=== PATIENT | female | born 2005 | race Caucasian/White ===

== ENCOUNTER 2024-08-02 19:13 | Emergency (ER) | payer OTHER, SELFPAY ==
[2024-08-02 19:21] VITALS: BP 136/85; PULSE 97; RESP 16; TEMP 36.8; O2SAT 96; BMI 24.1
[2024-08-02 19:55] LABS: Appearance Urine Slightly Cloudy (Clear); Bilirubin Urine Negative (Negative); Blood Urine 3+ (Negative); Color Urine Yellow (Yellow); Glucose Urine Negative (Negative); Ketones Urine Negative (Negative); Leukocyte Esterase Urine 1+ (Negative); Nitrite Urine Positive (Negative); Protein Urine Negative (Negative); Specific Gravity Urine 1.015 (1.000-1.030); Urobilinogen Urine 0.2 (0.2-1.0); pH Urine 5.5 (5.0-8.5)
[2024-08-02 20:00] LABS: Bacteria Urine Moderate
--- NOTE | 2024-08-02 20:11 | ED.FEMALEGU ---
HPI - Female Genitourinary General Chief complaint: Urogenital Problems, Female Stated complaint: Poss UTI-diagnosis for Strep, Bronchitis, mono Time Seen by Provider: 08/02/24 19:58 History of Present Illness HPI Narrative: Patient is a 18-year-old woman who comes in today with general malaise and urinary frequency. She has had no fevers no chills no night sweats. She states that she is a frequent suffer are of urinary tract infections. She has no blood in her urine and uses an IUD and is not . No other related symptoms such as abdominal pain or flank pain. Related Data Home Medications ?Medication ?Instructions ?Recorded ?Confirmed bupropion HCl 300 mg 24 hr tablet, 300 mg PO DAILY 10/25/23 08/02/24 extended release escitalopram oxalate 20 mg tablet 20 mg PO DAILY 10/25/23 08/02/24 Allergies Allergy/AdvReac Type Severity Reaction Status Date / Time No Known Drug Allergies Allergy Verified 08/01/24 13:37 Review of Systems Status of ROS: Reports: 10 or more systems reviewed and unremarkable except as noted in History and below [facility] Medical History Mononucleosis ?B27.90 - Infectious mononucleosis, unspecified without complication (ICD-10) Exam Narrative: Exam Narrative: EXAM GENERAL: Patient appears comfortable and well. EYES: No scleral icterus. ENT: Tympanic membranes and oropharynx normal. THYROID: no thyroid nodules or thyromegaly. LYMPH: No supraclavicular or cervical lymphadenopathy. SKIN: Visible skin seen during exam normal or with benign process only. EXT: No dependent lower extremity pedal edema. HEART: Regular rate and rhythm with no murmurs, rubs, or gallops. LUNGS: Clear to auscultation bilaterally with no crackles or wheezes. ABD: Soft, non tender, non distended. PSYCH: Good eye contact, speech is not pressured. Const: Vital Signs, click to edit/add: Vital Signs - 24 hr 08/02/24 19:21 Temperature 98.3 F Pulse Rate [Pulse Oximeter] 97 Respiratory Rate 16 Blood Pressure [Ri ght Upper Arm] 136/85 Pulse Oximetry 96 Oxygen Delivery Me thod Room Air Course Course ED Course: Patient seen and examined. UA reviewed. Vital Signs Vital signs: Initial Vital Signs Temperature 98.3 F 08/02/24 19:21 Temperature Source Temporal Artery Scan 08/02/24 19:21 Pulse Rate 97 08/02/24 19:21 Respiratory Rate 16 08/02/24 19:21 Blood Pressure 136/85 08/02/24 19:21 Blood Pressure Mean 102 08/02/24 19:21 Blood Pressure Position Sitting 08/02/24 19:21 Pulse Oximetry 96 08/02/24 19:21 Oxygen Delivery Method Room Air 08/02/24 19:21 Vital Signs Temperature 98.3 F 08/02/24 19:21 Pulse Rate 97 08/02/24 19:21 Respiratory Rate 16 08/02/24 19:21 Blood Pressure 136/85 08/02/24 19:21 Pulse Oximetry 96 08/02/24 19:21 Oxygen Delivery Method Room Air 08/02/24 19:21 Temperature 98.3 F 08/02/24 19:21 Pulse Rate 97 08/02/24 19:21 Respiratory Rate 16 08/02/24 19:21 Blood Pressure 136/85 08/02/24 19:21 Pulse Oximetry 96 08/02/24 19:21 Oxygen Delivery Method Room Air 08/02/24 19:21 MDM - Female Genitourinary MDM Narrative Medical decision making narrative: Patient is a 18-year-old woman who presents with UTI symptoms and abnormal UA. Will send her urine for culture. I did place her on Bactrim for the next 5 days plenty of rest plenty fluids. Tylenol Motrin. She has recently been diagnosed with mononucleosis and did complete a steroid pack. No other concerns are noted. Lab Data Labs: Lab Results 08/02/24 Range/Units 19:52 Urine Color Yellow (Yellow) Urine Appearance Slightly Cloudy A (Clear) Urine pH 5.5 (5.0-8.5) Ur Specific [place] 1.015 (1.000-1.030) Urine Protein Negative (Negative) Urine Glucose (UA) Negative (Negative) Urine Ketones Negative (Negative) Urine Blood 3+ A (Negative) Urine Nitrite Positive A (Negative) Urine Bilirubin Negative (Negative) Urine Urobilinogen 0.2 (0.2-1.0) Ur Leukocyte Esterase 1+ A (Negative) Urine RBC 2-5 A (0-2) Urine WBC 2-5 (0-5) Ur Squamous Epith Cells None (None-Few) Urine Bacteria Moderate A (None) Discharge Plan Discharge Clinical Impression: Urinary tract infection Patient Disposition: Home, Self-Care Condition: Stable Instructions: Urinary Tract Infection in Women (ED) Additional Instructions: Bactrim as directed Tylenol Motrin Rest Fluids. Activity Level: No Restrictions Discharge Diet: Regular Prescriptions: No Action bupropion HCl 300 mg tablet extended release 24 hr 300 mg PO DAILY escitalopram oxalate 20 mg tablet 20 mg PO DAILY Follow Up/Referrals: Provider,Not a Local [Primary Care Provider] - Stand Alone Forms: [facility] Info Instructions
== END 2024-08-02 20:25 | disposition home or self-care (01) ==
LOC: ED 20:24
PROVIDERS: Emergency Provider Internal Medicine
DX: N39.0 Urinary tract infection, site not specified (principal)
CPT/HCPCS: 81001; 87086; 87186; 99283

== ENCOUNTER 2024-08-03 15:11 | Emergency (ER) | payer OTHER, SELFPAY ==
[2024-08-03 15:19] VITALS: BP 131/84; PULSE 100; RESP 14; TEMP 36.9; O2SAT 98; BMI 24.1
--- NOTE | 2024-08-03 16:26 | ED.GENADULT ---
HPI - General Adult General Chief complaint: Unspecified Complaint, Adult Stated complaint: mono Time Seen by Provider: 08/03/24 15:55 History of Present Illness HPI narrative: This 18-year-old female comes in with her mother because of recurrent infections over the past month. 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 This was treated with an antibiotic. She then developed a cough and a mono test was obtained and this returned positive. She was seen yesterday because of dysuria symptoms and started on Bactrim for urinary tract infection. Culture results today due returned positive for E coli infection of her urine. She is otherwise in good health but is feeling affects from these infections. In particular she reports a persistent cough with fatigue. She arrives here with normal vital signs. She has had a chest x-ray done a few days ago. She has taken a few doses of prednisone without much relief in the course of these infections. She does not report any shortness of breath. 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 Related Data Home Medications ?Medication ?Instructions ?Recorded ?Confirmed bupropion HCl 300 mg 24 hr tablet, 300 mg PO DAILY 10/25/23 08/03/24 extended release escitalopram oxalate 20 mg tablet 20 mg PO DAILY 10/25/23 08/03/24 Previous Rx's ?Medication ?Instructions ?Recorded acetaminophen 300 mg-codeine 30 mg 1 tab PO Q6H PRN pain #20 tabs 08/03/24 tablet methylprednisolone 4 mg tablets in See Rx Instructions PO .COMPLEX 08/03/24 a dose pack (Medrol (Aamir)) #21 ea Allergies Allergy/AdvReac Type Severity Reaction Status Date / Time No Known Drug Allergies Allergy Verified 08/01/24 13:37 Review of Systems Status of ROS: Reports: 10 or more systems reviewed and unremarkable except as noted in History and below Narrative: Constitutional: No fevers, no weight gain or loss. Generalized fatigue. Eyes: No discharge. No vision changes. HENT: No congestion, no sore throat, no ear pain. Cardiovascular: No chest pain, no palpitations. Respiratory: No shortness of breath, no wheezes. Frequent coughing. Gastrointestinal: No abdominal pain, no vomiting, no diarrhea. Genitourinary: No dysuria, no hematuria. Musculoskeletal: Normal range of motion. Skin: No rashes, no pruritis. Neurological: No dizziness, weakness, sensory change, speech change. Endo/Heme/Allergies: No bruising or bleeding. No polydipsia. Pysch: no suicidality, no anxiety, no insomnia. All other systems reviewed and are negative. [facility] Medical History Mononucleosis ?B27.90 - Infectious mononucleosis, unspecified without complication (ICD-10) Social History Smoking Status: Never smoker How often do you have a drink containing alcohol: never How often do you have six or more drinks on one occasion: Never AUDIT-C Alcohol total score: 0 Non-prescribed substance use: denies use Exam Narrative: Exam Narrative: Constitutional: Well-developed, well-nourished, no acute distress. HEENT: Normocephalic, atraumatic. Pharyngeal erythema without exudate. No tonsillar hypertrophy. Neck: Normal range of motion. Nontender. Supple. Heart: Regular. No murmurs. Normal rate. Intact distal pulses. Lungs: Clear to auscultation. No chest discomfort. No wheezes, rhonchi, or rales. Abdomen: Normal bowel sounds. Nontender. No rebound tenderness. Genitalia: Deferred. Back: No midline tenderness. Normal range of motion. Extremities: Normal range of motion. No injury. Skin: Intact. No rash. Warm. No erythema or pallor. Neurologic: No altered sensation. No weakness. Alert and oriented. Psychiatric: No suicidality. No anxiety or depression. No insomnia. Nursing notes and vitals signs are reviewed. Const: Vital Signs, click to edit/add: Vital Signs - 24 hr 08/03/24 15:19 Temperature 98.5 F Pulse Rate [Pulse Oximeter] 100 Respiratory Rate 14 Blood Pressure [Ri ght Upper Arm] 131/84 Pulse Oximetry 98 Oxygen Delivery Me thod Room Air Course Vital Signs Vital signs: Initial Vital Signs Temperature 98.5 F 08/03/24 15:19 Temperature Source Temporal Artery Scan 08/03/24 15:19 Pulse Rate 100 08/03/24 15:19 Pulse Rhythm Regular 08/03/24 15:19 Respiratory Rate 14 08/03/24 15:19 Blood Pressure 131/84 08/03/24 15:19 Blood Pressure Mean 99 08/03/24 15:19 Blood Pressure Position Sitting 08/03/24 15:19 Pulse Oximetry 98 08/03/24 15:19 Oxygen Delivery Method Room Air 08/03/24 15:19 Vital Signs Temperature 98.5 F 08/03/24 15:19 Pulse Rate 100 08/03/24 15:19 Respiratory Rate 14 08/03/24 15:19 Blood Pressure 131/84 08/03/24 15:19 Pulse Oximetry 98 08/03/24 15:19 Oxygen Delivery Method Room Air 08/03/24 15:19 Temperature 98.5 F 08/03/24 15:19 Pulse Rate 100 08/03/24 15:19 Respiratory Rate 14 08/03/24 15:19 Blood Pressure 131/84 08/03/24 15:19 Pulse Oximetry 98 08/03/24 15:19 Oxygen Delivery Method Room Air 08/03/24 15:19 Medical Decision Making MDM Narrative Medical decision making narrative: This patient is having persistent symptoms likely mostly attributed to mononucleosis infection. Her primary symptoms are fatigue with cough and sore throat. She is currently on Bactrim for urinary tract infection. Her exam is rather normal except for some fair G ill erythema. Her mother and the patient wanted to have blood checked in case there was something else going on. Lab results returned also with reassuring findings. Her white count is in normal range. Her C-reactive protein is elevated at 5.2 but this is not atypical when having a mono infection. The patient is okay to be discharged back to her dormitory. She did receive a prescription for Medrol Dosepak and Tylenol 3. Lab Data Labs: Lab Results 08/03/24 Range/Units 16:25 WBC 9.59 (4.50-11.00) K/uL RBC 4.41 (4.00-5.20) m/uL Hgb 12.8 (12.0-16.0) gm/dL Hct 38.6 (33.0-51.0) % MCV 88 (80-100) fL MCH 29 (26-34) pg MCHC 33 (32-36) gm/dL RDW Coeff of Dean 12.4 (11.5-15.5) % Plt Count 319 (140-440) K/uL Neut % (Auto) 61.2 (42.0-72.0) % Lymph % (Auto) 27.8 (20-44) % [place] % (Auto) 5.5 (0.0-11.0) % Eos % (Auto) 4.9 (0.0-7.0) % Baso % (Auto) 0.2 (0.0-3.0) % Neut # (Auto) 5.86 (1.7-7.0) K/uL Lymph # (Auto) 2.67 (0.90-2.90) K/uL [place] # (Auto) 0.50 (0.00-0.90) K/UL Eos # (Auto) 0.47 (0.00-0.50) K/uL Baso # (Auto) 0.02 (0.00-0.30) K/uL Abs Immat Gran (auto) 0.04 (0.00-0.30) K/uL Imm/Tot Granulo (auto) 0.4 % Sodium 137 (135-149) mmol/L Potassium 3.9 (3.6-5.1) mmol/L Chloride 101 (96-114) mmol/L Carbon Dioxide 30 (20-32) mmol/L Anion Gap 6 L (7-15) mEq/L BUN 15 (5-24) mg/dL Creatinine 0.8 (0.6-1.2) mg/dL Estimated Creat Clear 101.78 Estimated GFR 109 ml/min Glucose 86 (60-115) mg/dL Calcium 9.4 (8.7-10.8) mg/dL C-Reactive Protein 5.2 H (0.5-1.0) mg/dL Discharge Plan Discharge Clinical Impression: Mononucleosis Qualifiers: Infectious mononucleosis etiology: unspecified organism Infectious mononucleosis complication: without complication Qualified Code(s): B27.90 - Infectious mononucleosis, unspecified without complication Patient Disposition: Home w/ Parent or Adult Condition: Unchanged Additional Instructions: Take medications as needed and indicated. Increase activity as tolerated. Follow up with MD return if worsening. Prescriptions: New acetaminophen-codeine 300-30 mg tablet 1 tab PO Q6H PRN (Reason: pain) Qty: 20 0RF methylprednisolone [Medrol (Aamir)] 4 mg tablets,dose pack See Rx Instructions .ROUTE .COMPLEX Qty: 21 0RF Rx Instructions: orally per package directions No Action bupropion HCl 300 mg tablet extended release 24 hr 300 mg PO DAILY escitalopram oxalate 20 mg tablet 20 mg PO DAILY Follow Up/Referrals: Provider,Not a Local [Primary Care Provider] - Stand Alone Forms: [facility] Info Instructions Procedures Ultrasound Other exam #1: Anatomical areas examined: Upper abdomen. Indications: Mononucleosis infection. Exam type: focused emergency ultrasound Description/findings: Normal anatomy. Gallbladder is without abnormality. Spleen appears normal in is perhaps slightly enlarged. Impression: Normal exam.
[2024-08-03 16:31] LABS: Basophils Absolute Auto 0.02 K/uL (0.00-0.30); Basophils Percent Auto 0.2 % (0.0-3.0); Eosinophils Absolute Auto 0.47 K/uL (0.00-0.50); Eosinophils Percent Auto 4.9 % (0.0-7.0); Hematocrit 38.6 % (33.0-51.0); Hemoglobin* 12.8 gm/dL (12.0-16.0); Immature Granulocytes Abs Auto 0.04 K/uL (0.00-0.30); Immature Granulocytes Pct Auto 0.4 %; Lymphocytes Absolute Auto 2.67 K/uL (0.90-2.90); Lymphocytes Percent Auto 27.8 % (20-44); Mean Corpuscular HGB Conc 33 gm/dL (32-36); Mean Corpuscular Hemoglobin 29 pg (26-34); Mean Corpuscular Volume 88 fL (80-100); Monocytes Percent Auto 5.5 % (0.0-11.0); Neutrophils Absolute Auto 5.86 K/uL (1.7-7.0); Neutrophils Percent Auto 61.2 % (42.0-72.0); Platelet Count* 319 K/uL (140-440); RDW Coefficient of Variation % 12.4 % (11.5-15.5); Red Blood Count 4.41 m/uL (4.00-5.20); White Blood Count* 9.59 K/uL (4.50-11.00)
[2024-08-03 16:34] LABS: Slide Review Reflex No
[2024-08-03 16:49] LABS: Chloride* 101 mmol/L (96-114); Sodium* 137 mmol/L (135-149)
[2024-08-03 16:50] LABS: Potassium* 3.9 mmol/L (3.6-5.1)
[2024-08-03 16:52] LABS: Creatinine* 0.8 mg/dL (0.6-1.2); Est. Creatinine Clearance* 101.78; Estimated Glomerular Filt Rate 109 ml/min
[2024-08-03 16:53] LABS: Anion Gap 6 mEq/L (7-15); Blood Urea Nitrogen* 15 mg/dL (5-24); Calcium* 9.4 mg/dL (8.7-10.8); Carbon Dioxide* 30 mmol/L (20-32); Glucose* 86 mg/dL (60-115)
[2024-08-03 16:56] LABS: C Reactive Protein* 5.2 mg/dL (0.5-1.0)
[2024-08-03 17:28] VITALS: BP 134/72; PULSE 85; RESP 16; O2SAT 97
[2024-08-03 18:30] LABS: Erythrocyte SedimentationRate* 18 mm/hr (2-20)
== END 2024-08-03 17:34 | disposition home or self-care (01) ==
PROVIDERS: Emergency Provider Emergency Medicine Emergency Medical Services
DX: B27.90 Infectious mononucleosis, unspecified without complication (principal)
CPT/HCPCS: 36415; 76705; 80048; 85025; 85651; 86140; 99283; 99284

== ENCOUNTER 2024-09-05 21:31 | Inpatient (IN) | payer OTHER, SELFPAY ==
[2024-09-05 21:45] VITALS: BP 128/85; PULSE 85; RESP 16; TEMP 36.8; O2SAT 97; BMI 25.0
--- NOTE | 2024-09-05 21:54 | ED.GENADULT ---
HPI - General Adult General Chief complaint: Sore Throat Stated complaint: poss abscess tonsils Time Seen by Provider: 09/05/24 21:53 History of Present Illness HPI narrative: Patient c/o worsening right throat pain since June. Patient had mono, strep and bronchitis. Patient states she is worried about an abscess. Patient is unsure of fevers. Patient states she was just tested for strep. 18-year-old young woman presenting to the emergency department with concern of worsening throat pain. Feels pain radiating from the upper right side throat up into her right ear. Diagnosed with mono 1 month ago. But sore throat actually began end of June. Ultimately than diagnosed with mono. She is here with deep right-sided throat area pain. Definitely hurts to swallow. It was tested again for strep. She has had 3 rounds of steroids and says that it has not made a difference. Does not describe any fevers. No rashes noted. Is requesting CT imaging. Related Data Home Medications ?Medication ?Instructions ?Recorded ?Confirmed bupropion HCl 300 mg 24 hr tablet, 300 mg PO DAILY 10/25/23 08/03/24 extended release escitalopram oxalate 20 mg tablet 20 mg PO DAILY 10/25/23 08/03/24 Previous Rx's ?Medication ?Instructions ?Recorded acetaminophen 300 mg-codeine 30 mg 1 tab PO Q6H PRN pain #20 tabs 08/03/24 tablet methylprednisolone 4 mg tablets in See Rx Instructions PO .COMPLEX 08/03/24 a dose pack (Medrol (Aamir)) #21 ea Allergies Allergy/AdvReac Type Severity Reaction Status Date / Time No Known Drug Allergies Allergy Verified 08/01/24 13:37 Review of Systems Status of ROS: Reports: 6 or more systems reviewed and unremarkable except as noted in History and below [facility] Medical History Mononucleosis ?B27.90 - Infectious mononucleosis, unspecified without complication (ICD-10) Social History Smoking Status: Never smoker Second hand tobacco smoke exposure: No How often do you have a drink containing alcohol: never How often do you have six or more drinks on one occasion: Never AUDIT-C Alcohol total score: 0 Non-prescribed substance use: denies use service: No Exam Narrative: Exam Narrative: Looks generally uncomfortable. Somewhat downcast. Breathing easily. No stridor. Lungs appear clear. Heart in regular rate and rhythm. Neck is supple without lymphadenopathy. Deep palpation underneath the angle of the right jaw reveals area of tenderness. Feels symmetrical to the left. Oropharynx is unremarkable other than maybe little posterior or pharyngeal irritation/cobblestoning. Dentition looks to be in good repair. TMs bilaterally are clear. I do not see any external swelling on the face. Const: Vital Signs, click to edit/add: Vital Signs - 24 hr 09/05/24 21:45 09/05/24 22:09 Temperature 98.2 F 98.2 F Pulse Rate [Right Pulse Oximeter] 85 Respiratory Rate 16 Blood Pressure [Le ft Upper Arm] 128/85 Pulse Oximetry 97 Oxygen Delivery Me thod Room Air Documenting provider has reviewed patient's vital signs: yes Course Vital Signs Vital signs: Initial Vital Signs Temperature 98.2 F 09/05/24 21:45 Temperature Source Temporal Artery Scan 09/05/24 21:45 Pulse Rate 85 09/05/24 21:45 Pulse Rhythm Regular 09/05/24 21:45 Respiratory Rate 16 09/05/24 21:45 Blood Pressure 128/85 09/05/24 21:45 Blood Pressure Mean 99 09/05/24 21:45 Blood Pressure Position Sitting 09/05/24 21:45 Pulse Oximetry 97 09/05/24 21:45 Oxygen Delivery Method Room Air 09/05/24 21:45 Vital Signs Temperature 98.2 F 09/05/24 21:45 Pulse Rate 85 09/05/24 21:45 Respiratory Rate 16 09/05/24 21:45 Blood Pressure 128/85 09/05/24 21:45 Pulse Oximetry 97 09/05/24 21:45 Oxygen Delivery Method Room Air 09/05/24 21:45 Temperature 98.2 F 09/05/24 22:09 Pulse Rate 85 09/05/24 21:45 Respiratory Rate 16 09/05/24 21:45 Blood Pressure 128/85 09/05/24 21:45 Pulse Oximetry 97 09/05/24 21:45 Oxygen Delivery Method Room Air 09/05/24 21:45 Medications Administered Medications: Generic Name Dose Route Start Last Admin Trade Name Freq PRN Reason Stop Dose Admin Sodium Chloride 500 mls @ 1,000 mls/hr 09/05/24 22:02 09/05/24 22:11 0.9 % Sodium Chloride 500 Ml IV 09/05/24 22:31 1,000 mls/hr .Q30M ONE Administration Ketorolac Tromethamine 30 mg 09/05/24 22:02 09/05/24 22:09 Ketorolac 30 Mg/Ml Inj IVP 09/05/24 22:03 30 mg ONCE ONE Administration Medical Decision Making MDM Narrative Medical decision making narrative: Considering persistence of pain I suppose it is possible there is something more going on. She has also had 3 rounds of steroids as she reports with essentially no results. I do not think CT imaging is unreasonable now with prolonged pain like this. The look for abscess or other anomaly. Does not appear to be dental. No otitis media or externa evident. Will be initiating IV fluids, ketorolac and contrasted CT scan of soft tissue neck. Medical Records Medical records reviewed: Yes I reviewed the patient's medical records Discharge Plan Discharge Prescriptions: No Action bupropion HCl 300 mg tablet extended release 24 hr 300 mg PO DAILY escitalopram oxalate 20 mg tablet 20 mg PO DAILY acetaminophen-codeine 300-30 mg tablet 1 tab PO Q6H PRN (Reason: pain) Qty: 20 0RF methylprednisolone [Medrol (Aamir)] 4 mg tablets,dose pack See Rx Instructions .ROUTE .COMPLEX Qty: 21 0RF Rx Instructions: orally per package directions Follow Up/Referrals: Provider,Not a Local [Primary Care Provider] -
[2024-09-05 22:00] VITALS: O2SAT 98
--- NOTE | 2024-09-05 22:07 | CRLHL7_ITS ---
For Patients: As a result of the Cures Act, medical imaging exams and procedure reports are released immediately into your electronic medical record. You may view this report before your referring provider. If you have questions, please contact your health care provider. INDICATION: Right sided neck pain, Right-sided neck pain TECHNIQUE: CT Neck with i.v. contrast. Coronal and sagittal reformats were obtained. CONTRAST: 74 mL Isovue 370 COMPARISON: None FINDINGS: Skull base: Unremarkable. Portions of the oral cavity and mandible are obscured by streak artifacts from the patient`s dental amalgams. Pharynx: Mild asymmetry with effacement of the right vallecula is noted. No CT evidence of tonsillar or peritonsillar abscess seen. The epiglottis is normal in appearance. Larynx and airway: Unremarkable. Salivary: Unremarkable. Thyroid: Unremarkable. Vascular: Unremarkable for age. Lymph: Mild bilateral jugular adenopathy seen with the largest right lymph node measuring 1 cm in the largest on the left measuring 1.3 cm. Bone: No acute fractures or aggressive bone lesions are identified. Disc: The disc spaces are unremarkable in appearance. The facet joints are unremarkable. Soft tissue: The prevertebral soft tissues are unremarkable in appearance. Lung: The visualized lung apices and mediastinum are unremarkable. IMPRESSIONS: 1. Mild bilateral jugular adenopathy seen with the largest right lymph node measuring 1 cm in the largest on the left measuring 1.3 cm. 2. Mild asymmetry with effacement of the right vallecula is noted. Correlation with direct visualization is recommended Dictated by Evangelist Wills MD @ 09/05/2024 11:06:02 PM Please note that all CT scans at this facility use dose modulation, iterative reconstruction, and/or weight-based dosing when appropriate to reduce radiation dose to as low as reasonably achievable. Dictated by: Evangelist Wills MD @ 09/05/2024 23:06:18 (Electronically Signed)
[2024-09-05 22:09] VITALS: TEMP 36.8
[2024-09-05] MEDS: KETOROLAC 30 MG/ML inj IVP (22:09)
[2024-09-05] MEDS: 0.9 % SODIUM CHLORIDE 500 ML 500 ML 1000 ML IV (22:11)
[2024-09-05 22:22] LABS: Basophils Percent Auto 0.3 % (0.0-3.0); Eosinophils Percent Auto 3.1 % (0.0-7.0); Hematocrit 37.4 % (33.0-51.0); Hemoglobin* 12.8 gm/dL (12.0-16.0); Immature Granulocytes Pct Auto 0.2 %; Lymphocytes Percent Auto 29.2 % (20-44); Mean Corpuscular HGB Conc 34 gm/dL (32-36); Mean Corpuscular Hemoglobin 30 pg (26-34); Mean Corpuscular Volume 86 fL (80-100); Monocytes Percent Auto 7.5 % (0.0-11.0); Neutrophils Percent Auto 59.7 % (42.0-72.0); Platelet Count* 308 K/uL (140-440); RDW Coefficient of Variation % 12.5 % (11.5-15.5); Red Blood Count 4.34 m/uL (4.00-5.20); White Blood Count* 11.14 K/uL (4.50-11.00)
[2024-09-05 22:31] LABS: Slide Review Reflex No
[2024-09-05 23:02] LABS: C Reactive Protein* < 0.5 mg/dL (0.5-1.0)
[2024-09-06] VITALS (10 sets, daily range): BP systolic 100–132; BP diastolic 53–80; PULSE 71–102; RESP 16–20; TEMP 36.2–36.8; O2SAT 94–98; BMI 27.2
[2024-09-06] MEDS: AMPICILLIN/SULBACTAM 3 GM in 0.9 % SODIUM CHLORIDE Mini-bag 100 ML IVPB ×4 (00:08→20:08)
[2024-09-06] MEDS: dexAMETHasone 10 MG/ML inj IVP (00:08)
--- NOTE | 2024-09-06 02:42 | W.PM.TELEH&P ---
Telehealth- H&P: HPI History of Present Illness Date Seen: 09/06/24 Chief complaint: poss abscess tonsils Narrative: Sandra Valentin is seen as an Interactive Telehealth visit. Sandra Valentin is a 18-year-old female who presents to hospital with severe throat pain. Patient's symptoms have started since June 2024. When she arrived to college she developed sore throat. She was diagnosed with strep. She was prescribed antibiotics, penicillin and she completed it. She continued to have some symptoms and then presented back to her provider where she was diagnosed with mononucleosis. Since being diagnosed with mononucleosis, she has developed fatigue and night sweats as well as throat swelling. She has noticed that her snoring is worse at night. Earlier today, she presented to the hospital due to severe throat pain. Patient underwent CT scan of the head and neck. Patient soft tissue CT showed mild jugular adenopathy with lymph nodes measuring 1 to 1.3 cm. There is also mild asymmetry with effacement of the right vallecula consistent with epiglottitis. The case is was discussed with the ER physician and multiple ER providers in different hospitals including [facility]. They recommended, antibiotics and steroids and observation. Review of Systems Status of ROS: Reports: 10 or more systems reviewed and unremarkable except as noted in History and below Const: Reports: chills, fatigue, night sweats and other (excessive snoring); Denies: fever or change in weight Eyes: Denies: change in vision or blurry vision ENMT: Reports: throat pain and throat swelling; Denies: difficulty swallowing, hoarseness, mouth pain, dry mouth or vertigo Cardio: Denies: chest pain or shortness of breath with exertion Resp: Denies: shortness of breath GI: Denies: abdominal pain or difficulty swallowing Musculo: Reports: back pain Neuro: Denies: headache, vertigo or confusion Endo: Reports: fatigue Cristian/Lymph: Reports: enlarged lymph nodes; Denies: easy bruising Allergy/Immuno: Reports: throat swelling PFSH [facility] Medical History Mononucleosis ?B27.90 - Infectious mononucleosis, unspecified without complication (ICD-10) Social History Smoking Status: Never smoker Second hand tobacco smoke exposure: No How often do you have a drink containing alcohol: never How often do you have six or more drinks on one occasion: Never AUDIT-C Alcohol total score: 0 Non-prescribed substance use: denies use service: No Meds Home Medications and Allergies Home Medications ?Medication ?Instructions ?Recorded ?Confirmed ?Type bupropion HCl 300 mg 24 hr tablet, 300 mg PO DAILY 10/25/23 08/03/24 History extended release escitalopram oxalate 20 mg tablet 20 mg PO DAILY 10/25/23 08/03/24 History Allergies Allergy/AdvReac Type Severity Reaction Status Date / Time No Known Drug Allergies Allergy Verified 08/01/24 13:37 Exam Narrative Exam Narrative: Physical Exam GENERAL: ?vital signs reviewed, well developed and nourished, in no distress HEENT: pupils are equal round and reactive to light, extraocular movements are grossly within normal limits and oral mucosa is moist. NECK: Supple with positive lymph nodes, right side tender to palpation according to nursing staff examination observation HEART: Regular rate and rhythm without any rubs, murmurs, or gallops. LUNGS: Clear to auscultation bilaterally with good air movement throughout SKIN:? Observed warm and dry with color normal Const Vital Signs, click to edit/add: Vital Signs - 24 hr 09/05/24 21:45 09/05/24 22:00 09/05/24 22:09 Temperature 98.2 F 98.2 F Pulse Rate [Right Pulse Oximeter] 85 Respiratory Rate 16 Blood Pressure [Left Upper Arm] 128/85 Pulse Oximetry 97 98 Oxygen Delivery Method Room Air 09/06/24 00:11 09/06/24 00:17 09/06/24 01:40 Temperature 98.2 F 98.2 F 98.2 F Pulse Rate [Right Pulse Oximeter] 79 81 Respiratory Rate 16 16 Blood Pressure [Left Upper Arm] 122/74 122/78 Pulse Oximetry 98 98 Oxygen Delivery Method Room Air Room Air 09/06/24 01:52 Temperature 98.2 F Pulse Rate [Right Pulse Oximeter] 81 Respiratory Rate 16 Blood Pressure [Left Upper Arm] 122/78 Pulse Oximetry Oxygen Delivery Method Hospitalist - H&P: Result Labs Labs: Short CBC 09/05/24 Range/Units 22:12 WBC 11.14 H (4.50-11.00) K/uL Hgb 12.8 (12.0-16.0) gm/dL Hct 37.4 (33.0-51.0) % Plt Count 308 (140-440) K/uL Assessment and Plan Assessment and plan (1) Epiglottitis: Status: Acute Plan This patient appears to have severe sore throat. CT evidence shows effacement of the vallecula. Effacement of the vallecula is a radiological sign seen on lateral imaging suggestive of epiglottitis which is a infection of the supraglottic tissues. The risk is that this can cause airway obstruction. Most common causes of epiglottitis is haemophilus influenza or and or viral infection such as influenza. Therefore I will order a culture of the throat as well as screening influenza testing. Per recommendation of [facility], patient started on Unasyn and dexamethasone. Patient was given 10 mg IV dexamethasone push. Will continue this with 4 mg 4 times daily. Will have pain medication provided. Will have her on a clear liquid diet and advance as tolerated. Telehealth Visit Today's History and Physical is provided via interactive telehealth by Dr. Romario Neil MD. Patient is located at [facility]. Provider is located at [facility]. Nursing staff assisted with the patient's examination. The visit being done today meets criteria for a telehealth visit and the patient or patient's parent and/or gaurdian is aware the visit is a telehealth visit. Camera Start Time 2:00 AM Camera End Time 2:30 AM Telehealth: Statement Statement Telehealth Visit: Today's History and Physical is provided via interactive telehealth by Romario Neil MD.? Patient is located at [facility].? Provider is located at [facility].? Nursing staff assisted with the patient's exam. The visit being done today meets criteria for a telehealth visit and the patient or patient?s parent/guardian is aware the visit is a telehealth visit.
[2024-09-06 03:20] LABS: Influenza Type A Negative (Negative); Influenza Type B Negative (Negative)
[2024-09-06] MEDS: SODIUM CHLORIDE 0.9 % (FLUSH) 10 ML SYRINGE 5 ML IVF ×3 (06:27→22:00)
--- NOTE | 2024-09-06 07:47 | PC.NURSE ---
Pt admitted to floor around 0140. Pt is alert and oriented x3. Afebrile. Pt reports 4/10 pain in throat, pain medications offered pt refused. Pt is up ind in room, voiding and tolerating a clear liquid diet.
[2024-09-06] MEDS: buPROPion XL 150 MG TABLET 300 MG PO (08:44)
[2024-09-06] MEDS: ESCITALOPRAM 10 MG TABLET 20 MG PO (08:44)
[2024-09-06] MEDS: dexAMETHasone 4 MG/ML VIAL IV ×4 (08:44→20:45)
--- NOTE | 2024-09-06 10:18 | P.IMPN_ITS ---
Progress Note: A&P Assessment and plan (1) Pharyngitis: Problem details: Throat pain without evidence of tonsillar/peritonsillar abscess, without evidence of acute epiglottitis. Larynx and airway are unremarkable CT soft tissue neck shows mild asymmetry with effacement of the right vallecula Afebrile. Mild leukocytosis, recheck in a.m.. CRP <0.5. Influenza negative. Throat culture pending Given risk for development of epiglottitis, started on IV antibiotics and IV steroids Continue Unasyn q.6 hours, dexamethasone q.i.d. Pain and nausea management as needed Advance diet to full liquids as tolerated Discussed with Dr. Arreola, agrees with course of care. Will see her on 09/07/24 for further management recommendations Status: Acute (2) Adenopathy: Problem details: CT shows mild bilateral jugular adenopathy seen with the largest right lymph node measuring 1 cm in the largest on the left measuring 1.3 cm Status: Acute Plan Continue IV antibiotics and IV steroids, transitioning to oral when appropriate. ENT assessment 09/07/2024. Patient hopeful to discharge Tuesday morning to attend classes Tuesday afternoon. Time Spent With Patient Total time spent: Total time spent caring for the patient today was 45 minutes. This includes time spent for the visit reviewing the chart, time spent during the visit, time spent after the visit and documentation and planning in coordination of care. Subjective Date Seen: 09/06/24 Interval history: Patient is seen with aunt at bedside. Reports feeling better. Pain has improved. Swelling feels improved. Tolerating clears. Would like to advance her diet. C/o mild headache. No dizziness. Denies n/v. Has remained afebrile. No events reported overnight. Exam Narrative: Exam Narrative: PHYSICAL EXAM General: Pleasant, conversant, NAD HEENT: Normocephalic, atraumatic, sclera white, EOMI, oral mucosa moist, no appreciable swelling of the soft palate, peritonsillar region, minimal erythema, mild cervical adenopathy Cardiovascular: RRR, S1S2. No pitting edema Pulmonary: CTA bilaterally without rhonchi, rales, expiratory wheezes. No dyspnea Neurological: Alert, answering questions appropriately, cranial nerves intact, no focal findings Extremities: No gross joint deformity or swelling. AROMI. Neurovascularly intact Skin: Warm, dry. Const: Vital Signs, click to edit/add: Vital Signs - 24 hr 09/05/24 21:45 09/05/24 22:00 09/05/24 22:09 Temperature 98.2 F 98.2 F Pulse Rate [Right Pulse Oximeter] 85 Pulse Rate [Right Radial] Respiratory Rate 16 Blood Pressure [Le ft Upper Arm] 128/85 Blood Pressure [Ri ght Arm] Pulse Oximetry 97 98 Oxygen Delivery Me thod Room Air 09/06/24 00:11 09/06/24 00:17 09/06/24 01:40 Temperature 98.2 F 98.2 F 98.2 F Pulse Rate [Right Pulse Oximeter] 79 81 Pulse Rate [Right Radial] Respiratory Rate 16 16 Blood Pressure [Le ft Upper Arm] 122/74 122/78 Blood Pressure [Ri ght Arm] Pulse Oximetry 98 98 Oxygen Delivery Me thod Room Air Room Air 09/06/24 01:52 09/06/24 03:02 09/06/24 03:02 Temperature 98.2 F 97.3 F L Pulse Rate [Right Pulse Oximeter] 81 Pulse Rate [Right Radial] Respiratory Rate 16 16 16 Blood Pressure [Le ft Upper Arm] 122/78 Blood Pressure [Ri ght Arm] 125/74 Pulse Oximetry 98 98 Oxygen Delivery Me thod Room Air Room Air 09/06/24 08:38 Temperature 97.1 F L Pulse Rate [Right Pulse Oximeter] Pulse Rate [Right Radial] 71 Respiratory Rate 16 Blood Pressure [Le ft Upper Arm] Blood Pressure [Ri ght Arm] 100/59 L Pulse Oximetry 95 Oxygen Delivery Me thod Room Air Labs Labs: Laboratory Results - last 24 hr 09/05/24 09/06/24 22:12 02:35 WBC 11.14 H RBC 4.34 Hgb 12.8 Hct 37.4 MCV 86 MCH 30 MCHC 34 RDW Coeff of Dean 12.5 Plt Count 308 Neut % (Auto) 59.7 Lymph % (Auto) 29.2 [place] % (Auto) 7.5 Eos % (Auto) 3.1 Baso % (Auto) 0.3 Neut # (Auto) 6.70 Lymph # (Auto) 3.30 H [place] # (Auto) 0.80 Eos # (Auto) 0.30 Baso # (Auto) 0.00 Abs Immat Gran (auto) 0.00 Imm/Tot Granulo (auto) 0.2 C-Reactive Protein < 0.5 L Influenza Type A Ag Negative Influenza Type B Ag Negative
--- NOTE | 2024-09-06 22:02 | PC.NURSE ---
Pt VSS. A&O. Amb Ind. Tolerated a regular diet at dinner. Rates throat pain between 2-3/. Manufacturing Technology Analyst called to patients room around 0 as patient was vomiting, dry heaving, c/o feeling hot, faint and dizzy. Pt stated that they had a coughing attack and began vomiting from coughing so hard. Pt states that they have these coughing spells nearly everyday since they were sick with bronchitis this summer. BP was 132/81 HR 102 and O2 sat 94%. Manufacturing Technology Analyst applied cool washcloths to pt's forehead and back of neck. Pt also stated that during a doctor's visit they suspected they may have POTS, which causes increase in HR and dizziness. Updated Dr. Banks. Dr. Banks ordered some hydroxizine 20mg per pt request to help relax and sleep restfully.
[2024-09-06] MEDS: hydrOXYzine pamoate 25 MG CAPSULE PO (22:17)
[2024-09-07] MEDS: AMPICILLIN/SULBACTAM 3 GM in 0.9 % SODIUM CHLORIDE Mini-bag 100 ML IVPB ×2 (00:18→06:12)
[2024-09-07] MEDS: SODIUM CHLORIDE 0.9 % (FLUSH) 10 ML SYRINGE 5 ML IVF ×2 (00:19→09:01)
[2024-09-07 04:10] VITALS: BP 104/45; PULSE 65; RESP 16; TEMP 36.7; O2SAT 97
--- NOTE | 2024-09-07 06:25 | PC.NURSE ---
Pt alert and oriented x3. Afebrile. Pt reports 3/10 pain in throat, pain medications offered pt refused. Pt denies SOB, pt?is up IND, voiding, and tolerating a soft regular diet. Pt slept throughout most of night. ?
[2024-09-07 06:40] LABS: Hematocrit 37.4 % (33.0-51.0); Hemoglobin* 12.5 gm/dL (12.0-16.0); Mean Corpuscular HGB Conc 33 gm/dL (32-36); Mean Corpuscular Hemoglobin 29 pg (26-34); Mean Corpuscular Volume 87 fL (80-100); Platelet Count* 297 K/uL (140-440); White Blood Count* 17.16 K/uL (4.50-11.00)
[2024-09-07 07:06] LABS: Slide Review Reflex No
[2024-09-07 07:25] LABS: Chloride* 102 mmol/L (96-114); Potassium* 3.7 mmol/L (3.6-5.1); Sodium* 136 mmol/L (135-149)
[2024-09-07 07:27] LABS: Creatinine* 0.6 mg/dL (0.6-1.2); Estimated Glomerular Filt Rate 133 ml/min
[2024-09-07 07:28] LABS: Anion Gap 10 mEq/L (7-15); Blood Urea Nitrogen* 12 mg/dL (5-24); Calcium* 9.4 mg/dL (8.7-10.8); Carbon Dioxide* 24 mmol/L (20-32); Glucose* 124 mg/dL (60-115)
[2024-09-07 08:18] VITALS: BP 103/48; PULSE 62; RESP 14; TEMP 36.9; O2SAT 92
[2024-09-07] MEDS: buPROPion XL 150 MG TABLET PO (09:01)
[2024-09-07] MEDS: dexAMETHasone 4 MG/ML VIAL IV (09:01)
[2024-09-07] MEDS: ESCITALOPRAM 10 MG TABLET 20 MG PO (09:01)
--- NOTE | 2024-09-07 10:16 | PM.DS1 ---
DS: Providers Provider Time Seen by Provider: 10:16 Date Seen: 09/07/24 Date of admission: 09/06/24 09:52 Primary care physician: Not a Local Provider Admitting Clinician: Romario Neil MD Consults: 09/06/24 08:15 Consult to Physician [CONS] Routine Comment: Consulting Provider: Jeff Arreola Has provider been notified: No Attending Physician on discharge: Bethany Raya MD Date of Discharge: 09/07/24 DS: Diagnosis Discharge Diagnosis (1) Pharyngitis: Status: Acute Problem details: Throat pain without evidence of tonsillar/peritonsillar abscess, without evidence of acute epiglottitis. Larynx and airway are unremarkable CT soft tissue neck shows mild asymmetry with effacement of the right vallecula Afebrile. Mild leukocytosis, recheck in a.m.. CRP <0.5. Influenza negative. Throat culture pending Given risk for development of epiglottitis, started on IV antibiotics and IV steroids Continue Unasyn q.6 hours, dexamethasone q.i.d. Pain and nausea management as needed Advance diet to full liquids as tolerated Discussed with Dr. Arreola, agrees with course of care. Will see her on 09/07/24 for further management recommendations - 09/07 Patient's symptoms much improved. No SOB. Tolerating adequate PO intake. Discussed with Dr. Arreola. Per his recommendations: Discharging home with 1 week of Augmentin (with 1 refill to be taken if has not yet had outpatient tonsillectomy). ENT nurse will call patient Tuesday to set up appointment for that week and tonsillectomy (patient may instead choose to get this done in [place] where she lives). (2) Mononucleosis: Status: Acute Problem details: - Positive mono test 08/01/24 - Patient is already over 4 weeks out from positive mononucleosis test, so I do not think she needs restriction from activity or sports at this time. (3) Epiglottitis: Status: Acute (4) Adenopathy: Status: Acute Problem details: CT shows mild bilateral jugular adenopathy seen with the largest right lymph node measuring 1 cm in the largest on the left measuring 1.3 cm DS: Summary Hospital Course Hospital Course: Per H&P: Sandra Valentin is seen as an Interactive Telehealth visit. Sandra Valentin is a 18-year-old female who presents to hospital with severe throat pain. Patient's symptoms have started since June 2024. When she arrived to college she developed sore throat. She was diagnosed with strep. She was prescribed antibiotics, penicillin and she completed it. She continued to have some symptoms and then presented back to her provider where she was diagnosed with mononucleosis. Since being diagnosed with mononucleosis, she has developed fatigue and night sweats as well as throat swelling. She has noticed that her snoring is worse at night. Earlier today, she presented to the hospital due to severe throat pain. Patient underwent CT scan of the head and neck. Patient soft tissue CT showed mild jugular adenopathy with lymph nodes measuring 1 to 1.3 cm. There is also mild asymmetry with effacement of the right vallecula consistent with epiglottitis. The case is was discussed with the ER physician and multiple ER providers in different hospitals including [facility]. They recommended, antibiotics and steroids and observation. Symptoms improving. Dr. Arreola saw patient today, recommendations as above. Discharging home with outpatient f/u as above in diagnoses. Time Spent with Patient Time attestation: Total time spent providing and/or coordinating discharge services: Exam Narrative: Exam Narrative: General: No acute distress. Awake, alert, oriented. No pallor. No jaundice. Oropharynx: Mallampati 1. Tonsils 2+, mildly erythematous, no exudate. Mild cervical lymphadenopathy. Mucous membranes moist. Cardiovascular: Regular rate and rhythm. No murmurs, gallops, or rubs. Respiratory: Clear to auscultation bilaterally. No wheezes or crackles. Abdomen: Bowel sounds present. Soft, nondistended, nontender. No splenomegaly. Extremities: No pedal edema. Const: Vital Signs, click to edit/add: Vital Signs - 24 hr 09/06/24 12:54 09/06/24 15:00 09/06/24 15:00 Temperature 97.7 F 98.2 F Pulse Rate [Right Radial] 89 88 88 Respiratory Rate 16 16 16 Blood Pressure [Le ft Arm] Blood Pressure [Ri ght Arm] 120/53 L 124/78 Pulse Oximetry 96 97 Oxygen Delivery Me thod Room Air Room Air 09/06/24 21:45 09/06/24 23:30 09/06/24 23:30 Temperature 98.1 F Pulse Rate [Right Radial] 102 H 74 Respiratory Rate 20 16 16 Blood Pressure [Le ft Arm] Blood Pressure [Ri ght Arm] 132/80 123/66 Pulse Oximetry 94 96 Oxygen Delivery Me thod Room Air Room Air 09/07/24 04:10 09/07/24 08:18 Temperature 98.1 F 98.4 F Pulse Rate [Right Radial] 65 62 Respiratory Rate 16 14 Blood Pressure [Le ft Arm] 104/45 L Blood Pressure [Ri ght Arm] 103/48 L Pulse Oximetry 97 92 Oxygen Delivery Me thod Room Air Room Air DS: Data Data Completed and Pending Completed studies during hospitalization: Ordering Physician: Greg Burns M.D. Date of Service: 09/05/24 Procedure(s): CT soft tissue neck w con Accession Number(s): [id number] cc: Provider,Not a Local; Greg Burns M.D.~ For Patients: As a result of the Cures Act, medical imaging exams and procedure reports are released immediately into your electronic medical record. You may view this report before your referring provider. If you have questions, please contact your health care provider. INDICATION: Right sided neck pain, Right-sided neck pain TECHNIQUE: CT Neck with i.v. contrast. Coronal and sagittal reformats were obtained. CONTRAST: 74 mL Isovue 370 COMPARISON: None FINDINGS: Skull base: Unremarkable. Portions of the oral cavity and mandible are obscured by streak artifacts from the patient`s dental amalgams. Pharynx: Mild asymmetry with effacement of the right vallecula is noted. No CT evidence of tonsillar or peritonsillar abscess seen. The epiglottis is normal in appearance. Larynx and airway: Unremarkable. Salivary: Unremarkable. Thyroid: Unremarkable. Vascular: Unremarkable for age. Lymph: Mild bilateral jugular adenopathy seen with the largest right lymph node measuring 1 cm in the largest on the left measuring 1.3 cm. Bone: No acute fractures or aggressive bone lesions are identified. Disc: The disc spaces are unremarkable in appearance. The facet joints are unremarkable. Soft tissue: The prevertebral soft tissues are unremarkable in appearance. Lung: The visualized lung apices and mediastinum are unremarkable. IMPRESSIONS: 1. Mild bilateral jugular adenopathy seen with the largest right lymph node measuring 1 cm in the largest on the left measuring 1.3 cm. 2. Mild asymmetry with effacement of the right vallecula is noted. Correlation with direct visualization is recommended Dictated by Evangelist Wills MD @ 09/05/2024 11:06:02 PM Please note that all CT scans at this facility use dose modulation, iterative reconstruction, and/or weight-based dosing when appropriate to reduce radiation dose to as low as reasonably achievable. Dictated by: Evangelist Wills MD @ 09/05/2024 23:06:18 (Electronically Signed) Labs on day of discharge: Labs from last 24 hours 09/07/24 06:11 WBC 17.16 H RBC 4.30 Hgb 12.5 Hct 37.4 MCV 87 MCH 29 MCHC 33 Plt Count 297 Sodium 136 Potassium 3.7 Chloride 102 Carbon Dioxide 24 Anion Gap 10 BUN 12 Creatinine 0.6 Estimated Creat Clear 135.70 Estimated GFR 133 Glucose 124 H Calcium 9.4 Preliminary micro results at discharge 09/06/24 02:35 Throat Culture - Preliminary Throat Culture in Progress Discharge Plan Discharge Disposition: Home, Self-Care Date of Admission: 09/06/24 09:52 Attending Provider on Discharge: Bethany Raya Consulting Providers: Jeff Arreola Discharge Medications: New amoxicillin-pot clavulanate 875-125 mg tablet 1 tab PO BID 7 Days Qty: 14 1RF Continued escitalopram oxalate 20 mg tablet 20 mg PO DAILY clindamycin phosphate 1 % lotion 1 applic topical DAILY bupropion HCl 150 mg tablet extended release 24 hr 150 mg PO DAILY fluticasone propionate 110 mcg/actuation HFA aerosol inhaler 1 puff inhalation .PRN Rx Instructions: FOR EXERCISE INDUCED ASTHMA levalbuterol tartrate 45 mcg/actuation HFA aerosol inhaler 1 inh inhalation .PRN Rx Instructions: FOR EXERCISE INDUCED ASTHMA tretinoin 0.025 % cream 1 applic topical HS Discharge Orders: Discharge Order (Routine); Ordered 09/07/24 Ordered By: Bethany Raya Patient Education: Amoxicillin (By mouth) Additional Instructions: Dr. Arreola's nurse will call next Tuesday to set up an appointment for next week and to schedule tonsillectomy. Take 1 week augmentin as prescribed. If you have not had a tonsillectomy yet, refill the prescription for augmentin and start taking that as prescribed. Activity Level: No Restrictions Discharge Diet: Regular Follow Up Appointments: Provider,Not a Local [Primary Care Provider] - Forms: [employer] Info Instructions
--- NOTE | 2024-09-07 11:27 | PC.NURSE ---
Discharge: Patient pleasant and cooperative. Up independently, denied pain or nausea. Vitals stable, BP soft however patient sleeping on side while getting vitals this AM. When up to bathroom denied lightheadedness. Seen by prior to discharge. Reviewed discharge instructions with patient and mother, IV removed. Discharged @ 8167.
== END 2024-09-07 10:48 | disposition home or self-care (01) | DRG 153 ==
LOC: ED 09-06 01:16 → MEDSURG 09-06 01:47
PROVIDERS: Physician Assistant; Admitting Provider Student in an Organized Health Care Education/Training Program; Emergency Provider Family Medicine; Visit Provider Student in an Organized Health Care Education/Training Program
DX: J02.9 Acute pharyngitis, unspecified (principal); R59.0 Localized enlarged lymph nodes; B27.90 Infectious mononucleosis, unspecified without complication
CPT/HCPCS: 36415; 70491; 80048; 85025; 85027; 86140; 87070; 87804; 94761; 99284; 99285; A9270; G0378; J0295; J1100; J1885; J7030; Q9967

== ENCOUNTER 2024-09-29 18:44 | Emergency (ER) | payer OTHER, SELFPAY ==
[2024-09-29 18:49] VITALS: BP 122/81; PULSE 91; RESP 18; TEMP 36.4; O2SAT 98; BMI 25.0
--- NOTE | 2024-09-29 19:07 | ED_ITS ---
HPI - Headache General Chief Complaint: Headache/Migraine Stated Complaint: Headache Time Seen by Provider: 09/29/24 18:47 History of Present Illness HPI Narrative: This 19-year-old female comes in reporting headache over the past 4 days. She states that she thought it was like a stress headache but this 1 has persisted. She does report some neck discomfort. She has not had any fevers. She did have mononucleosis a few months ago and feels like she really has not recovered since then however she has resumed school and sports activities at school. The past few days however she has had sensitivity to light with nausea but no vomiting. She also reports night sweats and chills. She states that she has woke up and feels like she needs to ring out her clothes with so much sweating at night. She states that she slept 17 hours a few days ago and feels tired all the time now. Related Data Home Medications ?Medication ?Instructions ?Recorded ?Confirmed escitalopram oxalate 20 mg tablet 20 mg PO DAILY 10/25/23 09/06/24 bupropion HCl 150 mg 24 hr tablet, 150 mg PO DAILY 09/06/24 09/06/24 extended release clindamycin phosphate 1 % lotion 1 applic topical DAILY 09/06/24 09/06/24 fluticasone propionate 110 1 puff inhalation .PRN 09/06/24 09/06/24 mcg/actuation HFA aerosol inhaler levalbuterol tartrate 45 1 inh inhalation .PRN 09/06/24 09/06/24 mcg/actuation aerosol inhaler tretinoin 0.025 % topical cream 1 applic topical HS 09/06/24 09/06/24 Previous Rx's ?Medication ?Instructions ?Recorded amoxicillin 875 mg-potassium 1 tab PO BID peritonsillar abscess 09/07/24 clavulanate 125 mg tablet 1 week #14 tabs Allergies Allergy/AdvReac Type Severity Reaction Status Date / Time No Known Drug Allergies Allergy Verified 09/29/24 18:51 Review of Systems Status of ROS: Reports: 10 or more systems reviewed and unremarkable except as noted in History and below Narrative: Constitutional: No fevers, no weight gain or loss. Eyes: No discharge. No vision changes. No sign of lymphadenopathy. HENT: No congestion, no sore throat, no ear pain. Cardiovascular: No chest pain, no palpitations. Respiratory: No shortness of breath, no wheezes, no cough. Gastrointestinal: No abdominal pain, no vomiting, no diarrhea. Genitourinary: No dysuria, no hematuria. Musculoskeletal: Normal range of motion. Skin: No rashes, no pruritis. Neurological: No dizziness, weakness, sensory change, speech change. She is abl e to bowel her head and pressor chin to her chest. Endo/Heme/Allergies: No bruising or bleeding. No polydipsia. Pysch: no suicidality, no anxiety, no insomnia. All other systems reviewed and are negative. [facility] Medical History (Updated 09/29/24 @ 20:50 by Roly Mcclain MD) Mononucleosis ?B27.90 - Infectious mononucleosis, unspecified without complication (ICD-10) Social History What is your current living situation?: I presently have a place to live Problems where you live: no known problems Problems where you live details: n/a In the past 12 months, utilities in danger of being shut off: no In the past 12 mos, have been you worried that your food would run out before you had money to buy more?: never true In the past 12 mos, the food you bought just didn't last and you didn't have money to buy more?: never true Smoking Status: Never smoker Do you use any of these nicotine containing products: None Second hand tobacco smoke exposure: No How often do you have a drink containing alcohol: never How often do you have six or more drinks on one occasion: Never AUDIT-C Alcohol total score: 0 Non-prescribed substance use: denies use How often does anyone, including family, friends and others, physically hurt you : never How often does anyone, including family, friends and others, insult or talk down to you: never How often does anyone, including family, friends and others, threaten you with harm: never How often does anyone, including family, friends and others, scream or curse at you: never service: No Exam Const: Vital Signs, click to edit/add: Vital Signs - 24 hr 09/29/24 18:49 Temperature 97.6 F Pulse Rate [Right Pulse Oximeter] 91 Respiratory Rate 18 Blood Pressure [Ri ght Upper Arm] 122/81 Pulse Oximetry 98 Oxygen Delivery Me thod Room Air Course Vital Signs Vital signs: Initial Vital Signs Temperature 97.6 F 09/29/24 18:49 Temperature Source Temporal Artery Scan 09/29/24 18:49 Pulse Rate 91 09/29/24 18:49 Pulse Rhythm Regular 09/29/24 18:49 Pulse Strength 3+ Normal 09/29/24 18:49 Respiratory Rate 18 09/29/24 18:49 Blood Pressure 122/81 09/29/24 18:49 Blood Pressure Mean 94 09/29/24 18:49 Blood Pressure Position Sitting 09/29/24 18:49 Pulse Oximetry 98 09/29/24 18:49 Oxygen Delivery Method Room Air 09/29/24 18:49 Vital Signs Temperature 97.6 F 09/29/24 18:49 Pulse Rate 91 09/29/24 18:49 Respiratory Rate 18 09/29/24 18:49 Blood Pressure 122/81 09/29/24 18:49 Pulse Oximetry 98 09/29/24 18:49 Oxygen Delivery Method Room Air 09/29/24 18:49 Temperature 97.6 F 09/29/24 18:49 Pulse Rate 91 09/29/24 18:49 Respiratory Rate 18 09/29/24 18:49 Blood Pressure 122/81 09/29/24 18:49 Pulse Oximetry 98 09/29/24 18:49 Oxygen Delivery Method Room Air 09/29/24 18:49 Medications Administered Medications: Discontinued Medications Generic Name Dose Route Start Last Admin Trade Name Noah PRN Reason Stop Dose Admin Diphenhydramine HCl 25 mg 09/29/24 19:03 09/29/24 19:26 Diphenhydramine 50 Mg/Ml Inj IVP 09/29/24 19:04 25 mg ONCE ONE Administration Ketorolac Tromethamine 30 mg 09/29/24 19:03 09/29/24 19:25 Ketorolac 30 Mg/Ml Inj IVP 09/29/24 19:04 30 mg ONCE ONE Administration Ondansetron HCl 4 mg 09/29/24 19:03 09/29/24 19:25 Ondansetron 2 Mg/Ml Inj IVP 09/29/24 19:04 4 mg ONCE ONE Administration MDM - Headache MDM Narrative Medical decision making narrative: This patient comes in with headache symptoms typical of a migraine. She has not been feeling well this past 2 or 3 months. She is not showing any neurologic deficits. Her exam is actually normal in every way. There was no obvious indication for imaging at this time. An IV was established and labs are acquired. She did receive doses of Toradol, Benadryl, and Zofran and she was able to sleep comfortably. Lab results returned with white coat a bit low and elevated enzymes slightly. Her C-reactive protein is a bit below 5 but her sed rate returns at 8. She does not appear to have some acute phase process going on such as not will noon condition or some other more serious cause of her symptoms. She is okay to be discharged home. Her father states that she is scheduled to have a tonsillectomy during her school break. I did provide a [employer] prescription for Toradol. Lab Data Labs: Lab Results 09/29/24 Range/Units 19:30 WBC 3.63 L (4.50-11.00) K/uL RBC 4.59 (4.00-5.20) m/uL Hgb 13.3 (12.0-16.0) gm/dL Hct 39.0 (33.0-51.0) % MCV 85 (80-100) fL MCH 29 (26-34) pg MCHC 34 (32-36) gm/dL RDW Coeff of Dean 12.4 (11.5-15.5) % Plt Count 154 (140-440) K/uL Neut % (Auto) 60.8 (42.0-72.0) % Lymph % (Auto) 31.4 (20-44) % Stone % (Auto) 6.6 (0.0-11.0) % Eos % (Auto) 0.6 (0.0-7.0) % Baso % (Auto) 0.6 (0.0-3.0) % Neut # (Auto) 2.20 (1.7-7.0) K/uL Lymph # (Auto) 1.10 (0.90-2.90) K/uL Stone # (Auto) 0.20 (0.00-0.90) K/UL Eos # (Auto) 0.00 (0.00-0.50) K/uL Baso # (Auto) 0.00 (0.00-0.30) K/uL Abs Immat Gran (auto) 0.00 (0.00-0.30) K/uL Imm/Tot Granulo (auto) 0.0 % ESR 8 (2-20) mm/hr Sodium 136 (135-149) mmol/L Potassium 3.1 L (3.6-5.1) mmol/L Chloride 102 (96-114) mmol/L Carbon Dioxide 24 (20-32) mmol/L Anion Gap 10 (7-15) mEq/L BUN 10 (5-24) mg/dL Creatinine 0.7 (0.5-1.5) mg/dL Estimated Creat Clear 115.36 Estimated GFR 127 ml/min Glucose 80 (60-115) mg/dL Lactate 0.9 (0.5-1.9) mmol/L Calcium 8.9 (8.4-10.6) mg/dL Total Bilirubin 0.5 (0.1-1.5) mg/dL Direct Bilirubin 0.2 (0.0-0.5) mg/dL AST 83 H (12-35) U/L ALT 108 H (4-35) U/L Alkaline Phosphatase 73 (40-150) U/L C-Reactive Protein 4.7 H (0.5-1.0) mg/dL Total Protein 6.7 (6.0-8.3) g/dL Albumin 4.1 (3.3-5.0) g/dL Discharge Plan Discharge Clinical Impression: Migraine Additional Instructions: Take medication as needed and indicated. Follow up with MD as scheduled or return if symptoms are worsening or persistent. Prescriptions: No Action escitalopram oxalate 20 mg tablet 20 mg PO DAILY clindamycin phosphate 1 % lotion 1 applic topical DAILY bupropion HCl 150 mg tablet extended release 24 hr 150 mg PO DAILY fluticasone propionate 110 mcg/actuation HFA aerosol inhaler 1 puff inhalation .PRN Rx Instructions: FOR EXERCISE INDUCED ASTHMA levalbuterol tartrate 45 mcg/actuation HFA aerosol inhaler 1 inh inhalation .PRN Rx Instructions: FOR EXERCISE INDUCED ASTHMA tretinoin 0.025 % cream 1 applic topical HS amoxicillin-pot clavulanate 875-125 mg tablet 1 tab PO BID 7 Days Qty: 14 1RF Follow Up/Referrals: Provider,Not a Local [Primary Care Provider] -
[2024-09-29] MEDS: KETOROLAC 30 MG/ML inj IVP (19:25)
[2024-09-29] MEDS: ONDANSETRON 2 MG/ML inj 4 MG IVP (19:25)
[2024-09-29] MEDS: diphenhydrAMINE 50 MG/ML inj 25 MG IVP (19:26)
[2024-09-29 19:39] LABS: Lactate* 0.9 mmol/L (0.5-1.9)
[2024-09-29 19:41] LABS: Basophils Percent Auto 0.6 % (0.0-3.0); Eosinophils Percent Auto 0.6 % (0.0-7.0); Hemoglobin* 13.3 gm/dL (12.0-16.0); Lymphocytes Percent Auto 31.4 % (20-44); Mean Corpuscular HGB Conc 34 gm/dL (32-36); Mean Corpuscular Hemoglobin 29 pg (26-34); Mean Corpuscular Volume 85 fL (80-100); Monocytes Percent Auto 6.6 % (0.0-11.0); Neutrophils Percent Auto 60.8 % (42.0-72.0); Platelet Count* 154 K/uL (140-440); RDW Coefficient of Variation % 12.4 % (11.5-15.5); Red Blood Count 4.59 m/uL (4.00-5.20); White Blood Count* 3.63 K/uL (4.50-11.00)
[2024-09-29 19:44] LABS: Slide Review Reflex No
[2024-09-29 19:52] LABS: Chloride* 102 mmol/L (96-114); Potassium* 3.1 mmol/L (3.6-5.1); Sodium* 136 mmol/L (135-149)
[2024-09-29 19:53] LABS: Albumin* 4.1 g/dL (3.3-5.0)
[2024-09-29 19:55] LABS: Creatinine* 0.7 mg/dL (0.5-1.5); Est. Creatinine Clearance* 115.36; Estimated Glomerular Filt Rate 127 ml/min
[2024-09-29 19:56] LABS: Alanine Aminotransferase* 108 U/L (4-35); Alkaline Phosphatase* 73 U/L (40-150); Anion Gap 10 mEq/L (7-15); Aspartate Amino Transferase* 83 U/L (12-35); Bilirubin Direct* 0.2 mg/dL (0.0-0.5); Bilirubin Total* 0.5 mg/dL (0.1-1.5); Blood Urea Nitrogen* 10 mg/dL (5-24); Calcium* 8.9 mg/dL (8.4-10.6); Carbon Dioxide* 24 mmol/L (20-32); Glucose* 80 mg/dL (60-115); Total Protein* 6.7 g/dL (6.0-8.3)
[2024-09-29 19:59] LABS: C Reactive Protein* 4.7 mg/dL (0.5-1.0)
[2024-09-29 20:40] LABS: Erythrocyte SedimentationRate* 8 mm/hr (2-20)
== END 2024-09-29 21:02 | disposition home or self-care (01) ==
PROVIDERS: Emergency Provider Emergency Medicine Emergency Medical Services
DX: G43.909 Migraine, unspecified, not intractable, without status migrainosus (principal)
CPT/HCPCS: 36415; 80048; 80076; 83605; 84443; 85025; 85651; 86140; 96374; 96375; 99284; J1200; J1885; J2405

== ENCOUNTER 2024-09-30 06:06 | Emergency (ER) | payer OTHER, SELFPAY ==
[2024-09-30 06:17] VITALS: BP 114/65; PULSE 110; RESP 16; TEMP 38.4; O2SAT 98
--- NOTE | 2024-09-30 06:35 | ED_ITS ---
HPI - Headache General Date Seen: 09/30/24 <Grabiel Medel MD - Last Filed: 10/02/24 09:03> Chief Complaint: Headache/Migraine <Grabiel Medel MD - Last Filed: 10/02/24 09:03> Stated Complaint: migraine, here yesterday <Grabiel Medel MD - Last Filed: 10/02/24 09:03> Time Seen by Provider: 09/30/24 06:12 <Grabiel Medel MD - Last Filed: 10/02/24 09:03> Source: patient and family <Grabiel Medel MD - Last Filed: 10/02/24 09:03> Mode of arrival: ambulatory <Grabiel Medel MD - Last Filed: 10/02/24 09:03> Limitations: no limitations <Grabiel Medel MD - Last Filed: 10/02/24 09:03> History of Present Illness HPI Narrative: Patient is a 19-year-old female presents here with headache, she was here approximately 12 hours ago with similar. This was diagnosed as a migraine-type headache, she was treated with medications and fluids and did have improvement. She comes in now because she has developed a fever. Feels worse, and has neck stiffness. This is been ongoing for the last 5 days. Associated with nausea but no vomiting. One loose stool during this time. She says she feels nauseous all the time. In any sort of met medications taken orally make it worse. She is here with her father who happens to be down here. Photophobia positive No history of chronic migraines, No history of travel, animals wild meats, tick bite, or other people sick. Her immunizations are up-to-date. Including COVID influenza, she has also had the meningitis vaccine Did have mononucleosis a few months ago and really feels that she is not back to normal <Grabiel Medel MD - Last Filed: 10/02/24 09:03> MD elicited complaint: headache <Grabiel Medel MD - Last Filed: 10/02/24 09:03> Onset (ago): day(s) <Grabiel Medel MD - Last Filed: 10/02/24 09:03> Onset description: gradually <Grabiel Medel MD - Last Filed: 10/02/24 09:03> Location: diffuse and down into neck <Grabiel Medel MD - Last Filed: 10/02/24 09:03> Severity: severe <Grabiel Medel MD - Last Filed: 10/02/24 09:03> Quality & Timing: throbbing, sharp, squeezing and progressively worsening <Grabiel eMdel MD - Last Filed: 10/02/24 09:03> Exacerbating factors: exertion, movement of head/neck, light and noise <Grabiel Medel MD - Last Filed: 10/02/24 09:03> Relieving factors: dark room <Grabiel Medel MD - Last Filed: 10/02/24 09:03> Associated symptoms: fever, nausea, neck stiffness, photophobia, sensitivity to sound and diaphoresis <Grabiel Medel MD - Last Filed: 10/02/24 09:03> Treatments prior to arrival: none <Grabiel Medel MD - Last Filed: 10/02/24 09:03> Related Data Home Medications: Home Medications ?Medication ?Instructions ?Recorded ?Confirmed escitalopram oxalate 20 mg tablet 20 mg PO DAILY 10/25/23 09/06/24 bupropion HCl 150 mg 24 hr tablet, 150 mg PO DAILY 09/06/24 09/06/24 extended release clindamycin phosphate 1 % lotion 1 applic topical DAILY 09/06/24 09/06/24 fluticasone propionate 110 1 puff inhalation .PRN 09/06/24 09/06/24 mcg/actuation HFA aerosol inhaler levalbuterol tartrate 45 1 inh inhalation .PRN 09/06/24 09/06/24 mcg/actuation aerosol inhaler tretinoin 0.025 % topical cream 1 applic topical HS 09/06/24 09/06/24 Previous Rx's ?Medication ?Instructions ?Recorded amoxicillin 875 mg-potassium 1 tab PO BID peritonsillar abscess 09/07/24 clavulanate 125 mg tablet 1 week #14 tabs doxycycline hyclate 100 mg capsule 100 mg PO BID 14 days #28 caps 09/30/24 ondansetron HCl 4 mg tablet 4 mg PO Q8H PRN nausea and 11/17/24 vomiting #10 tabs <Grabiel Medel MD - Last Filed: 10/02/24 09:03> Allergies/Adverse Reactions: Allergies Allergy/AdvReac Type Severity Reaction Status Date / Time No Known Drug Allergies Allergy Verified 09/30/24 08:52 <Grabiel Medel MD - Last Filed: 10/02/24 09:03> Review of Systems Status of ROS: Reports: 10 or more systems reviewed and unremarkable except as noted in History and below <Grabiel Medel MD - Last Filed: 10/02/24 09:03> [facility] Medical History: Medical History Mononucleosis ?B27.90 - Infectious mononucleosis, unspecified without complication (ICD-10) <Grabiel Medel MD - Last Filed: 10/02/24 09:03> Social History: Social History What is your current living situation?: I presently have a place to live Problems where you live: no known problems Problems where you live details: n/a In the past 12 months, utilities in danger of being shut off: no In the past 12 mos, have been you worried that your food would run out before you had money to buy more?: never true In the past 12 mos, the food you bought just didn't last and you didn't have money to buy more?: never true Smoking Status: Never smoker Do you use any of these nicotine containing products: None Second hand tobacco smoke exposure: No How often do you have a drink containing alcohol: never How often do you have six or more drinks on one occasion: Never AUDIT-C Alcohol total score: 0 Non-prescribed substance use: denies use How often does anyone, including family, friends and others, physically hurt you : never How often does anyone, including family, friends and others, insult or talk down to you: never How often does anyone, including family, friends and others, threaten you with harm: never How often does anyone, including family, friends and others, scream or curse at you: never service: No <Grabiel Medel MD - Last Filed: 10/02/24 09:03> Exam Narrative: Exam Narrative: I find her in room 5, photophobic, not toxic but on well-looking. Alert and oriented x3, was initially sleeping and I had to wake her up. Pupils are equal round reactive to light there is no nystagmus, TMs are normal, oropharynx is a little red, but not beefy red like strep. She does have some neck stiffness but can come with an 8 cm sternum, extension to 24, no rash or tenderness noted over neck, no significant lymphadenopathy. Her chest is good air entry bilaterally there is no wheezes crackles noted heart sounds are normal. Tenderness in her abdomen on the left side I would describe his mom moderate. No peritoneal signs bowel sounds quiet. No CVA tenderness. Moves all extremities independently and well current exam presents he signs are negative, no evidence of any rash, take bites, IV drug crespo. Or other issues cranial nerves 3-12 are normal. Normal power in upper lower extremities distal verses proximal his norm normal. She is purposeful. <Grabiel Medel MD - Last Filed: 10/02/24 09:03> Const: Vital Signs, click to edit/add: Vital Signs - 24 hr 09/30/24 06:17 09/30/24 07:54 09/30/24 09:00 Temperature 101.2 F H Pulse Rate [Right Pulse Oximeter] 110 H 75 81 Respiratory Rate 16 16 18 Blood Pressure [Le ft Upper Arm] 114/65 104/57 L 107/54 L Pulse Oximetry 98 98 97 Oxygen Delivery Me thod Room Air Nasal Cannula Room Air 09/30/24 09:14 09/30/24 10:00 Temperature 98.5 F Pulse Rate [Right Pulse Oximeter] 78 Respiratory Rate 18 Blood Pressure [Le ft Upper Arm] 113/63 Pulse Oximetry 98 Oxygen Delivery Me thod Room Air <Grabiel Medel MD - Last Filed: 10/02/24 09:03> Vital Signs, click to edit/add: Vital Signs - 24 hr 09/30/24 06:17 09/30/24 07:54 09/30/24 09:00 Temperature 101.2 F H Pulse Rate [Right Pulse Oximeter] 110 H 75 81 Respiratory Rate 16 16 18 Blood Pressure [Le ft Upper Arm] 114/65 104/57 L 107/54 L Pulse Oximetry 98 98 97 Oxygen Delivery Me thod Room Air Nasal Cannula Room Air 09/30/24 09:14 09/30/24 10:00 Temperature 98.5 F Pulse Rate [Right Pulse Oximeter] 78 Respiratory Rate 18 Blood Pressure [Le ft Upper Arm] 113/63 Pulse Oximetry 98 Oxygen Delivery Me thod Room Air <Christoph Conway MD - Last Filed: 09/30/24 11:05> Documenting provider has reviewed patient's vital signs: yes <Grabiel Medel MD - Last Filed: 10/02/24 09:03> Course Reevaluation(s) Time of Reevaluation #1: 07:57 <Grabiel Medel MD - Last Filed: 10/02/24 09:03> Reevaluation #1: Patient reports that her headache is better, I discussed with both her and her father however the indications for lumbar puncture which are the fever, neck stiffness, and headache. Discussion with him the risks benefits and side effects they agreed to this. Atraumatically at the L3-L4 interspace. I was able to secure spinal fluid 1st tap was bloody, but the remaining taps were good no complications <Grabiel Medel MD - Last Filed: 10/02/24 09:03> Reevaluation #2: Dr. Conway assumed care of this patient at shift change-8:00 a.m.. Multiple test results are pending at the time of sign-out. CSF came back reassuring. 0 white cells. There is 102 red cells per high-power field. Per report from Dr. Medel this was a traumatic tap and there was some blood in the 1st tube. He reports that the headache was not abrupt in onset he does not have any concern for subarachnoid hemorrhage at this time. Urinalysis is normal. COVID/influenza/RSV PCR is negative. Head CT is normal. I am not able to cut and paste the CT results and my ER note today because of a computer glitch Abdomen/pelvis CT is normal. I am not able to cut and paste the CT results and my ER note today because of a computer glitch. I reassessed the patient. She said her headache is improved but not completely resolved. Her main concern now is that she is just feeling sleepy and tired. She overall she feels well enough that she is comfortable going home. We discussed possibly going home with her family for observation and supportive care but the patient really wants to go back to her dorm and sleep in her own bed. She is mentating normally. She is conversant and answering appropriate questions. Father notes that she has had travel including a trip to [place] on a trip to [place] this fall. He raises concern for possible tick-borne illness. I will add on Lyme as well as a tick-borne panel. With abnormal LFTs will also add on hepatitis serologies for hepatitis-A, B, C. These results will not result while the patient is here in the ER today. Discussed this with the patient and her father and they understand results come back in a few days. We will treat her empirically with a course of doxycycline in case this is a tick-borne illness. Discussed that the patient needs close outpatient follow-up within 1 week or so to have repeat labs and repeat LFTs. She will either follow-up with doctors here in [place] or possibly will go home to see her doctors in [place]. Precautions for return to the ER if she has any worsening or progressing symptoms for further evaluation. Patient and her father are agreeable. <Christoph Conway MD - Last Filed: 09/30/24 11:05> Vital Signs Vital signs: Initial Vital Signs Temperature 101.2 F H 09/30/24 06:17 Temperature Source Temporal Artery Scan 09/30/24 06:17 Pulse Rate 110 H 09/30/24 06:17 Pulse Rhythm Regular 09/30/24 06:17 Respiratory Rate 16 09/30/24 06:17 Blood Pressure 114/65 09/30/24 06:17 Blood Pressure Mean 81 09/30/24 06:17 Blood Pressure Position Right Lateral 09/30/24 06:17 Pulse Oximetry 98 09/30/24 06:17 Oxygen Delivery Method Room Air 09/30/24 06:17 Vital Signs Temperature 101.2 F H 09/30/24 06:17 Pulse Rate 110 H 09/30/24 06:17 Respiratory Rate 16 09/30/24 06:17 Blood Pressure 114/65 09/30/24 06:17 Pulse Oximetry 98 09/30/24 06:17 Oxygen Delivery Method Room Air 09/30/24 06:17 Temperature 98.5 F 09/30/24 09:14 Pulse Rate 78 09/30/24 10:00 Respiratory Rate 18 09/30/24 10:00 Blood Pressure 113/63 09/30/24 10:00 Pulse Oximetry 98 09/30/24 10:00 Oxygen Delivery Method Room Air 09/30/24 10:00 Oxygen Flow Rate 2 09/30/24 07:10 <Grabiel Medel MD - Last Filed: 10/02/24 09:03> Initial Vital Signs Temperature 101.2 F H 09/30/24 06:17 Temperature Source Temporal Artery Scan 09/30/24 06:17 Pulse Rate 110 H 09/30/24 06:17 Pulse Rhythm Regular 09/30/24 06:17 Respiratory Rate 16 09/30/24 06:17 Blood Pressure 114/65 09/30/24 06:17 Blood Pressure Mean 81 09/30/24 06:17 Blood Pressure Position Right Lateral 09/30/24 06:17 Pulse Oximetry 98 09/30/24 06:17 Oxygen Delivery Method Room Air 09/30/24 06:17 Vital Signs Temperature 101.2 F H 09/30/24 06:17 Pulse Rate 110 H 09/30/24 06:17 Respiratory Rate 16 09/30/24 06:17 Blood Pressure 114/65 09/30/24 06:17 Pulse Oximetry 98 09/30/24 06:17 Oxygen Delivery Method Room Air 09/30/24 06:17 Temperature 98.5 F 09/30/24 09:14 Pulse Rate 78 09/30/24 10:00 Respiratory Rate 18 09/30/24 10:00 Blood Pressure 113/63 09/30/24 10:00 Pulse Oximetry 98 09/30/24 10:00 Oxygen Delivery Method Room Air 09/30/24 10:00 Oxygen Flow Rate 2 09/30/24 07:10 <Christoph Conway MD - Last Filed: 09/30/24 11:05> Medications Administered Medications: Discontinued Medications Generic Name Dose Route Start Last Admin Trade Name Noah PRN Reason Stop Dose Admin Acetaminophen 1,000 mg 09/30/24 06:42 09/30/24 07:53 Acetaminophen 500 Mg Tablet PO 09/30/24 06:43 1,000 mg ONCE ONE Administration Fentanyl 50 mcg 09/30/24 07:13 09/30/24 07:20 Fentanyl 100 Mcg/2 Ml Inj IVP 09/30/24 07:14 25 mcg ONCE ONE Administration Hydromorphone HCl 0.5 mg 09/30/24 06:33 09/30/24 06:54 Hydromorphone 0.5 Mg/0.5 Ml Inj IVP 09/30/24 06:34 0.5 mg ONCE ONE Administration Sodium Chloride 1,000 mls @ 1,000 mls/hr 09/30/24 06:45 09/30/24 09:15 0.9 % Sodium Chloride 1000 Ml IV 09/30/24 07:44 Infused .Q1H SEBLE Infusion Sodium Chloride 1,000 mls @ 1,000 mls/hr 09/30/24 08:00 09/30/24 10:59 0.9 % Sodium Chloride 1000 Ml IV 09/30/24 08:59 Infused .Q1H SEBLE Infusion Ceftriaxone Sodium 2 gm/ 100 mls @ 200 mls/hr 09/30/24 07:46 09/30/24 11:09 Sodium Chloride IVPB 09/30/24 07:47 Not Given ONCE ONE Ketorolac Tromethamine 30 mg 09/30/24 06:33 09/30/24 06:54 Ketorolac 30 Mg/Ml Inj IVP 09/30/24 06:34 30 mg ONCE ONE Administration Midazolam HCl 2 mg 09/30/24 07:13 09/30/24 07:20 Midazolam Hcl 1 Mg/Ml Inj IVP 09/30/24 07:14 2 mg ONCE ONE Administration Ondansetron HCl 4 mg 09/30/24 06:33 09/30/24 06:54 Ondansetron 2 Mg/Ml Inj IVP 09/30/24 06:34 4 mg ONCE ONE Administration <Grabiel Medel MD - Last Filed: 10/02/24 09:03> Discontinued Medications Generic Name Dose Route Start Last Admin Trade Name Freq PRN Reason Stop Dose Admin Acetaminophen 1,000 mg 09/30/24 06:42 09/30/24 07:53 Acetaminophen 500 Mg Tablet PO 09/30/24 06:43 1,000 mg ONCE ONE Administration Fentanyl 50 mcg 09/30/24 07:13 09/30/24 07:20 Fentanyl 100 Mcg/2 Ml Inj IVP 09/30/24 07:14 25 mcg ONCE ONE Administration Hydromorphone HCl 0.5 mg 09/30/24 06:33 09/30/24 06:54 Hydromorphone 0.5 Mg/0.5 Ml Inj IVP 09/30/24 06:34 0.5 mg ONCE ONE Administration Sodium Chloride 1,000 mls @ 1,000 mls/hr 09/30/24 06:45 09/30/24 09:15 0.9 % Sodium Chloride 1000 Ml IV 09/30/24 07:44 Infused .Q1H SEBLE Infusion Sodium Chloride 1,000 mls @ 1,000 mls/hr 09/30/24 08:00 09/30/24 10:59 0.9 % Sodium Chloride 1000 Ml IV 09/30/24 08:59 Infused .Q1H SEBLE Infusion Ceftriaxone Sodium 2 gm/ 100 mls @ 200 mls/hr 09/30/24 07:46 09/30/24 11:09 Sodium Chloride IVPB 09/30/24 07:47 Not Given ONCE ONE Ketorolac Tromethamine 30 mg 09/30/24 06:33 09/30/24 06:54 Ketorolac 30 Mg/Ml Inj IVP 09/30/24 06:34 30 mg ONCE ONE Administration Midazolam HCl 2 mg 09/30/24 07:13 09/30/24 07:20 Midazolam Hcl 1 Mg/Ml Inj IVP 09/30/24 07:14 2 mg ONCE ONE Administration Ondansetron HCl 4 mg 09/30/24 06:33 09/30/24 06:54 Ondansetron 2 Mg/Ml Inj IVP 09/30/24 06:34 4 mg ONCE ONE Administration <Christoph Conway MD - Last Filed: 09/30/24 11:05> MDM - Headache MDM Narrative Medical decision making narrative: Life-threatening differential diagnosis include subarachnoid hemorrhage, meningitis, encephalitis, carbon monoxide poisoning, and intracerebral hemorrhage. Other differential diagnosis include but not limited to migraine, cluster headache, tension headache, [employer] vasculitis, mass lesion, temporal arteritis, click acute closed angle glaucoma, septal and trigeminal neuralgia, sinusitis, closed head injury, and stroke Life-threatening differential diagnosis is include meningitis, encephalitis, pneumonia, intra-abdominal infection, bacteremia, other differential diagnosis include but are not limited to viral upper respiratory tract infection, strep, urinary tract infection, skin infection, osteomyelitis, influenza, fungal infections, diskitis, epidural abscess, or fever of unknown origin. <Grabiel Medel MD - Last Filed: 10/02/24 09:03> Medical Records Attestation: I reviewed the patient's medical records. <Grabiel Medel MD - Last Filed: 10/02/24 09:03> Lab Data Labs: Lab Results 09/30/24 09/30/24 09/30/24 Range/Units 06:38 07:40 08:24 WBC 3.56 L (4.50-11.00) K/uL RBC 4.56 (4.00-5.20) m/uL Hgb 13.1 (12.0-16.0) gm/dL Hct 38.7 (33.0-51.0) % MCV 85 (80-100) fL MCH 29 (26-34) pg MCHC 34 (32-36) gm/dL RDW Coeff of Dean 12.3 (11.5-15.5) % Plt Count 147 (140-440) K/uL Neut % (Auto) 63.9 (42.0-72.0) % Lymph % (Auto) 31.2 (20-44) % [place] % (Auto) 3.7 (0.0-11.0) % Eos % (Auto) 0.6 (0.0-7.0) % Baso % (Auto) 0.3 (0.0-3.0) % Neut # (Auto) 2.30 (1.7-7.0) K/uL Lymph # (Auto) 1.10 (0.90-2.90) K/uL [place] # (Auto) 0.10 (0.00-0.90) K/UL Eos # (Auto) 0.00 (0.00-0.50) K/uL Baso # (Auto) 0.00 (0.00-0.30) K/uL Abs Immat Gran (auto) 0.00 (0.00-0.30) K/uL Imm/Tot Granulo (auto) 0.3 % Diff Slide Review Acceptable Review (Acceptable) Sodium 133 L (135-149) mmol/L Potassium 3.5 L (3.6-5.1) mmol/L Chloride 102 (96-114) mmol/L Carbon Dioxide 26 (20-32) mmol/L Anion Gap 5 L (7-15) mEq/L BUN 11 (5-24) mg/dL Creatinine 0.8 (0.5-1.5) mg/dL Estimated GFR 108 ml/min Glucose 97 (60-115) mg/dL Lactate 0.9 (0.5-1.9) mmol/L Calcium 8.8 (8.4-10.6) mg/dL Total Bilirubin 0.7 (0.1-1.5) mg/dL Direct Bilirubin 0.4 (0.0-0.5) mg/dL AST 241 H (12-35) U/L ALT 237 H (4-35) U/L Alkaline Phosphatase 105 (40-150) U/L Total Protein 6.6 (6.0-8.3) g/dL Albumin 4.0 (3.3-5.0) g/dL Lipase 72 (23-300) U/L Procalcitonin 0.20 (<0.50) ng/mL HCG, Qual Negative (Negative) Urine Color Dark yellow (Yellow) Urine Appearance Clear (Clear) Urine pH 6.0 (5.0-8.5) Ur Specific [place] 1.010 (1.000-1.030) Urine Protein Negative (Negative) Urine Glucose (UA) Negative (Negative) Urine Ketones 1+ A (Negative) Urine Blood Negative (Negative) Urine Nitrite Negative (Negative) Urine Bilirubin Negative (Negative) Urine Urobilinogen 2.0 A (0.2-1.0) Ur Leukocyte Esterase Negative (Negative) Urine RBC 0-2 (0-2) Urine WBC 0-2 (0-5) Ur Squamous Epith Cells Moderate A (None-Few) Amorphous Sediment Few A (None) Urine Bacteria Few A (None) Urine HCG, Qual Cancelled CSF Volume 4.5 (0-6) mL CSF Appearance Clear (Clear) CSF Color Colorless (Colorless) CSF WBC 0 Cells/uL CSF RBC 104 Cells/uL CSF Mononuclear Cells 0 % CSF Polynuclear WBCs 0 % CSF Glucose 53 (40-70) mg/dL CSF Total Protein 22 (15-45) Mg/dL SARS-CoV-2 (PCR) Negative SARS-CoV-2 (Negative) Hep Bs Antigen Negative (Negative) Hep Bs Antibody Negative (Negative) Hepatitis C Antibody Negative (Negative) Influenza Type A (PCR) Negative PCR FLU A (Negative) Influenza Type B (PCR) Negative PCR FLU B (Negative) RSV (PCR) Negative PCR RSV (Negative) Lab Acknowledgement 09/30/24 Range/Units 08:26 WBC (4.50-11.00) K/uL RBC (4.00-5.20) m/uL Hgb (12.0-16.0) gm/dL Hct (33.0-51.0) % MCV (80-100) fL MCH (26-34) pg MCHC (32-36) gm/dL RDW Coeff of Dean (11.5-15.5) % Plt Count (140-440) K/uL Neut % (Auto) (42.0-72.0) % Lymph % (Auto) (20-44) % [place] % (Auto) (0.0-11.0) % Eos % (Auto) (0.0-7.0) % Baso % (Auto) (0.0-3.0) % Neut # (Auto) (1.7-7.0) K/uL Lymph # (Auto) (0.90-2.90) K/uL [place] # (Auto) (0.00-0.90) K/UL Eos # (Auto) (0.00-0.50) K/uL Baso # (Auto) (0.00-0.30) K/uL Abs Immat Gran (auto) (0.00-0.30) K/uL Imm/Tot Granulo (auto) % Diff Slide Review (Acceptable) Sodium (135-149) mmol/L Potassium (3.6-5.1) mmol/L Chloride (96-114) mmol/L Carbon Dioxide (20-32) mmol/L Anion Gap (7-15) mEq/L BUN (5-24) mg/dL Creatinine (0.5-1.5) mg/dL Estimated GFR ml/min Glucose (60-115) mg/dL Lactate (0.5-1.9) mmol/L Calcium (8.4-10.6) mg/dL Total Bilirubin (0.1-1.5) mg/dL Direct Bilirubin (0.0-0.5) mg/dL AST (12-35) U/L ALT (4-35) U/L Alkaline Phosphatase (40-150) U/L Total Protein (6.0-8.3) g/dL Albumin (3.3-5.0) g/dL Lipase (23-300) U/L Procalcitonin (<0.50) ng/mL HCG, Qual (Negative) Urine Color (Yellow) Urine Appearance (Clear) Urine pH (5.0-8.5) Ur Specific [place] (1.000-1.030) Urine Protein (Negative) Urine Glucose (UA) (Negative) Urine Ketones (Negative) Urine Blood (Negative) Urine Nitrite (Negative) Urine Bilirubin (Negative) Urine Urobilinogen (0.2-1.0) Ur Leukocyte Esterase (Negative) Urine RBC (0-2) Urine WBC (0-5) Ur Squamous Epith Cells (None-Few) Amorphous Sediment (None) Urine Bacteria (None) Urine HCG, Qual CSF Volume (0-6) mL CSF Appearance (Clear) CSF Color (Colorless) CSF WBC Cells/uL CSF RBC Cells/uL CSF Mononuclear Cells % CSF Polynuclear WBCs % CSF Glucose (40-70) mg/dL CSF Total Protein (15-45) Mg/dL SARS-CoV-2 (PCR) (Negative) Hep Bs Antigen (Negative) Hep Bs Antibody (Negative) Hepatitis C Antibody (Negative) Influenza Type A (PCR) (Negative) Influenza Type B (PCR) (Negative) RSV (PCR) (Negative) Lab Acknowledgement Test Added <Grabiel Medel MD - Last Filed: 10/02/24 09:03> Lab Results 09/30/24 09/30/24 09/30/24 Range/Units 06:38 07:40 08:24 WBC 3.56 L (4.50-11.00) K/uL RBC 4.56 (4.00-5.20) m/uL Hgb 13.1 (12.0-16.0) gm/dL Hct 38.7 (33.0-51.0) % MCV 85 (80-100) fL MCH 29 (26-34) pg MCHC 34 (32-36) gm/dL RDW Coeff of Dean 12.3 (11.5-15.5) % Plt Count 147 (140-440) K/uL Neut % (Auto) 63.9 (42.0-72.0) % Lymph % (Auto) 31.2 (20-44) % [place] % (Auto) 3.7 (0.0-11.0) % Eos % (Auto) 0.6 (0.0-7.0) % Baso % (Auto) 0.3 (0.0-3.0) % Neut # (Auto) 2.30 (1.7-7.0) K/uL Lymph # (Auto) 1.10 (0.90-2.90) K/uL [place] # (Auto) 0.10 (0.00-0.90) K/UL Eos # (Auto) 0.00 (0.00-0.50) K/uL Baso # (Auto) 0.00 (0.00-0.30) K/uL Abs Immat Gran (auto) 0.00 (0.00-0.30) K/uL Imm/Tot Granulo (auto) 0.3 % Diff Slide Review Acceptable Review (Acceptable) Sodium 133 L (135-149) mmol/L Potassium 3.5 L (3.6-5.1) mmol/L Chloride 102 (96-114) mmol/L Carbon Dioxide 26 (20-32) mmol/L Anion Gap 5 L (7-15) mEq/L BUN 11 (5-24) mg/dL Creatinine 0.8 (0.5-1.5) mg/dL Estimated GFR 108 ml/min Glucose 97 (60-115) mg/dL Lactate 0.9 (0.5-1.9) mmol/L Calcium 8.8 (8.4-10.6) mg/dL Total Bilirubin 0.7 (0.1-1.5) mg/dL Direct Bilirubin 0.4 (0.0-0.5) mg/dL AST 241 H (12-35) U/L ALT 237 H (4-35) U/L Alkaline Phosphatase 105 (40-150) U/L Total Protein 6.6 (6.0-8.3) g/dL Albumin 4.0 (3.3-5.0) g/dL Lipase 72 (23-300) U/L Procalcitonin 0.20 (<0.50) ng/mL HCG, Qual Negative (Negative) Urine Color Dark yellow (Yellow) Urine Appearance Clear (Clear) Urine pH 6.0 (5.0-8.5) Ur Specific [place] 1.010 (1.000-1.030) Urine Protein Negative (Negative) Urine Glucose (UA) Negative (Negative) Urine Ketones 1+ A (Negative) Urine Blood Negative (Negative) Urine Nitrite Negative (Negative) Urine Bilirubin Negative (Negative) Urine Urobilinogen 2.0 A (0.2-1.0) Ur Leukocyte Esterase Negative (Negative) Urine RBC 0-2 (0-2) Urine WBC 0-2 (0-5) Ur Squamous Epith Cells Moderate A (None-Few) Amorphous Sediment Few A (None) Urine Bacteria Few A (None) Urine HCG, Qual Cancelled CSF Volume 4.5 (0-6) mL CSF Appearance Clear (Clear) CSF Color Colorless (Colorless) CSF WBC 0 Cells/uL CSF RBC 104 Cells/uL CSF Mononuclear Cells 0 % CSF Polynuclear WBCs 0 % CSF Glucose 53 (40-70) mg/dL CSF Total Protein 22 (15-45) Mg/dL SARS-CoV-2 (PCR) Negative SARS-CoV-2 (Negative) Hep Bs Antigen Negative (Negative) Hep Bs Antibody Negative (Negative) Hepatitis C Antibody Negative (Negative) Influenza Type A (PCR) Negative PCR FLU A (Negative) Influenza Type B (PCR) Negative PCR FLU B (Negative) RSV (PCR) Negative PCR RSV (Negative) Lab Acknowledgement 09/30/24 Range/Units 08:26 WBC (4.50-11.00) K/uL RBC (4.00-5.20) m/uL Hgb (12.0-16.0) gm/dL Hct (33.0-51.0) % MCV (80-100) fL MCH (26-34) pg MCHC (32-36) gm/dL RDW Coeff of Dean (11.5-15.5) % Plt Count (140-440) K/uL Neut % (Auto) (42.0-72.0) % Lymph % (Auto) (20-44) % [place] % (Auto) (0.0-11.0) % Eos % (Auto) (0.0-7.0) % Baso % (Auto) (0.0-3.0) % Neut # (Auto) (1.7-7.0) K/uL Lymph # (Auto) (0.90-2.90) K/uL [place] # (Auto) (0.00-0.90) K/UL Eos # (Auto) (0.00-0.50) K/uL Baso # (Auto) (0.00-0.30) K/uL Abs Immat Gran (auto) (0.00-0.30) K/uL Imm/Tot Granulo (auto) % Diff Slide Review (Acceptable) Sodium (135-149) mmol/L Potassium (3.6-5.1) mmol/L Chloride (96-114) mmol/L Carbon Dioxide (20-32) mmol/L Anion Gap (7-15) mEq/L BUN (5-24) mg/dL Creatinine (0.5-1.5) mg/dL Estimated GFR ml/min Glucose (60-115) mg/dL Lactate (0.5-1.9) mmol/L Calcium (8.4-10.6) mg/dL Total Bilirubin (0.1-1.5) mg/dL Direct Bilirubin (0.0-0.5) mg/dL AST (12-35) U/L ALT (4-35) U/L Alkaline Phosphatase (40-150) U/L Total Protein (6.0-8.3) g/dL Albumin (3.3-5.0) g/dL Lipase (23-300) U/L Procalcitonin (<0.50) ng/mL HCG, Qual (Negative) Urine Color (Yellow) Urine Appearance (Clear) Urine pH (5.0-8.5) Ur Specific [place] (1.000-1.030) Urine Protein (Negative) Urine Glucose (UA) (Negative) Urine Ketones (Negative) Urine Blood (Negative) Urine Nitrite (Negative) Urine Bilirubin (Negative) Urine Urobilinogen (0.2-1.0) Ur Leukocyte Esterase (Negative) Urine RBC (0-2) Urine WBC (0-5) Ur Squamous Epith Cells (None-Few) Amorphous Sediment (None) Urine Bacteria (None) Urine HCG, Qual CSF Volume (0-6) mL CSF Appearance (Clear) CSF Color (Colorless) CSF WBC Cells/uL CSF RBC Cells/uL CSF Mononuclear Cells % CSF Polynuclear WBCs % CSF Glucose (40-70) mg/dL CSF Total Protein (15-45) Mg/dL SARS-CoV-2 (PCR) (Negative) Hep Bs Antigen (Negative) Hep Bs Antibody (Negative) Hepatitis C Antibody (Negative) Influenza Type A (PCR) (Negative) Influenza Type B (PCR) (Negative) RSV (PCR) (Negative) Lab Acknowledgement Test Added <Christoph Conway MD - Last Filed: 09/30/24 11:05> Discharge Plan Discharge Clinical Impression: Headache, Fever, Abnormal LFTs <Grabiel Medel MD - Last Filed: 10/02/24 09:03> Patient Disposition: Home, Self-Care <Grabiel Medel MD - Last Filed: 10/02/24 09:03> Condition: Stable <Grabiel Medel MD - Last Filed: 10/02/24 09:03> Instructions: Fever in Adults (ED), Acute Headache (DC) <Grabiel Meedl MD - Last Filed: 10/02/24 09:03> Additional Instructions: As we discussed, the cause of your headache and fever and abnormal blood test is not clear at this time. This could be a viral illness. It is also possible that this could be an infection from a tick bite. Were going to start you on antibiotics (doxycycline) to treat for possible tick-borne illnesses. I have ordered lab tests to check you for tick-borne illnesses. These test results will not come back today. Will also have you checked for viral hepatitis. These lab tests will also not come back today. It will usually take a few days for your lab tests to come back. If they are positive the hospital will call you. It is very important for you to follow-up with your doctor or come back to the urgent care or ER within about 1 week to have repeat lab tests to look at your blood counts, liver function, and have follow-up testing. To schedule an appointment with the [facility] you can call If you get worse, for instance; if you have worse headache, high fever, confusion, yellowing of your skin, worsening abdominal pain or bloating, uncontrolled nausea or vomiting, dehydration or weakness, or any problems, please return to the ER immediately. Continues use the Toradol or ibuprofen if needed for headache. Drink plenty of fluids and stay hydrated. Use Zofran to help treat nausea if needed. <Grabiel Medel MD - Last Filed: 10/02/24 09:03> Prescriptions: New doxycycline hyclate 100 mg capsule 100 mg PO BID 14 Days Qty: 28 0RF ondansetron HCl 4 mg tablet 4 mg PO Q8H PRN (Reason: nausea and vomiting) Qty: 10 0RF No Action escitalopram oxalate 20 mg tablet 20 mg PO DAILY clindamycin phosphate 1 % lotion 1 applic topical DAILY bupropion HCl 150 mg tablet extended release 24 hr 150 mg PO DAILY fluticasone propionate 110 mcg/actuation HFA aerosol inhaler 1 puff inhalation .PRN Rx Instructions: FOR EXERCISE INDUCED ASTHMA levalbuterol tartrate 45 mcg/actuation HFA aerosol inhaler 1 inh inhalation .PRN Rx Instructions: FOR EXERCISE INDUCED ASTHMA tretinoin 0.025 % cream 1 applic topical HS amoxicillin-pot clavulanate 875-125 mg tablet 1 tab PO BID 7 Days Qty: 14 1RF <Grabiel Medel MD - Last Filed: 10/02/24 09:03> Follow Up/Referrals: Provider,Not a Local [Primary Care Provider] - <Grabiel Medel MD - Last Filed: 10/02/24 09:03> Stand [facility] Info Instructions <Grabiel Medel MD - Last Filed: 10/02/24 09:03>
[2024-09-30 06:49] LABS: Lactate* 0.9 mmol/L (0.5-1.9)
[2024-09-30] MEDS: 0.9 % SODIUM CHLORIDE 1000 ml 1,000 ML IV ×2 (06:52→09:15)
[2024-09-30] MEDS: KETOROLAC 30 MG/ML inj IVP (06:54)
[2024-09-30] MEDS: ONDANSETRON 2 MG/ML inj 4 MG IVP (06:54)
[2024-09-30] MEDS: HYDROmorphone 0.5 mg/0.5 ml inj IVP (06:54)
[2024-09-30 06:56] LABS: Basophils Percent Auto 0.3 % (0.0-3.0); Eosinophils Percent Auto 0.6 % (0.0-7.0); Hematocrit 38.7 % (33.0-51.0); Hemoglobin* 13.1 gm/dL (12.0-16.0); Immature Granulocytes Pct Auto 0.3 %; Lymphocytes Percent Auto 31.2 % (20-44); Mean Corpuscular HGB Conc 34 gm/dL (32-36); Mean Corpuscular Hemoglobin 29 pg (26-34); Mean Corpuscular Volume 85 fL (80-100); Monocytes Percent Auto 3.7 % (0.0-11.0); Neutrophils Percent Auto 63.9 % (42.0-72.0); Platelet Count* 147 K/uL (140-440); RDW Coefficient of Variation % 12.3 % (11.5-15.5); Red Blood Count 4.56 m/uL (4.00-5.20); White Blood Count* 3.56 K/uL (4.50-11.00)
[2024-09-30 07:02] LABS: Slide Review Reflex Yes
[2024-09-30 07:08] LABS: Chloride* 102 mmol/L (96-114); Potassium* 3.5 mmol/L (3.6-5.1); Sodium* 133 mmol/L (135-149)
[2024-09-30 07:10] VITALS: O2SAT 98
[2024-09-30 07:10] LABS: Anion Gap 5 mEq/L (7-15); Aspartate Amino Transferase* 241 U/L (12-35); Bilirubin Direct* 0.4 mg/dL (0.0-0.5); Bilirubin Total* 0.7 mg/dL (0.1-1.5); Carbon Dioxide* 26 mmol/L (20-32); Creatinine* 0.8 mg/dL (0.5-1.5); Estimated Glomerular Filt Rate 108 ml/min; Total Protein* 6.6 g/dL (6.0-8.3)
[2024-09-30 07:11] LABS: Alanine Aminotransferase* 237 U/L (4-35); Alkaline Phosphatase* 105 U/L (40-150); Blood Urea Nitrogen* 11 mg/dL (5-24); Calcium* 8.8 mg/dL (8.4-10.6); Glucose* 97 mg/dL (60-115)
[2024-09-30 07:19] LABS: Slide Review Acceptable Review (Acceptable)
[2024-09-30] MEDS: fentaNYL 100 MCG/2 ML inj 50 MCG IVP (07:20)
[2024-09-30] MEDS: MIDAZOLAM HCL 1 MG/ML inj 2 MG IVP (07:20)
[2024-09-30 07:36] LABS: HCG Qualitative Serum* Negative (Negative)
[2024-09-30] MEDS: ACETAMINOPHEN 500 MG TABLET 1000 MG PO (07:53)
[2024-09-30 07:54] VITALS: BP 104/57; PULSE 75; RESP 16; O2SAT 98
--- NOTE | 2024-09-30 08:02 | CRLHL7_ITS ---
For Patients: As a result of the Century Cures Act, medical imaging exams and procedure reports are released immediately into your electronic medical record. You may view this report before your referring provider. If you have questions, please contact your health care provider. INDICATION: Headaches. TECHNIQUE: CT of the head without contrast. Coronal and sagittal reformats are included. COMPARISON: None. FINDINGS: No CT evidence of acute cortical infarct. No loss of grove white matter differentiation. No hyperdense vessels to suggest intracranial thrombus. No acute intracranial hemorrhage. No mass effect or midline shift. No hydrocephalus or extra-axial collections. White matter is within normal limits for age. No acute osseous abnormalities. Mastoid air cells and paranasal sinuses are clear. Normal soft tissues. IMPRESSION: IMPRESSION:1. No CT evidence of acute cortical infarct. No acute intracranial hemorrhage. No other acute intracranial findings. Please note that all CT scans at this facility use dose modulation, iterative reconstruction, and/or weight-based dosing when appropriate to reduce radiation dose to as low as reasonably achievable. Dictated by Deepak Harrell MD @ 09/30/2024 8:54:32 AM (Electronically Signed)
--- NOTE | 2024-09-30 08:02 | CRLHL7_ITS ---
For Patients: As a result of the Century Cures Act, medical imaging exams and procedure reports are released immediately into your electronic medical record. You may view this report before your referring provider. If you have questions, please contact your health care provider. INDICATION: Left-sided abdominal pain. TECHNIQUE: CT abdomen and pelvis with 88 mL Isovue 370 COMPARISON: No comparison FINDINGS: Lower chest: Unremarkable. Liver: Normal in size and attenuation. No suspicious masses. Gallbladder and bile ducts: No stones or inflammation. No biliary dilatation. Pancreas: Unremarkable. No mass or inflammation. Spleen: Normal in size. No masses. Adrenal glands: Normal in size. No nodules. Kidneys: Normal in size. No suspicious masses, stones, or hydronephrosis. GI tract: Unremarkable. Normal in caliber. No sign of mass or inflammation. Normal appendix. Vasculature: Abdominal aorta is normal in caliber. Lymph nodes: No lymphadenopathy. Peritoneum/Abdominal Wall: Unremarkable. No sign of mass or infiltration. No free air or significant free fluid. Pelvis: IUD in the uterus to moderate fluid. Small in the pelvis. Bones: Unremarkable for age. IMPRESSION: 1. No acute findings in the abdomen or pelvis. There is a moderate amount of free fluid in the pelvis. Please note that all CT scans at this facility use dose modulation, iterative reconstruction, and/or weight-based dosing when appropriate to reduce radiation dose to as low as reasonably achievable. Dictated by Roxi Ibrahim MD @ 09/30/2024 9:34:10 AM (Electronically Signed)
[2024-09-30 08:05] LABS: Appearance CSF Clear (Clear); Color CSF Colorless (Colorless); Total Volume 4.5 mL (0-6)
[2024-09-30 08:17] LABS: PCR FLU A Negative PCR FLU A (Negative); PCR FLU B Negative PCR FLU B (Negative); PCR RSV Negative PCR RSV (Negative); SARS PCR* Negative SARS-CoV-2 (Negative)
[2024-09-30 08:38] LABS: CSF Mononuclear Cells 0 %; CSF Polynuclear Cells 0 %; RBC, CSF 104 Cells/uL; WBC, CSF 0 Cells/uL
[2024-09-30 08:42] LABS: Appearance Urine Clear (Clear); Bilirubin Urine Negative (Negative); Blood Urine Negative (Negative); Color Urine Dark yellow (Yellow); Glucose Urine Negative (Negative); Ketones Urine 1+ (Negative); Leukocyte Esterase Urine Negative (Negative); Nitrite Urine Negative (Negative); Protein Urine Negative (Negative)
[2024-09-30 08:44] LABS: Lipase* 72 U/L (23-300)
[2024-09-30 08:49] LABS: Amorphous Sediment Urine Few; Bacteria Urine Few; RBC Urine 0-2 (0-2); Squamous Epithelial Cell Urine Moderate (None-Few); WBC Urine 0-2 (0-5)
[2024-09-30 09:00] VITALS: BP 107/54; PULSE 81; RESP 18; O2SAT 97
[2024-09-30 09:14] VITALS: TEMP 36.9
[2024-09-30 09:36] LABS: Glucose, CSF* 53 mg/dL (40-70)
[2024-09-30 10:00] VITALS: BP 113/63; PULSE 78; RESP 18; O2SAT 98
[2024-09-30 10:24] LABS: Total Protein, CSF 22 Mg/dL (15-45)
[2024-10-01 04:54] LABS: Hepatitis B Surface Antigen* Negative (Negative)
[2024-10-01 05:11] LABS: Hepatitis C Virus Antibody* Negative (Negative)
[2024-10-01 05:14] LABS: Hepatitis B Surface Antibody* Negative (Negative)
[2024-10-02 13:38] LABS: Hepatitis B Core Antibody, IgM Negative (Negative)
[2024-10-02 13:39] LABS: Hepatitis A Antibodies, Total Positive (Negative)
[2024-10-02 22:10] LABS: Lyme ELISA Reflex 0.51 IV (<=0.90)
[2024-10-03 11:49] LABS: Anaplasma phagocyt PCR Not Detected; Babesia microti by PCR Not Detected; Babesia species by PCR Not Detected; Ehrlichia chaffeensis by PCR Not Detected; Ehrlichia ewingii/canis by PCR Not Detected; Ehrlichia muris-like by PCR Not Detected
--- NOTE | 2024-10-04 09:38 | ED_ITS ---
HPI - General Adult General Chief complaint: Headache/Migraine Stated complaint: migraine, here yesterday Time Seen by Provider: 09/30/24 06:12 Source: patient and family Mode of arrival: ambulatory Limitations: no limitations History of Present Illness HPI narrative: Addendum to recent ER visit Patient's labs came back positive for hepatitis a. Negative for hep B and hep C. Negative for tick-borne illnesses and negative for Lyme. I contacted the patient by phone. She is actually decided to go back home to be with her parents in [place]. She had a checkup with her primary care provider yesterday and apparently her liver function tests were still somewhat abnormal. She is overall getting better. She has plans to recheck again tomorrow with her PCP. Updated the patient about her hepatitis a antibodies. I suspect this likely is an acute infection with hepatitis A (although unfortunately our lab does not discriminate between IgG and IgM antibodies to confirm that this is truly an acute infection). She will follow-up with her primary tomorrow for repeat labs. Overall her headache is almost completely resolved. She has mild nausea but no other abdominal pain. No new jaundice. Does not sound like she is having symptoms of full minute a padded failure at this time. She will follow-up with her primary tomorrow Related Data Home Medications ?Medication ?Instructions ?Recorded ?Confirmed escitalopram oxalate 20 mg tablet 20 mg PO DAILY 10/25/23 09/06/24 bupropion HCl 150 mg 24 hr tablet, 150 mg PO DAILY 09/06/24 09/06/24 extended release clindamycin phosphate 1 % lotion 1 applic topical DAILY 09/06/24 09/06/24 fluticasone propionate 110 1 puff inhalation .PRN 09/06/24 09/06/24 mcg/actuation HFA aerosol inhaler levalbuterol tartrate 45 1 inh inhalation .PRN 09/06/24 09/06/24 mcg/actuation aerosol inhaler tretinoin 0.025 % topical cream 1 applic topical HS 09/06/24 09/06/24 Previous Rx's ?Medication ?Instructions ?Recorded amoxicillin 875 mg-potassium 1 tab PO BID peritonsillar abscess 09/07/24 clavulanate 125 mg tablet 1 week #14 tabs doxycycline hyclate 100 mg capsule 100 mg PO BID 14 days #28 caps 09/30/24 ondansetron HCl 4 mg tablet 4 mg PO Q8H PRN nausea and 09/30/24 vomiting #10 tabs Allergies Allergy/AdvReac Type Severity Reaction Status Date / Time No Known Drug Allergies Allergy Verified 09/30/24 08:52 [facility] Medical History Mononucleosis ?B27.90 - Infectious mononucleosis, unspecified without complication (ICD-10) Social History What is your current living situation?: I presently have a place to live Problems where you live: no known problems Problems where you live details: n/a In the past 12 months, utilities in danger of being shut off: no In the past 12 mos, have been you worried that your food would run out before you had money to buy more?: never true In the past 12 mos, the food you bought just didn't last and you didn't have money to buy more?: never true Smoking Status: Never smoker Do you use any of these nicotine containing products: None Second hand tobacco smoke exposure: No How often do you have a drink containing alcohol: never How often do you have six or more drinks on one occasion: Never AUDIT-C Alcohol total score: 0 Non-prescribed substance use: denies use How often does anyone, including family, friends and others, physically hurt you : never How often does anyone, including family, friends and others, insult or talk down to you: never How often does anyone, including family, friends and others, threaten you with harm: never How often does anyone, including family, friends and others, scream or curse at you: never service: No Course Vital Signs Vital signs: Initial Vital Signs Temperature 101.2 F H 09/30/24 06:17 Temperature Source Temporal Artery Scan 09/30/24 06:17 Pulse Rate 110 H 09/30/24 06:17 Pulse Rhythm Regular 09/30/24 06:17 Respiratory Rate 16 09/30/24 06:17 Blood Pressure 114/65 09/30/24 06:17 Blood Pressure Mean 81 09/30/24 06:17 Blood Pressure Position Right Lateral 09/30/24 06:17 Pulse Oximetry 98 09/30/24 06:17 Oxygen Delivery Method Room Air 09/30/24 06:17 Vital Signs Temperature 101.2 F H 09/30/24 06:17 Pulse Rate 110 H 09/30/24 06:17 Respiratory Rate 16 09/30/24 06:17 Blood Pressure 114/65 09/30/24 06:17 Pulse Oximetry 98 09/30/24 06:17 Oxygen Delivery Method Room Air 09/30/24 06:17 Temperature 98.5 F 09/30/24 09:14 Pulse Rate 78 09/30/24 10:00 Respiratory Rate 18 09/30/24 10:00 Blood Pressure 113/63 09/30/24 10:00 Pulse Oximetry 98 09/30/24 10:00 Oxygen Delivery Method Room Air 09/30/24 10:00 Oxygen Flow Rate 2 09/30/24 07:10 Medications Administered Medications: Discontinued Medications Generic Name Dose Route Start Last Admin Trade Name Freq PRN Reason Stop Dose Admin Acetaminophen 1,000 mg 09/30/24 06:42 09/30/24 07:53 Acetaminophen 500 Mg Tablet PO 09/30/24 06:43 1,000 mg ONCE ONE Administration Fentanyl 50 mcg 09/30/24 07:13 09/30/24 07:20 Fentanyl 100 Mcg/2 Ml Inj IVP 09/30/24 07:14 25 mcg ONCE ONE Administration Hydromorphone HCl 0.5 mg 09/30/24 06:33 09/30/24 06:54 Hydromorphone 0.5 Mg/0.5 Ml Inj IVP 09/30/24 06:34 0.5 mg ONCE ONE Administration Sodium Chloride 1,000 mls @ 1,000 mls/hr 09/30/24 06:45 09/30/24 09:15 0.9 % Sodium Chloride 1000 Ml IV 09/30/24 07:44 Infused .Q1H SEBLE Infusion Sodium Chloride 1,000 mls @ 1,000 mls/hr 09/30/24 08:00 09/30/24 10:59 0.9 % Sodium Chloride 1000 Ml IV 09/30/24 08:59 Infused .Q1H [facility] Infusion Ceftriaxone Sodium 2 gm/ 100 mls @ 200 mls/hr 09/30/24 07:46 09/30/24 11:09 Sodium Chloride IVPB 09/30/24 07:47 Not Given ONCE ONE Ketorolac Tromethamine 30 mg 09/30/24 06:33 09/30/24 06:54 Ketorolac 30 Mg/Ml Inj IVP 09/30/24 06:34 30 mg ONCE ONE Administration Midazolam HCl 2 mg 09/30/24 07:13 09/30/24 07:20 Midazolam Hcl 1 Mg/Ml Inj IVP 09/30/24 07:14 2 mg ONCE ONE Administration Ondansetron HCl 4 mg 09/30/24 06:33 09/30/24 06:54 Ondansetron 2 Mg/Ml Inj IVP 09/30/24 06:34 4 mg ONCE ONE Administration Medical Decision Making Lab Data Labs: Lab Results 09/30/24 09/30/24 09/30/24 Range/Units 06:38 07:40 08:24 WBC 3.56 L (4.50-11.00) K/uL RBC 4.56 (4.00-5.20) m/uL Hgb 13.1 (12.0-16.0) gm/dL Hct 38.7 (33.0-51.0) % MCV 85 (80-100) fL MCH 29 (26-34) pg MCHC 34 (32-36) gm/dL RDW Coeff of [place] 12.3 (11.5-15.5) % Plt Count 147 (140-440) K/uL Neut % (Auto) 63.9 (42.0-72.0) % Lymph % (Auto) 31.2 (20-44) % [place] % (Auto) 3.7 (0.0-11.0) % Eos % (Auto) 0.6 (0.0-7.0) % Baso % (Auto) 0.3 (0.0-3.0) % Neut # (Auto) 2.30 (1.7-7.0) K/uL Lymph # (Auto) 1.10 (0.90-2.90) K/uL [place] # (Auto) 0.10 (0.00-0.90) K/UL Eos # (Auto) 0.00 (0.00-0.50) K/uL Baso # (Auto) 0.00 (0.00-0.30) K/uL Abs Immat Gran (auto) 0.00 (0.00-0.30) K/uL Imm/Tot Granulo (auto) 0.3 % Diff Slide Review Acceptable Review (Acceptable) Sodium 133 L (135-149) mmol/L Potassium 3.5 L (3.6-5.1) mmol/L Chloride 102 (96-114) mmol/L Carbon Dioxide 26 (20-32) mmol/L Anion Gap 5 L (7-15) mEq/L BUN 11 (5-24) mg/dL Creatinine 0.8 (0.5-1.5) mg/dL Estimated GFR 108 ml/min Glucose 97 (60-115) mg/dL Lactate 0.9 (0.5-1.9) mmol/L Calcium 8.8 (8.4-10.6) mg/dL Total Bilirubin 0.7 (0.1-1.5) mg/dL Direct Bilirubin 0.4 (0.0-0.5) mg/dL AST 241 H (12-35) U/L ALT 237 H (4-35) U/L Alkaline Phosphatase 105 (40-150) U/L Total Protein 6.6 (6.0-8.3) g/dL Albumin 4.0 (3.3-5.0) g/dL Lipase 72 (23-300) U/L Procalcitonin 0.20 (<0.50) ng/mL HCG, Qual Negative (Negative) Urine Color Dark yellow (Yellow) Urine Appearance Clear (Clear) Urine pH 6.0 (5.0-8.5) Ur Specific [place] 1.010 (1.000-1.030) Urine Protein Negative (Negative) Urine Glucose (UA) Negative (Negative) Urine Ketones 1+ A (Negative) Urine Blood Negative (Negative) Urine Nitrite Negative (Negative) Urine Bilirubin Negative (Negative) Urine Urobilinogen 2.0 A (0.2-1.0) Ur Leukocyte Esterase Negative (Negative) Urine RBC 0-2 (0-2) Urine WBC 0-2 (0-5) Ur Squamous Epith Cells Moderate A (None-Few) Amorphous Sediment Few A (None) Urine Bacteria Few A (None) Urine HCG, Qual Cancelled CSF Volume 4.5 (0-6) mL CSF Appearance Clear (Clear) CSF Color Colorless (Colorless) CSF WBC 0 Cells/uL CSF RBC 104 Cells/uL CSF Mononuclear Cells 0 % CSF Polynuclear WBCs 0 % CSF Glucose 53 (40-70) mg/dL CSF Total Protein 22 (15-45) Mg/dL A. phagocytophilum DNA Not Detected Babesia Species (PCR) Not Detected Lyme Disease Antibody 0.51 (<=0.90) IV SARS-CoV-2 (PCR) Negative SARS-CoV-2 (Negative) E.ewingii/canis DNA PCR Not Detected E. muris-like DNA (PCR) Not Detected Hepatitis A Ab Total Positive A (Negative) Hep Bs Antigen Negative (Negative) Hep Bs Antibody Negative (Negative) Hep B Core IgM Ab Negative (Negative) Hepatitis C Antibody Negative (Negative) Influenza Type A (PCR) Negative PCR FLU A (Negative) Influenza Type B (PCR) Negative PCR FLU B (Negative) RSV (PCR) Negative PCR RSV (Negative) Babesia microti (PCR) Not Detected E. chaffeensis (PCR) Not Detected Lab Acknowledgement 09/30/24 Range/Units 08:26 WBC (4.50-11.00) K/uL RBC (4.00-5.20) m/uL Hgb (12.0-16.0) gm/dL Hct (33.0-51.0) % MCV (80-100) fL MCH (26-34) pg MCHC (32-36) gm/dL RDW Coeff of [place] (11.5-15.5) % Plt Count (140-440) K/uL Neut % (Auto) (42.0-72.0) % Lymph % (Auto) (20-44) % [place] % (Auto) (0.0-11.0) % Eos % (Auto) (0.0-7.0) % Baso % (Auto) (0.0-3.0) % Neut # (Auto) (1.7-7.0) K/uL Lymph # (Auto) (0.90-2.90) K/uL [place] # (Auto) (0.00-0.90) K/UL Eos # (Auto) (0.00-0.50) K/uL Baso # (Auto) (0.00-0.30) K/uL Abs Immat Gran (auto) (0.00-0.30) K/uL Imm/Tot Granulo (auto) % Diff Slide Review (Acceptable) Sodium (135-149) mmol/L Potassium (3.6-5.1) mmol/L Chloride (96-114) mmol/L Carbon Dioxide (20-32) mmol/L Anion Gap (7-15) mEq/L BUN (5-24) mg/dL Creatinine (0.5-1.5) mg/dL Estimated GFR ml/min Glucose (60-115) mg/dL Lactate (0.5-1.9) mmol/L Calcium (8.4-10.6) mg/dL Total Bilirubin (0.1-1.5) mg/dL Direct Bilirubin (0.0-0.5) mg/dL AST (12-35) U/L ALT (4-35) U/L Alkaline Phosphatase (40-150) U/L Total Protein (6.0-8.3) g/dL Albumin (3.3-5.0) g/dL Lipase (23-300) U/L Procalcitonin (<0.50) ng/mL HCG, Qual (Negative) Urine Color (Yellow) Urine Appearance (Clear) Urine pH (5.0-8.5) Ur Specific [place] (1.000-1.030) Urine Protein (Negative) Urine Glucose (UA) (Negative) Urine Ketones (Negative) Urine Blood (Negative) Urine Nitrite (Negative) Urine Bilirubin (Negative) Urine Urobilinogen (0.2-1.0) Ur Leukocyte Esterase (Negative) Urine RBC (0-2) Urine WBC (0-5) Ur Squamous Epith Cells (None-Few) Amorphous Sediment (None) Urine Bacteria (None) Urine HCG, Qual CSF Volume (0-6) mL CSF Appearance (Clear) CSF Color (Colorless) CSF WBC Cells/uL CSF RBC Cells/uL CSF Mononuclear Cells % CSF Polynuclear WBCs % CSF Glucose (40-70) mg/dL CSF Total Protein (15-45) Mg/dL A. phagocytophilum DNA Babesia Species (PCR) Lyme Disease Antibody (<=0.90) IV SARS-CoV-2 (PCR) (Negative) E.ewingii/canis DNA PCR E. muris-like DNA (PCR) Hepatitis A Ab Total (Negative) Hep Bs Antigen (Negative) Hep Bs Antibody (Negative) Hep B Core IgM Ab (Negative) Hepatitis C Antibody (Negative) Influenza Type A (PCR) (Negative) Influenza Type B (PCR) (Negative) RSV (PCR) (Negative) Babesia microti (PCR) E. chaffeensis (PCR) Lab Acknowledgement Test Added Discharge Plan Discharge Clinical Impression: Headache, Fever, Abnormal LFTs Patient Disposition: Home, Self-Care Condition: Stable Instructions: Fever in Adults (ED), Acute Headache (DC) Additional Instructions: As we discussed, the cause of your headache and fever and abnormal blood test is not clear at this time. This could be a viral illness. It is also possible that this could be an infection from a tick bite. Were going to start you on antibiotics (doxycycline) to treat for possible tick-borne illnesses. I have ordered lab tests to check you for tick-borne illnesses. These test results will not come back today. Will also have you checked for viral hepatitis. These lab tests will also not come back today. It will usually take a few days for your lab tests to come back. If they are positive the hospital will call you. It is very important for you to follow-up with your doctor or come back to the urgent care or ER within about 1 week to have repeat lab tests to look at your blood counts, liver function, and have follow-up testing. To schedule an appointment with the [facility] you can call If you get worse, for instance; if you have worse headache, high fever, confusion, yellowing of your skin, worsening abdominal pain or bloating, uncontrolled nausea or vomiting, dehydration or weakness, or any problems, please return to the ER immediately. Continues use the Toradol or ibuprofen if needed for headache. Drink plenty of fluids and stay hydrated. Use Zofran to help treat nausea if needed. Prescriptions: New doxycycline hyclate 100 mg capsule 100 mg PO BID 14 Days Qty: 28 0RF ondansetron HCl 4 mg tablet 4 mg PO Q8H PRN (Reason: nausea and vomiting) Qty: 10 0RF No Action escitalopram oxalate 20 mg tablet 20 mg PO DAILY clindamycin phosphate 1 % lotion 1 applic topical DAILY bupropion HCl 150 mg tablet extended release 24 hr 150 mg PO DAILY fluticasone propionate 110 mcg/actuation HFA aerosol inhaler 1 puff inhalation .PRN Rx Instructions: FOR EXERCISE INDUCED ASTHMA levalbuterol tartrate 45 mcg/actuation HFA aerosol inhaler 1 inh inhalation .PRN Rx Instructions: FOR EXERCISE INDUCED ASTHMA tretinoin 0.025 % cream 1 applic topical HS amoxicillin-pot clavulanate 875-125 mg tablet 1 tab PO BID 7 Days Qty: 14 1RF Follow Up/Referrals: Provider,Not a Local [Primary Care Provider] - Stand Alone Forms: [employer] Info Instructions
== END 2024-09-30 11:13 | disposition home or self-care (01) ==
PROVIDERS: Emergency Medicine; Emergency Provider Family Medicine
DX: R51.9 Headache, unspecified (principal); R50.9 Fever, unspecified; R94.5 Abnormal results of liver function studies
CPT/HCPCS: 62270; 36415; 70450; 74177; 80048; 80076; 81001; 81025; 82945; 83605; 83690; 84145; 84157; 84703; 85025; 86618; 86705; 86706; 86708; 86803; 87040; 87070; 87086; 87205; 87340; 87468; 87469; 87484; 87631; 87798; 89051; 96365; 96375; 99281; 99284; 99285; A9270; J1171; J1885; J2250; J2405; J3010; J7030; Q9967

== ENCOUNTER 2024-10-17 09:47 | Outpatient (CLI) | payer OTHER, SELFPAY ==
--- OUTSIDE RECORDS SUMMARY | 2024-10-17 09:53 | XMS_ITS | Encounter Summary ---
Author Organization [facility] Address [address] [address] Phone Care Team Providers Care Oil Heater Installer Name Role Phone Chaya Grove PA-C Primary Care Provider [phone] Sangeeta Steve MD Unavailable [phone] Vanna Bull MD Unavailable [phone] Reason for Visit * Reason Onset Date Comments Scheduling 10/04/2024 Encounter Details Date Type Department Care Team (Late st Contact Info) Description 10/04/2024 Telephone [facility] [address] [place] [address] Hermelinda Marsh Scheduling Social History Tobacco Use Types Packs/Day Years Used Date Smoking Tobacco: Never Smokeless Tobacco: Never Alcohol Use Standard Drinks/Week Comments Not Currently 0 (1 standard drink = 0.6 oz pur e alcohol) [facility] Utilities Answer Date Recorded In the past 12 months has [employer], gas, oil, or water company threatened to shut off services in your home? No 2024 AUDIT-C Answer Date Recorded Q1: How often do you have a drink containing alc ohol? Monthly or less 02/26/2020 Q2: How many drinks containi ng alcohol do you have on a typical day when you are drinking? 1 or 2 02/26/2020 Q3: How often do you have si x or more drinks on one occasion? Never 02/26/2020 Overall Financial Resource Strain (CARDIA) Answe r Date Recorded How hard is it for you to pa y for the very basics like food, housing, medical care, and heating? Not hard at all 12/27/2022 PHQ-2 Answer Date Recorded PHQ-2 Total 2 10/02/2024 Hunger Vital Sign Answer Date Recorded Within the past 12 months, y ou worried that your food would run out before you got the money to buy more. Never true 09/12/20 24 Within the past 12 months, t he food you bought just didn't last and you didn't have money to get more. Never true 2024 PRAPARE - Transportation Answer Date Re corded In the past 12 months, has l ack of transportation kept you from medical appointments or from getting medications? No 08/16 In the past 12 months, has l ack of transportation kept you from meetings, work, or from getting things needed for daily living? No 2024 Housing Stability Vital Sign Answer Theron e Recorded In the last 12 months, was t here a time when you were not able to pay the mortgage or rent on time? No 2024 In the past 12 months, how m any times have you moved where you were living? 1 2024 At any time in the past 12 m [facility], were you homeless or living in a [facility]p (including now)? No 2024 EH IP Custom Utilities Answer Date Ravinder rded Retired - How hard is it for you to pay for utilities like heat, water, and electricity? Patient declined 01/13/2024 EH IP Housing Domain Answer Date Record ed Retired - What is your livin g situation today? I have a steady place to live 01/13/2024 EH IP Custom IPV Answer Date Recorded Do you feel UNSAFE in any of your personal relationships with your family members or any other acquaintances? No 2023 Comments No Sex and Gender Information Value Date Recorded Sex Assigned at Female 08/02/2018 5:51 AM CDT Legal Sex Female 11:38 PM SENIOR STRATEGY ANALYST Gender Identity Female 08/02/2018 5:51 AM CDT Sexual Orientation Straight 07/13/2024 10 :55 AM CDT documented as of this encounter Functional Status * Patient's Vision Adequate to Safely Complete Daily Activities Answer Date of Assessment Author Yes 02/26/2020 1:39 AM CDT Hermelinda Richards RN * Patient's Memory Adequate to Safely Complete Daily Activities Answer Date of Assessment Author Yes 02/26/2020 1:39 AM CDT Hermelinda Richards RN documented as of this encounter Mental Status * Patient's Judgment Adequate to Safely Complete Daily Activities Answer Entry Date Author Yes 02/26/2020 1:39 AM CDT Hermelinda Richards RN documented in this encounter Miscellaneous Notes * Telephone Encounter - Hermelinda Marsh - 10/04/2024 8:45 AM CST LVM Re: r/s appt with James Tadeo MD on 11/02 per clinician request My Chart message sent as well OR STRATEGY ANALYST documented in this encounter Plan of Treatment Upcoming Encounters Date Type Department Care Team (Late st Contact Info) Description 11/09/2024 11:00 AM SENIOR STRATEGY ANALYST Appointment [facility] [address] [place] [address] James Tadeo MD [address] [place] [address] 12/17/2024 8:10 AM SENIOR STRATEGY ANALYST Appointment [facility] [address] [place] [address] Chaya Grove PA-C [address] [place] [address] [phone] documented as of this encounter Visit Diagnoses Not on filedocumented in this encounter Care Teams Oil Heater Installer Relationship Specialty Start Date End Date Chaya Grove PA-C [address] [place] [address] [phone] PCP - General Family Medicine 09/13/22 Sangeeta Steve MD [address] [place] [address] [id number] PCP - PC Team Family Medicine 06/07/23 Vanna Bull MD [address] [place] [id number] Cardiology Physician Cardiology 08/20/24 documented as of this encounter
--- OUTSIDE RECORDS SUMMARY | 2024-10-17 09:53 | XMS_ITS | Encounter Summary ---
Author Organization [facility] Address [address] [address] Phone Care Team Providers Care Operations Coordinator Name Role Phone Chaya Grove PA-C Primary Care Provider [phone] Sangeeta Steve MD Unavailable [phone] Vanna Bull MD Unavailable [phone] Encounter Details Date Type Department Care Team (Late st Contact Info) Description 10/04/2024 Telephone [facility] [address] [place] [address] Chaya Grove PA-C [address] [place] [address] Social History Tobacco Use Types Packs/Day Years Used Date Smoking Tobacco: Never Smokeless Tobacco: Never Alcohol Use Standard Drinks/Week Comments Not Currently 0 (1 standard drink = 0.6 oz pur e alcohol) [facility] Utilities Answer Date Recorded In the past 12 months has [employer], gas, oil, or water [employer] threatened to shut off services in your [...] any time in the past 12 m onths, were you homeless or living in a nursing home (including now)? No 2024 EH IP Custom [...] AM CDT Legal Sex Female 11:38 PM BONDING SUPERVISOR Gender Identity Female 08/02/2018 5:51 AM CDT Sexual Orientation Straight 07/13/2024 10 :55 AM CDT documented as of this encounter Functional Status * Patient's Vision Adequate to Safely Complete Daily Activities Answer Date of Assessment Author Yes 02/26/2020 1:39 AM CDT Hermelinda Richards, RN * Patient's Memory Adequate to Safely Complete Daily Activities Answer Date of Assessment Author Yes 02/26/2020 1:39 AM CDT Hermelinda Richards RN documented as of this encounter Mental Status * Patient's Judgment Adequate to Safely Complete Daily Activities Answer Entry Date Author Yes 02/26/2020 1:39 AM CDT Hermelinda Richards RN documented in this encounter Miscellaneous Notes * Telephone Encounter - Chaya Grove PA-C - 10/04/2024 4:22 PM BONDING SUPERVISOR This blog writer called patient to discuss lab results. Hemogram has normalized. The liver transaminasesremain elevated. When compared to lab results from outside facility AST is decreased from 241 to 136 and ALT is slightly increased 237 to 271. Also discussed imaging results. Liver ultrasound was normal. All other labs were within acceptable range. Patient states she is feeling improved. She will be driving back to [facility] where she attends college. She will notify me of any change in symptoms. Patient already scheduled for follow-up in 1 week. Chaya Grove PA-C ING SUPERVISOR documented in this encounter Plan of Treatment Upcoming Encounters Date Type Department Care Team (Late st Contact Info) Description 11/09/2024 11:00 AM BONDING SUPERVISOR Appointment [facility] [address] [place], [place] [phone] James Tadeo MD [address] [place], [place] [address] 12/17/2024 8:10 AM BONDING SUPERVISOR Appointment [facility] [address] [place] [phone] Chaya Grove PA-C [address] [place] [address] [phone] documented as of this encounter Visit Diagnoses Not on filedocumented in this encounter Care Teams Operations Coordinator Relationship Specialty Start Date End Date Chaya Grove PA-C [address] [place] [address] PCP - General Family Medicine 09/13/22 Sangeeta Steve MD [address] [place] [address] [phone] PCP - PC Team Family Medicine 06/07/23 Vanna Bull MD [address] [place] [address] [id number] Cardiology Physician Cardiology 08/20/24 documented as of this encounter
--- OUTSIDE RECORDS SUMMARY | 2024-10-17 09:53 | XMS_ITS | Encounter Summary ---
Author Organization [facility] Address [address] [address] Phone Care Team Providers Care Home Health Care Social Worker Name Role Phone Chaya Grove PA-C Primary Care Provider [phone] Sangeeta Steve MD Unavailable [phone] Vanna Bull MD Unavailable [phone] Encounter Details Date Type Department Care Team (Latest Contact Info) Description 10/10/2024 Travel Social History Tobacco Use Types Packs/Day Years Used Date Smoking Tobacco: Never Smokeless Tobacco: Never Alcohol Use Standard Drinks/Week Comments Not Currently 0 (1 standard drink = 0.6 oz pur e alcohol) [facility] Utilities Answer Date Recorded In the past 12 months has [employer], [employer], oil, or water [employer] threatened to shut off services in your [...] Never 02/26/2020 Overall Financial Resource Strain (CARDIA) Tina lerma Date Recorded How hard is it for you to pa y for the very basics like food, housing, medical care, and heating? Not hard at all 12/27/2022 PHQ-2 Answer Date Recorded PHQ-2 Total 3 10/10/2024 Hunger Vital Sign Answer Date Recorded Within [...] any time in the past 12 m [facility], were you homeless or living in a retirement (including now)? No 2024 EH IP Custom [...] AM CDT Legal Sex Female 11:38 PM ESTHETICIAN/OWNER Gender Identity Female 08/02/2018 5:51 AM CDT [...] Entry Date Author Yes 02/26/2020 1:39 AM Hermelinda Sharma RN documented in this encounter Plan of Treatment Upcoming Encounters Date Type Department Care Team (Late st Contact Info) Description 11/09/2024 11:00 AM ESTHETICIAN/OWNER Appointment [facility] [address] [place] [address] James Tadeo MD [address] [place] [address] 12/17/2024 8:10 AM ESTHETICIAN/OWNER Appointment [facility] [address] [place] [address] Chaya Grove PA-C [address] [place] [address] documented as of this encounter Visit Diagnoses Not on filedocumented in this encounter Care Teams Home Health Care Social Worker Relationship Specialty Start Date End Date Chaya Grove PA-C [address] [place] [address] [phone] PCP - General Family Medicine 09/13/22 Sangeeta Steve MD [address] [place] [address] PCP - PC Team Family Medicine 06/07/23 Vanna Bull MD [address] [place] [address] [phone] Cardiology Physician Cardiology 08/20/24 documented as of this encounter
--- OUTSIDE RECORDS SUMMARY | 2024-10-17 09:53 | XMS_ITS | Encounter Summary ---
Author Organization [facility] Address [address] [address] Phone Care Team Providers Care Crown Pouncer Name Role Phone Chaya Grove PA-C Primary Care Provider [phone] Sangeeta Steve MD Unavailable [phone] Vanna Bull MD Unavailable [phone] Reason for Visit * Ancillary Services (Urgent) - Closed Specialty Diagnoses / Procedures Referred By Cosme ortiz Referred To Contact Radiology Diagnoses Elevated liver transaminase level Procedures US ABDOMEN LIMITED Chaya Grove PA-C [address] [place] [address] Phone: tel: fax: Referral ID Status Reason Start Date Expiration Date Visits Re quested Visits Authorized [id number] Closed 10/02/2024 01/02/2026 1 1 Encounter Details Date Type Department Care Team (Latest Contact Info) Description 10/02/2024 4:30 PM BRIDGE IRONWORKER HELPER Ancillary Procedure [facility] [address] [place] [address] Chaya Grove PA-C [address] [place] [address] Elevated liver transaminase level Social History Tobacco Use Types Packs/Day Years Used Date Smoking Tobacco: Never Smokeless Tobacco: Never Alcohol Use Standard Drinks/Week Comments Not Currently 0 (1 standard drink = 0.6 oz pur e alcohol) [facility] Utilities Answer Date Recorded In the past 12 months has th e electric, gas, oil, or water company threatened to [...] any time in the past 12 m [facility], were you homeless or living in a long term (including now)? No 2024 [facility] Custom Utilities Answer Date Ravinder rded Retired - How hard is it for you to pay for utilities like heat, water, and electricity? Patient declined 01/13/2024 EH IP Housing Domain Answer Date Record ed Retired - What is your edgardo g situation today? I have a steady place to live 01/13/2024 EH IP Custom IPV Answer Date Recorded Do you feel UNSAFE in any of your personal relationships with your family members or any other acquaintances? No 2023 Comments No Sex and Gender Information Value Date Recorded Sex Assigned at Female 08/02/2018 5:51 AM CDT Legal Sex Female 11:38 PM BRIDGE IRONWORKER HELPER Gender Identity Female 08/02/2018 5:51 AM CDT [...] Hermelinda Richards RN documented in this encounter Plan of Treatment Upcoming Encounters Date Type Department Care Team (Late st Contact Info) Description 11/09/2024 11:00 AM BRIDGE IRONWORKER HELPER Appointment [facility]GICAL [address] [place] [address] James Tadeo MD [address] [place] [address] 12/17/2024 8:10 AM BRIDGE IRONWORKER HELPER Appointment [facility] [address] [place] [address] Chaya Grove PA-C [address] [place] [address] documented as of this encounter Procedures Procedure Name Priority Date/Time Associated Diagnosis Comments US ABDOMEN LIMITED STAT 10/02/2024 4: 41 PM BRIDGE IRONWORKER HELPER Elevated liver transaminase level documented in this encounter Results * US ABDOMEN LIMITED (10/02/2024 4:41 PM BRIDGE IRONWORKER HELPER) Anatomical Region Laterality Modality Abdomen Ultrasound 10/02/2024 4:41 PM BRIDGE IRONWORKER HELPER Narrative 10/02/2024 4:45 PM BRIDGE IRONWORKER HELPER This document is currently in Final Status Exam US ABDOMEN LIMITED INDICATION: elevated liver enzymes; COMPARISON: None FINDINGS: The liver is normal in size, measuring 14.6 cm in length, and demonstrates normal echogenicity without cyst, mass or intrahepatic biliary ductal dilatation. There is no free subhepatic fluid. The gallbladder is normal in size and appearance without stone, sludge or pericholecystic fluid. The wall thickness measures 2-3 mm. The common bile duct measures 2-3 mm at the august hepatis. There is no sonographic Crews's sign. The visualized portion of the pancreas is normal without cysts or masses. The right kidney measures 11.1 cm without cyst, mass, hydronephrosis or calculus. IMPRESSION: No cholelithiasis or sonographic evidence of cholecystitis. Electronically Signed: Min Khalil MD 10/02/2024 4:45 PM Procedure Note Min Abad MD - 10/02/2024 This document is currently in Final Status Exam US ABDOMEN LIMITED INDICATION: elevated liver enzymes; COMPARISON: None FINDINGS: The liver is normal in size, measuring 14.6 cm in length, and demonstratesnormal echogenicity without cyst, mass or intrahepatic biliary ductaldilatation. There is no free subhepatic fluid. The gallbladder is normal in size and appearance without stone, sludge orpericholecystic fluid. The wall thickness measures 2-3 mm. The commonbile duct measures 2-3 mm at the august hepatis. There is no sonographicMurphy's sign. The visualized portion of the pancreas is normal withoutcysts or masses. The right kidney measures 11.1 cm without cyst, mass, hydronephrosis orcalculus. IMPRESSION: No cholelithiasis or sonographic evidence of cholecystitis. Electronically Signed: Min Khalil MD 10/02/2024 4:45 PM us Chaya Grove PA-C EC US ORDERABLES Final Re sult documented in this encounter Visit Diagnoses Diagnosis Elevated liver transaminase level documented in this encounter Care Teams Crown Pouncer Relationship Specialty Start Date End Date Chaya Grove, LEWISC [address] [place] [address] [phone] PCP - General Family Medicine 09/13/22 Sangeeta Steve MD [address] [place] [address] PCP - PC Team Family Medicine 06/07/23 Vanna Bull MD [address] [place] [address] [phone] Cardiology Physician Cardiology 08/20/24 documented as of this encounter
--- OUTSIDE RECORDS SUMMARY | 2024-10-17 09:53 | XMS_ITS | Encounter Summary ---
Author Organization [facility] Address [address] [address] Phone Care Team Providers Care Livestock Handler Name Role Phone Chaya Grove PA-C Primary Care Provider [phone] Sangeeta Steve MD Unavailable [phone] Vanna Bull MD Unavailable [phone] Reason for Visit * Reason Comments Headache Follow Up ER karolina Encounter Details Date Type Department Care Team (Latest Contact Info) Description 10/10/2024 3:10 PM HALL PORTER Office Visit [facility] [address] [place] [id number] Chaya Grove PA-C [address] [place] [id number] Pre-op examination (Primary Dx); Recurrent tonsillitis; Elevated liver transaminase level; Infectious mononucleosis, with other complication, infectious mononucleosis due to unspecified organism Social History Tobacco Use Types Packs/Day Years Used Date Smoking Tobacco: Never Smokeless Tobacco: Never Tobacco Cessation:Counseling Given: Not Answered Alcohol Use Standard Drinks/Week Comments Not Currently 0 (1 standard drink = 0.6 oz pur e alcohol) [facility] Utilities Answer Date Recorded In the past 12 months has [employer], gas, oil, or water [employer] threatened to shut off services in your [...] any time in the past 12 m [facility], were you homeless or living in a skilled nursing (including now)? No 2024 EH IP Custom [...] AM CDT Legal Sex Female 11:38 PM HALL PORTER Gender Identity Female 08/02/2018 5:51 AM CDT Sexual Orientation Straight 07/13/2024 10 :55 AM CDT documented as of this encounter Last Filed Vital Signs Vital Sign Reading Time Taken Comments Blood Pressure 124/80 10/10/2024 2:58 PM HALL PORTER Pulse 76 10/10/2024 2:58 PM HALL PORTER Temperature 36.8 C (98.3 F) 10/10/2024 2:58 PM HALL PORTER Respiratory Rate - - Oxygen Saturation 99% 10/10/2024 2:58 PM HALL PORTER Inhaled Oxygen Concentration - - Weight 71.2 kg (156 lb 15.5 oz) 10/10/2024 2:58 PM HALL PORTER Height 165.1 cm (5' 5) 10/10/2024 2:58 PM HALL PORTER Body Mass Index 26.12 10/10/2024 2:58 PM HALL PORTER documented in this encounter Functional Status * Patient's Vision Adequate to Safely Complete Daily Activities Answer Date of Assessment Author Yes 02/26/2020 1:39 AM CDT Hermelinda Richards RN * Patient's Memory Adequate to Safely Complete Daily Activities Answer Date of Assessment Author Yes 02/26/2020 1:39 AM MESSIT Hermelinda Richards RN documented as of this encounter Mental Status * Patient's Judgment Adequate to Safely Complete Daily Activities Answer Entry Date Author Yes 02/26/2020 1:39 AM Hermelinda Sharma RN documented in this encounter H&P Notes * Chaya Grove PA-C - 10/10/2024 3:10 PM CST Images from the original note were not included. Pre-Operative H&P [facility] Subjective HPI: Sandra is a 19 year old here with the following concern(s): She is here for a pre-operative evaluation. I am seeing the patient at the request of Dr. Jeff Arreola. Patient is scheduled for tonsillectomy at [facility] on November 02, 2024. Pre-Op HPI: Patient unfortunately had repeated illnesses the last couple of months. In the fall she was diagnosed with strep throat, mononucleosis, bronchitis, and epiglottitis. She was hospitalized in [facility] in August during epiglottitis and had consult with ENT specialist while in the hospital.It was recommended patient undergo tonsillectomy. Since then patient has continued to struggle some with her health. A few weeks ago she was seen in the ER in [place] for intractable headache. Multiple labs were collected which revealed elevated liver transaminase (6-8 x the upper limit of normal), positive mononucleosis (as previously diagnosed in July), questionably positive hepatitis A screening (can not distinguish between active hepatitis A infection and past immunization), negative hep B and negative hep c. WBC were also slightlydecreased. Testing for Lyme disease and tick borne illnesses was negative. A lumbar puncture was performed and Normal. CT of head and of CT of abdomen and pelvis were normal. She was treated for migraine headache in the ER and symptoms improved. She followed up with primary care a week later and symptoms had improved. Recheck of labs revealed stable liver enzymes, normal CMP and hemogram normalized. She reports she is feeling improved. Stillhas intermittent mild headache but otherwise feeling better. No recent fever. She still feels fatigued which she has struggled with since the mononucleosis diagnosis in July. Patient reports family history of SLE in her great-grandmother. Patient wondering if her symptoms could be related to SLE as well. Denies abdominal pain, nausea, vomiting, bloody stool, black tarry stool. Denies chest pain/pressure, shortness of breath, palpitations, syncope, orthopnea or pedal edema. Denies sore throat, nasal congestion, ear pain, rhinorrhea. Pre-operative Risk Assessment: General: History of significant transfusion antibody reaction: No Diabetes Mellitus: No Dyspnea: No Functional Health Status: independent Chronic Pain: No Open wound with/without infection: No >10% loss of body weight past 6 months: No Fever > 101 in past month: Yes last fever 10 days ago (09/30/24). Steroid use for chronic condition: No Exposure to Prednisone > 5 mg/day for > 3 weeks in past 6 months: No Bleeding disorders: No Actively managed cancer: No : No Functional Capacity Assessment: Able to walk 200 feet (2 blocks) without stopping due to symptoms? Yes - > 4 METS capacity. 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 Currently undergoing work up for POTS, has tilt table test scheduled in November. ECG 07/11/2024: Normal sinus rhythm. Possible left atrial enlargement. No change from prior ECG. Recent Holter monitor 08/03/24: Baseline sinus rhythm with normal heart rate variability. 22% sinustachycardia and 3% sinus bradycardia reviewed. Echocardiogram 05/26/2020 reviewed. Interpretation Summary 1) Trileaflet aortic valve without stenosis or insufficiency. 2) Normal size aorta including root and ascending. No coarctation. 3) The remainder of the anatomy is normal including coronary artery origins. 4) Intact ventricular septum with geometry suggesting normal RV pressure. 5) Normal right and left ventricular size and thickness. 6) Normal right and left ventricular systolic function. Normal echocardiogram for age. Vascular: No history of vascular disease. Hepatobiliary: No history of hepatobiliary disease. Gastrointestinal: Elevated liver transaminase, suspect this is secondary to mononucleosis. Renal: No history of renal disease. Central Nervous System: No history of SENIOR PREMIUM AUDITOR disease. Additional ROS (undiagnosed new complaints): Constitutional: no weight loss or fever Head/Eyes/Ears/Nose/Throat: denies ear pain, change in vision, nasal discharge or sore throat. Cardiovascular: no chest pains or palpitations Respiratory: no cough or shortness of breath Gastrointestinal: no dysphagia, abdominal pain, nausea, vomiting, change in bowel habits, melena, hematochezia Genitourinary: no change in urination or blood in urine Neurologic: no history of focal neurologic symptoms, spells, memory changes, confusion Problem List: Patient Active Problem List Diagnosis Chest wall asymmetry Myopia, bilateral Irregular periods Dysmenorrhea in adolescent Major depressive disorder with single episode, in full remission (HCC) MALVIN (generalized anxiety disorder) Parent-child relational problem Right knee pain, unspecified chronicity Acute medial meniscus tear of right knee, initial encounter Suicidal ideation Personal history of nonsuicidal self-harm Past Medical History: See pre-operative risk assessment above Past Medical History: Diagnosis Date Anxiety Asthma Chest wall asymmetry 09/23/2008 noticed a year ago per mom Contusion of right tibia 06/27/2016 Depression Family history of disease of aorta 06/01/2020 Father and sister with bicuspid aortic valves. Her father has enlarged aortic root. Sandra has a normal aortic valve and aortic size. Ibuprofen overdose, intentional self-harm, subsequent encounter 02/26/2020 Incarcerated fracture (avulsion) of medial epicondyle of left humerus, initial encounter for closedfracture 03/14/2018 Left low back pain, unspecified chronicity, with sciatica presence unspecified 10/03/2016 Mechanical complication of internal orthopedic implant, sequela 07/24/2018 Myopia, bilateral 04/07/2017 Neurapraxia of left ulnar nerve, initial encounter 03/14/2018 Self-injurious behavior 12/31/2019 Suicidal behavior with attempted self-injury (HCC) 02/26/2020 Unspecified otitis media 08/12/2005 and February 16, recurrent acute. Urinary tract infection, site not specified 09/2008 [facility] this past year Wheezing 09/24/200509/21: none in several years Past Surgical/Anesthesia History: Past Surgical History: Procedure Laterality Date CREATE EARDRUM OPENING,GEN ANESTH 08/23/2005 ELBOW FRACTURE SURGERY Left 03/15/2018 Procedure: open reduction internal fixation left medial epicondyle with ulnar nerve exploration; Surgeon: Mumtaz Tristan DO; Location: [facility]S HARDWARE REMOVAL Left 08/02/2018 Procedure: left elbow hardware removal; Surgeon: Mumtaz Tristan DO; Location: [facility] OR[facility] INCISION EARDRUM,ASPIR 08/12/2005 Bilateral with ventialtion tube placement. KNEE ARTHROSCOPY Right 06/22/2024 Procedure: ARTHROSCOPY KNEE WITH MEDIAL MENISCUS REPAIR, WITH MARROW VENTING, RIGHT; Surgeon: James Tadeo MD; Location: [facility] OR The patient has not had problems during mimi-operative period Current Medications: Current Outpatient Medications Medication Sig Dispense Refill buPROPion XL (Wellbutrin XL) 150 MG 24 hour extended release tablet Take 1 Tablet by mouth every morning. Do not crush. 90 Tablet 3 fluticasone (Flovent HFA) 110 MCG/ACT inhalation aerosol Inhale 2 Puffs into the lungs two times a day. 12 g 5 levalbuterol (Xopenex HFA) 45 MCG/ACT inhalation aerosol Inhale 1-2 Puffs into the lungs every fourhours as needed for Wheezing or Shortness of Breath. Shake well before using. 15 g 5 clindamycin (Cleocin-T) 1 % lotion Apply thin layer to full face every morning. 60 mL 6 tretinoin (Retin-A) 0.025 % cream Apply a pea sized amount to full face to start every other night,gradually increasing to every night over a few weeks. Then apply a good, gentle moisturizer. 45 g 6 escitalopram (Lexapro) 20 MG tablet Take 1 Tablet by mouth one time a day. 90 Tablet 1 hydrOXYzine HCl (Atarax) 10 MG tablet Take 1 Tablet by mouth three times a day as needed for Other (Pain). 20 Tablet 0 Current Facility-Administered Medications Medication Dose Route Frequency Provider Last Rate Last Admin levonorgestrel (KYLEENA) 19.5 MG intra uterine device 1 Intra Uterine Device 1 Intra Uterine DeviceIntrauterine Continuous Nisha Arrieta MD, FACOG 1 Intra Uterine Device at 10/13/20 1339 Cannot display prior to admission medications because the patient has not been admitted in this contact. Allergies and Drug Sensitivities: Allergies Allergen Reactions Cats Hives, Pruritis and Eye Irritation Red, watery, swelling, itchy eyes. Itchy throat and nose. Immunizations: Immunization History Administered Date(s) Administered COVID-19 MRNA Vaccine (Pfizer ERYN-SUCR) Guerrier 12+ Yrs Seasonal 08/17/2023 COVID-19 Vaccine: Pfizer Bivalent (TRI-SUCR Guerrier) 12+ Yrs ([facility]) 09/14/2022 COVID-19 Vaccine: Pfizer Booster (Purple- 12+ Yrs) [facility] 11/05/2021 COVID-19 Vaccine: Pfizer Dose 1 (Purple- 12+ Yrs) [facility] 02/14/2021 COVID-19 Vaccine: Pfizer Dose 2 (Purple- 12+ Yrs) [facility] 03/07/2021 Bekah Skin Test 12/18/2021, 01/03/2023, 01/31/2023, 03/02/2023 DTaP <7 years 12/24/2005, 09/23/2008 AZbR-MckO-TAM (Pediarix) 2004, 01/27/2005, 03/29/2005 Hepatitis A, Ped/Adolescent 2 dose 04/26/2019, 04/06/2023 Hib PRP OMP (PedvaxHib) 2004, 01/27/2005, 09/16/2005 Human Papilloma Virus 9 09/15/2015, 09/24/2016 IPV 09/21/2010 Influenza A H1n1 09/22/2009 Influenza Fluzone (6 months - 64 years) Quad NPF Vial ([facility]) 08/25/2016 Influenza H1N1 Unspecified 11/10/2009 Influenza Live Intranasal (2-49 years) 09/02/2011, 09/01/2012, 08/31/2013, 08/23/2014, 08/22/2015 Influenza Live Intranasal Quad (Flumist) 09/23/2008, 09/16/2009, 09/21/2010 Influenza Quad Preservative Free 09/16/2017, 10/16/2021, 08/17/2023 Influenza Trivalent Preservative Free 09/16/2005, 10/19/2005, 09/14/2006, 09/21/2007 Influenza Vaccine (6 months - 64 Years) Quad PF Syringe ([facility]) 08/22/2018, 09/04/2019, 08/29/2020, 09/14/2022 MMR 09/16/2005, 09/16/2009 Meningococcal B Vaccine, Recombinant Omv, Adjuvanted 12/18/2021, 09/14/2022 Meningococcal MCV4 (Menveo) 2 Vials 10/23/2020 Pneumococcal Conjugate, (Prevnar)7-valent 2004, 01/27/2005, 03/29/2005, 09/16/2005 Tdap (7 years and older) 09/15/2015 Typhoid VICPS 04/06/2023 Varicella (Varivax) 12/24/2005, 09/16/2009 meningococcal MCV4P (Menactra) 09/15/2015 Is the patient up to date for Influenza, Shingrix, Pneumococcal, and Tdap vaccines as applicable for age-no Patient or any member of family has history of MRSA or skin infections: No Family History: Negative for bleeding disorder/clotting disorder or anesthesia problems Social History: Review reveals: single, [facility], goes to [place] for school. Her mom and/or dad will bring her to and from surgery. Code Status: Full Code/Resuscitation Lift DNR for surgery: Not Applicable Advance Directive: Not on File Physical Examination: (APPEARANCE, SKIN, HEAD, NOSE, THROAT, NECK, LUNG, HEART and MENTAL STATUS are critical for preop assessment) Vitals: 10/10/24 1458 BP: 124/80 Pulse: 76 Temp: 36.8 ??C (98.3 ??F) TempSrc: Oral Height: 5' 5 (1.651 m) Weight: 156 lb 15.5 oz (71.2 kg) SpO2: 99% BMI (Calculated): 26.12 Body mass index is 26.12 kg/m??. Room Air APPEARANCE: alert, no apparent distress and affect normal. SKIN: clear with no lesions or rash noted. HEAD: normal. EYES: eyelid(s) normal, conjunctiva clear, EOM(s) intact, PERRL. EARS: both external canals normal and TM's intact, flat, translucent with normal landmarks. NOSE: septum midline and normal mucosa. MOUTH/THROAT: lips, tongue, oral mucosa and pharynx normal. NECK: supple, no adenopathy, no masses or thyromegaly. LUNG: good respiratory effort without retractions, good air entry and normal breath sounds bilaterally. HEART/PULSES: regular, S1 & S2 normal. ABDOMEN: flat, soft without tenderness. EXTREMITIES: extremities normal. NEUROLOGIC: alert, orientated X 3, interaction normal, and exam normal with no focal findings. LABS: Lab Results Component Value Date NA 140 10/02/2024 K 4.0 10/02/2024 CREAT 0.85 10/02/2024 CRWB 0.2 08/05/2008 WBC 4.9 10/02/2024 HGB 12.9 10/02/2024 PLTS 196 10/02/2024 GLUC 85 10/02/2024 GLUC 72 08/28/2024 GLUC 84 07/11/2024 GLUWB 89 08/05/2008 CXR: not indicated EKG: not indicated U/A: not indicated Assessment/Plan 1. Pre-op examination (Primary) 2. Recurrent tonsillitis -Preoperative exam is satisfactory. No contraindications to surgery at this time. -She has struggled with recurrent illnesses the last few months. Her last fever was about 10 days ago. Provided she remains fever-free going forward, it will be 30+ days without a fever on the day ofsurgery. If patient develops fever or new symptoms she should notify the office. 3. Elevated liver transaminase level 4. Infectious mononucleosis, with other complication, infectious mononucleosis due to unspecified organism - I suspect this is secondary to mononucleosis, as diagnosed in July. She did test positive for hepatitis A IgG antibodies however as noted in the HPI this does not distinguish between active infection and previous immunization. Bilirubin was not elevated nor did she have any significant jaundice to indicate hepatitis A. She is asymptomatic, no abdominal pain, nausea, vomiting, jaundice, change in stools, etc. -Labs were checked last week and appeared stable. I recommend following up in 4 to 6 weeks to recheck hepatic panel. -Patient did inquire about testing for SLE, she would like KORI checked today. We discussed that ANAcan be falsely positive secondary to viral illness and at this time I am most suspicious her symptoms are related to a virus. Since her symptoms are improving I recommend deferring this today. If liver transaminase continues to be elevate then could consider further work up of autoimmune hepatitis. Would patient benefit from cardiac workup (< 4 METS capacity/surgical risk intermediate or high)? no Would patient benefit from Pre-op Beta joyce? no Does the patient need clear diabetes related orders? no Any reason to refuse blood transfusion? no Further workup for surgery needed? no Is this patient on buprenorphine? No - Patient is optimized for surgery? YES This preoperative note has been sent to the requesting physician for review: yes Return in about 1 month (around 11/09/2024) for labs 2-3 days prior. PORTER documented in this encounter Miscellaneous Notes * Clinical Note - Corry Fleming CMA - 10/10/2024 3:10 PM CST This chart was prepped for visit by Corry Fleming CMA on 10/10/2024. PORTER documented in this encounter Plan of Treatment Upcoming Encounters Date Type Department Care Team (Late st Contact Info) Description 11/09/2024 11:00 AM HALL PORTER Appointment [facility] [address] [place] [id number] James Tadeo MD [address] [place] [phone] 12/17/2024 8:10 AM HALL PORTER Appointment [facility] [address] [place] [phone] Chaya Grove PA-C [address] [place] [phone] Scheduled Orders Name Type Priority Associated Diagnoses Orde r Schedule COMPREHENSIVE METABOLIC PANEL Lab Routine Elevated liver transaminase level Expected: 11/05/2024 (Approximate), Expires: 12/10/2024 HEMOGRAM Lab Routine Elevated liver transaminase level Expected: 11/05/2024 (Approximate), Expires: 01/13/2025 documented as of this encounter Visit Diagnoses Diagnosis Pre-op examination- Primary Preoperative examination, unspecified Recurrent tonsillitis Acute tonsillitis Elevated liver transaminase level Infectious mononucleosis, with other complication, infectious mononucleosis due to unspecified organism documented in this encounter Discontinued Medications Medication Sig Discontinue Reason Start Date End Da te ketorolac (Toradol) 10 MG tablet Course of treatment completed 09/29/2024 10/10/2024 ondansetron (Zofran ODT) 4 MG disintegrating tablet Take 1 Tablet by mouth every eight hours as needed for Nausea. Course of treatment completed 10/02/2024 10/10/2024 documented as of this encounter Care Teams Livestock Handler Relationship Specialty Start Date End Date Chaya Grove PA-C [address] [place] [address] [phone] PCP - General Family Medicine 09/13/22 Sangeeta Steve MD [address] [place] [address] [phone] PCP - PC Team Family Medicine 06/07/23 Vanna Bull MD [address] [place] [address] [phone] Cardiology Physician Cardiology 08/20/24 documented as of this encounter
--- OUTSIDE RECORDS SUMMARY | 2024-10-17 09:53 | XMS_ITS | Clinical Summary ---
Author Organization [facility] [employer] [facility] Address [address] [address] Phone Care Team Providers Care Credit Cashier Name Role Phone Chaya Grove PA-C Primary Care Provider [phone] Sangeeta Steve MD Unavailable [phone] Vanna Bull MD Unavailable [phone] Allergies Active Allergy Reactions Criticality Noted Date Comments Cats Hives,Pruritis,Eye Irritation High 06/12/2020 Red, watery, swelling, itchy eyes. Itchy throat and nose. Medications * This document contains information received from the source organization and may not represent a complete record from that organization. hydrOXYzine HCl (Atarax) 10 MG tablet Take 1 Tablet by mouth three times a day as needed for Other (Pain). 20 Tablet 06/22/2024 4:05 PM CDT 4 Active escitalopram (Lexapro) 20 MG tabletIndicatio ns:Major depressive disorder with single episode, in full remission (HCC),MALVIN (generalized anxiety disorder) Take 1 Tablet by mouth one time a day. 90 Tablet 1 07/13/2024 4:04 PM CDT 4 Active fluticasone (Flovent HFA) 110 MCG/ACT inhalation aerosol Inhale 2 Puffs into the lungs two times a day. 12 g 5 08/28/2024 9:50 AM CDT 4 Active levalbuterol (Xopenex HFA) 45 MCG/ACT inhalation aerosol Inhale 1-2 Puffs into the lungs every four hours as needed for Wheezing or Shortness of Breath. Shake well before using. 15 g 5 08/28/2024 9:50 AM CDT 4 Active clindamycin (Cleocin-T) 1 % lotion Apply thin layer to full face every morning. 60 mL 6 08/29/2024 4:36 PM CDT 4 Active tretinoin (Retin-A) 0.025 % cream Apply a pea sized amount to full face to start every other night, gradually increasing to every night over a few weeks. Then apply a good, gentle moisturizer. 45 g 6 08/29/2024 4:36 PM CDT 4 Active buPROPion XL (Wellbutrin XL) 150 MG 24 hour extended release tablet Take 1 Tablet by mouth every morning. Do not crush. 90 Tablet 3 09/19/2024 8:09 AM SUPERVISOR METAL [employer]RICATING 4 Active Hospital, Clinic, or Other Facility Administered Medication Ordered Dose Route Frequency Start Date End Date Status levonorgestrel (KYLEENA) 19.5 MG intra uterine device 1 Intra Uterine DeviceIndications:Encou nter for IUD insertion 1 Intra Uterine Device IU CONTINUOUS 10/13/2020 Active Active Problems Problem Noted Date Diagnosed Date Suicidal ideation 08/13/2024 Personal history of nonsuicidal self-harm 2023 Right knee pain, unspecified chronicity 06/21/20 24 Acute medial meniscus tear of right knee, initia l encounter 06/21/2024 Major depressive disorder wi th single episode, in full remission 12/31/2019 MALVIN (generalized anxiety disorder) 12/31/2019 Parent-child relational problem 12/31/2019 Irregular periods 12/24/2019 Dysmenorrhea in adolescent 12/24/2019 Myopia, bilateral 04/07/2017 Chest wall asymmetry 09/23/2008 Resolved Problems Problem Noted Date Diagnosed Date Resolved Date Family history of disease of aorta 06/01/2020 10/23/2020 Overview (06/01/2020): Father and sister with bicuspid aortic valves. Her father has enlarged aortic root. Sandra has a normal aortic valve and aortic size. Suicidal behavior with attempted self-injury 0 10/23/2020 Ibuprofen overdose, intentio nal self-harm, subsequent encounter 02/26/2020 10/23/2020 Self-injurious behavior 12/31/201910/14 Adjustment disorder with mix ed disturbance of emotions and conduct 12/31/2019 10/23/2020 Anxiety 10/17/2018 10/23/2020 Overview (11/18/2018): 10/17/2018 --start sertraline 25 mg once daily, continue therapy, recheck in 1 jason 11/10/18 -- increase to 50mg 11/17/18 -- fatigued on increased dose. Will wean off dose and start fluoxetine 10mg once daily Mechanical complication of i nternal orthopedic implant, sequela 07/24/2018 01/17/2019 Left elbow pain 05/11/2018 2018 Incarcerated fracture (avuls ion) of medial epicondyle of left humerus, initial encounter for closed fracture 03/14/2018 01/17/2019 Neurapraxia of left ulnar ne rve, initial encounter 03/14/2018 01/17/2019 Postural strain 04/25/2017 09/16/2017 Impaired functional mobility and activity tolerance 04/25/2017 09/16/2017 Left low back pain, unspecif ied chronicity, with sciatica presence unspecified 10/03/201609/16 Constipation, unspecified constipation type 07/06/2016 09/16/2017 Contusion of right tibia 06/27/201609/2016 Wrist pain, left 08/28/2015 11/13/2015 Ankle pain, right 08/28/2015 11/13/2015 Urinary tract infection, site not specified 09/23/2008 10/22/2011 Overview (03/03/2012): [facility] IMO Update 08/24 Asthma 07/01/2006 09/17/2008 Overview (08/16/2016): IMO Update 2015 Acute suppurative otitis med ia without spontaneous rupture of eardrum 10/27/2005 1 Overview (03/03/2012): IMO Update 08/2409/24/2005 09/17/2008 Encounters Date Type Department Care Team Description 10/10/2024 3:10 PM SUPERVISOR MET[employer]ICATING Office Visit [address], [place] [address] Chaya Grove PA-C Pre-op examination (Primary Dx); Recurrent tonsillitis; Elevated liver transaminase level; Infectious mononucleosis, with other complication, infectious mononucleosis due to unspecified organism 10/10/2024 Travel 10/04/[address] [id number] Chaya Grove PA-C 10/04/2024 Telephone [facility] [address] [place], [place] [address] Hermelinda Marsh Scheduling 10/02/2024 4:30 PM SUPERVISOR METAL [employer]RICATING Ancillary Procedure [facility] [address] [place], [place] [phone] Chaya Grove PA-C Elevated liver transaminase level 10/02/2024 2:30 PM SUPERVISOR [employer]ICATING Office Visit [address] [phone] Chaya Grove PA-C Elevated liver transaminase level (Primary Dx); Infectious mononucleosis, with other complication, infectious mononucleosis due to unspecified organism 10/02/2024 Travel 09/15/[address] [address] Chaya Grove PA-C Refill Request (buPROPion ) 2024 10:10 AM CDT [address], [place] [address] Chaya Grove PA-C Major depressive disorder with single episode, in full remission (HCC) (Primary Dx); MALVIN (generalized anxiety disorder); Recurrent tonsillitis 2024 Travel 09/07/2024 Orders Only [address] [address] Abstract, Provider, 09/05/2024 Orders Only [address] [address] Abstract, Provider, 08/29/2024 Telephone [facility] [address] [place] [phone] Lindsey Raya, KAILEY Results 08/28/2024 8:50 AM CDT Office Visit [facility] [address] [place] [phone] Diane Willams, TEAM OTR TRUCK DRIVER, LODGING FACILITIES MANAGER Infectious mononucleosis without complication, infectious mononucleosis due to unspecified organism (Primary Dx); Sore throat 08/28/2024 Travel 08/27/2024 10:30 AM CDT Office Visit [facility] [address] [place] [phone] Vanna Bull MD Lightheaded (Primary Dx); Syncope and collapse; Palpitations; Irregular periods 08/27/2024 Travel 08/14/2024 Telephone [facility] [address] [place] [phone] Glenn Mehta, KAILEY Scheduling 08/13/2024 9:30 AM CDT Telehealth [facility] [address] [place] [phone] Chaya Grove PA-C Major depressive disorder with single episode, in full remission (HCC) (Primary Dx); MALVIN (generalized anxiety disorder); Suicidal ideation 08/13/2024 Travel 08/10/2024 Telephone [facility] [address] [place] [phone] Glenn Mehta, KAILEY Scheduling 08/01/2024 Telephone [facility] [address] [place] [phone] Hermelinda Marsh Scheduling 07/31/2024 2:30 PM CDT Telehealth [facility] [address] [place] [address] James Tadeo MD Postoperative visit (Primary Dx) 07/31/2024 Travel 07/23/2024 12:30 PM CDT - 07/23/2024 11:59 PM CDT Hospital Encounter [facility] [address] [place] [id number] Ancillary, [facility] Syncope and collapse (Primary Dx) Discharge Disposition: Discharged from Last 3 Months Immunizations Name Administration Dates Next Due COVID-19 MRNA Vaccine (Pfize r ERYN-SUCR) Guerrier 12+ Yrs Seasonal 08/17/2023 COVID-19 Vaccine: Pfizer Biv alent (TRI-SUCR Guerrier) 12+ Yrs (Imm Clinic) 09/14/2022 COVID-19 Vaccine: Pfizer Gonsales ster (Purple- 12+ Yrs) [facility] 11/05/2021 COVID-19 Vaccine: Pfizer Dos e 1 (Purple- 12+ Yrs) [facility] 02/14/2021 COVID-19 Vaccine: Pfizer Dos e 2 (Purple- 12+ Yrs) [facility] 03/07/2021 DTaP <7 years 09/23/2008,12/24/2005 [id number] (Pediarix) 03/29/2005,01/27/2005,0 2004 Hepatitis A, Ped/Adolescent 2 dose 04/06/2023, Hib PRP OMP (PedvaxHib) 09/16/2005,01/27/2005, Human Papilloma Virus 9 09/24/2016,09/15/2015 IPV 09/21/2010 Influenza A H1n1 09/22/2009 Influenza Fluzone (6 months - 64 years) Quad NPF Vial (Flu Clinic) 08/25/2016 Influenza H1N1 Unspecified 11/10/2009 Influenza Live Intranasal (2-49 years) 1 ,08/23/2014,08/31/2013,09/01,09/02/2011 Influenza Live Intranasal Qu ad (Flumist) 09/21/2010,09/16/2009,09/23/2008 Influenza Quad Preservative Free 08/17/2023,12/0 01/2021,09/16/2017 Influenza Trivalent Preservative Free ,09/14/2006,10/19/2005,09/16 Influenza Vaccine (6 months - 64 Years) Quad PF Syringe (Flu Clinic) 09/14/2022,08/29/2020,09/04/2019,08/22 MMR 09/16/2009,09/16/2005 Meningococcal B Vaccine, Rec ombinant Omv, Adjuvanted 09/14/2022,12/18/2021 Meningococcal MCV4 (Menveo) 2 Vials 10/23/2020 Pneumococcal Conjugate, (Prevnar)7-valent 09/16/2005,03/29/2005,01/27/2005,11/25 Tdap (7 years and older) 09/15/2015 Typhoid VICPS 04/06/2023 Varicella (Varivax) 09/16/2009,12/24/2005 meningococcal MCV4P (Menactra) 09/15/2015 Surgical History Surgery Date Site/Laterality Comments CREATE EARDRUM OPENING,GEN ANESTH 08/23/2005 INCISION EARDRUM,ASPIR 08/12/2005 Bilateral with ventialtion tube placement. ELBOW FRACTURE SURGERY 03/15/2018 Elbow/Left Procedure: open reduction internal fixation left medial epicondyle with ulnar nerve exploration; Surgeon: Mumtaz Tristan DO; Location: [facility] Medical devices from this surgery are in the Medical Devices section. HARDWARE REMOVAL 08/02/2018 Elbow/Left Procedure: left elbow hardware removal; Surgeon: Mumtaz Tristan DO; Location: [facility] KNEE ARTHROSCOPY 06/22/2024 Knee/Right Procedure: ARTHROSCOPY KNEE WITH MEDIAL MENISCUS REPAIR, WITH MARROW VENTING, RIGHT; Surgeon: James Tadeo MD; Location: [facility] OR Medical devices from this surgery are in the Medical Devices section. Medical History Medical History Date Comments Unspecified otitis media 08/12/2005 Mach 05 and February 16, recurrent acute. Wheezing 09/24/200509/21: none in s everal years Urinary tract infection, sit e not specified 09/2008 [facility] this past year Chest wall asymmetry 09/23/2008 noticed a y ear ago per mom Contusion of right tibia 06/27/2016 Left low back pain, unspecif ied chronicity, with sciatica presence unspecified 10/03/2016 Myopia, bilateral 04/07/2017 Incarcerated fracture (avuls ion) of medial epicondyle of left humerus, initial encounter for closed fracture 03/14/2018 Mechanical complication of i nternal orthopedic implant, sequela 07/24/2018 Neurapraxia of left ulnar ne rve, initial encounter 03/14/2018 Family history of disease of aorta 06/01/2020 Father and sister with bicuspid aortic valves. Her father has enlarged aortic root. Sandra has a normal aortic valve and aortic size. Ibuprofen overdose, intentio nal self-harm, subsequent encounter 02/26/2020 Self-injurious behavior 12/31/2019 Suicidal behavior with attem pted self-injury (HCC) 02/26/2020 Asthma Anxiety Depression Family History Medical History Relation Comments Cardiovascular Disease Father aortic st enosis, bicuspid aortic valve Other Father frequent otitis media/nocturnal enuresis until 10 yrs old Hypothyroidism Maternal Grandmother Asthma Maternal Uncle Asthma Paternal Grandfather Ophthalmic Disease Negative Family Hx Relation Status Comments Father Maternal Grandmother Maternal Uncle Paternal Grandfather Social History Tobacco Use Types Packs/Day Years Used Date Smoking Tobacco: Never Smokeless Tobacco: Never Tobacco Cessation:Counseling Given: Not Answered Alcohol Use Standard Drinks/Week Comments Not Currently 0 (1 standard drink = 0.6 oz pur e alcohol) [facility] Utilities Answer Date Recorded In the past 12 months has [employer], gas, oil, or water [employer] threatened to shut off services in your [...] any time in the past 12 m ont, were you homeless or living in a chcf (including now)? No 2024 EH IP Custom [...] AM CDT Legal Sex Female 11:38 PM SUPERVISOR MET[employer]ICATING Gender Identity Female 08/02/2018 5:51 AM CDT Sexual Orientation Straight 07/13/2024 10 :55 AM CDT History Length Weight Head Circum Date/Time Gestation Age D/C Weight APGARs Delivery Method Feeding 20 (50.8 cm) 6 lb 6 oz (2.892 kg) 12.75 (32.4 cm) 2005 41 wks 6 lb 1min: 9 5mi n: 9 10m in: 9 Breast Fed Obstetrics History Last Filed Vital Signs Vital Sign Reading Time Taken Comments Blood Pressure 124/80 10/10/2024 2:58 PM SUPERVISOR [employer]ICATING Pulse 76 10/10/2024 2:58 PM SUPERVISOR METAL F[employer]RICATING Temperature 36.8 C (98.3 F) 10/10/2024 2:58 PM SUPERVISOR [employer]AL [employer]RICATING Respiratory Rate 16 10/02/2024 2:06 PM SUPERVISOR METAL FABRICATING Oxygen Saturation 99% 10/10/2024 2:58 PM SUPERVISOR METAL F[employer]RICATING Inhaled Oxygen Concentration - - Weight 71.2 kg (156 lb 15.5 oz) 10/10/2024 2:58 PM SUPERVISOR METAL FABRICATING Height 165.1 cm (5' 5) 10/10/2024 2:58 PM SUPERVISOR METAL FABRICATING Body Mass Index 26.12 10/10/2024 2:58 PM SUPERVISOR METAL F[employer]RICATING Plan of Treatment Upcoming Encounters Date Type Department Care Team (Late st Contact Info) Description 11/09/2024 11:00 AM SUPERVISOR METAL FABRICATING Appointment [facility] [address] [place] [address] James Tadeo MD [address] [place] [address] 12/17/2024 8:10 AM SUPERVISOR METAL FABRICATING Appointment [facility] [address] [place] [address] Chaya Grove PA-C [address] [place] [address] Health Maintenance Due Date Last Done Comments Chlamydia Screening 07/04/2024 07/04/2023, 10/16/2021, 10/13/2020 COVID-19 Vaccine ( season) 2024 08/17/2023, 09/14/2022, 11/05/2021, Additional history exists Influenza Vaccine Seasonal (Standing Order) (#1) 2024 08/17/2023, 09/14/2022, 10/16/2021, Additional history exists CHILD AND TEEN CHECKUP AGE 3-20 YRS 04/11/2025 04/11/2024, 07/04/2023, 09/13/2022, Additional history exists TETANUS (Standing Order) 09/15/20252 015, 09/23/2008, 12/24/2005, Additional history exists Hepatitis B Vaccine (Standing Order) Completed 03/29/2005, 01/27/2005, 2004 Pneumococcal/PCV20 Vaccine: Pediatrics (2-5 yrs) and At-Risk Patients (6-64 yrs) (Standing Order) Aged Out 09/16/2005, 03/29/2005, 01/27/2005, Additional history exists No longer eligible based on patient's age to complete this topic PERTUSSIS (Standing Order) Completed 09/15, 09/23/2008, 12/24/2005, Additional history exists HPV Vaccine (Standing Order) Completed 09/24/2016, 09/15/2015 Medical Devices Implanted Type Area Steel Rule Inspector Device Identifier Shelf Expiration Date Model / Serial / Lot Screw Synt Arpit S-Tap Strdrv T8 2.7 X 34mm 202.894 - [id number] Implanted:Qty: 1 on 03/15/2018 by Mumtaz Tristan DO at [facility] Left: Elbow SYNTHES 202.894 / NO / [id number] Wire K-Wire Synt 1.25mm W/ [place]car [place] 150mm 292.12 - [id number] Implanted:Qty: 2 on 03/15/2018 by Mumtaz Tristan DO at [facility] Left: Elbow SYNTHES 292.12 / NO / [id number] [place] Suture Fiberstitch 1.5 2.0 Curved Poly Fiberwire Ar-4580 - [id number] Implanted:Qty: 1 on 06/22/2024 by James Tadeo MD at [facility] Right: Knee ARTHREX 10/13/2028 AR-4580 / NA / [id number] Procedures Procedure Name Priority Date/Time Associated Diagnosis Comments US ABDOMEN LIMITED STAT 10/02/2024 4: 41 PM SUPERVISOR METAL [employer]RICATING Elevated liver transaminase level DIFFERENTIAL, MANUAL Routine 10/02/2024 2:52 PM SUPERVISOR METAL F[employer]RICATING Elevated liver transaminase level HEPATITIS A IGG ANTIBODY Routine 10/02/2024 2:52 PM SUPERVISOR METAL FABRICATING Elevated liver transaminase level BASIC METABOLIC PANEL Routine 10/02/2024 2:52 PM SUPERVISOR METAL FABRICATING Elevated liver transaminase level HEPATIC FUNCTION PANEL Routine 10/02/2024 2:52 PM SUPERVISOR METAL FABRICATING Elevated liver transaminase level HEMOGRAM/DIFF Routine 10/02/2024 2:52 PM SUPERVISOR METAL FABRICATING Elevated liver transaminase level BRIEF BEHAV ASSMT W/SCORE & DOC PER STD INSTRM Routine 2024 10:50 AM CDT Major depressive disorder with single episode, in full remission (HCC) EXTERNAL BMP 09/07/2024 6:11 AM CDT EXTERNAL HEMOGRAM 09/07/2024 6:1 1 AM CDT EXTERNAL CRP 09/05/2024 10:12 PM CDT COMPREHENSIVE METABOLIC PANEL Routine 08/28/2024 9:30 AM CDT Infectious mononucleosis without complication, infectious mononucleosis due to unspecified organism Sore throat HEMOGRAM/DIFF Routine 08/28/2024 9:30 AM CDT Infectious mononucleosis without complication, infectious mononucleosis due to unspecified organism Sore throat STREP A, MOLECULAR DETECTION Routine 08/28/2024 9:21 AM CDT Infectious mononucleosis without complication, infectious mononucleosis due to unspecified organism Sore throat APPT WITH DERMATOLOGY [facility] Routine 08/28/2024 12:00 AM CDT Acne vulgaris GROUP HOME HOLTER (MORE THAN 48 HRS UP TO 7 DAYS) Routine 08/03/2024 9:05 AM CDT Lightheaded Palpitations CHLAMYDIA TRACHOMATIS/NEISSERIA GONORRHOEAE MOLECULAR DETECTION Routine 07/04/2023 11:29 AM CDT Encounter for screening examination for sexually transmitted disease from Last 3 Months or Most Recently Relevant to Health Maintenance Results * US ABDOMEN LIMITED (10/02/2024 4:41 PM SUPERVISOR METAL FABRICATING) Anatomical Region Laterality Modality Abdomen Ultrasound 10/02/2024 4:41 PM SUPERVISOR METAL F[employer]RICATING Narrative 10/02/2024 4:45 PM SUPERVISOR METAL [employer]RICATING This document is currently in Final Status [...] Signed: Min Khalil MD 10/02/2024 4:45 PM Chaya Grove PA-C US ORDERABLES Final Re sult * HEPATITIS A IGG ANTIBODY (10/02/2024 2:52 PM SUPERVISOR METAL FABRICATING) Hepatitis A IgG Antibody Reactive 10/03/2024 11:12 AM [facility] Blood BLOOD SPECIMEN / Unknown Venipuncture / Unknown 10/02/2024 2:52 PM SUPERVISOR METAL FABRICATING 10/02/2024 2:52 PM SUPERVISOR METAL FABRICATING Narrative [facility] - 10/03/2024 11:12 AM SUPERVISOR METAL FABRICATING Interpretation Comment: Hepatitis A virus (HAV) IgG antibodies detected; result indicates past HAV infection (recent or distant) or vaccination against HAV. Detectable levels above the assay cutoff suggest immunity to HAV infection. Method Information: This test uses the [employer]ross i HAVAb IgG chemiluminescent microparticle immunoassay (CMIA) assay for the detection of IgG antibody to hepatitis A virus on the Pirate3D i system. us Chaya RODRIGUEZ CHEMISTRY ORDERABLES F inal Result [facility] [address] [place] [address], [facility] * DIFFERENTIAL, MANUAL (10/02/2024 2:52 PM SUPERVISOR METAL FABRICATING) Ne % 31 % 10/02/2024 8:53 PM [facility] Lymphs % 58 % 10/02/2024 8:53 PM [facility] Monos % 8 % 10/02/2024 8:53 PM [facility] Eos % 3 % 10/02/2024 8:53 PM [facility] Basos % 0 % 10/02/2024 8:53 PM [facility] Neutrophils Absolute 1.5 1.5 - 7.6 10*9/L 10/02/2024 8:53 PM [facility] Lymphocytes Absolute 2.8 0.8 - 3.3 10*9/L 10/02/2024 8:53 PM [facility] Monocytes Absolute 0.4 0.2 - 0.9 10*9/L 10/02/2024 8:53 PM [facility] Eosinophils Absolute 0.1 0.0 - 0.4 10*9/L 10/02/2024 8:53 PM [facility] Basophils Absolute 0.0 0.0 - 0.1 10*9/L 10/02/2024 8:53 PM [facility] RBC Appearance Normocytic/ Normochromi c 10/02/2024 8:53 PM [facility] Platelet Morphology Normal 10/02/2024 8:53 PM [facility] Reactive Lymphocytes Present 10/02/2024 8:53 PM [facility] Blood BLOOD SPECIMEN / Unknown Venipuncture / Unknown 10/02/2024 2:52 PM SUPERVISOR METAL FABRICATING 10/02/2024 2:52 PM SUPERVISOR METAL FABRICATING Chaya Grove PA-C EC LAB SEND OUT ORDERABLE S Final Result [facility] [address] [id number] * BASIC METABOLIC PANEL (10/02/2024 2:52 PM SUPERVISOR METAL FABRICATING) Sodium 140 134 - 143 mEq/L 10/02/2024 4:35 PM [facility] Potassium 4.0 3.4 - 5.1 mEq/L 10/02/2024 4:35 PM [facility] Chloride 106 99 - 110 mEq/L 10/02/2024 4:35 PM [facility] Carbon Dioxide 26 19 - 29 mEq/L 10/02/2024 4:35 PM [facility] Anion Gap 8.0 3.0 - 15.0 mEq/L 10/02/2024 4:35 PM [facility] Blood Urea Nitrogen 7 5 - 24 mg/dL 10/02/2024 4:35 PM [facility] Creatinine 0.85 0.40 - 1.00 mg/dL 10/02/2024 4:35 PM [facility] Glomerular Filtration Rate 101 >60 mL/min/1. 73 m*2 10/02/2024 4:35 PM [facility] Comment:Risk of cardiovascul ar disease increases when GFR is abnormal; persistently reduced GFR values are a specific indication of CKD. This calculation uses CKD- EPI 2020 equation without adjustment for race; it has not been validated in women. Calcium 9.2 8.4 - 10.5 mg/dL 10/02/2024 4:35 PM [facility] Glucose 85 70 - 99 mg/dL 10/02/2024 4:35 PM [facility] Blood BLOOD SPECIMEN / Unknown Venipuncture / Unknown 10/02/2024 2:52 PM SUPERVISOR METAL FABRICATING 10/02/2024 2:52 PM SUPERVISOR METAL FABRICATING Narrative [facility] - 10/02/2024 4:35 PM SUPERVISOR METAL FABRICATING Current ADA criteria for Glucose: Normal: 70-99 mg/dL Impaired Fasting Glucose: 100-125 mg/dL Diabetes Mellitus: at or above 126 mg/dL The diagnosis of diabetes must be confirmed on a subsequent day by measuring Fasting Plasma Glucose, 2-hr PG or random plasma glucose (if symptoms are present). us Chaya Grove PA-C EC CHEMISTRY ORDERABLES F inal Result [facility] [address] [place] [address] * (ABNORMAL) HEPATIC FUNCTION PANEL (10/02/2024 2:52 PM SUPERVISOR METAL FABRICATING) Pathologist [facility] Alkaline Phosphatase 149 40 - 150 IU/L 10/02/2024 4:35 PM [facility] Bilirubin, Total 0.5 0.2 - 1.2 mg/dL 10/02/2024 4:35 PM [facility] Bilirubin, Direct 0.2 0.0 - 0.5 mg/dL 10/02/2024 4:35 PM [facility] Bilirubin, Indirect 0.3 0.1 - 1.2 mg/dL 10/02/2024 4:35 PM [facility] Albumin 3.6 3.5 - 5.0 g/dL 10/02/2024 4:35 PM [facility] Protein, Total 6.7 6.0 - 8.0 g/dL 10/02/2024 4:35 PM [facility] Aspartate Aminotransferase 136(H) 10 - 40 IU/L 10/02/2024 4:35 PM [facility] Alanine Aminotransferase 271(H) 6 - 31 IU/L 10/02/2024 4:35 PM [facility] Blood BLOOD SPECIMEN / Unknown Venipuncture / Unknown 10/02/2024 2:52 PM SUPERVISOR METAL FABRICATING 10/02/2024 2:52 PM SUPERVISOR METAL FABRICATING us Chaya Erica Grove PA-C EC CHEMISTRY ORDERABLES F inal Result Performing Organization Address City/[facility]/ZIP Co de Phone Number [facility] [address] [place] [address] * HEMOGRAM/DIFFERENTIAL (10/02/2024 2:52 PM SUPERVISOR METAL FABRICATING) [facility] WBC 4.9 3.2 - 11.0 10*9/L 10/02/2024 8:53 PM SUPERVISOR METAL FABRICATING [facility] RBC 4.55 3.77 - 5.24 10*12/L 10/02/2024 8:53 PM [facility] HGB 12.9 11.2 - 15.5 g/dL 10/02/2024 8:53 PM [facility] HCT 39.8 34.3 - 46.0 % 10/02/2024 8:53 PM [facility] MCV 87.5 81.4 - 99.0 fL 10/02/2024 8:53 PM [facility] MCH 28.4 26.7 - 33.1 pg 10/02/2024 8:53 PM [facility] MCHC 32.4 31.6 - 35.5 g/dL 10/02/2024 8:53 PM [facility] RDW 12.7 11.3 - 14.6 % 10/02/2024 8:53 PM [facility] PLT 196 130 - 375 10*9/L 10/02/2024 8:53 PM [facility] Platelet Slide Review Adequate 10/02/2024 8:53 PM [facility] Blood BLOOD SPECIMEN / Unknown Venipuncture / Unknown 10/02/2024 2:52 PM SUPERVISOR METAL FABRICATING 10/02/2024 2:52 PM SUPERVISOR METAL FABRICATING us Chaya Grove PA-C EC HEMATOLOGY ORDERABLES Final Result [facility] [address] [place] [id number] * (ABNORMAL) EXTERNAL BMP (09/07/2024 6:11 AM CDT) EXTERNAL SODIUM 136 135 - 149 mmol/L [facility] EXTERNAL POTASSIUM 3.7 3.6 - 5.1 mmol/L [facility] EXTERNAL CHLORIDE 102 96 - 114 mmol/L [facility] EXTERNAL CO2 24 20 - 32 mmol/L [facility] EXTERNAL BUN 12 5 - 24 mg/dL [facility] EXTERNAL CREATININE 0.6 0.6 - 1.2 mg/dl [facility] Glomerular Filtration Rate 133 >60 ml/min [facility] EXTERNAL CALCIUM 9.4 8.7 - 10.8 mg/dl [facility] EXTERNAL GLUCOSE 124(H) 60 - 115 mg/dl [facility] 09/07/2024 6:11 AM CDT Narrative [facility] - 09/07/2024 6:11 AM CDT Source result document attached to Order Number [id number] ([id number]) dated 09/07/2024. External results verified in Extract by Shannan Davila on 10/02/2024 at 02:17 PM. us Provider Abstract MD [facility] Final Resul t [facility] * (ABNORMAL) EXTERNAL HEMOGRAM (09/07/2024 6:11 AM CDT) EXTERNAL WBC 17.16(H) 4.50 - 11.00 K/uL [facility] EXTERNAL RBC 4.30 4.00 - 5.20 m/uL [facility] EXTERNAL HGB 12.5 12.0 - 16.0 gm/dl [facility] EXTERNAL HCT 37.4 33.0 - 51.0 % [facility] EXTERNAL MCV 87 80 - 100 fL [facility] EXTERNAL MCH 29 26 - 34 pg [facility] EXTERNAL MCHC 33 32 - 36 gm/dl [facility] EXTERNAL PLATELETS 297 140 - 440 K/uL [facility] 09/07/2024 6:11 AM CDT 09/07/2024 Narrative [facility] - 09/07/2024 6:11 AM CDT External results verified in Extract by Shannan Davila on 10/02/2024 at 02:17 PM. us Provider Abstract MD [facility] Final Resul t [facility] * EXTERNAL CRP (09/05/2024 10:12 PM CDT) EXTERNAL CRP 0.5 0.5 - 1.0 mg/dl [facility] 09/05/2024 10:1 2 PM CDT Narrative [facility] - 09/05/2024 10:12 PM CDT Source result document attached to Order Number [id number] ([id number]) dated 09/07/2024. External results verified in Extract by Shannan Davila on 10/02/2024 at 02:17 PM. us Provider Abstract MD [facility] Final Resul t Performing Organization Address City/[facility] de Phone Number [facility] * (ABNORMAL) COMPREHENSIVE METABOLIC PANEL (08/28/2024 9:30 AM CDT) Sodium 137 134 - 143 mEq/L 08/28/2024 12:12 PM CDT [facility] Potassium 4.4 3.4 - 5.1 mEq/L 08/28/2024 12:12 PM CDT [facility] Chloride 105 99 - 110 mEq/L 08/28/2024 12:12 PM CDT [facility] Carbon Dioxide 26 19 - 29 mEq/L 08/28/2024 12:12 PM CDT [facility] Anion Gap 6.0 3.0 - 15.0 mEq/L 08/28/2024 12:12 PM CDT [facility] Blood Urea Nitrogen 15 5 - 24 mg/dL 08/28/2024 12:12 PM CDT [facility] Creatinine 0.82 0.40 - 1.00 mg/dL 08/28/2024 12:12 PM CDT [facility] Glomerular Filtration Rate 106 >60 mL/min/1. 73 m*2 08/28/2024 12:12 PM CDT [facility] Comment:Risk of cardiovascul ar disease increases when GFR is abnormal; persistently reduced GFR values are a specific indication of CKD. This calculation uses CKD- EPI 2020 equation without adjustment for race; it has not been validated in women. Calcium 9.8 8.4 - 10.5 mg/dL 08/28/2024 12:12 PM CDT [facility] Glucose 72 70 - 99 mg/dL 08/28/2024 12:12 PM CDT [facility] Protein, Total 7.0 6.0 - 8.0 g/dL 08/28/2024 12:12 PM CDT [facility] Albumin 4.0 3.5 - 5.0 g/dL 08/28/2024 12:12 PM CDT [facility] Alkaline Phosphatase 72 40 - 150 IU/L 08/28/2024 12:12 PM CDT [facility] Aspartate Aminotransferase 33 10 - 40 IU/L 08/28/2024 12:12 PM CDT [facility] Alanine Aminotransferase 52(H) 6 - 31 IU/L 08/28/2024 12:12 PM T [facility] Bilirubin, Total 0.3 0.2 - 1.2 mg/dL 08/28/2024 12:12 PM CDT [facility] Blood BLOOD SPECIMEN / Unknown Venipuncture / Unknown 08/28/2024 9:30 AM CDT 08/28/2024 9:30 AM CDT Narrative [facility] - 08/28/2024 12:12 PM CDT Current ADA criteria for Glucose: Normal: 70-99 mg/dL Impaired Fasting Glucose: 100-125 mg/dL Diabetes Mellitus: at or above 126 mg/dL The diagnosis of diabetes must be confirmed on a subsequent day by measuring Fasting Plasma Glucose, 2-hr PG or random plasma glucose (if symptoms are present). us Diane Willams APRN, LODGING FACILITIES MANAGER EC CHEMISTRY ORDERABLES Final Result [facility] [address] [place] [id number] * HEMOGRAM/DIFFERENTIAL (08/28/2024 9:30 AM CDT) WBC 5.4 3.2 - 11.0 10*9/L 08/28/2024 12:17 PM CDT [facility] RBC 4.61 3.77 - 5.24 10*12/L 08/28/2024 12:17 PM CDT [facility] HGB 13.2 11.2 - 15.5 g/dL 08/28/2024 12:17 PM CDT [facility] HCT 40.7 34.3 - 46.0 % 08/28/2024 12:17 PM CDT [facility] MCV 88.3 81.4 - 99.0 fL 08/28/2024 12:17 PM CDT [facility] MCH 28.6 26.7 - 33.1 pg 08/28/2024 12:17 PM CDT [facility] MCHC 32.4 31.6 - 35.5 g/dL 08/28/2024 12:17 PM CDT [facility] RDW 13.1 11.3 - 14.6 % 08/28/2024 12:17 PM CDT [facility] PLT 297 130 - 375 10*9/L 08/28/2024 12:17 PM CDT [facility] Neutrophils % 40.8 % 08/28/2024 12:17 PM CDT [facility] Lymphocytes % 45.2 % 08/28/2024 12:17 PM CDT [facility] Monocytes % 6.7 % 08/28/2024 12:17 PM CDT [facility] Eosinophils % 6.3 % 08/28/2024 12:17 PM CDT [facility] Basophils % 0.6 % 08/28/2024 12:17 PM CDT [facility] Immature Granulocytes % 0.4 % 08/28/2024 12:17 PM CDT [facility] Neutrophils Absolute 2.2 1.5 - 7.6 10*9/L 08/28/2024 12:17 PM CDT [facility] Lymphocytes Absolute 2.4 0.8 - 3.3 10*9/L 08/28/2024 12:17 PM CDT [facility] Monocytes Absolute 0.4 0.2 - 0.9 10*9/L 08/28/2024 12:17 PM CDT [facility] Eosinophils Absolute 0.3 0.0 - 0.4 10*9/L 08/28/2024 12:17 PM CDT [facility] Basophils Absolute 0.0 0.0 - 0.1 10*9/L 08/28/2024 12:17 PM CDT [facility] Immature Granulocytes Absolute 0.02 0.00 - 0.06 10*9/L 08/28/2024 12:17 PM CDT [facility] Blood BLOOD SPECIMEN / Unknown Venipuncture / Unknown 08/28/2024 9:30 AM CDT 08/28/2024 9:30 AM CDT Diane Willams APRN, LISSY EC HEMATOLOGY ORDERABLE S Final Result Performing Organization Address City/[facility]/ZIP Co de Phone Number [facility] [address] [place] [id number] * STREP A, MOLECULAR DETECTION (08/28/2024 9:21 AM CDT) Pathologist [facility] Streptococcus pyogenes (Group A Strep) Not Detected Not Detected 08/28/2024 10:00 AM CDT [facility] Swab STRUCTURE OF THROAT / Unknown Non-blood collection / Unknown 08/28/2024 9:21 AM CDT 08/28/2024 9:34 AM CDT Narrative [facility] - 08/28/2024 10:00 AM CDT Test results must be interpreted within the context of all relevant clinical and laboratory findings. Method Information This test uses the Cepheid Xpert Xpress Strep A assay to detect Streptococcus pyogenes (Group A Beta-Hemolytic Streptococcus) DNA by real-time polymerase chain reaction (PCR) on the [employer] GeneXpert Instrument System. Diane Willams APRN, CNP EC MICROBIOLOGY - GENER AL ORDERABLES Final Result Performing Organization Address City/[facility]/ZIP Co de Phone Number [facility] [address], [place] [address] * APPT WITH [facility]MATOLOGY [facility] (08/28/2024 12:00 AM CDT) 08/28/2024 us Chaya Grove PA-C EC REFERRAL Final Res ult * SUPERVISOR METAL CANS HOLTER (MORE THAN 48 HRS UP TO 7 DAYS) (08/03/2024 9:05 AM CDT) 08/03/2024 9:05 AM CDT Narrative [facility] - 07/23/2024 12:30 PM CDT Flor Awan MD 08/13/2024 9:34 PM Reason for visit - GROUP HOME HOLTER [facility] ORDERED BY: Chaya Grove PA-C Patient Name: Sandra Cherry Date of Service: Jul 23, 2024 : 2005 Age: [age] year old Sex: female Patient Loc/Room #: CCAR/ Professional Reading Plant Production Manager: Flor Awan MD Summary: The patient's monitoring period was 7 days. Indication: (R55) Syncope and collapse (primary encounter diagnosis) Preventice report personally reviewed including each rhythm strip. GENERAL RHYTHM INFORMATION: Holter monitor was performed in 2 leads for 6 Days 21 Hours Conclusion: Monitor showed predominately: normal sinus rhythm with an average heart rate of 86 and range of 47 to 170. Tachycardia: 22 % of the time. Bradycardia: 3 % of the time. Ventricular ectopy: rare (<1%) PVC present. No runs. Supraventricular ectopy: rare (<1%) PAC present. No runs. Atrial fibrillation: none Significant pauses: none Patient symptoms of: symptoms associated with sinus rhythm; 3 episodes, sinus tachycardia; 6 episodes. Please locate the full report under the Order-Level Documents Link on the order or under the Media tab. us Chaya Grove PA-C EC CARDIAC HEART MONITORS Edited Result - Final [facility] * CHLAMYDIA TRACHOMATIS/NEISSERIA GONORRHOEAE MOLECULAR DETECTION (07/04/2023 11:29 AM CDT) Chlamydia trachomatis Not Detected Not Detected 07/04/2023 4:00 PM CDT [facility] Neisseria gonorrhoeae Not Detected Not Detected 07/04/2023 4:00 PM CDT [facility] Urine VOIDED URINE SPECIMEN / Unknown Non-blood collection / Unknown 07/04/2023 11:29 AM CDT 07/04/2023 11:29 AM CDT Narrative [facility] - 07/04/2023 4:00 PM CDT Test detects target RNA/DNA by real-time polymerase chain reaction (PCR) on the [employer] GeneXpert Dx System. Chaya [facility] MICROBIOLOGY - GENERAL ORDERABLES Final Result [facility] [address] [place] [address], [facility] from Last 3 Months or Most Recently Relevant to Health Maintenance Insurance [employer] [facility] PRIME [facility] PRIME [address] [place] [address] PHARMACY ACCT [facility] PRIME Advance Directives For more information, please contact: [phone] * Full Code (Latest Code Status on File) Date Activated Date Inactivated Comments 06/22/2024 11:23 AM 06/22/2024 8:41 PM * Full Code Date Activated Date Inactivated Comments 02/26/2020 2:21 AM 03/06/2020 8:21 PM * Full Code Date Activated Date Inactivated Comments 03/15/2018 10:03 AM 03/15/2018 8:28 PM * No Code Status Date Activated Date Inactivated Comments 03/15/2005 11:49 AM 03/15/2005 11:49 AM Care Teams Credit Cashier Relationship Specialty Start Date End Date Chaya Grove PA-C [address] [place] [address] [phone] PCP - General Family Medicine 09/13/22 Sangeeta Steve MD [address] [place] [id number] PCP - PC Team Family Medicine 06/07/23 Vanna Bull MD [address] [place] [address] [phone] Cardiology Physician Cardiology 08/20/24
--- OUTSIDE RECORDS SUMMARY | 2024-10-17 09:54 | XMS_ITS | Encounter Summary ---
Author Organization [facility] Address [address] [address] Phone Care Team Providers Care Component Overhaul Operator Name Role Phone Chaya Grove PA-C Primary Care Provider [phone] Sangeeta Steve MD Unavailable [phone] Vanna Bull MD Unavailable [phone] Reason for Visit * Reason Comments Sore Throat Imm/Inj flu Coordination Of Care Chlamydia screen du e Encounter Details Date Type Department Care Team (Late st Contact Info) Description 08/28/2024 8:50 AM CDT Office Visit [facility] [address] [place] [address] Diane Willams, ALLERGIST/MD, CAR INSPECTION AND REPAIR MANAGER [address] [place] [address] Infectious mononucleosis without complication, infectious mononucleosis due to unspecified organism (Primary Dx); Sore throat Social History Tobacco Use Types Packs/Day Years Used Date Smoking Tobacco: Never Smokeless Tobacco: Never Alcohol Use Standard Drinks/Week Comments Not Currently 0 (1 standard drink = 0.6 oz pur e alcohol) [facility] Utilities Answer Date Recorded In the past 12 months has [employer], gas, oil, or water company threatened to shut off services in your home? No 08/13/2024 AUDIT-C Answer Date Recorded Q1: How often [...] PHQ-2 Answer Date Recorded PHQ-2 Total 2 08/28/2024 Hunger Vital Sign Answer Date Recorded Within the past 12 months, y ou worried that your food would run out before you got the money to buy more. Never true 08/13/20 24 Within the past 12 months, t he food you bought just didn't last and you didn't have money to get more. Never true 08/13/2024 PRAPARE - Transportation Answer Date Re corded In the past 12 months, has l ack of transportation kept you from medical appointments or from getting medications? No 07/17 In the past 12 months, has l ack of transportation kept you from meetings, work, or from getting things needed for daily living? No 08/13/2024 Housing Stability Vital Sign Answer Theron e Recorded In the last 12 months, was t here a time when you were not able to pay the mortgage or rent on time? No 08/13/2024 In the past 12 months, how m any times have you moved where you were living? 1 08/13/2024 At any time in the past [facility], were you homeless or living in a senior living (including now)? No 08/13/2024 EH IP Custom Utilities Answer Date Ravinder [...] AM CDT Legal Sex Female 11:38 PM STAMP COLLECTOR Gender Identity Female 08/02/2018 5:51 AM CDT Sexual Orientation Straight 07/13/2024 10 :55 AM CDT documented as of this encounter Last Filed Vital Signs Vital Sign Reading Time Taken Comments Blood Pressure 106/71 08/28/2024 8:50 AM CDT Pulse 78 08/28/2024 8:50 AM CDT Temperature 37.1 C (98.8 F) 08/28/2024 8:50 AM CDT Respiratory Rate - - Oxygen Saturation 98% 08/28/2024 8:50 AM CDT Inhaled Oxygen Concentration - - Weight 72.8 kg (160 lb 7.9 oz) 08/28/2024 8:50 A M CDT Height - - Body Mass Index 26.71 08/27/2024 10:23 AM CDT documented in this encounter Functional Status * Patient's Vision Adequate to Safely Complete Daily Activities Answer Date of Assessment Author Yes 02/26/2020 1:39 AM CDT Hermelinda Richards RN * Patient's Memory Adequate to Safely Complete Daily Activities Answer Date of Assessment Author Yes 02/26/2020 1:39 AM CDT Hermelinda Richards, KAILEY documented as of this encounter Mental Status * Patient's Judgment Adequate to Safely Complete Daily Activities Answer Entry Date Author Yes 02/26/2020 1:39 AM CDT Hermelinda Richards, RN documented in this encounter Ordered Prescriptions Prescription Sig Dispense Quantity Refills Last Filled Start Date End Date levalbuterol (Xopenex HFA) 45 MCG/ACT inhalation aerosol Inhale 1-2 Puffs into the lungs every four hours as needed for Wheezing or Shortness of Breath. Shake well before using. 15 g 5 08/28/2024 9:50 AM CDT 08/28/2024 fluticasone (Flovent HFA) 110 MCG/ACT inhalation aerosol Inhale 2 Puffs into the lungs two times a day. 12 g 5 08/28/2024 9:50 AM CDT 08/28/2024 documented in this encounter Progress Notes * Diane Willams, ALLERGIST/MD, CAR INSPECTION AND REPAIR MANAGER - 08/28/2024 8:50 AM CDT HISTORY OF PRESENT ILLNESS: Sandra Valentin is a(n) 18 year old who presents today with her mother with chief complaint of sore throat for several days. She reports that she does attend school in the [employer] and notes that her sore throat issues began with strep throat/tonsillitis. The week following, she was diagnosed with mo nonucleosis (second week of July). She reports that throat pain continues despite feeling better with energy and notes that some days of pain are worse than others. She did receive a few rounds of prednisone which seem to temporarily help. Mom reports that she has always had issues with large tonsils, but this does seem to be worse and is wondering about a referral to ear nose and throat. She also notes needing a refill on her inhaler as she has not had this in some time. They are wondering about possibly also using a prednisone like inhaler. Past Medical History: Diagnosis Date Anxiety Asthma [...] Urinary tract infection, site not specified 09/2008 [facility] this past year Wheezing 09/24/200509/21: none in several years Patient Active Problem List Diagnosis Chest wall asymmetry Myopia, bilateral Irregular periods Dysmenorrhea in adolescent Major depressive disorder with single episode, in full remission (HCC) MALVIN (generalized anxiety disorder) Parent-child relational problem Right knee pain, unspecified chronicity Acute medial meniscus tear of right knee, initial encounter Suicidal ideation Personal history of nonsuicidal self-harm Outpatient Medications Marked as Taking for the 08/28/24 encounter (Office Visit) with Diane Willams APRN, CNP Medication Sig fluticasone (Flovent HFA) 110 MCG/ACT inhalation aerosol Inhale 2 Puffs into the lungs two times a day. levalbuterol (Xopenex HFA) 45 MCG/ACT inhalation aerosol Inhale 1-2 Puffs into the lungs every fourhours as needed for Wheezing or Shortness of Breath. Shake well before using. buPROPion XL (Wellbutrin XL) 150 MG 24 hour extended release tablet Take 1 Tablet by mouth every morning. Do not crush. escitalopram (Lexapro) 20 MG tablet Take 1 Tablet by mouth one time a day. hydrOXYzine HCl (Atarax) 10 MG tablet Take 1 Tablet by mouth three times a day as needed for Other (Pain). Current Facility-Administered Medications for the 08/28/24 encounter (Office Visit) with Diane Willams APRN, CNP Medication levonorgestrel (KYLEENA) 19.5 MG intra uterine device 1 Intra Uterine Device Allergies Allergen Reactions Cats Hives, Pruritis and Eye Irritation Red, watery, swelling, itchy eyes. Itchy throat and nose. Social History Socioeconomic History Marital status: Single Spouse name: Not on file Number of children: Not on file Years of education: Not on file Highest education level: Not on file Occupational History Not on file Tobacco Use Smoking status: Never Smokeless tobacco: Never Vaping Use Vaping status: Never Used Substance and Sexual Activity Alcohol use: Not Currently Alcohol/week: 0.0 standard drinks of alcohol Drug use: No Sexual activity: Never Other Topics Concern Not on file Social History Narrative Lives in [facility]. Mom is Flor and dad is Dwight. Dad is a police liaison. Mom is a child psychologist in behavioral health at [employer] graduate [employer] in 2022 Social Drivers of Health Financial Resource Strain: Low Risk (12/27/2022) Overall Financial Resource Strain (CARDIA) Difficulty of Paying Living Expenses: Not hard at all Food Insecurity: No Food Insecurity (08/13/2024) Hunger Vital Sign Worried About Running Out of Food in the Last Year: Never true Ran Out of Food in the Last Year: Never true Transportation Needs: No Transportation Needs (08/13/2024) PRAPARE - Transportation Lack of Transportation (Medical): No Lack of Transportation (Non-Medical): No Physical Activity: Not on file Stress: Not on file Social Connections: Not on file Intimate Partner Violence: Not At Risk (06/21/2024) EH IP Custom IPV Intimate Partner Violence: No Housing Stability: Low Risk (08/13/2024) Housing Stability Vital Sign Unable to Pay for Housing in the Last Year: No Number of Times Moved in the Last Year: 1 Homeless in the Last Year: No REVIEW OF SYSTEMS: All other systems reviewed and found to be negative PHYSICAL EXAM: Vitals: 08/28/24 0850 BP: 106/71 Pulse: 78 Temp: 37.1 ??C (98.8 ??F) SpO2: 98% Weight: 72.8 kg (160 lb 7.9 oz) GENERAL APPEARANCE: Alert and oriented, mild distress noted secondary to pain EARS: External ears normal; ear canals normal; tympanic membranes normal NOSE: Nares normal; septum midline; mucosa normal MOUTH/OROPHARYNX: Normal lips and tongue; gums and dentition normal; buccal mucosa pink, moist without lesions; palate and pharynx normal without lesion or petechia, posterior oropharynx is quite erythematous. Tonsils +3 and erythematous bilaterally. No exudate noted. NECK: Cervical lymphadenopathy. LUNGS: Normal respirations; good expansion with good diaphragmatic excursion; clear to auscultation HEART: Regular rhythm and rate; S1 and S2 normal; no murmurs, heaves, thrills, clicks or rubs A/P: 1) Infectious mononucleosis without complication, infectious mononucleosis due to unspecified organism (primary encounter diagnosis) 2) Sore throat Plan: We did discuss and agreed to completing some lab work including a strep A, Hemogram with differential and CMP. We will communicate final results of this once made available. We did also agree to a referral to ear nose and throat. Refill sent on Xopenex as well as a Flovent inhaler to see if this will also help with her breathing with the enlarged tonsils. Follow-up: Pending labs, sooner if needed. Patient is in agreement with this plan. documented in this encounter Miscellaneous Notes * Result Encounter Note - Diane Willams APRN, CNP - 08/28/2024 8:50 AM CDT Please call patient and let them know labs are very reassuring, and singular elevation in the liverfunction is not overly concerning. Would recommend proceeding with referral to ENT as discussed at her visit and then also a medrol dosepak to help with her throat. Thank you! documented in this encounter Plan of Treatment Upcoming Encounters Date Type Department Care Team (Late st Contact Info) Description 11/09/2024 11:00 AM STAMP COLLECTOR Appointment [facility] [address] [place] [address] James Tadeo MD [address] [place] [address] 12/17/2024 8:10 AM STAMP COLLECTOR Appointment [facility] [address] [place] [address] Chaya Grove PA-C [address] [place] [address] documented as of this encounter Procedures Procedure Name Priority Date/Time Associated Diagnosis Comments COMPREHENSIVE METABOLIC PANEL Routine 08/28/2024 9:30 AM CDT Infectious mononucleosis without complication, infectious mononucleosis due to unspecified organism Sore throat HEMOGRAM/DIFF Routine 08/28/2024 9:30 AM CDT Infectious mononucleosis without complication, infectious mononucleosis due to unspecified organism Sore throat STREP A, MOLECULAR DETECTION Routine 08/28/2024 9:21 AM CDT Infectious mononucleosis without complication, infectious mononucleosis due to unspecified organism Sore throat documented in this encounter Results * (ABNORMAL) COMPREHENSIVE METABOLIC PANEL (08/28/2024 9:30 AM CDT) [facility] Sodium 137 134 - 143 mEq/L 08/28/2024 12:12 PM [facility] Potassium 4.4 3.4 - 5.1 mEq/L 08/28/2024 12:12 PM [facility] Chloride 105 99 - 110 mEq/L 08/28/2024 12:12 PM [facility] Carbon Dioxide 26 19 - 29 mEq/L 08/28/2024 12:12 PM [facility] Anion Gap 6.0 3.0 - 15.0 mEq/L 08/28/2024 12:12 PM [facility] Blood Urea Nitrogen 15 5 - 24 mg/dL 08/28/2024 12:12 PM [facility] Creatinine 0.82 0.40 - 1.00 mg/dL 08/28/2024 12:12 PM [facility] Glomerular Filtration Rate 106 >60 mL/min/1. 73 m*2 08/28/2024 12:12 PM [facility] Comment:Risk of cardiovascul ar disease increases when GFR is abnormal; persistently reduced GFR values are a specific indication of CKD. This calculation uses CKD- EPI 2020 equation without adjustment for race; it has not been validated in women. Calcium 9.8 8.4 - 10.5 mg/dL 08/28/2024 12:12 PM [facility] Glucose 72 70 - 99 mg/dL 08/28/2024 12:12 PM [facility] Protein, Total 7.0 6.0 - 8.0 g/dL 08/28/2024 12:12 PM [facility] Albumin 4.0 3.5 - 5.0 g/dL 08/28/2024 12:12 PM [facility] Alkaline Phosphatase 72 40 - 150 IU/L 08/28/2024 12:12 PM [facility] Aspartate Aminotransferase 33 10 - 40 IU/L 08/28/2024 12:12 PM [facility] Alanine Aminotransferase 52(H) 6 - 31 IU/L 08/28/2024 12:12 PM [facility] Bilirubin, Total 0.3 0.2 - 1.2 mg/dL 08/28/2024 12:12 PM CDT [facility] Blood BLOOD SPECIMEN / Unknown Venipuncture / Unknown 08/28/2024 9:30 AM CDT 08/28/2024 9:30 AM CDT Narrative [facility] - 08/28/2024 12:12 PM CDT Current ADA criteria for Glucose: Normal: 70-99 mg/dL Impaired Fasting Glucose: 100-125 mg/dL Diabetes Mellitus: at or above 126 mg/dL The diagnosis of diabetes must be confirmed on a subsequent day by measuring Fasting Plasma Glucose, 2-hr PG or random plasma glucose (if symptoms are present). us Diane Willams APRN, CAR INSPECTION AND REPAIR MANAGER EC CHEMISTRY ORDERABLES Final Result [facility] [address] [place], [place] [address] * HEMOGRAM/DIFFERENTIAL (08/28/2024 9:30 AM CDT) WBC 5.4 3.2 - 11.0 10*9/L 08/28/2024 12:17 PM CDT [facility] RBC 4.61 3.77 - 5.24 10*12/L 08/28/2024 12:17 PM CDT [facility] HGB 13.2 11.2 - 15.5 g/dL 08/28/2024 12:17 PM CDT [facility] HCT 40.7 34.3 - 46.0 % 08/28/2024 12:17 PM CDT [facility] MCV 88.3 81.4 - 99.0 fL 08/28/2024 12:17 PM CDT [facility] MCH 28.6 26.7 - 33.1 pg 08/28/2024 12:17 PM CDT [facility] MCHC 32.4 31.6 - 35.5 g/dL 08/28/2024 12:17 PM CDT [facility] RDW 13.1 11.3 - 14.6 % 08/28/2024 12:17 PM CDT [facility] PLT 297 130 - 375 10*9/L 08/28/2024 12:17 PM CDT [facility] Neutrophils % 40.8 % 08/28/2024 12:17 PM CDT [facility] Lymphocytes % 45.2 % 08/28/2024 12:17 PM CDT [facility] Monocytes % 6.7 % 08/28/2024 12:17 PM CDT [facility] Eosinophils % 6.3 % 08/28/2024 12:17 PM CDT [facility] Basophils % 0.6 % 08/28/2024 12:17 PM CDT [facility] Immature Granulocytes % 0.4 % 08/28/2024 12:17 PM CDT [facility] Neutrophils Absolute 2.2 1.5 - 7.6 10*9/L 08/28/2024 12:17 PM CDT [facility] Lymphocytes Absolute 2.4 0.8 - 3.3 10*9/L 08/28/2024 12:17 PM CDT [facility] Monocytes Absolute 0.4 0.2 - 0.9 10*9/L 08/28/2024 12:17 PM CDT [facility] Eosinophils Absolute 0.3 0.0 - 0.4 10*9/L 08/28/2024 12:17 PM CDT [facility] Basophils Absolute 0.0 0.0 - 0.1 10*9/L 08/28/2024 12:17 PM CDT [facility] Immature Granulocytes Absolute 0.02 0.00 - 0.06 10*9/L 08/28/2024 12:17 PM CDT [facility] Blood BLOOD SPECIMEN / Unknown Venipuncture / Unknown 08/28/2024 9:30 AM CDT 08/28/2024 9:30 AM CDT us Diane Willams ALLERGIST/MD, CAR INSPECTION AND REPAIR MANAGER EC HEMATOLOGY ORDERABLE S Final Result [facility] [address] [place] [id number], [facility] * STREP A, MOLECULAR DETECTION (08/28/2024 9:21 AM CDT) Streptococcus pyogenes (Group A Strep) Not Detected Not Detected 08/28/2024 10:00 AM CDT [facility] Swab STRUCTURE OF THROAT / Unknown Non-blood collection / Unknown 08/28/2024 9:21 AM CDT 08/28/2024 9:34 AM CDT Narrative [facility] - 08/28/2024 10:00 AM CDT Test results must be interpreted within the context of all relevant clinical and laboratory findings. Method Information This test uses the [employer] Xpert Xpress Strep A assay to detect Streptococcus pyogenes (Group A Beta-Hemolytic Streptococcus) DNA by real-time polymerase chain reaction (PCR) on the [employer] GeneXpert Instrument System. Diane Willams APRN, LISSY EC MICROBIOLOGY - GENER AL ORDERABLES Final Result [facility] [address] documented in this encounter Visit Diagnoses Diagnosis Infectious mononucleosis without complication, infectious mononucleosis due to unspecified organism- Primary Sore throat Acute pharyngitis documented in this encounter Discontinued Medications Medication Sig Discontinue Reason Start Date End Da te albuterol HFA (Proair HFA, Ventolin HFA) 108 (90 Base) MCG/ACT inhalation aerosol Inhale 2 Puffs into the lungs with spacer 30 minutes prior to exercise. Shake before using. Reorder 09/13/2022 08/28/2024 documented as of this encounter Care Teams Component Overhaul Operator Relationship Specialty Start Date End Date Chaya Grove PA-C [address] [place] [address] PCP - General Family Medicine 09/13/22 Sangeeta Steve MD [address] [place] [address] PCP - PC Team Family Medicine 06/07/23 Vanna Bull MD [address] [place] [address] Cardiology Physician Cardiology 08/20/24 documented as of this encounter
--- OUTSIDE RECORDS SUMMARY | 2024-10-17 09:54 | XMS_ITS | Encounter Summary ---
Author Organization [facility] Address [address] [address] Phone Care Team Providers Care Layboy Tender Name Role Phone Chaya Grove PA-C Primary Care Provider [phone] Sangeeta Steve MD Unavailable [phone] Vanna Bull MD Unavailable [phone] Encounter Details Date Type Department Care Team (Latest Contact Info) Description 08/27/2024 Travel Social History Tobacco Use Types Packs/Day Years Used Date Smoking Tobacco: Never Smokeless Tobacco: Never Alcohol Use Standard Drinks/Week Comments Not Currently 0 (1 standard drink = 0.6 oz pur e alcohol) [facility] Utilities Answer Date Recorded In the past 12 months has [employer], [employer], oil, or water [employer] threatened to shut off services in your [...] any time in the past 12 m [facility], were you homeless or living in a fdc (including now)? No 08/13/2024 EH IP Custom [...] AM CDT Legal Sex Female 11:38 PM DRYING AND WINDING SUPERVISOR Gender Identity Female 08/02/2018 5:51 AM [...] st Contact Info) Description 11/09/2024 11:00 AM DRYING AND WINDING SUPERVISOR Appointment [facility] [address] [place] [address] James Tadeo MD [address] [place] [address] 12/17/2024 8:10 AM DRYING AND WINDING SUPERVISOR Appointment [facility] [address] [place] [address] Chaya Grove PA-C [address] [place] [address] documented as of this encounter Visit Diagnoses Not on filedocumented in this encounter Care Teams Layboy Tender Relationship Specialty Start Date End Date Chaya Grove PA-C [address] [place] [phone] PCP - General Family Medicine 09/13/22 Sangeeta Steve MD [address] [place] [address] PCP - PC Team Family Medicine 06/07/23 Vanna Bull MD [address] [place] [phone] Cardiology Physician Cardiology 08/20/24 documented as of this encounter
--- OUTSIDE RECORDS SUMMARY | 2024-10-17 09:54 | XMS_ITS | Encounter Summary ---
Author Organization [facility] Address [address] [address] Phone Care Team Providers Care Charge Machine Operator Name Role Phone Chaya Grove PA-C Primary Care Provider [phone] Sangeeta Steve MD Unavailable [phone] Reason for Visit * Reason Onset Date Comments Scheduling 08/01/2024 Encounter Details Date Type Department Care Team (Late st Contact Info) Description 08/01/[address] [facility] MED[facility] [address] [place] [address] Hermelinda Marsh Scheduling Social History Tobacco Use Types Packs/Day Years Used Date Smoking Tobacco: Never Smokeless Tobacco: Never Alcohol Use Standard Drinks/Week Comments Not Currently 0 (1 standard drink = 0.6 oz pur e alcohol) [facility] Utilities Answer Date Recorded In the past 12 months has [employer] gas, oil, or water [employer] threatened to shut off services in your home? No 07/11/2024 AUDIT-C Answer Date Recorded Q1: How often [...] PHQ-2 Answer Date Recorded PHQ-2 Total 3 07/11/2024 Hunger Vital Sign Answer Date Recorded Within the past 12 months, y ou worried that your food would run out before you got the money to buy more. Never true 07/11/20 24 Within the past 12 months, t he food you bought just didn't last and you didn't have money to get more. Never true 07/11/2024 PRAPARE - Transportation Answer Date Re corded In the past 12 months, has l ack of transportation kept you from medical appointments or from getting medications? No 06/15 In the past 12 months, has l ack of transportation kept you from meetings, work, or from getting things needed for daily living? No 07/11/2024 Housing Stability Vital Sign Answer Theron e Recorded In the last 12 months, was t here a time when you were not able to pay the mortgage or rent on time? No 07/11/2024 In the past 12 months, how m any times have you moved where you were living? 0 07/11/2024 At any time in the past 12 m [facility], were you homeless or living in a alf (including now)? No 07/11/2024 EH IP Custom Utilities Answer Date Ravinder [...] AM CDT Legal Sex Female 11:38 PM VOLLEYBALL COMMENTATOR Gender Identity Female 08/02/2018 5:51 AM CDT [...] * Telephone Encounter - Hermelinda Marsh - 08/01/2024 10:33 AM CDT Re: scehduling 10 week f/u Right Knee Meniscal tear with James Tadeo MD Pt will schedule with My Chart ticket documented in this encounter Plan of Treatment Upcoming Encounters Date Type Department Care Team (Late st Contact Info) Description 11/09/2024 11:00 AM VOLLEYBALL COMMENTATOR Appointment [facility] SURGICAL [address] [place] [address] James Tadeo MD [address] [place] [phone] 12/17/2024 8:10 AM VOLLEYBALL COMMENTATOR Appointment [facility] MEDICINE [address] [place] [address] Chaya Grove PA-C [address] [place] [address] documented as of this encounter Visit Diagnoses Not on filedocumented in this encounter Care Teams Charge Machine Operator Relationship Specialty Start Date End Date Chaya Grove PA-C [address] [place] [address] PCP - General Family Medicine 09/13/22 Sangeeta Steve MD [address] [place] [phone] PCP - PC Team Family Medicine 06/07/23 documented as of this encounter
--- OUTSIDE RECORDS SUMMARY | 2024-10-17 09:54 | XMS_ITS | Encounter Summary ---
Author Organization [facility] Address [address] [address] Phone Care Team Providers Care Locksmith Helper Name Role Phone Chaya Grove PA-C Primary Care Provider [phone] Sangeeta Steve MD Unavailable [phone] Vanna Bull MD Unavailable [phone] Encounter Details Date Type Department Care Team (Late st Contact Info) Description 09/07/2024 Orders Only [facility] HIS [address] [place] [address] Abstract, Provider, Social History Tobacco Use Types Packs/Day Years Used Date Smoking Tobacco: Never Smokeless Tobacco: Never Alcohol Use Standard Drinks/Week Comments Not Currently 0 (1 standard drink = 0.6 oz pur e alcohol) [facility] Utilities Answer Date Recorded In the past 12 months has [employer], gas, oil, or water [employer] threatened to shut off services in your [...] any time in the past 12 m [facility], were you homeless or living [...] AM CDT Legal Sex Female 11:38 PM FLIGHT DECK OFFICER Gender Identity Female 08/02/2018 5:51 AM CDT [...] st Contact Info) Description 11/09/2024 11:00 AM FLIGHT DECK OFFICER Appointment [facility] ORTHOPEDICS SURGICAL [address] [place] [address] James Tadeo MD [address] [place] [address] 12/17/2024 8:10 AM FLIGHT DECK OFFICER Appointment [facility] FAMILY MEDICINE [address] [place] [address] Chaya Grove PA-C [address] [place] [address] documented as of this encounter Procedures Procedure Name Priority Date/Time Associated Diagnosis Comments EXTERNAL BMP 09/07/2024 6:11 AM CDT EXTERNAL HEMOGRAM 09/07/2024 6:1 1 AM CDT documented in this encounter Results * (ABNORMAL) EXTERNAL BMP (09/07/2024 6:11 AM [...] Source result document attached to Order Number [id number] ([id number]) dated 09/07/2024. External results verified in Extract by Shannan Davila on 10/02/2024 at 02:17 PM. Provider Abstract MD [facility] Final Resul t Performing Organization Address City/[facility] de Phone Number OUTSIDE LABORATORY * (ABNORMAL) EXTERNAL HEMOGRAM (09/07/2024 [...] CDT External results verified in Extract by hSannan Davila on 10/02/2024 at 02:17 PM. Provider Abstract MD [facility] Final Resul t Performing Organization Address [facility] de Phone Number OUTSIDE LABORATORY documented in this encounter Visit Diagnoses Not on filedocumented in this encounter Care Teams Locksmith Helper Relationship Specialty Start Date End Date Chaya Grove PA-C [address] [place] [address] PCP - General Family Medicine 09/13/22 Sangeeta Steve MD [address] [place] [address] PCP - PC Team Family Medicine 06/07/23 Vanna Bull MD [address] [place] [address] RENEE CUMMINS [id number] Cardiology Physician Cardiology 08/20/24 documented as of this encounter
--- OUTSIDE RECORDS SUMMARY | 2024-10-17 09:54 | XMS_ITS | Encounter Summary ---
Author Organization [facility] Address [address] [address] Phone Care Team Providers Care Project Manager Senior Name Role Phone Chaya Grove PA-C Primary Care Provider [phone] Sangeeta Steve MD Unavailable [phone] Reason for Visit * Reason Comments Anxiety Depression Encounter Details Date Type Department Care Team (Late st Contact Info) Description 08/13/2024 9:30 AM CDT Telehealth [facility] FAMILY MEDICINE [address] [place] [address] Chaya Grove PA-C [address] [place] [address] Major depressive disorder with single episode, in full remission (HCC) (Primary Dx); MALVIN (generalized anxiety disorder); Suicidal ideation Social History Tobacco Use Types Packs/Day Years Used Date Smoking Tobacco: Never Smokeless Tobacco: Never Alcohol Use Standard Drinks/Week Comments Not Currently 0 (1 standard drink = 0.6 oz pur e alcohol) [facility] Utilities Answer Date Recorded In the past 12 months has [employer] electric, gas, oil, or water company threatened [...] PHQ-2 Answer Date Recorded PHQ-2 Total 3 08/13/2024 Hunger Vital Sign Answer Date Recorded Within [...] any time in the past 12 m [facility], were you homeless or living in a half-way (including now)? No 08/13/2024 EH IP Custom [...] AM CDT Legal Sex Female 11:38 PM DIESEL LOCOMOTIVE CRANE OPERATOR Gender Identity Female 08/02/2018 5:51 AM CDT [...] Hermelinda Richards RN documented in this encounter Patient Instructions * Patient Instructions* Chaya Grove PA-C - 08/13/2024 9:30 AM CDT 24 Hour Crisis Hotline Numbers: Immediate Danger: 9-- or present to the ER If you are experiencing a mental health crisis, please call [facility]: or 104. Additional Options include: National Crisis #: 1-872-451-TALK (8255) [facility] Local/Mobile Crisis #: [phone] Abdoul Smith 24 hour crisis line: [phone] Crisis Text Line: 194220 text [place] Crisis Text Line: Text [place] to 7[address]288 Regional Numbers: [facility] Crisis Line ([facility]): [phone] [place] Crisis Line: [facility] ([facility]) [phone] documented in this encounter Ordered Prescriptions Prescription Sig Dispense Quantity Refills Last Filled Start Date End Date buPROPion XL (Wellbutrin XL) 150 MG 24 hour extended release tablet Take 1 Tablet by mouth every morning. Do not crush. 30 Tablet 08/16/2024 11:14 AM CDT 08/13/2024 09/15/2024 documented in this encounter Progress Notes * Chaya Grove PA-C - 08/13/2024 9:30 AM CDT Images from the original note were not included. [facility] Subjective HPI: Sandra is a 18 year old here with the following concern(s): Patient is here today for follow-up mood/mental health. Patient is currently taking Wellbutrin 300 mg once daily, Lexapro 20 mg once daily, and hydroxyzineas needed for acute anxiety. Patient feels her medications are working well but reports recent lifestressors have worsened her mood a bit. Additionally patient has not been seen by her therapist in over a month due to patient forgetting to schedule appointments. Patient is currently scheduled to follow-up with her therapist in 1.5 weeks. She also has follow-up therapy appointments scheduled weekly thereafter through September. Recall, patient was seen in the office 07/11/2024 and admitted that her mood was down at that time but attributed this to being home for the summer. She always struggles more at home. She has since returned back to college and she continues to struggle. Patient admits to feeling more irritable and angry. Patient states this is her most bothersome symptom at this time. Patient reports she has been s ick lately. She was diagnosed with strep throat, treated with antibiotics; then she was seen again for a cough and treated for bronchitis with steroid; then she followed up and was diagnosed with mono; then again followed up and diagnosed with a urinary tract infection and treated. This all occurred within 1 month. Overall patient reports symptoms have improved, still has a mild to moderate coughand overall feels tired/fatigued however symptoms are improving. Patient admits that she also went out over the weekend and was drinking alcohol with her friends. Patient reports she was sick/hung over after this. No alcohol since then. Patient continues to struggle with suicidal ideation. Patient denies any suicidal plan or suicide intent. Patient states suicide is always in the back of her mind but she does not have any desire to act on this. Patient states she feels safe. She denies any worsening of suicidal ideation. Patient does not wish to be . She does have a history of self-harm with cutting. Patient admits to 1 episode of cutting in the last month. Patient denies any desire for self-harm at this time. Previously patient's psychiatric medications were managed by a psychiatrist. Patient does not wish to reestablish with a psychiatrist and is hesitant to adjust any of her medications at this time. Patient states she has had bad experiences with previous psychiatrist. Patient feels she has been pushed to start new medications that she is not comfortable with. She feels her current medications are working well, life stress that is just more bothersome. The following portions of the patient's chart were reviewed and updated as appropriate for the visit: Tobacco Allergies Meds Problems Med Hx Surg Hx Fam Hx Patient notes the following DSM-IV Depression symptoms on a scale of 0-3: 08/13/2024 9:10 AM PHQ-9, CSSR PHQ-9 Total Score (MyC): 9 Anhedonia (MyC) Several Days Depressed Mood (MyC) More than half the Days Sleep Change (MyC) Not at all Fatigue (MyC) Nearly Everyday Appetite Change (MyC) Several Days Poor Self-esteem (MyC) Not at all Poor Concentration (MyC) Several Days Psychomotor Change (MyC) Not at all Suicidal Ideation (MyC) Several Days Difficulty Caused by Symptoms (MyC) Somewhat difficult Total PHQ-9 Score: 9 Depressed Mood Several Days Anhedonia More than half the Days Sleep Change Not at all Fatigue Nearly Everyday Appetiet Change Several Days Poort Self-esteem Not at all Poor Concentration Several Days Pyschomotor Change Not at all Suicidal Ideation Several Days Difficulty Caused by Symptoms Somewhat difficult 1. Wish to be No 2. Suicidal Thoughts Yes 3. Suicidal Thoughts with Method Without Specific Plan or Intent to Act Yes 4. Suicidal Intent Without Specific Plan No 5. Suicide Intent with Specific Plan No 6. Suicide Behavior Question Yes How long ago did you do any of these? Within the last three months 1. Wish to be (MyC) No 2. Suicidal Thoughts (MyC) Yes 3. Suicidal Thoughts with Method Without Specific Plan (MyC) Yes 4. Suicidal Intent Without Specific Plan (MyC) No 5. Suicide Intent with Specific Plan (MyC) No 6. Suicide Behavior Question (MyC) How long ago did you do any of these? (MyC) Yes How long ago did you do any of these? (MyC) Within the last three months (BPA) (Typical scores: 0-4=no or minimal; 5-9=minor; 10-14 =mild major depression; 15- 19=moderate major depression; 20-27= severe major depression.) Recommended follow up by score: 0-4: Routine 5-8: Within 6 months 9 or greater: Within 1 month, unless chronically depressed and managed by behavioral health 08/13/2024 9:11 AM MALVIN-7 MALVIN Nervous (MyC) Several days MALVIN Worry (MyC) Not at all MALVIN Worry Too Much (MyC) Not at all MALVIN Relax (MyC) Several days MALVIN Restless (MyC) Not at all MALVIN Annoyed (MyC) Nearly every day MALVIN Afraid (MyC) Not at all MALVIN Summary (MyC) Not hard at all MALVIN Scoring (MyC) 5 Adult Scorin or higher- significant anxiety; 15 or higher- severe anxiety Adolescent Scoring: none (0), mild (1), moderate (2), severe (3), extreme (4) Objective , , , , There is no height or weight on file to calculate BMI. Physical Exam Exam limited by virtual visit GENERAL APPEARANCE: alert and oriented X3; no acute distress HEENT: Atraumatic; normocephalic; without lesions; Conjunctiva, corneas and eyelids normal NECK: Supple LUNGS: Normal respirations with non-labored breathing PSYCHIATRIC: Mental status normal; mood is depressed. She does have suicidal ideation but no plan or intent. Assessment/Plan Sandra is a 18 year old here for the following: (F32.5) Major depressive disorder with single episode, in full remission (HCC) (primary encounter diagnosis) (F41.1) MALVIN (generalized anxiety disorder) (R45.851) Suicidal ideation - PHQ9 and GAD7 reviewed and consistent with minor depressive and anxiety symptoms. -Current medications include Wellbutrin 300 mg once daily, Lexapro 20 mg once daily, and hydroxyzine as needed for acute anxiety. -I suspect her worsened mood is multifactorial: increased life stressors, lack of therapy, lack of physical activity (still recovering from torn ACL s/p surgery), and recent illnesses. Patient's mostbothersome symptom today is anger/irritability. We discussed she may benefit from a decrease in her Wellbutrin as these can be known adverse side effects of this. We discussed the risks versus benefits of decreasing Wellbutrin and via shared decision making elected to decrease Wellbutrin to 150 mg once daily. If she does not tolerate this she may return to the 300 mg dosing. We did discuss that patient has tried multiple antidepressants which she has not tolerated or they have been ineffective.Therefore it would be reasonable for her to reestablish with psychiatry for medication management. Patient is very reluctant to do so due to previous poor experiences. She would prefer to continue with family medicine managing her psych medications however if her mood does not improve this may needto be our next step. -Patient continues to have chronic, passive suicidal ideation. No acute changes. She denies any suicide plan or intent. She feels safe at home. WE will continue to monitor this very closely. 24 Hour Crisis Hotline Numbers provided to patient. Return in about 2 weeks (around 08/27/2024), or if symptoms worsen or fail to improve. Virtual Visit Documentation: The patient requested or was interviewed to determine and confirm that telemedicine was an appropriate and effective means for delivering the service. The mode of transmission for the telemedicine service: interactive videoconference. The time the service began: 35 The time the service ended: 1003 The location of the Patient: [facility] The location of the Provider: Clinic documented in this encounter Miscellaneous Notes * Clinical Note - Corry Fleming CMA - 08/13/2024 9:30 AM CDT This chart was prepped for visit by Corry Fleming CMA on 08/09/2024. documented in this encounter Plan of Treatment Upcoming Encounters Date Type Department Care Team (Late st Contact Info) Description 11/09/2024 11:00 AM DIESEL LOCOMOTIVE CRANE OPERATOR Appointment [facility] [address] [place] [address] James Tadeo MD [address] [place] [address] 12/17/2024 8:10 AM DIESEL LOCOMOTIVE CRANE OPERATOR Appointment [facility] FAM[facility] MEDICINE [address] [place] [address] Chaya Grove PA-C [address] [place] [address] documented as of this encounter Visit Diagnoses Diagnosis Major depressive disorder with single episode, in full remission (HCC)- Primary MALVIN (generalized anxiety disorder) Generalized anxiety disorder Suicidal ideation documented in this encounter Discontinued Medications Medication Sig Discontinue Reason Start Date End Da te aspirin EC 81 MG tablet Take 1 Tablet by mouth 2 (two) times a day. Do not split or crush. Please take two times per day as prescribed for 30 days to prevent blood clots. Course of treatment completed 06/22/2024 08/13/2024 buPROPion XL (Wellbutrin XL) 300 MG 24 hour extended release tabletIndications:Ronald or depressive disorder with single episode, in full remission (HCC),MALVIN (generalized anxiety disorder) Take 1 Tablet by mouth every morning. Adjustment of dose 07/11/2024 08/13/2024 documented as of this encounter Care Teams Project Manager Senior Relationship Specialty Start Date End Date Chaya Grove PA-C [address] [place] [address] PCP - General Family Medicine 09/13/22 Sangeeta Steve MD [address] [place] [address] PCP - PC Team Family Medicine 06/07/23 documented as of this encounter
--- OUTSIDE RECORDS SUMMARY | 2024-10-17 09:54 | XMS_ITS | Encounter Summary ---
Author Organization [facility] Address [address] [address] Phone Care Team Providers Care Caddy/Caddie Supervisor Name Role Phone Chaya Grove PA-C Primary Care Provider [phone] Sangeeta Steve MD Unavailable [phone] Encounter Details Date Type Department Care Team (Latest Contact Info) Description 07/31/2024 Travel Social History Tobacco Use Types Packs/Day Years Used Date Smoking Tobacco: Never Smokeless Tobacco: Never Alcohol Use Standard Drinks/Week Comments Not Currently 0 (1 standard drink = 0.6 oz pur e alcohol) [facility] Utilities Answer Date Recorded In the past 12 months has [employer], gas, oil, or water [employer] threatened to shut off services in your [...] any time in the past 12 m [facility], were you homeless or living in a care home (including now)? 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 Gender Identity Female 08/02/2018 5:51 AM CDT Sexual Orientation Straight 07/13/2024 10 :55 AM CDT documented as of this encounter Functional Status * Patient's Vision Adequate to Safely Complete Daily Activities Answer Date of Assessment Author Yes 02/26/2020 1:39 AM CDT Hermelinda Richards RN * Patient's Memory Adequate to Safely Complete Daily Activities Answer Date of Assessment Author Yes 02/26/2020 1:39 AM Hermelinda Sharma RN documented as of this encounter Mental Status * Patient's Judgment Adequate to Safely Complete Daily Activities Answer Entry Date Author Yes 02/26/2020 1:39 AM Hermelinda Sharma RN documented in this encounter Plan of Treatment Upcoming Encounters Date Type Department Care Team (Late st Contact Info) Description 11/09/2024 11:00 AM AEROSPACE PROJECT MANAGER Appointment [facility] ORTHOPEDICS SURGICAL [address] [place] [address] James Tadeo MD [address] [place] [address] 12/17/2024 8:10 AM AEROSPACE PROJECT MANAGER Appointment [facility] FAMILY MEDICINE [address] [place] [address] Chaya Grove PA-C [address] [place] [address] documented as of this encounter Visit Diagnoses Not on filedocumented in this encounter Care Teams Caddy/Caddie Supervisor Relationship Specialty Start Date End Date Chaya Grove PA-C [address] [place] [address] PCP - General Family Medicine 09/13/22 Sangeeta Steve MD [address] [place] [address] PCP - PC Team Family Medicine 06/07/23 documented as of this encounter
--- OUTSIDE RECORDS SUMMARY | 2024-10-17 09:54 | XMS_ITS | Encounter Summary ---
Author Organization [facility] Address [address] [address] Phone Care Team Providers Care Pharmacist In Charge Owner Name Role Phone Chaya Grove PA-C Primary Care Provider [phone] Sangeeta Steve MD Unavailable [phone] Vanna Bull MD Unavailable [phone] Reason for Visit * Reason Comments Medication Check Encounter Details Date Type Department Care Team (Late st Contact Info) Description 2024 10:10 AM CDT Telehealth [facility] [address] [place] [address] Chaya Grove PA-C [address] [place] [address] Major depressive disorder with single episode, in full remission (HCC) (Primary Dx); MALVIN (generalized anxiety disorder); Recurrent tonsillitis Social History Tobacco Use Types Packs/Day Years Used Date Smoking Tobacco: Never Smokeless Tobacco: Never Alcohol Use Standard Drinks/Week Comments Not Currently 0 (1 standard drink = 0.6 oz pur e alcohol) [facility] Utilities Answer Date Recorded In the past 12 months has [employer] electric, gas, oil, or water company threatened [...] PHQ-2 Answer Date Recorded PHQ-2 Total 3 2024 Hunger Vital Sign Answer Date Recorded Within [...] any time in the past 12 m [facility], were you homeless or living in a longterm (including now)? No 2024 EH IP Custom [...] AM CDT Legal Sex Female 11:38 PM INSTALLATION ENGINEER Gender Identity Female 08/02/2018 5:51 AM CDT [...] Hermelinda Richards RN documented in this encounter Progress Notes * Chaya Grove PA-C - 2024 10:10 AM CDT Images from the original note were not included. [facility] Subjective HPI: Sandra is a 19 year old here with the following concern(s): Patient is here today for follow-up. Recall, patient was seen 1 month ago for depression and anxiety. At that time mood was okay, her primary concern was increased anger/irritability. Therefore Wellbutrin was decreased from 300 mg once daily to 150 mg once daily. She was continued on Lexapro 20 mg once daily and hydroxyzine as needed. She is unsure if anger/irritability has improved since decreasing Wellbutrin however she denies anyworsening of her mood. Since our last visit patient reports her mood has been stable. She reports ongoing life stress but feels her depression and anxiety have been controlled. She has chronic suicidal ideation. She reports overall suicidal ideation has actually improved. She had 1 episode last weekend when she had a meltdown, felt very overwhelmed, and angry. She reports this is related to her health problems/ illnesses. She reports she had thoughts of self-harm however she did not go through with any. She denies any suicidal planning or intent. Patient unfortunately has had repeated illnesses the last couple of months. She has been diagnosed with strep throat, mono, bronchitis, and recently hospitalized for ?epiglottitis. She was hospitalized in [facility]. I do not have these records. Patient had consult with ENT specialist while in the hospital and is scheduled for tonsillectomy in October. Recall: Previously patient's psychiatric medications were managed by a psychiatrist. Patient does not wish to reestablish with a psychiatrist and is hesitant to adjust any of her medications at this time. Patient states she has had bad experiences with previous psychiatrist. Patient feels she hasbeen pushed to start new medications that she is not comfortable with. She feels her current medications are working well. The following portions of the patient's chart were reviewed and updated as appropriate for the visit: Tobacco Allergies Meds Problems Med Hx Surg Hx Fam Hx Patient notes the following DSM-IV Depression symptoms on a scale of 0-3: 2024 9:48 AM PHQ-9, CSSR PHQ-9 Total Score (MyC): 10 Anhedonia (MyC) Several Days Depressed Mood (MyC) More than half the Days Sleep Change (MyC) More than half the Days Fatigue (MyC) Nearly Everyday Appetite Change (MyC) Several Days Poor Self-esteem (MyC) Not at all Poor Concentration (MyC) Several Days Psychomotor Change (MyC) Not at all Suicidal Ideation (MyC) Not at all Difficulty Caused by Symptoms (MyC) Somewhat difficult Total PHQ-9 Score: 10 Depressed Mood Several Days Anhedonia More than half the Days Sleep Change More than half the Days Fatigue Nearly Everyday Appetiet Change Several Days Poort Self-esteem Not at all Poor Concentration Several Days Pyschomotor Change Not at all Suicidal Ideation Not at all Difficulty Caused by Symptoms Somewhat difficult Patient-reported (Typical scores: 0-4=no or minimal; 5-9=minor; 10-14 =mild major depression; 15- 19=moderate major depression; 20-27= severe major depression.) Recommended follow up by score: 0-4: Routine 5-8: Within 6 months 9 or greater: Within 1 month, unless chronically depressed and managed by behavioral health Objective , , , , There is no height or weight on file to calculate BMI. Physical Exam GENERAL APPEARANCE: alert and oriented X3; no acute distress HEENT: Atraumatic; normocephalic; without lesions; Conjunctiva, corneas and eyelids normal NECK: Supple LUNGS: Normal respirations with non-labored breathing PSYCHIATRIC: Well-groomed, well-dressed. Mental status normal; mood and affect normal Assessment/Plan Sandra is a 19 year old here for the following: (F32.5) Major depressive disorder with single episode, in full remission (HCC) (primary encounter diagnosis) (F41.1) MALVIN (generalized anxiety disorder) - Mood is stable. - Unclear whether or not decreased wellbutrin has helped anger/irritability but mood is stable so we will continue at the decreased dose of 150 mg once daily, in addition to lexapro 20 mg one daily and hydroxizine PRN. - We discussed re-establishing with a psychiatrist for medication management however patient is reluctant to do so. She is happy with current medications however I am concerned if her mood worsens. She has been on a few different medications that she has not tolerated in the past and ultimately I would recommend psych management going forward if med adjustment is needed. Patient will consider referral. - I recommend continuing with therapy. - If any worsening mood, suicidal ideation, self harm or other new/ concerning symptom then she should seek immediate medical care. (J03.91) Recurrent tonsillitis - Scheduled for tonsillectomy at outside facility in October. Return in about 3 months (around 12/13/2024). Virtual Visit Documentation: The patient requested or was interviewed to determine and confirm that telemedicine was an appropriate and effective means for delivering the service. The mode of transmission for the telemedicine service: interactive videoconference. The time the service began: 1014 The time the service ended: 1036 The location of the Patient: [facility] The location of the Provider: clinic 32 minutes were spent on this patient at this visit obtaining a history, reviewing medical records,developing a treatment plan, counseling and discussing treatment strategy with patient, coordination of care and documentation. documented in this encounter Miscellaneous Notes * Clinical Note - Corry Fleming CMA - 2024 10:10 AM CDT This chart was prepped for visit by Corry Fleming CMA on 09/10/2024. documented in this encounter Plan of Treatment Upcoming Encounters Date Type Department Care Team (Late st Contact Info) Description 11/09/2024 11:00 AM INSTALLATION ENGINEER Appointment [facility] SURGICAL [address] [place] [address] [phone] James Tadeo MD [address] [place] [address] [phone] 12/17/2024 8:10 AM INSTALLATION ENGINEER Appointment [facility] [address] [place] [address] [phone] Chaya Grove PA-C [address] [place] [address] documented as of this encounter Procedures Procedure Name Priority Date/Time Associated Diagnosis Comments BRIEF BEHAV ASSMT W/SCORE & DOC PER STD INSTRM Routine 2024 10:50 AM CDT Major depressive disorder with single episode, in full remission (HCC) documented in this encounter Visit Diagnoses Diagnosis Major depressive disorder with single episode, in full remission (HCC)- Primary MALVIN (generalized anxiety disorder) Generalized anxiety disorder Recurrent tonsillitis Acute tonsillitis documented in this encounter Discontinued Medications Medication Sig Discontinue Reason Start Date End Da te methylPREDNISolone (Medrol Aamir) 4 MG tablet therapy pack Take by mouth following package directions. Course of treatment completed 08/29/2024 2024 documented as of this encounter Orders Procedures Count Last Ordered Date First Orde red Date BRIEF BEHAV ASSMT W/SCORE & DOC PER STD INSTRM 1 2024 documented in this encounter Care Teams Pharmacist In Charge Owner Relationship Specialty Start Date End Date Chaya Grove, PA-C [address] [place] [address] [phone] PCP - General Family Medicine 09/13/22 Sangeeta Steve MD [address] [place] [address] [phone] PCP - PC Team Family Medicine 06/07/23 Vanna Bull MD [address] [place] [address] [phone] Cardiology Physician Cardiology 08/20/24 documented as of this encounter
--- OUTSIDE RECORDS SUMMARY | 2024-10-17 09:54 | XMS_ITS | Encounter Summary ---
Author Organization [facility] Address [address] [address] Phone Care Team Providers Care Turning Sander Tender Name Role Phone Chaya Grove PA-C Primary Care Provider [phone] Sangeeta Steve MD Unavailable [phone] Vanna Bull MD Unavailable [phone] Reason for Visit * Reason Comments Refill Request buPROPion Encounter Details Date Type Department Care Team (Late st Contact Info) Description 09/15/2024 Refill [facility] [address] [place] [address] Chaya Grove PA-C [address] [place] [address] Refill Request (buPROPion ) Social History Tobacco Use Types Packs/Day Years Used Date Smoking Tobacco: Never Smokeless Tobacco: Never Alcohol Use Standard Drinks/Week Comments Not Currently 0 (1 standard drink = 0.6 oz pur e alcohol) [facility] Utilities Answer Date Recorded In the past 12 months has [employer] electric, gas, oil, or water company [...] time in the past 12 m [facility], were you homeless or living in a intermediate (including now)? No 2024 EH IP Custom [...] AM CDT Legal Sex Female 11:38 PM PARTRIDGE FARMER Gender Identity Female 08/02/2018 5:51 AM CDT [...] Hermelinda Richards RN documented in this encounter Ordered Prescriptions Prescription Sig Dispense Quantity Refills Last Filled Start Date End Date buPROPion XL (Wellbutrin XL) 150 MG 24 hour extended release tablet Take 1 Tablet by mouth every morning. Do not crush. 90 Tablet 3 09/19/2024 8:09 AM PARTRIDGE FARMER 09/17/2024 documented in this encounter Miscellaneous Notes * Telephone Encounter - Sangeeta Steve MD - 09/17/2024 8:20 AM CST Prescription approved. RIDGE FARMER * Telephone Encounter - Gabby Muir RN - 09/15/2024 4:59 PM CDT Chaya Kaplan PA-C, Nurse Care Line is unable to refill this medication per the [facility] Medication Refill Standing Orders. First fill Would you like to authorize this request? Thank You. * Telephone Encounter - Gabby Muir RN - 09/15/2024 4:55 PM CDT Requested Prescriptions Pending Prescriptions Disp Refills buPROPion XL (WELLBUTRIN XL) 150 MG 24 hour extended release tablet 30 Tablet 0 Sig: Take 1 Tablet by mouth every morning. Do not crush. Depression- Adult Passed - 09/15/2024 4:58 PM Passed - Qualifying visit within 1 year Qualifying visit date: : 2024 Recent Visits Date Type Provider Dept 09/12/24 [facility] Chaya Grove PA-C [facility] 08/13/24 [facility] Chaya Grove PA-C [facility] 07/11/24 Office Visit Chaya Grove PA-C [facility] 01/13/24 [facility] Chaya Grove PA-C [facility] Showing recent visits within past 365 days with a meds authorizing provider and meeting all other requirements Future Appointments No visits were found meeting these conditions. Showing future appointments within next 90 days with a meds authorizing provider and meeting all other requirements Passed - Depression medications not ordered as ''Do Not Refill'' Smoking Cessation Passed - 09/15/2024 4:58 PM Passed - Qualifying visit within 6 months Qualifying visit date: : 2024 Recent Visits Date Type Provider Dept 09/12/24 [facility] Chaya Grove PA-C [facility] 08/13/24 [facility] Chaya Grove PA-C [facility] 07/11/24 Office Visit Chaya Grove PA-C [facility] 01/13/24 [facility] Chaya Grove PA-C [facility] Showing recent visits within past 365 days with a meds authorizing provider and meeting all other requirements Future Appointments No visits were found meeting these conditions. Showing future appointments within next 90 days with a meds authorizing provider and meeting all other requirements Passed - Smoking Cessation medications not ordered as ''Do Not Refill'' documented in this encounter Plan of Treatment Upcoming Encounters Date Type Department Care Team (Late st Contact Info) Description 11/09/2024 11:00 AM PARTRIDGE FARMER Appointment [facility] SURGICAL [address] [place] [address] James Tadeo MD [address] [place] [address] 12/17/2024 8:10 AM PARTRIDGE FARMER Appointment [facility] [address] [place] [address] [phone] Chaya Grove PA-C [address] [place] [address] [phone] documented as of this encounter Visit Diagnoses Not on filedocumented in this encounter Discontinued Medications Medication Sig Discontinue Reason Start Date End Da te buPROPion XL (Wellbutrin XL) 150 MG 24 hour extended release tablet Take 1 Tablet by mouth every morning. Do not crush. Reorder 08/13/2024 09/15/2024 documented as of this encounter Care Teams Turning Sander Tender Relationship Specialty Start Date End Date Chaya Grove PA-C [address] [place] [address] [phone] PCP - General Family Medicine 09/13/22 Sangeeta Steve MD [address] [place] [address] [phone] PCP - PC Team Family Medicine 06/07/23 Vanna Bull MD [address] [place] [address] [phone] Cardiology Physician Cardiology 08/20/24 documented as of this encounter
--- OUTSIDE RECORDS SUMMARY | 2024-10-17 09:54 | XMS_ITS | Encounter Summary ---
Author Organization [facility] Address [address] [address] Phone Care Team Providers Care Beaver Trapper Name Role Phone Chaya Grove PA-C Primary Care Provider [phone] Sangeeta Steve MD Unavailable [phone] Vanna Bull MD Unavailable [phone] Encounter Details Date Type Department Care Team (Latest Contact Info) Description 2024 Travel Social History Tobacco Use Types Packs/Day Years Used Date Smoking Tobacco: Never Smokeless Tobacco: Never Alcohol Use Standard Drinks/Week Comments Not Currently 0 (1 standard drink = 0.6 oz pur e alcohol) [facility] Utilities Answer Date Recorded In the past 12 months has [employer], [employer], oil, or water [employer] threatened to shut off services in your [...] any time in the past 12 m [facility], were you homeless or living in a fpc (including now)? No 2024 EH IP Custom [...] AM CDT Legal Sex Female 11:38 PM GRAIN MANAGER Gender Identity Female 08/02/2018 5:51 AM [...] st Contact Info) Description 11/09/2024 11:00 AM GRAIN MANAGER Appointment [facility] SURGICAL [address] [place] [address] James Tadeo MD [address] [place] [address] 12/17/2024 8:10 AM GRAIN MANAGER Appointment [facility] [address] [place] [address] Chaya Grove PA-C [address] [place] [address] documented as of this encounter Visit Diagnoses Not on filedocumented in this encounter Care Teams Beaver Trapper Relationship Specialty Start Date End Date Chaya Grove PA-C [address] [place] [address] [phone] PCP - General Family Medicine 09/13/22 Sangeeta Steve MD [address] [place] [address] PCP - PC Team Family Medicine 06/07/23 Vanna Bull MD [address] [place] [address] [phone] Cardiology Physician Cardiology 08/20/24 documented as of this encounter
--- OUTSIDE RECORDS SUMMARY | 2024-10-17 09:54 | XMS_ITS | Encounter Summary ---
Author Organization [facility] Address [address] [address] Phone Care Team Providers Care Shrimper Name Role Phone Chaya Grove PA-C Primary Care Provider [phone] Sangeeta Steve MD Unavailable [phone] Vanna Bull MD Unavailable [phone] Encounter Details Date Type Department Care Team (Latest Contact Info) Description 10/02/2024 Travel Social History Tobacco Use Types Packs/Day Years Used Date Smoking Tobacco: Never Smokeless Tobacco: Never Alcohol Use Standard Drinks/Week Comments Not Currently 0 (1 standard drink = 0.6 oz pur e alcohol) [facility] Utilities Answer Date Recorded In the past 12 months has [employer], [employer], oil, or water [employer] threatened to shut off services in your [...] in the past 12 m [facility], were you homeless or living in a [...] AM CDT Legal Sex Female 11:38 PM RESIDENCE COUNSELOR Gender Identity Female 08/02/2018 5:51 AM CDT [...] Date Author Yes 02/26/2020 1:39 AM Hermelinda Shrama RN documented in this encounter Plan of Treatment Upcoming Encounters Date Type Department Care Team (Late st Contact Info) Description 11/09/2024 11:00 AM RESIDENCE COUNSELOR Appointment [facility] SURGICAL [address] [place] [address] James Tadeo MD [address] [place] [address] 12/17/2024 8:10 AM RESIDENCE COUNSELOR Appointment [facility] [address] [place] [address] Chaya Grove PA-C [address] [place] [address] documented as of this encounter Visit Diagnoses Not on filedocumented in this encounter Care Teams Shrimper Relationship Specialty Start Date End Date Chaya Grove PA-C [address] [place] [address] [phone] PCP - General Family Medicine 09/13/22 Sangeeta Steve MD [address] [place] [address] PCP - PC Team Family Medicine 06/07/23 Vanna Bull MD [address] [place] [address] [phone] Cardiology Physician Cardiology 08/20/24 documented as of this encounter
--- OUTSIDE RECORDS SUMMARY | 2024-10-17 09:54 | XMS_ITS | Encounter Summary ---
Author Organization [facility] Address [address] [address] Phone Care Team Providers Care Canceling And Cutting Control Clerk Name Role Phone Chaya Grove PA-C Primary Care Provider [phone] Sangeeta Steve MD Unavailable [phone] Vanna Bull MD Unavailable [phone] Encounter Details Date Type Department Care Team (Late st Contact Info) Description 09/05/[address] [facility] [address] [place] [address] Abstract, Provider, Social History Tobacco Use Types Packs/Day Years Used Date Smoking Tobacco: Never Smokeless Tobacco: Never Alcohol Use Standard Drinks/Week Comments Not Currently 0 (1 standard drink = 0.6 oz pur e alcohol) [facility] Utilities Answer Date Recorded In the past 12 months has [employer], gas, oil, or water [employer] threatened to shut off services in your [...] time in the past 12 m [facility], were you homeless or living in a mcc (including now)? No 2024 EH IP Custom [...] AM CDT Legal Sex Female 11:38 PM GREIGE MENDER Gender Identity Female 08/02/2018 5:51 AM CDT [...] st Contact Info) Description 11/09/2024 11:00 AM GREIGE MENDER Appointment [facility] ORTHOPEDICS SURGICAL [address] [place] [address] James Tadeo MD [address] [place] [address] 12/17/2024 8:10 AM GREIGE MENDER Appointment [facility] [address] [place] [address] Chaya Grove PA-C [address] [place] [address] documented as of this encounter Procedures Procedure Name Priority Date/Time Associated Diagnosis Comments EXTERNAL CRP 09/05/2024 10:12 PM CDT documented in this encounter Results * EXTERNAL CRP (09/05/2024 10:12 PM CDT) EXTERNAL CRP 0.5 0.5 - 1.0 mg/dl OUT[facility]IDE LAB[facility]ATORY 09/05/2024 10:1 2 PM CDT Narrative OUTSIDE LABORATORY - 09/05/2024 10:12 PM CDT Source result document attached to Order Number [id number] ([id number]) dated 09/07/2024. External results verified in Extract by Shannan Davila on 10/02/2024 at 02:17 PM. us Provider Abstract MD [facility] Final Resul t OUTSIDE LABORAT[facility] documented in this encounter Visit Diagnoses Not on filedocumented in this encounter Care Teams Canceling And Cutting Control Clerk Relationship Specialty Start Date End Date Chaya Grove, [employer] [address] [place] [address] PCP - General Family Medicine 09/13/22 Sangeeta Steve MD [address] [place] [address] PCP - PC Team Family Medicine 06/07/23 Vanna Bull MD [address] [place] [address] [phone] Cardiology Physician Cardiology 08/20/24 documented as of this encounter
--- OUTSIDE RECORDS SUMMARY | 2024-10-17 09:54 | XMS_ITS | Encounter Summary ---
Author Organization [facility] Address [address] [address] Phone Care Team Providers Care Orthopedic Radiologic Technologist Name Role Phone Chaya Grove PA-C Primary Care Provider [phone] Sangeeta Steve MD Unavailable [phone] Reason for Visit * Reason Onset Date Comments Scheduling 08/10/2024 Encounter Details Date Type Department Care Team (Late st Contact Info) Description 08/10/2024 Telephone [facility]OPED[facility] SURGICAL [address] [place] [address] Glenn Mehta RN Scheduling Social History Tobacco Use Types Packs/Day Years Used Date Smoking Tobacco: Never Smokeless Tobacco: Never Alcohol Use Standard Drinks/Week Comments Not Currently 0 (1 standard drink = 0.6 oz pur e alcohol) [facility] Utilities Answer Date Recorded In the past 12 months has [employer], gas, oil, or water [employer] threatened to shut off services in your [...] any time in the past 12 m [facility], were you homeless or living in a jail (including now)? No 07/11/2024 EH IP Custom [...] AM CDT Legal Sex Female 11:38 PM DELIVERY TECHNICIAN Gender Identity Female 08/02/2018 5:51 AM CDT [...] encounter Miscellaneous Notes * Telephone Encounter - Glenn Mehta RN - 08/10/2024 12:33 PM CDT Hospitality Ambassador left message for patient to callback to schedule virtual follow up visit with James Tadeo MD for ARTHROSCOPY KNEE WITH MEDIAL MENISCUS REPAIR, WITH MARROW VENTING, RIGHT on 06/22/24. documented in this encounter Plan of Treatment Upcoming Encounters Date Type Department Care Team (Late st Contact Info) Description 11/09/2024 11:00 AM DELIVERY TECHNICIAN Appointment [facility]THOPEDICS SURGICAL [address] [place] [address] James Tadeo MD [address] [place] [address] 12/17/2024 8:10 AM DELIVERY TECHNICIAN Appointment [facility] [address] [place] [address] [phone] Chaya Grove PA-C [address] [place] [address] [phone] documented as of this encounter Visit Diagnoses Not on filedocumented in this encounter Care Teams Orthopedic Radiologic Technologist Relationship Specialty Start Date End Date Chaya Grove PA-C [address] [place] [address] [phone] PCP - General Family Medicine 09/13/22 Sangeeta Steve MD [address] [place] [phone] PCP - PC Team Family Medicine 06/07/23 documented as of this encounter
--- OUTSIDE RECORDS SUMMARY | 2024-10-17 09:54 | XMS_ITS | Encounter Summary ---
Author Organization [facility] Address [address] [address] Phone Care Team Providers Care Rails Developer Name Role Phone Chaya Grove PA-C Primary Care Provider [phone] Sangeeta Steve MD Unavailable [phone] Encounter Details Date Type Department Care Team (Latest Contact Info) Description 07/23/2024 12:30 PM CDT - 07/23/2024 11:59 PM CDT Hospital Encounter [facility] NON INVASIVE CARDIOLOGY [address] [place] [phone] Ancillary, [facility] Non Invasive Techs Syncope and collapse (Primary Dx) Discharge Disposition: Discharged Social History Tobacco Use Types Packs/Day Years Used Date Smoking Tobacco: Never Smokeless Tobacco: Never Alcohol Use Standard Drinks/Week Comments Not Currently 0 (1 standard drink = 0.6 oz pur e alcohol) [facility] Utilities Answer Date Recorded In the past 12 months has [employer], gas, oil, or water company threatened [...] any time in the past 12 m [facility], were you homeless or living in a long term (including now)? No 07/11/2024 EH IP Custom [...] AM CDT Legal Sex Female 11:38 PM CAFETERIA TEAM LEADER Gender Identity Female 08/02/2018 5:51 AM CDT [...] Hermelinda Richards RN documented in this encounter Medications at Time of Discharge escitalopram (Lexapro) 20 MG tabletIndications :Major depressive disorder with single episode, in full remission (HCC),MALVIN (generalized anxiety disorder) Take 1 Tablet by mouth one time a day. 90 Tablet 1 07/13/2024 4:04 PM CDT 07/11/2024 hydrOXYzine HCl (Atarax) 10 MG tablet Take 1 Tablet by mouth three times a day as needed for Other (Pain). 20 Tablet 06/22/2024 4:05 PM CDT 06/22/2024 documented as of this encounter Discharge Disposition Disposition Code Departure Means Destination Discharged documented in this encounter Procedure Notes * Flor Awan MD - 07/23/2024 12:30 PM CDTAssociated Order(s): LONG-TERM HOLTER (MORE THAN 48 HRS UP TO 7 DAYS) Reason for visit - FLIGHT ATTENDANT/INFLIGHT MANAGER HOLTER MONITOR [facility]ITE: [facility] ORDERED BY: Chaya Grove PA-C Patient Name: Sandra Valentin Date of Service: Jul 23, 2024 : 2005 Age: [age] year old Sex: female Patient Loc/Room #: [facility]/ Professional Reading Partition Setter: Flor Awan MD Summary: The patient's monitoring [...] the order or under the Media tab. documented in this encounter Plan of Treatment Upcoming Encounters Date Type Department Care Team (Late st Contact Info) Description 11/09/2024 11:00 AM CAFETERIA TEAM LEADER Appointment [facility] ORTHOPEDICS SURGICAL [address] [place] [address] James Tadeo MD [address] [place] [address] 12/17/2024 8:10 AM CAFETERIA TEAM LEADER Appointment [facility] FAMILY MEDICINE [address] [place] [address] Chaya Grove PA-C [address] [place] [address] documented as of this encounter Procedures Procedure Name Priority Date/Time Associated Diagnosis Comments LONG-TERM HOLTER (MORE THAN 48 HRS UP TO 7 DAYS) Routine 08/03/2024 9:05 AM CDT Lightheaded Palpitations documented in this encounter Visit Diagnoses Diagnosis Syncope and collapse- Primary documented in this encounter Care Teams Rails Developer Relationship Specialty Start Date End Date Chaya Grove PA-C [address] [place] [address] PCP - General Family Medicine 09/13/22 Sangeeta Steve MD [address] [place] [phone] PCP - PC Team Family Medicine 06/07/23 documented as of this encounter
--- OUTSIDE RECORDS SUMMARY | 2024-10-17 09:54 | XMS_ITS | Encounter Summary ---
Author Organization [facility] Address [address] [address] Phone Care Team Providers Care Drop Wire Aliner Name Role Phone Chaya Grove PA-C Primary Care Provider [phone] Sangeeta Steve MD Unavailable [phone] Vanna Bull MD Unavailable [phone] Encounter Details Date Type Department Care Team (Latest Contact Info) Description 08/28/2024 Travel Social History Tobacco Use Types Packs/Day Years Used Date Smoking Tobacco: Never Smokeless Tobacco: Never Alcohol Use Standard Drinks/Week Comments Not Currently 0 (1 standard drink = 0.6 oz pur e alcohol) [facility] Utilities Answer Date Recorded In the past 12 months has [employer], [employer], oil, or water [employer] threatened to shut off services in your [...] any time in the past 12 m [facility], were you homeless or living in a retirement (including now)? No 08/13/2024 EH IP Custom [...] AM CDT Legal Sex Female 11:38 PM SYNCHRONOUS MOTOR ASSEMBLER Gender Identity Female 08/02/2018 5:51 AM CDT [...] st Contact Info) Description 11/09/2024 11:00 AM SYNCHRONOUS MOTOR ASSEMBLER Appointment [facility] ORTHOPEDICS SURGICAL [address] [place] [address] James Tadeo MD [address] [place] [address] 12/17/2024 8:10 AM SYNCHRONOUS MOTOR ASSEMBLER Appointment [facility] FAMILY MEDICINE [address] [place] [address] Chaya Grove PA-C [address] [place] [address] documented as of this encounter Visit Diagnoses Not on filedocumented in this encounter Care Teams Drop Wire Aliner Relationship Specialty Start Date End Date Chaya Grove PA-C [address] [place] [phone] PCP - General Family Medicine 09/13/22 Sangeeta Steve MD [address] [place] [address] PCP - PC Team Family Medicine 06/07/23 Vanna Bull MD [address] [place] [phone] Cardiology Physician Cardiology 08/20/24 documented as of this encounter
--- OUTSIDE RECORDS SUMMARY | 2024-10-17 09:54 | XMS_ITS | Encounter Summary ---
Author Organization [facility] Address [address] [address] Phone Care Team Providers Care Mother Tester Name Role Phone Chaya Grove PA-C Primary Care Provider [phone] Sangeeta Steve MD Unavailable [phone] Vanna Bull MD Unavailable [phone] Reason for Referral * Cardiology (Routine) - Authorized Specialty Diagnoses / Procedures Referred By Cosme ortiz Referred To Contact Cardiology Diagnoses Lightheaded Syncope and collapse Palpitations Procedures TILT TABLE Vanna Bull MD [address] [address] Phone: tel: fax: Referral ID Status Reason Start Date Expiration Date V isits Requested Visits Authorized [id number] Authorized 08/28/2024 11/27/2025 1 1 Reason for Visit * Reason Comments Consult Establish Care * Office Visit (Routine) - New Request Specialty Diagnoses / Procedures Referred By Cosme ortiz Referred To Contact Cardiology Diagnoses Lightheaded Palpitations Chaya Grove PA-C [address] [place] [address] Phone: tel: fax: Referral ID Status Reason Start Date Expiration Date V isits Requested Visits Authorized [id number] New Request 07/11/2024 07/11/2025 1 1 Encounter Details Date Type Department Care Team (Late st Contact Info) Description 08/27/2024 10:30 AM CDT Office Visit [facility] CARDIOLOGY [address] [place] [address] Vanna Bull MD [address] [place] [address] Lightheaded (Primary Dx); Syncope and collapse; Palpitations; Irregular periods Social History Tobacco Use Types Packs/Day Years Used Date Smoking Tobacco: Never Smokeless Tobacco: Never Alcohol Use Standard Drinks/Week Comments Not Currently 0 (1 standard drink = 0.6 oz pur e alcohol) [facility] Utilities Answer Date Recorded In the past 12 months has [employer], gas, oil, or water [email or web address] threatened to shut off services in your [...] any time in the past 12 m [facility], were you homeless or living in a detention (including now)? No 08/13/2024 EH IP Custom [...] AM CDT Legal Sex Female 11:38 PM CHUTE MAN Gender Identity Female 08/02/2018 5:51 AM CDT Sexual Orientation Straight 07/13/2024 10 :55 AM CDT documented as of this encounter Last Filed Vital Signs Vital Sign Reading Time Taken Comments Blood Pressure 111/74 08/27/2024 10:23 AM CDT Pulse 80 08/27/2024 10:23 AM CDT Temperature - - Respiratory Rate 16 08/27/2024 10:2 3 AM CDT Oxygen Saturation 98% 08/27/2024 10: 23 AM CDT Inhaled Oxygen Concentration - - Weight 72.9 kg (160 lb 11.5 oz) 024 10:23 AM CDT Height 165.1 cm (5' 5) 08/27/2024 10:2 3 AM CDT Body Mass Index 26.74 08/27/2024 10:23 AM CDT documented in this [...] this encounter Patient Instructions * Patient Instructions* Vanna Bull MD - 08/27/2024 10:30 AM CDT Drink 2 big glasses of water first thing in morning. Before coffee. Meditation. Mindfulness Based Stress Reduction. Rodger Drew documented in this encounter Progress Notes * Vanna Bull MD - 08/27/2024 10:30 AM CDT Consult Referring provider: Reason for visit: Lightheadedness, palpitations History of present illness: Sandra Valentin is a 18-year-old woman with generalized anxiety disorder, major depression, chronic suicidal ideation, who is status post right medial meniscus repair 06/22/2024. Sandra is seen today for cardiac evaluation of palpitations and lightheadedness. She is accompanied by her mother Flor Flores notes ongoing palpitations with associated lightheadedness. Both Sandra and her mother note fairly pronounced tachycardia with position changes and with activity. Sandra describes regular tachycardia. She denies skipped or irregular beats. She denies any recent syncope. Last syncopal episode 1 year ago after swimming. Sandra sits, lies supine, or relaxes if she senses lightheadedness and tachycardia. Sandra has not been doing normal exercise or activity since her knee repair. She also had mono prior to knee injury and surgery. 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 She denies any recent diet changes. She maintains hydration. Sandra drinks 1 cup of coffee each day and occasionally a bubbler each afternoon. She does not use any stimulants or recreational drugs. Sandra denies chest pain or dyspnea. Sandra and her care providers have questioned POTS. Orthostatic blood pressures and pulses were obtained at primary care. Past medical history: As outlined above, reviewed and updated per [facility]. ALLERGIES and MEDICATIONS: Reviewed and updated per [facility] lists. SOCIAL HISTORY: Single. 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 No tobacco. Occasional alcohol. No recreational drugs. FAMILY HISTORY: The patient has no family history of premature coronary artery disease in first degree relatives. Patient's father has a bicuspid aortic valve and aortic stenosis. REVIEW OF SYMPTOMS: Complete 10 point system review is completed. Pertinent positives and negativesare as outlined in the history of present illness; all others negative. PHYSICAL EXAMINATION: Vitals: 08/27/24 1023 BP: 111/74 Pulse: 80 Resp: 16 Height: 1.651 m (5' 5) Weight: 72.9 kg (160 lb 11.5 oz) SpO2: 98% BMI (Calculated): 26.74 In general - Sandra Valentin is a well-developed, well-nourished woman in no acute distress. She is alert and oriented times three. She answers questions appropriately she is pleasant and talkative.HEENT is normocephalic, atraumatic. Extraocular movements are intact. Sclerae are anicteric. Neck reveals normal carotid upstrokes bilaterally without carotid bruits. No jugular venous distension is present. Cardiovascular exam is a regular rate and rhythm without murmurs, rubs,or gallops. Lungs are clear to auscultation bilaterally, without wheezes, rhonchi or rales. Abdomen has positive bowel sounds and is soft, nontender, nondistended. Extremities are without clubbing, cyanosis, or edema. Peripheral pulses are 2+ and symmetric. Skin is without rashes, jaundice, or lesions. Neurologic exam reveals grossly intact motor function and a normal gait. Results reviewed: Primary care notes and orthopedic notes are reviewed. Vital signs are reviewed. Heart rate increased to 142 beats from 121 and 84. No significant change in blood pressure. Holter 07/23/2024 is reviewed. Monitor showed predominately: normal sinus rhythm with [...] rhythm; 3 episodes, sinus tachycardia; 6 episodes. ECG 07/11/2024 is reviewed. Normal sinus rhythm. Possible left atrial enlargement. No change from prior ECG. Echocardiogram 05/26/2020 reviewed. Interpretation Summary 1) Trileaflet [...] ventricular systolic function. Normal echocardiogram for age. Laboratories are reviewed. Lab Results Component Value Date CREAT 0.94 07/11/2024 Lab Results Component Value Date GFR 90 07/11/2024 Lab Results Component Value Date K 4.1 07/11/2024 KWB 4.6 08/05/2008 Lab Results Component Value Date HGB 14.7 07/11/2024 Lab Results Component Value Date MAG 1.9 08/28/2022 Lab Results Component Value Date TSH 1.70 07/11/2024 No results found for: CHOL No results found for: TRIG No results found for: HDL No results found for: LDLC Impression: 1. Tachycardia/palpitations. 2. Lightheadedness. 3. Structurally normal heart by echocardiography 05/2020 4. Anxiety; depression. Plan: Symptoms reviewed with Sandra and her mother. Continued sense tachycardia especially with position changes with intermittent associated lightheadedness. No recent syncope. Cardiac testing to date reviewed with Sandra and her mother. Recent Holter monitor reviewed in detail. Baseline sinus rhythm with normal heart rate variability.22% sinus tachycardia and 3% sinus bradycardia reviewed. Echocardiogram performed 2019 for screening for bicuspid aortic valve based on father's history wasnegative for bicuspid valve and confirmed tricuspid aortic valve. Echocardiogram documented structurally normal heart with normal chamber sizes, normal LV function, no significant valvular abnormalities. Potential causes and contributors to premature atrial complexes, ectopy, and arrhythmia discussed. Normal laboratories including hemoglobin, renal function, thyroid function, and electrolytes. Limited caffeine use. No stimulant use. Calorie deficit can increase ectopy and arrhythmia. Sleep deprivation or inadequate sleep can increase ectopy and arrhythmia. Structural cardiac abnormalities, including valvular disease, can be associated with ectopy and arrhythmia. Volume depletion, dehydration, can increase ectopy and arrhythmia. Emotional or physical stress, including anxiety, depression, illness, surgery, life or work stress,can increase ectopy and arrhythmia. Postural orthostatic tachycardic syndrome (POTS) reviewed. POTS diagnosis is made by tilt table. Tilt table ordered. Briefly discussed treatment of POTS including increasing volume status and increasing sodium intake as well as exercise training. Sandra and her mother's questions were answered to the best of my abilities. Both expressed understanding and agreement of the above evaluation and treatment plan. Further cardiac recommendations, including need for follow-up, only based on the results of tilt table. Consult note CCed to referring/primary care providers. This note was created by the [employer]. Inadvertent typographical errors, due to software recognition problems, may still exist. documented in this encounter Plan of Treatment Upcoming Encounters Date Type Department Care Team (Late st Contact Info) Description 11/09/2024 11:00 AM CHUTE MAN Appointment [facility] ORTHOPEDICS SURGICAL [address] [place] [phone] James Tadeo MD [address] [place] [address] [phone] 12/17/2024 8:10 AM CHUTE MAN Appointment [facility] FAMILY MEDICINE [address] [place] [phone] Chaya Grove PA-C [address] [place] [phone] Scheduled Orders Name Type Priority Associated Diagnoses Orde r Schedule TILT TABLE CARDIAC SERVICES Routine Lightheaded Syncope and collapse Palpitations Expected: 08/28/2024, Expires: 12/14/2024 documented as of this encounter Visit Diagnoses Diagnosis Lightheaded- Primary Dizziness and giddiness Syncope and collapse Palpitations Irregular periods Irregular menstrual cycle documented in this encounter Care Teams Mother Tester Relationship Specialty Start Date End Date Chaya Grove PA-C [address] [place] [phone] PCP - General Family Medicine 09/13/22 Sangeeta Steve MD [address] [place] [address] [phone] PCP - PC Team Family Medicine 06/07/23 Vanna Bull MD [facility] [address] [place] [address] [phone] Cardiology Physician Cardiology 08/20/24 documented as of this encounter
--- OUTSIDE RECORDS SUMMARY | 2024-10-17 09:54 | XMS_ITS | Encounter Summary ---
Author Organization [facility] Address [address] [address] Phone Care Team Providers Care Otr Company Truck Driver Name Role Phone Chaya Grove PA-C Primary Care Provider [phone] Sangeeta Steve MD Unavailable [phone] Encounter Details Date Type Department Care Team (Latest Contact Info) Description 08/13/2024 Travel Social History Tobacco Use Types Packs/Day Years Used Date Smoking Tobacco: Never Smokeless Tobacco: Never Alcohol Use Standard Drinks/Week Comments Not Currently 0 (1 standard drink = 0.6 oz pur e alcohol) [facility] Utilities Answer Date Recorded In the past 12 months has [employer], gas, oil, or water [employer] threatened to shut off services in your [...] were you homeless or living in a usp (including now)? No 08/13/2024 EH IP Custom [...] AM CDT Legal Sex Female 11:38 PM TELEPHONE OPERATOR CHIEF Gender Identity Female 08/02/2018 5:51 AM CDT [...] st Contact Info) Description 11/09/2024 11:00 AM TELEPHONE OPERATOR CHIEF Appointment [facility] ORTHOPEDICS SURGICAL [address] [place] [address] James Tadeo MD [address] [place] [address] [phone] 12/17/2024 8:10 AM TELEPHONE OPERATOR CHIEF Appointment [facility] FAMILY MEDICINE [address] [place] [address] Chaya Grove PA-C [address] [place] [address] documented as of this encounter Visit Diagnoses Not on filedocumented in this encounter Care Teams Otr Company Truck Driver Relationship Specialty Start Date End Date Chaya Grove PA-C [address] [place] [address] PCP - General Family Medicine 09/13/22 Sangeeta Steve MD [address] [place] [address] PCP - PC Team Family Medicine 06/07/23 documented as of this encounter
--- OUTSIDE RECORDS SUMMARY | 2024-10-17 09:54 | XMS_ITS | Encounter Summary ---
Author Organization [facility] [employer] [facility] Address [address] [address] Phone Care Team Providers Care Multimedia Teacher Name Role Phone Chaya Grove PA-C Primary Care Provider [phone] Sangeeta Steve MD Unavailable [phone] Vanna Bull MD Unavailable [phone] Reason for Referral * Office Visit (Routine) - New Request Specialty Diagnoses / Procedures Referred By Cosme ortiz Referred To Contact Ent-Otolaryngology Diagnoses Recurrent tonsillitis Snoring Diane Willams, BLOCKER AND POLISHER, FLOOR COVERING PRINTER ASSISTANT [address] [facility] [place] [address] Phone: tel: fax: Referral ID Status Reason Start Date Expiration Date V isits Requested Visits Authorized [id number] New Request 08/29/2024 08/29/2025 1 1 Question Answer What type of ENT care are you looking for? (Primary Concern Choose from options provided or type in a liu word e.g Tinnitus) Throat/Mouth/Tongue [3] Please select the type of throat concern: Tonsil Concerns / Recurrent Strep [16] Comments Main ENT Phone #: [phone]. ## If patient has been seen in the past please schedule with the same provider. Please inform patients to arrive 20 minutes early if they are bringing in a disc with CT Results. ## Location of Main ENT: [address] [facility], 4th floor Parking in the [place] on the 1st or 3rd floors Reason for Visit * Reason Onset Date Comments Results 08/29/2024 Encounter Details Date Type Department Care Team (Late st Contact Info) Description 08/29/2024 Telephone [facility] FAMILY MEDICINE [address] [place] [address] Lindsey Raya, RN Results Social History Tobacco Use Types Packs/Day Years Used Date Smoking Tobacco: Never Smokeless Tobacco: Never Alcohol Use Standard Drinks/Week Comments Not Currently 0 (1 standard drink = 0.6 oz pur e alcohol) [facility] Utilities Answer Date Recorded In the [...] AM CDT Legal Sex Female 11:38 PM FURNACE LINER Gender Identity Female 08/02/2018 5:51 AM CDT [...] Entry Date Author Yes 02/26/2020 1:39 AM MESSIT Hermelinda Richards RN documented in this encounter Ordered Prescriptions Prescription Sig Dispense Quantity Refills Last Filled Start Date End Date methylPREDNISolone (Medrol Aamir) 4 MG tablet therapy pack Take by mouth following package directions. 21 Tablet 09/03/2024 9:03 AM CDT 08/29/2024 documented in this encounter Miscellaneous Notes * Telephone Encounter - Lindsey Raya RN - 08/29/2024 9:28 AM CDT Patient given results with Provider recommendations. All questions answered and patient verbalized understanding. Patient is agreeable to ENT referral as well as medrol dosepak. * Telephone Encounter - Lindsey Raya RN - 08/29/2024 9:21 AM CDT ----- Message from Diane Willams APRN, CNP sent at 08/28/2024 8:06 PM CDT ----- Please call patient and let them know [...] st Contact Info) Description 11/09/2024 11:00 AM FURNACE LINER Appointment [facility] ORTHOPEDICS SURGICAL [address] [place] [address] James Tadeo MD [address] [place], [place] [phone] 12/17/2024 8:10 AM FURNACE LINER Appointment [facility] FAMILY MEDICINE [address] [place] [address] [phone] Chaya Grove PA-C [address] [place] [address] [phone] Scheduled Referrals Name Type Priority Associated Diagnoses Orde r Schedule APPT WITH ENT REFERRAL Routine Recurrent tonsillitis Snoring Ordered: 08/29/2024 documented as of this encounter Visit Diagnoses Diagnosis Recurrent tonsillitis- Primary Acute tonsillitis Snoring Other dyspnea and respiratory abnormality documented in this encounter Care Teams Multimedia Teacher Relationship Specialty Start Date End Date Chaya Grove PA-C [address] [place] [address] [phone] PCP - General Family Medicine 09/13/22 Sangeeta Steve MD [address] [place] [address] [phone] PCP - PC Team Family Medicine 06/07/23 Vanna Bull MD [address] [place] [address] [phone] Cardiology Physician Cardiology 08/20/24 documented as of this encounter
--- OUTSIDE RECORDS SUMMARY | 2024-10-17 09:54 | XMS_ITS | Encounter Summary ---
Author Organization [facility] Address [address] [address] Phone Care Team Providers Care Business Administrator Name Role Phone Chaya Grove PA-C Primary Care Provider [phone] Sangeeta Steve MD Unavailable [phone] Vanna Bull MD Unavailable [phone] Reason for Referral * Ancillary Services (Urgent) - Closed Specialty Diagnoses / Procedures Referred By Cosme ortiz Referred To Contact Radiology Diagnoses Elevated liver transaminase level Procedures US ABDOMEN LIMITED Chaya Grove PA-C [address] [place] [address] Phone: tel: fax: Referral ID Status Reason Start Date Expiration Date Visits Re quested Visits Authorized [id number] Closed 10/02/2024 01/02/2026 1 1 OR EXAMINER Reason for Visit * Reason Comments Orders Lab Liver Problems Elevated lab Encounter Details Date Type Department Care Team (Latest Contact Info) Description 10/02/2024 2:30 PM SENIOR EXAMINER Office Visit [facility] [address] [place] [address] Chaya Grove PA-C [address] [place] [phone] Elevated liver transaminase level (Primary Dx); Infectious mononucleosis, with other complication, infectious mononucleosis due to unspecified organism Social History Tobacco Use Types Packs/Day Years Used Date Smoking Tobacco: Never Smokeless Tobacco: Never Tobacco Cessation:Counseling Given: Not Answered Alcohol Use Standard Drinks/Week Comments Not Currently 0 (1 standard drink = 0.6 oz pur e alcohol) [facility] Utilities Answer Date Recorded In the past 12 months has th e [employer], gas, oil, or water [employer] threatened to shut off services in your [...] time in the past 12 m [facility], were you homeless or living in a [...] CDT Legal Sex Female 11:38 PM SENIOR EXAMINER Gender Identity Female 08/02/2018 5:51 AM CDT Sexual Orientation Straight 07/13/2024 10 :55 AM CDT documented as of this encounter Last Filed Vital Signs Vital Sign Reading Time Taken Comments Blood Pressure 102/65 10/02/2024 2:06 PM SENIOR EXAMINER Pulse 74 10/02/2024 2:06 PM SENIOR EXAMINER Temperature 36.5 C (97.7 F) 10/02/2024 2:06 PM SENIOR EXAMINER Respiratory Rate 16 10/02/2024 2:06 PM SENIOR EXAMINER Oxygen Saturation 99% 10/02/2024 2:06 PM SENIOR EXAMINER Inhaled Oxygen Concentration - - Weight 73 kg (160 lb 15 oz) 10/02/2024 2:[address] Height 165.1 cm (5' 5) 10/02/2024 2:06 PM SENIOR EXAMINER Body Mass Index 26.78 10/02/2024 2:06 PM SENIOR EXAMINER documented in this encounter Functional Status * [...] Refills Last Filled Start Date End Date ondansetron (Zofran ODT) 4 MG disintegrating tablet Take 1 Tablet by mouth every eight hours as needed for Nausea. 20 Tablet 1 10/02/2024 4 documented in this encounter Progress Notes * Chaya Grove PA-C - 10/02/2024 2:30 PM CST Images from the original note were not included. [facility] Subjective HPI: Sandra is a 19 year old here with the following concern(s): Patient is here today for follow-up from the ER. Patient was seen in the [place] ER on 09/28 and 09/29. At the time of today's visit I do not have ER records. Per patient she presented to the ER after three days of worsening headache. Patient states she doesnot normally get headaches or migraines. Patient reports pounding headache with associated nauseaand photophobia. She presented to the ER Tuesday night and was treated with Toradol. She returned tot ER less than 24 hours later due to worsening symptoms and intolerance of PO intake secondary to nausea. She was given fluids and IV medication which helped to improve her symptoms. Multiple labs were collected which revealed elevated liver transaminase, positive mononucleosis (as previously diagnosed a few weeks ago), questionably positive hepatitis A screening, negative hep B and negative hep c. WBC were also slightly decreased. Testing for Lyme disease and tick borne illnesses is pending.She was started on empiric doxycycline. A lumbar puncture was performed and Normal. CT of head and of CT of abdomen and pelvis were normal. Today patient reports symptoms have been stable. Mild headache but otherwise feeling improved. Would like liver enzymes rechecked today. She does report ongoing nausea and some diarrhea. Wondering about refill of zofran as this has been helpful. The doxycycline however has seemed to make abdominal discomfort and nausea worse. No bloody or black tarry stool. No recent history of fever but has feltchills and sweats at times. The following portions of the patient's chart were reviewed and updated as appropriate for the visit: Tobacco Allergies Meds Problems Med Hx Surg Hx Fam Hx Objective BP: 102/65, Temp: 36.5 ??C (97.7 ??F) Oral, Pulse: 74, Resp: 16, SpO2: 99 % Body mass index is 26.78 kg/m??. Physical Exam GENERAL APPEARANCE: afebrile; healthy; alert and oriented X3; no acute distress HEAD/NECK: Atraumatic; neck supple with no nodes EYES: Conjunctiva and sclera without erythema, EOM intact. ENT: External ears normal; ear canal clear; TM without erythema or bulging. Nares patent; mucosa normal, no discharge. Uvula midline; pharynx and tonsils without erythema or exudate. LUNGS: respirations within normal limits; clear to auscultation bilaterally; no wheezes, rales or rhonchi. HEART: regular rate and rhythm; no murmurs noted ABDOMEN: Bowel sounds normal; soft; no masses, no hepatosplenomegaly, Tenderness with palpation of RUQ, otherwise abdomen non tender. No rebound tenderness. Negative Crews's sign. PSYCHIATRIC: affect is normal, flow of thought is appropriate NEUROLOGIC: cranial nerves II-XII grossly intact Assessment/Plan Sandra is a 19 year old here for the following: (R74.01) Elevated liver transaminase level (primary encounter diagnosis) (B27.99) Infectious mononucleosis, with other complication, infectious mononucleosis due to unspecified organism - OSMIN completed today to obtain previous records from [facility]. - We discussed differential diagnosis of elevated liver transaminase. ?secondary to mononucleosis vs other viral hepatitis vs cholecystitis vs others. Plan to repeat hepatitis A screening today. Other viral hepatitis testing was negative. Also I recommend further evaluation of liver with ultrasoundtoday. - I recommend symptomatic cares with rest, fluids, zofran PRN. I recommend avoiding liver toxic agents such as tylenol, alcohol, NSAIDs if possible. - I will follow up with patient once I have the results of labs and imaging. Return pending work up. OR EXAMINER documented in this encounter Miscellaneous Notes * Clinical Note - Martha Taveras CMA - 10/02/2024 2:30 PM CST This chart was prepped for visit by Martha Taveras CMA on 10/01/2024. OR EXAMINER documented in this encounter Plan of Treatment Upcoming Encounters Date Type Department Care Team (Late st Contact Info) Description 11/09/2024 11:00 AM SENIOR EXAMINER Appointment [facility] [address] [place] [address] James Tadeo MD [address] [place] [address] 12/17/2024 8:10 AM SENIOR EXAMINER Appointment [facility] [address] [place] [phone] Chaya Grove PA-C [address] [place] [phone] documented as of this encounter Procedures Procedure Name Priority Date/Time Associated Diagnosis Comments HEPATITIS A IGG ANTIBODY Routine 10/02/2024 2:52 PM SENIOR EXAMINER Elevated liver transaminase level DIFFERENTIAL, MANUAL Routine 10/02/2024 2:52 PM SENIOR EXAMINER Elevated liver transaminase level BASIC METABOLIC PANEL Routine 10/02/2024 2:52 PM SENIOR EXAMINER Elevated liver transaminase level HEPATIC FUNCTION PANEL Routine 10/02/2024 2:52 PM SENIOR EXAMINER Elevated liver transaminase level HEMOGRAM/DIFF Routine 10/02/2024 2:52 PM SENIOR EXAMINER Elevated liver transaminase level documented in this encounter Results * US ABDOMEN LIMITED (10/02/2024 4:41 PM SENIOR EXAMINER) Anatomical Region Laterality Modality Abdomen Ultrasound 10/02/2024 4:41 PM SENIOR EXAMINER Narrative 10/02/2024 4:45 PM SENIOR EXAMINER This document is currently in Final Status [...] PA-C EC US ORDERABLES Final Re sult * DIFFERENTIAL, MANUAL (10/02/2024 2:52 PM SENIOR EXAMINER) Ne % 31 % 10/02/2024 8:53 PM [facility] Lymphs % 58 % 10/02/2024 8:53 PM [facility] Monos % 8 % 10/02/2024 8:53 PM [facility] Eos % 3 % 10/02/2024 8:53 PM [facility] Basos % 0 % 10/02/2024 8:53 PM [facility] Neutrophils Absolute 1.5 1.5 - 7.6 10*9/L 10/02/2024 8:53 PM [facility] Lymphocytes Absolute 2.8 0.8 - 3.3 10*9/L 10/02/2024 8:53 PM [facility] Monocytes Absolute 0.4 0.2 - 0.9 10*9/L 10/02/2024 8:53 PM [facility] Eosinophils Absolute 0.1 0.0 - 0.4 10*9/L 10/02/2024 8:53 PM [facility] Basophils Absolute 0.0 0.0 - 0.1 10*9/L 10/02/2024 8:53 PM [facility] RBC Appearance Normocytic/ Normochromi c 10/02/2024 8:53 PM [facility] Platelet Morphology Normal 10/02/2024 8:53 PM [facility] Reactive Lymphocytes Present 10/02/2024 8:53 PM [facility] Blood BLOOD SPECIMEN / Unknown Venipuncture / Unknown 10/02/2024 2:52 PM SENIOR EXAMINER 10/02/2024 2:52 PM SENIOR EXAMINER us Chaya Grove PA-C EC LAB SEND OUT ORDERABLE S Final Result [facility] [address] [place] [address] * HEPATITIS A IGG ANTIBODY (10/02/2024 2:52 PM SENIOR EXAMINER) [facility] Hepatitis A IgG Antibody Reactive 10/03/2024 11:12 AM SENIOR EXAMINER [facility] Blood BLOOD SPECIMEN / Unknown Venipuncture / Unknown 10/02/2024 2:52 PM SENIOR EXAMINER 10/02/2024 2:52 PM SENIOR EXAMINER Narrative [facility] - 10/03/2024 11:12 AM SENIOR EXAMINER Interpretation Comment: Hepatitis A virus (HAV) IgG antibodies detected; result indicates past HAV infection (recent or distant) or vaccination against HAV. Detectable levels above the assay cutoff suggest immunity to HAV infection. Method Information: This test uses the [employer] i HAVAb IgG chemiluminescent microparticle immunoassay (CMIA) assay for the detection of IgG antibody to hepatitis A virus on the [employer] i system. Chaya Grove PA-C CHEMISTRY ORDERABLES F inal Result Performing Organization Address [facility] de Phone Number [facility] [address] [place] [address] * BASIC METABOLIC PANEL (10/02/2024 2:52 PM SENIOR EXAMINER) [facility] Sodium 140 134 - 143 mEq/L 10/02/2024 4:35 PM [facility] Potassium 4.0 3.4 - 5.1 mEq/L 10/02/2024 4:35 PM [facility] Chloride 106 99 - 110 mEq/L 10/02/2024 4:35 PM [facility] Carbon Dioxide 26 19 - 29 mEq/L 10/02/2024 4:35 PM [facility] Anion Gap 8.0 3.0 - 15.0 mEq/L 10/02/2024 4:35 PM [facility] Blood Urea Nitrogen 7 5 - 24 mg/dL 10/02/2024 4:35 PM [facility] Creatinine 0.85 0.40 - 1.00 mg/dL 10/02/2024 4:35 PM [facility] Glomerular Filtration Rate 101 >60 mL/min/1. 73 m*2 10/02/2024 4:35 PM SENIOR EXAMINER [facility] Comment:Risk of cardiovascul ar disease increases when GFR is abnormal; persistently reduced GFR values are a specific indication of CKD. This calculation uses CKD- EPI 2020 equation without adjustment for race; it has not been validated in women. Calcium 9.2 8.4 - 10.5 mg/dL 10/02/2024 4:35 PM SENIOR EXAMINER [facility] Glucose 85 70 - 99 mg/dL 10/02/2024 4:35 PM SENIOR EXAMINER [facility] Blood BLOOD SPECIMEN / Unknown Venipuncture / Unknown 10/02/2024 2:52 PM SENIOR EXAMINER 10/02/2024 2:52 PM SENIOR EXAMINER Narrative [facility] - 10/02/2024 4:35 PM SENIOR EXAMINER Current ADA criteria for Glucose: Normal: 70-99 mg/dL Impaired Fasting Glucose: 100-125 mg/dL Diabetes Mellitus: at or above 126 mg/dL The diagnosis of diabetes must be confirmed on a subsequent day by measuring Fasting Plasma Glucose, 2-hr PG or random plasma glucose (if symptoms are present). us Chaya Grove PA-C CHEMISTRY ORDERABLES F inal Result [facility] [address] [place] [id number] * (ABNORMAL) HEPATIC FUNCTION PANEL (10/02/2024 2:52 PM SENIOR EXAMINER) Alkaline Phosphatase 149 40 - 150 IU/L 10/02/2024 4:35 PM [facility] Bilirubin, Total 0.5 0.2 - 1.2 mg/dL 10/02/2024 4:35 PM [facility] Bilirubin, Direct 0.2 0.0 - 0.5 mg/dL 10/02/2024 4:35 PM [facility] Bilirubin, Indirect 0.3 0.1 - 1.2 mg/dL 10/02/2024 4:35 PM [facility] Albumin 3.6 3.5 - 5.0 g/dL 10/02/2024 4:35 PM [facility] Protein, Total 6.7 6.0 - 8.0 g/dL 10/02/2024 4:35 PM [facility] Aspartate Aminotransferase 136(H) 10 - 40 IU/L 10/02/2024 4:35 PM [facility] Alanine Aminotransferase 271(H) 6 - 31 IU/L 10/02/2024 4:35 PM [facility] Blood BLOOD SPECIMEN / Unknown Venipuncture / Unknown 10/02/2024 2:52 PM SENIOR EXAMINER 10/02/2024 2:52 PM SENIOR EXAMINER Chaya Grove PA-C EC CHEMISTRY ORDERABLES F inal Result [facility] [address] [place], [place] [id number] * HEMOGRAM/DIFFERENTIAL (10/02/2024 2:52 PM SENIOR EXAMINER) WBC 4.9 3.2 - 11.0 10*9/L 10/02/2024 8:53 PM [facility] RBC 4.55 3.77 - 5.24 10*12/L 10/02/2024 8:53 PM [facility] HGB 12.9 11.2 - 15.5 g/dL 10/02/2024 8:53 PM [facility] HCT 39.8 34.3 - 46.0 % 10/02/2024 8:53 PM [facility] MCV 87.5 81.4 - 99.0 fL 10/02/2024 8:53 PM [facility] MCH 28.4 26.7 - 33.1 pg 10/02/2024 8:53 PM [facility] MCHC 32.4 31.6 - 35.5 g/dL 10/02/2024 8:53 PM [facility] RDW 12.7 11.3 - 14.6 % 10/02/2024 8:53 PM [facility] PLT 196 130 - 375 10*9/L 10/02/2024 8:53 PM [facility] Platelet Slide Review Adequate 10/02/2024 8:53 PM SENIOR EXAMINER [facility] Blood BLOOD SPECIMEN / Unknown Venipuncture / Unknown 10/02/2024 2:52 PM SENIOR EXAMINER 10/02/2024 2:52 PM SENIOR EXAMINER Chaya Grove PA-C EC HEMATOLOGY ORDERABLES Final Result [facility] [address] [place] [address], [facility] documented in this encounter Visit Diagnoses Diagnosis Elevated liver transaminase level- Primary Infectious mononucleosis, with other complication, infectious mononucleosis due to unspecified organism Elevated liver transaminase level documented in this encounter Discontinued Medications Medication Sig Discontinue Reason Start Date End Da te ondansetron (Zofran) 4 MG tablet Take 4 mg by mouth every eight hours as needed for Nausea or Vomiting. Duplicate Medication 09/30/2024 10/02/2024 documented as of this encounter Historical Medications * This list may reflect changes made after this encounter. ondansetron (Zofran) 4 MG tablet Take 4 mg by mouth every eight hours as needed for Nausea or Vomiting. 09/30/2024 10/02/2024 ketorolac (Toradol) 10 MG tablet 09/29/2024 10/10/2024 added in this encounter Care Teams Business Administrator Relationship Specialty Start Date End Date Chaya Grove PA-C [address] [place] [phone] PCP - General Family Medicine 09/13/22 Sangeeta Steve MD [facility] [place], [place] [phone] PCP - PC Team Family Medicine 06/07/23 Vanna Bull MD [address] [place] [phone] Cardiology Physician Cardiology 08/20/24 documented as of this encounter
--- OUTSIDE RECORDS SUMMARY | 2024-10-17 09:54 | XMS_ITS | Encounter Summary ---
Author Organization [facility] Address [address] [address] Phone Care Team Providers Care Tinner Helper Name Role Phone Chaya Grove PA-C Primary Care Provider [phone] Sangeeta Steve MD Unavailable [phone] Encounter Details Date Type Department Care Team (Late st Contact Info) Description 07/31/2024 2:30 PM CDT Telehealth [facility] [address] [place] [address] James Tadeo MD [address] [place] [address] Postoperative visit (Primary Dx) Social History Tobacco Use Types Packs/Day Years Used Date Smoking Tobacco: Never Smokeless Tobacco: Never Alcohol Use Standard Drinks/Week Comments Not Currently 0 (1 standard drink = 0.6 oz pur e alcohol) [facility] Utilities Answer Date Recorded In the past 12 months has [employer], gas, oil, or water [employer] threatened to shut off services in your [...] time in the past 12 m [facility], were you homeless or living in a group home (including now)? No 07/11/2024 EH IP [...] AM CDT Legal Sex Female 11:38 PM NIB ASSEMBLER Gender Identity Female 08/02/2018 5:51 AM [...] documented in this encounter Progress Notes * James Tadeo MD - 07/31/2024 2:30 PM CDT Start time: 07/31/2024 2:38 PM CDT End time: 07/31/2024 2:44 PM CDT The patient requested or was interviewed to determine and confirm that telemedicine was an appropriate and effective means for delivering the service. The mode of transmission for the telemedicine service: interactive videoconference. The time the service began: 1438 The time the service ended: 1244 The location of the Patient: [facility] The location of the Provider: Office Subjective: Patient is a 18 year old female who presents status post right knee arthroscopy with medial meniscus repair and marrow venting procedure on 06/22/24. 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 Getting full extension but no hyper extension, flexion to 130 deg. Does feel like she has sometime that needs to pop on the inside of her knee deep and medial but won't at times. Service Station Equipment Mechanic states they believe this is likely scar tissue. She has no concerns at this time, is inquiring about brace wear and weaning out of brace. Objective: General: No acute distress, alert and oriented, answers questions appropriately Respiratory: Nonlabored breathing on room air, equal chest rise bilaterally Right lower extremity: Limited due to virtual visit. Assessment/plan: Patient is a 18 year old female who presents status post the above procedure. Doing well at this time. Discussed likely ok to wean out of brace as it is likely not providing her with any significant benefit. Continue working with therapy. Discussed seeing her back the week of Thanksgi with either myself or Jose D Aranda PA-C. James Tadeo MD Orthopaedic Surgery - Sports Medicine [facility] documented in this encounter Plan of Treatment Upcoming Encounters Date Type Department Care Team (Late st Contact Info) Description 11/09/2024 11:00 AM NIB ASSEMBLER Appointment [facility] [address] [place] [address] James Tadeo MD [address] [place] [address] 12/17/2024 8:10 AM NIB ASSEMBLER Appointment [facility] [address] [place] [address] Chaya Grove PA-C [address] [place] [address] documented as of this encounter Visit Diagnoses Diagnosis Postoperative visit- Primary documented in this encounter Care Teams Tinner Helper Relationship Specialty Start Date End Date Chaya Grove PA-C [address] [place] [address] PCP - General Family Medicine 09/13/22 Sangeeta Steve MD [address] [place] [address] PCP - PC Team Family Medicine 06/07/23 documented as of this encounter
--- OUTSIDE RECORDS SUMMARY | 2024-10-17 09:54 | XMS_ITS | Encounter Summary ---
Author Organization [facility] Address [address] [address] Phone Care Team Providers Care Molasses Preparer Name Role Phone Chaya Grove PA-C Primary Care Provider [phone] Sangeeta Steve MD Unavailable Reason for Visit * Reason Onset Date Comments Scheduling 08/14/2024 Encounter Details Date Type Department Care Team (Late st Contact Info) Description 08/14/2024 Telephone [facility] [address] [place] [address] Glenn Mehta RN Scheduling Social History Tobacco Use Types Packs/Day Years Used Date Smoking Tobacco: Never Smokeless Tobacco: Never Alcohol Use Standard Drinks/Week Comments Not Currently 0 (1 standard drink = 0.6 oz pur e alcohol) [facility] Utilities Answer Date Recorded In the past 12 months has [employer], gas, oil, or water [employer] threatened to shut off services in your [...] living in a chcf (including now)? No 08/13/2024 EH IP Custom [...] AM CDT Legal Sex Female 11:38 PM PROVIDER NETWORK MGR Gender Identity Female 08/02/2018 5:51 AM CDT [...] Telephone Encounter - Glenn Mehta RN - 08/14/2024 1:10 PM CDT Web Content Manager left message for patient to callback to schedule follow up visit with James Tadeo MD forARTHROSCOPY KNEE WITH MEDIAL MENISCUS REPAIR, WITH MARROW VENTING, RIGHT on 06/22/24. documented in this encounter Plan of Treatment Upcoming Encounters Date Type Department Care Team (Late st Contact Info) Description 11/09/2024 11:00 AM PROVIDER NETWORK MGR Appointment [facility] SURGICAL [address] [place] [address] James Tadeo MD [address] [place] [address] 12/17/2024 8:10 AM PROVIDER NETWORK MGR Appointment [facility] MED[facility]INE [address] [place] [phone] Chaya Grove PA-C [address] [place] [phone] documented as of this encounter Visit Diagnoses Not on filedocumented in this encounter Care Teams Molasses Preparer Relationship Specialty Start Date End Date Chaya Grove PA-C [address] [place] [phone] PCP - General Family Medicine 09/13/22 Sangeeta Steve MD [address] [place] [id number] PCP - PC Team Family Medicine 06/07/23 documented as of this encounter
--- OUTSIDE RECORDS SUMMARY | 2024-10-17 09:55 | XMS_ITS | Encounter Summary ---
Author Organization [facility] Address [address] [address] Phone Care Team Providers Care Antique Finisher Name Role Phone Alma Farmer DO Primary Care Provider [phone] Chaya Grove PA-C Primary Care Provider [phone] Sangeeta Steve MD Unavailable [phone] Vanna uBll MD Unavailable [phone] Reason for Visit * Reason Onset Date Comments Refill Request 04/14/2020 Encounter Details Date Type Department Care Team (Late st Contact Info) Description 04/14/2020 MyH Refill [facility] NURSING HOME PHYSICIAN [address] [place] [address] Nisha Arrieta MD, FACOG [address] [place] [address] Social History Tobacco Use Types Packs/Day Years Used Date Smoking Tobacco: Never Smokeless Tobacco: Never Alcohol Use Standard Drinks/Week Comments Not Currently 0 (1 standard drink = 0.6 oz pur e alcohol) AUDIT-C Answer Date Recorded Q1: How often do you have a drink containing alc ohol? Monthly or less 02/26/2020 Q2: How many drinks containi ng alcohol do you have on a typical day when you are drinking? 1 or 2 02/26/2020 Q3: How often do you have si x or more drinks on one occasion? Never 02/26/2020 PHQ-2 Answer Date Recorded PHQ-2 Score 2 03/17/2020 Comments No Sex and Gender Information Value Date Recorded Sex Assigned at Female 08/02/2018 5:51 AM CDT Legal Sex Female 11:38 PM FINANCIAL SERVICES TECHNICIAN Gender Identity Female 08/02/2018 5:51 AM CDT Sexual Orientation Straight 07/13/2024 10 :55 AM CDT COVID-19 Exposure Response Date Recorded In the last month, have you been in contact with someone who was confirmed or suspected to have Coronavirus / COVID-19? No / Unsure 03/17/2020 3:22 PM CDT documented as of this encounter Functional [...] st Contact Info) Description 11/09/2024 11:00 AM FINANCIAL SERVICES TECHNICIAN Appointment [facility] ORTHOPEDICS SURGICAL [address] [place] [address] James Tadeo MD [address] [place] [address] 12/17/2024 8:10 AM FINANCIAL SERVICES TECHNICIAN Appointment [facility] FAMILY MEDICINE [address] [place] [address] Chaya Grove PA-C [address] [place] [address] [phone] documented as of this encounter Visit Diagnoses Not on filedocumented in this encounter Additional Health Concerns Infection Onset Date Last Indicated Resolved Time R/O COVID-19 06/26/2020 06/26/2020 06/28/2020 6:50 AM CDT R/O COVID-19 08/12/2022 08/12/2022 08/12/2022 6:11 PM CDT documented as of this encounter Care Teams Antique Finisher Relationship Specialty Start Date End Date Amla Farmer DO [address] [place], [place] [address] PCP - General Pediatrics 08/31/13 09/12/22 Chaya Grove PAJosephC [address] [place] [address] PCP - General Family Medicine 09/13/22 Sangeeta Steve MD [address] [place] [address] PCP - PC Team Family Medicine 06/07/23 Vanna Bull MD [address] [place] [address] [phone] Cardiology Physician Cardiology 08/20/24 documented as of this encounter
--- OUTSIDE RECORDS SUMMARY | 2024-10-17 09:55 | XMS_ITS | Encounter Summary ---
Author Organization [facility] Address [address] [address] Phone Care Team Providers Care Tank Washer Name Role Phone Alma Farmer DO Primary Care Provider [phone] Chaya Grove PA-C Primary Care Provider [phone] Sangeeta Steve MD Unavailable [phone] Vanna Bull MD Unavailable [phone] Reason for Visit * Reason Onset Date Comments Refill Request 10/19/2021 Encounter Details Date Type Department Care Team (Late st Contact Info) Description 10/19/2021 MyH Refill [facility] P[facility] [address] [place] [address] Alma Farmer DO [address] [place] [address] Social History Tobacco Use Types [...] care, and heating? Not hard at all 09/23/2020 PHQ-2 Answer Date Recorded PHQ-2 Total 0 03/12/2021 Hunger Vital Sign Answer Date Recorded Within the past 12 months, y ou worried that your food would run out before you got the money to buy more. Never true 09/23/20 20 Within the past 12 months, t he food you bought just didn't last and you didn't have money to get more. Never true 09/23/2020 PRAPARE - Transportation Answer Date Re corded In the past 12 months, has l ack of transportation kept you from medical appointments or from getting medications? No 09/14 In the past 12 months, has l ack of transportation kept you from meetings, work, or from getting things needed for daily living? No 09/23/2020 Comments No Sex and Gender Information Value Date Recorded Sex Assigned at Female 08/02/2018 5:51 AM CDT Legal Sex Female 11:38 PM ADJUNCT PHILOSOPHY FACULTY Gender Identity Female 08/02/2018 5:51 AM CDT Sexual Orientation Straight 07/13/2024 10 :55 AM CDT COVID-19 Exposure Response Date Recorded In the last month, have you been in contact with someone who was confirmed or suspected to have Coronavirus / COVID-19? No / Unsure 10/16/2021 12:33 PM ADJUNCT PHILOSOPHY FACULTY documented as of this encounter Functional Status * Patient's Vision Adequate to Safely Complete Daily Activities Answer Date of Assessment Author Yes 02/26/2020 1:39 AM CDT Hermelinda Richards RN * Patient's Memory Adequate to Safely Complete Daily Activities Answer Date of Assessment Author Yes 02/26/2020 1:39 AM CDT Hermelinda Richards, RN documented as of this encounter Mental Status * Patient's Judgment Adequate to Safely Complete Daily Activities Answer Entry Date Author Yes 02/26/2020 1:39 AM MESSIT Hermelinda Richards, RN documented in this encounter Plan of Treatment Upcoming Encounters Date Type Department Care Team (Late st Contact Info) Description 11/09/2024 11:00 AM ADJUNCT PHILOSOPHY FACULTY Appointment [facility] ORTHOPEDICS SURGICAL [address] [place] [address] James Tadeo MD [address] [place] [address] 12/17/2024 8:10 AM ADJUNCT PHILOSOPHY FACULTY Appointment [facility] FAMILY MEDICINE [address] [place] [address] Chaya Grove PA-C [address] [place] [address] [phone] documented as of this encounter Visit Diagnoses Not on filedocumented in this encounter Additional Health Concerns Infection Onset Date Last Indicated Resolved Time R/O COVID-19 08/12/2022 08/12/2022 08/12/2022 6:11 PM CDT documented as of this encounter Care Teams Tank Washer Relationship Specialty Start Date End Date Alma Farmer DO [address] [place] [address] [phone] PCP - General Pediatrics 08/31/13 09/12/22 Chaya Grove, LEWISC [address] [place] [address] PCP - General Family Medicine 09/13/22 Sangeeta Steve MD [address] [place] [address] [phone] PCP - PC Team Family Medicine 06/07/23 Vanna Bull MD [address] [place] [address] [phone] Cardiology Physician Cardiology 08/20/24 documented as of this encounter
--- OUTSIDE RECORDS SUMMARY | 2024-10-17 09:55 | XMS_ITS | Encounter Summary ---
Author Organization [facility] Address [address] [address] Phone Care Team Providers Care Bull Wheel Worker Name Role Phone Chaya Grove PA-C Primary Care Provider [phone] Sangeeta Steve MD Unavailable [phone] Encounter Details Date Type Department Care Team (Latest Contact Info) Description 07/12/2024 12:42 AM CDT - 07/12/2024 11:59 PM CDT Hospital Encounter [facility] NON INVASIVE CARDIOLOGY [address] [place] [address] [phone] Ancillary, [facility] Holter Lightheaded; Palpitations Discharge Disposition: Discharged Social History Tobacco Use Types Packs/Day Years Used Date Smoking Tobacco: Never Smokeless Tobacco: Never Alcohol Use Standard Drinks/Week Comments Not Currently 0 (1 standard drink = 0.6 oz pur e alcohol) [facility] Utilities Answer Date Recorded In the past 12 months has [employer], gas, oil, or water company threatened to [...] were you homeless or living in a assisted (including now)? No 07/11/2024 EH IP Custom [...] AM CDT Legal Sex Female 11:38 PM ARTISAN PLASTERER Gender Identity Female 08/02/2018 5:51 AM CDT [...] Means Destination Discharged documented in this encounter Progress Notes * [employer] - 07/12/2024 9:05 AM CDT Patient has been enrolled in [employer] for a holter monitor by [employer]. documented in this encounter Miscellaneous Notes * Result Encounter Note - Chaya Grove PA-C - 07/12/2024 9:05 AM CDT YANNI Flores, I received the final results from your holter monitor. Some of your symptoms were associated with sinus tachycardia (fast heart rate) and other symptoms were associated with normal rhythm. I still recommend following up with cardiology as scheduled in a couple of weeks. Kind regards, Chaya Grove PA-C documented in this encounter Plan of Treatment Upcoming Encounters Date Type Department Care Team (Late st Contact Info) Description 11/09/2024 11:00 AM ARTISAN PLASTERER Appointment [facility] ORTHOPEDICS SURGICAL [address] [place] [address] James Tadeo MD [address] [place], [place] [phone] 12/17/2024 8:10 AM ARTISAN PLASTERER Appointment [facility] FAMILY MEDICINE [address] [place] [address] Chaya Grove PA-C [address] [place] [address] documented as of this encounter Results * TRAVELING [facility] HOLTER (MORE THAN 48 HRS UP TO 7 DAYS) (08/03/2024 9:05 AM CDT) 08/03/2024 9:05 AM CDT Narrative PREVENTICE - 07/23/2024 12:30 PM CDT Flor Awan MD 08/13/2024 9:34 PM Reason for visit - [facility] HOLTER MONITOR [facility] ORDERED BY: Chaya Grove PA-C Patient Name: Sandra Valentin Date of Service: Jul 23, 2024 : 2005 Age: [age] year old Sex: female Patient Loc/Room #: [facility]/ Professional Reading Offset Press Operator: Flor Awan MD Summary: The patient's monitoring [...] HEART MONITORS Edited Result - Final PREVENTICE documented in this encounter Visit Diagnoses Diagnosis Lightheaded Dizziness and giddiness Palpitations documented in this encounter Care Teams Bull Wheel Worker Relationship Specialty Start Date End Date Chaya Grove PA-C [address] [place] [address] PCP - General Family Medicine 09/13/22 Sangeeta Steve MD [address] [place] [address] [phone] PCP - PC Team Family Medicine 06/07/23 documented as of this encounter
--- OUTSIDE RECORDS SUMMARY | 2024-10-17 09:55 | XMS_ITS | Clinical Summary ---
Author Organization [facility] Address [place], [place] [address] Care Team Providers Care Prepress Manager Name Role Phone Alma Farmer Primary Care Provider [phone] Allergies No known active allergies Medications No known medications Active Problems No known active problems Family History Relation Name Status Comments Father Alive Mother Alive Social History Tobacco Use Types Packs/Day Years Used Date Smoking Tobacco: Never Smokeless Tobacco: Never Sex and Gender Information Value Date Recorded Sex Assigned at Not on file Gender Identity Not on file Sexual Orientation Not on file Obstetrics History Last Filed Vital Signs Vital Sign Reading Time Taken Comments Blood Pressure - - Pulse 68 09/02/2017 9:20 PM CDT Temperature 37.1 C (98.7 F) 09/02/2017 9:20 PM CDT Respiratory Rate 16 09/02/2017 9:20 PM CDT Oxygen Saturation 96% 09/02/2017 9:20 PM CDT Inhaled Oxygen Concentration - - Weight 40.2 kg (88 lb 10 oz) 09/02/2017 9:20 PM CDT Height - - Body Mass Index - - Plan of Treatment Health Maintenance Due Date Last Done Comments Well Child Check for age 3-20 08/13/2007 Tdap 2015 Depression screening for age 12+ 2016 HIV for age 15-65 2019 HPV series for age 9-26 (1 - 3-dose series) 2019 BMI (ht and wt on same day) for age 18+ 2022 Hepatitis C screening for age 18-79 2022 COVID-19 vaccine series (2023- season) 2024 08/17/2023, 09/14/2022, 11/05/2021, Additional history exists Influenza for age 9-49 07/15/2024 Tetanus booster 2024 Meningococcal series for age 11-21 Aged Out No longer eligible based on patient's age to complete this topic Pneumococcal series for age 6-64 Aged Out No longer eligible based on patient's age to complete this topic Care Teams Prepress Manager Relationship Specialty Start Date End Date Alma Farmer [address] [place] [phone] PCP - General Family Practice 09/02/17
--- OUTSIDE RECORDS SUMMARY | 2024-10-17 09:55 | XMS_ITS | Encounter Summary ---
Author Organization [facility] Address [address] [address] Phone Care Team Providers Care Railcar Switchman Name Role Phone Chaya Grove PA-C Primary Care Provider [phone] Sangeeta Steve MD Unavailable [phone] Reason for Visit * Reason Onset Date Comments Referral 07/11/2024 [facility] Encounter Details Date Type Department Care Team (Late st Contact Info) Description 07/11/2024 Telephone [facility] - [facility] CON[facility] [address] [place] [address] Corry Conway Referral ([facility]) Social History Tobacco Use Types Packs/Day Years Used Date Smoking Tobacco: Never Smokeless Tobacco: Never Alcohol Use Standard Drinks/Week Comments Not Currently 0 (1 standard drink = 0.6 oz pur e alcohol) [facility] Utilities Answer Date Recorded In the past 12 months has [employer], gas, oil, or water company threatened [...] any time in the past 12 [facility], were you homeless or living in a skilled nursing (including now)? No 07/11/2024 EH IP Custom [...] AM CDT Legal Sex Female 11:38 PM WEIGHT LOSS CENTRE MANAGER Gender Identity Female 08/02/2018 5:51 AM [...] encounter Miscellaneous Notes * Telephone Encounter - Corry Conway - 07/11/2024 4:26 PM CDT Referral received and faxed to [facility]. Faxed referral, demographics, OVS notes, financial summary, problem list and current medications. Patient will receive a call to schedule appointment from that facility once patient's chart information has been received. For questions, please have patient call [phone] to speak with scheduling office. Patient should be sure to contact their insurance company to verify benefit coverage for this visitprior to being seen for this referral. If there are questions or concerns, please contact the appropriate Referral Center; [facility]: [phone] [place]: [phone] [place]: [phone] Thank you! documented in this encounter Plan of Treatment Upcoming Encounters Date Type Department Care Team (Late st Contact Info) Description 11/09/2024 11:00 AM WEIGHT LOSS CENTRE MANAGER Appointment [facility] ORTHOPEDICS SURGICAL [address] [place], [place] [address] James Tadeo MD [address] [place], [place] [address] 12/17/2024 8:10 AM WEIGHT LOSS CENTRE MANAGER Appointment [facility] FAMILY MEDICINE [address] [place] [phone] Chaya Grove PA-C [address] [place] [address] [phone] documented as of this encounter Visit Diagnoses Not on filedocumented in this encounter Care Teams Railcar Switchman Relationship Specialty Start Date End Date Chaya Grove PA-C [address] [place] [address] PCP - General Family Medicine 09/13/22 Sangeeta Steve MD [address] [place] [address] [phone] PCP - PC Team Family Medicine 06/07/23 documented as of this encounter
--- OUTSIDE RECORDS SUMMARY | 2024-10-17 09:55 | XMS_ITS | Encounter Summary ---
Author Organization [facility] Address [address] [address] Phone Care Team Providers Care Body Masker Name Role Phone Chaya Grove PA-C Primary Care Provider [phone] Sangeeta Steve MD Unavailable [phone] Encounter Details Date Type Department Care Team (Late st Contact Info) Description 07/09/2024 Patient Self-Triage [facility] SELF TRIAGE Chao Luther PA-C [address] [place] [phone] Social History Tobacco Use Types Packs/Day Years [...] hard is it for you to pa ladan for the very basics like food, housing, medical care, and heating? Not hard at all 12/27/2022 PHQ-2 Answer Date Recorded PHQ-2 Total 0 06/01/2024 Hunger Vital Sign Answer Date Recorded Within the past 12 months, y ou worried that your food would run out before you got the money to buy more. Never true 01/13/20 24 Within the past 12 months, t he food you bought just didn't last and you didn't have money to get more. Never true 01/13/2024 PRAPARE - Transportation Answer Date Re corded In the past 12 months, has l ack of transportation kept you from medical appointments or from getting medications? No 11/2023 In the past 12 months, has l ack of transportation kept you from meetings, work, or from getting things needed for daily living? No 01/13/2024 EH IP Custom Utilities Answer Date Ravinder [...] AM CDT Legal Sex Female 11:38 PM WIRELESS SALES EXPERT Gender Identity Female 08/02/2018 5:51 AM CDT [...] st Contact Info) Description 11/09/2024 11:00 AM WIRELESS SALES EXPERT Appointment [facility] ORTHOPEDICS SURGICAL [address] [place] [address] James Tadeo MD [address] [place] [address] 12/17/2024 8:10 AM WIRELESS SALES EXPERT Appointment [facility] FAMILY MEDICINE [address] [place] [address] Chaya Grove PA-C [address] [place] [address] documented as of this encounter Visit Diagnoses Not on filedocumented in this encounter Care Teams Body Masker Relationship Specialty Start Date End Date Chaya Grove PA-C [address] [place] [address] PCP - General Family Medicine 09/13/22 Sangeeta Steve MD [address] [place] [address] PCP - PC Team Family Medicine 06/07/23 documented as of this encounter
--- OUTSIDE RECORDS SUMMARY | 2024-10-17 09:55 | XMS_ITS | Encounter Summary ---
Author Organization [facility] Address [address] [address] Phone Care Team Providers Care Fire Truck Driver Name Role Phone Chaya Grove PA-C Primary Care Provider [phone] Sangeeta Steve MD Unavailable [phone] Reason for Referral * Office Visit (Routine) - New Request Specialty Diagnoses / Procedures Referred By Cosme ortiz Referred To Contact Cardiology Diagnoses Lightheaded Palpitations Chaya Grove PA-C [address] [place] [address] Phone: tel: fax: Referral ID Status Reason Start Date Expiration Date V isits Requested Visits Authorized [id number] New Request 07/11/2024 07/11/2025 1 1 Question Answer What type of Cardiology care are you looking for? (Primary Concern - Choose from options provided or type in a liu word, e.g. Angina) Tachycardia [14] Comments Lightheaded and palpitations with position changes (lying to sitting and sitting to standing). Associated syncope once the past year. EKG and Holter ordered and pending. * Office Visit (Routine) - Authorized Specialty Diagnoses / Procedures Referred By Cosme ortiz Referred To Contact Dermatology Diagnoses Acne vulgaris Chaya Grove PA-C [address] [place] [address] Phone: tel: fax: Unlisted, Provider Referral ID Status Reason Start Date Expiration Date V isits Requested Visits Authorized [id number] Authorized 07/11/2024 07/11/2025 1 1 Question Answer History of Skin Cancer No Comments If referring outside of the health system, please counselor aid patient of potential [id number] expenses. Clinical indication: Acne vulgaris Reason for Visit * Reason Comments Other POTS test, blood poo ling, itchiness, feet turn purple, dizzy when standing Encounter Details Date Type Department Care Team (Late st Contact Info) Description 07/11/2024 2:50 PM CDT Office Visit [facility] [address] [place] [address] Chaya Grove PA-C [address] [place] [address] Major depressive disorder with single episode, in full remission (HCC) (Primary Dx); Medication management; MALVIN (generalized anxiety disorder); Acute medial meniscus tear of right knee, initial encounter; Acne vulgaris; Lightheaded; Palpitations Social History Tobacco Use Types Packs/Day Years Used Date Smoking Tobacco: Never Smokeless Tobacco: Never Tobacco Cessation:Counseling Given: Not Answered Alcohol Use Standard Drinks/Week Comments Not Currently 0 (1 standard drink = 0.6 oz pur e alcohol) [facility] Utilities Answer Date Recorded In the past 12 months has [employer], [employer], oil, or water [employer] threatened to shut off services in your [...] living in a detention (including now)? No 07/11/2024 EH IP Custom [...] AM CDT Legal Sex Female 11:38 PM FURNITURE AND BEDDING INSPECTOR Gender Identity Female 08/02/2018 5:51 AM CDT Sexual Orientation Straight 07/13/2024 10 :55 AM CDT documented as of this encounter Last Filed Vital Signs Vital Sign Reading Time Taken Comments Blood Pressure 127/76 07/11/2024 3:41 PM CDT Pulse 142 07/11/2024 3:41 PM CDT Temperature 36.7 C (98 F) 07/11/2024 2:24 PM CDT Respiratory Rate - - Oxygen Saturation 98% 07/11/2024 3:41 PM CDT Inhaled Oxygen Concentration - - Weight 70 kg (154 lb 5.2 oz) 07/11/2024 2:24 PM CDT Height - - Body Mass Index 25.68 06/22/2024 11:38 AM CDT documented in this encounter Functional [...] Refills Last Filled Start Date End Date escitalopram (Lexapro) 20 MG tabletIndications: Major depressive disorder with single episode, in full remission (HCC),MALVIN (generalized anxiety disorder) Take 1 Tablet by mouth one time a day. 90 Tablet 1 07/13/2024 4:04 PM CDT 07/11/2024 buPROPion XL (Wellbutrin XL) 300 MG 24 hour extended release tabletIndications: Major depressive disorder with single episode, in full remission (HCC),MALVIN (generalized anxiety disorder) Take 1 Tablet by mouth every morning. 90 Tablet 1 07/13/2024 4:04 PM CDT 07/11/2024 08/13/2024 documented in this encounter Progress Notes * Chaya Grove PA-C - 07/11/2024 2:50 PM CDT Images from the original note were not included. [facility] Subjective HPI: Sandra is a 18 year old here with the following concern(s): She reports transient lightheadedness when going from lying to sitting and sitting to standing. This has been ongoing for a few years. She reports associated syncope once in the past year. 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 Denies chest pain/pressur e, shortness of breath with exertion, orthopnea or pedal edema. She reports associated palpitations/ sensation of heart beating fast. Symptoms occur daily but only last a few seconds/ less than one minute. Recent right meniscus tear s/p right knee arthroscopy and medial meniscus repair and marrow ventingprocedure on 06/22/2024. Overall doing well has been doing PT at [facility] working with Di things have been going well with her. Regarding patient's mental health: Patient states she is doing okay. Admits her mood is down. Shefeels her medications are still working well but reports increased life stress contributing to her symptoms.She has been struggling over the summer. Reports she always struggles more at home. She goes back to college at [employer] on Tuesday. Patient reports suicidal ideation is chronic and unchanged.She admits to self-harm with cutting 1 month ago. Patient denies any self-harm since then. States she is doing better now. She has been in regular contact with her therapist. She denies any suicidal plan or intent. She denies any history of suicide attempt. She feels safe at home. Patient notes the following DSM-IV Depression symptoms on a scale of 0-3: 07/11/2024 2:08 PM PHQ-9, CSSR Anhedonia (MyC) More than half the Days Depressed Mood (MyC) Several Days Sleep Change (MyC) More than half the Days Fatigue (MyC) Several Days Appetite Change (MyC) Several Days Poor Self-esteem (MyC) Not at all Poor Concentration (MyC) More than half the Days Psychomotor Change (MyC) Not at all Suicidal Ideation (MyC) Several Days Difficulty Caused by Symptoms (MyC) Somewhat difficult Total PHQ-9 Score: 10 Depressed Mood More than half the Days Anhedonia Several Days Sleep Change More than half the Days Fatigue Several Days Appetiet Change Several Days Poort Self-esteem Not at all Poor Concentration More than half the Days Pyschomotor Change Not at all Suicidal Ideation Several Days Difficulty Caused by Symptoms Somewhat difficult 1. Wish to be Yes 2. Suicidal Thoughts No 6. Suicide Behavior Question Yes How long ago did you do any of these? Within the last three months 1. Wish to be (MyC) Yes 2. Suicidal Thoughts (MyC) No 6. Suicide Behavior Question (MyC) [...] depressed and managed by behavioral health Objective BP: 127/76, Temp: 36.7 ??C (98 ??F) Oral, Pulse: 142, , SpO2: 98 % Body mass index is 25.68 kg/m??. Physical Exam GENERAL APPEARANCE: afebrile; healthy; alert and oriented X3; no acute distress SKIN: Moderate papulopustular acne on forehead, no scarring noted. HEAD/NECK: Atraumatic; neck supple EYES: Conjunctiva and sclera without erythema, EOM intact. LUNGS: respirations within normal limits; clear to auscultation bilaterally; no wheezes, rales or rhonchi. HEART: regular rate and rhythm; no murmurs noted CIRCULATORY: peripheral pulses intact; no cyanosis; no lower extremity edema PSYCHIATRIC: affect is normal, flow of thought is appropriate NEUROLOGIC: cranial nerves II-XII grossly intact Assessment/Plan Sandra is a 18 year old here for the followin. Medication management 2. Major depressive disorder with single episode, in full remission ([facility]) 3. MALVIN (generalized anxiety disorder) -PHQ-9 and [place] suicide risk discussed in detail with patient. She admits to chronic suicidal ideation but this is stable. She denies any suicidal plan or intent and feels safe going home. -Plan to continue current medications at this time. May need to discuss alteration in meds if mood does not improve when she returns to college. Plan to follow-up in 1 month for reevaluation. - buPROPion XL (Wellbutrin XL) 300 MG 24 hour extended release tablet; Take 1 Tablet by mouth everymorning. Dispense: 90 Tablet; Refill: 1 - escitalopram (Lexapro) 20 MG tablet; Take 1 Tablet by mouth one time a day. Dispense: 90 Tablet; Refill: 1 4. Acute medial meniscus tear of right knee, initial encounter -Followed by Ortho and physical therapy. Doing well. 5. Acne vulgaris - APPT WITH DERMATOLOGY [facility] -Referral to [place] dermatology per patient request 6. Lightheaded 7. Palpitations Ongoing lightheaded and palpitations with position changes x years. Further evaluation with labs today, see orders. EKG and Holter monitor also ordered. Orthostatic vitals completed in the office today which did reveal an increase in pulse by >50 beats per minute which is more than I would expect. I did place a referral to cardiology for further evaluation and consideration of cardiovascular etiology such as POTS. If patient experiences an acute change in symptoms, new/worsening symptoms or other concerning symptom such as chest pain, syncope, shortness of breath, persistent lightheadedness, or other new/concerning symptoms then she will notify the office or seek immediate medical care. - BASIC METABOLIC PANEL; Future - HEMOGRAM; Future - IRON PANEL; Future - THYROID SCREEN WITH REFLEX; Future - EKG AMBULATORY - [facility] HOLTER (MORE THAN 48 HRS UP TO 7 DAYS); Future - APPT WITH CARDIOLOGY [facility] - BASIC METABOLIC PANEL - HEMOGRAM - IRON PANEL - THYROID SCREEN WITH REFLEX Return in about 1 month (around 08/11/2024) for Follow-up mental health. 45 minutes were spent on this patient on this date for the following: preparing to see the patient (chart review, tests, etc), performing a medically relevant examination and/or evaluation, documenting clinical information in the medical record, and counseling to the patient/family/caregiver. documented in this encounter Miscellaneous Notes * Result Encounter Note - Chaya Grove PA-C - 07/11/2024 2:50 PM CDT Sandra, Your EKG does not show any significant change when compared to the EKG we did in 2021. Please continue with Holter monitor and cardiology follow-up as we discussed. Chaya Robles PA-C * Result Encounter Note - Chaya Grove PA-C - 07/11/2024 2:50 PM CDT Gene Flores, I received the results from your labs. All of your labs are normal including your electrolytes, kidney function, blood counts, thyroid function, and iron studies. The ferritin is slightly elevated (ferritin is your iron stores) I suspect this is because you are taking an iron supplement. Chaya Robles PA-C documented in this encounter Plan of Treatment Upcoming Encounters Date Type Department Care Team (Late st Contact Info) Description 11/09/2024 11:00 AM FURNITURE AND BEDDING INSPECTOR Appointment [facility]GICAL [address] [place] [address] James Tadeo MD [address] [place], [place] [phone] 12/17/2024 8:10 AM FURNITURE AND BEDDING INSPECTOR Appointment [facility] [address] [place] [phone] Chaya Grove PA-C [address] [place] [phone] Scheduled Referrals Name Type Priority Associated Diagnoses Orde r Schedule APPT WITH CARDIOLOGY [facility] REFERRAL Routine Lightheaded Palpitations Ordered: 07/11/2024 documented as of this encounter Procedures Procedure Name Priority Date/Time Associated Diagnosis Comments APPT WITH DERMATOLOGY [facility] Routine 08/28/2024 12:00 AM CDT Acne vulgaris IRON PANEL Routine 07/11/2024 3:49 PM CDT Lightheaded Palpitations BASIC METABOLIC PANEL Routine 07/11/2024 3:49 PM CDT Lightheaded Palpitations HEMOGRAM Routine 07/11/2024 3:49 PM CDT Lightheaded Palpitations IRON SATURATION PANEL Routine 07/11/2024 3:49 PM CDT Lightheaded Palpitations FERRITIN Routine 07/11/2024 3:49 PM CDT Lightheaded Palpitations THYROID SCREEN WITH REFLEX Routine 07/11/2024 3:49 PM CDT Lightheaded Palpitations ECG 12 LEAD, TRACING ONLY Routine 07/11/2024 2:38 PM CDT Lightheaded Palpitations documented in this encounter Results * APPT WITH DERMATOLOGY [facility] (08/28/2024 12:00 AM CDT) 08/28/2024 Chaya Grove PA-C EC REFERRAL Final Res ult * [facility] HOLTER (MORE THAN 48 HRS UP TO 7 DAYS) (08/03/2024 9:05 AM CDT) 08/03/2024 9:05 AM CDT Narrative PREVENTICE - 07/23/2024 12:30 PM CDT Flor Awan MD 08/13/2024 9:34 PM Reason for visit - DEBATE DIRECTOR HOLTER MONITOR SITE: [facility] ORDERED BY: Chaya Grove PA-C Patient Name: Sandra Valentin Date of Service: Jul 23, 2024 : 2005 Age: [age] year old Sex: female [facility] Professional Reading Chain Offbearer: Flor Awan MD Summary: The patient's monitoring [...] CARDIAC HEART MONITORS Edited Result - Final Performing Organization Address City/[facility] Co de Phone Number SELVIN * (ABNORMAL) FERRITIN (07/11/2024 3:49 PM CDT) Ferritin 250(H) 10 - 200 ng/mL 07/11/2024 8:41 PM CDT [facility] Blood BLOOD SPECIMEN / Unknown Venipuncture / Unknown 07/11/2024 3:49 PM CDT 07/11/2024 3:49 PM CDT Chaya Grove PA-C EC CHEMISTRY ORDERABLES A BN Final Result Performing Organization Address [facility] Co de Phone Number [facility] [address] [place] [address] * IRON SATURATION PANEL (07/11/2024 3:49 PM CDT) Iron 72 22 - 146 ug/dL 07/11/2024 8:23 PM CDT [facility] Total Iron Binding Capacity 358 200 - 400 ug/dL 07/11/2024 8:23 PM CDT [facility] Iron Saturation 20 15 - 50 % 8:23 PM CDT [facility] Transferrin 256 190 - 350 mg/dL 07/11/2024 8:23 PM CDT [facility] Blood BLOOD SPECIMEN / Unknown Venipuncture / Unknown 07/11/2024 3:49 PM CDT 07/11/2024 3:49 PM CDT Chaya A Perfecto PA-C EC CHEMISTRY ORDERABLES A BN Final Result Performing Organization Address [facility] de Phone Number [facility] [address] * THYROID SCREEN WITH REFLEX (07/11/2024 3:49 PM CDT) Thyroid Stimulating Hormone 1.70 0.40 - 3.99 uIU/mL 07/11/2024 8:41 PM CDT [facility] Blood BLOOD SPECIMEN / Unknown Venipuncture / Unknown 07/11/2024 3:49 PM CDT 07/11/2024 3:49 PM CDT [facility] Erica Grove PA-C EC CHEMISTRY ORDERABLES A BN Final Result Performing Organization Address [facility] de Phone Number [facility] [address] [place] [address] * HEMOGRAM (07/11/2024 3:49 PM CDT) WBC 9.3 3.2 - 11.0 10*9/L 07/11/2024 8:15 PM CDT [facility] RBC 5.00 3.77 - 5.24 10*12/L 07/11/2024 8:15 PM CDT [facility] HGB 14.7 11.2 - 15.5 g/dL 07/11/2024 8:15 PM CDT [facility] HCT 44.0 34.3 - 46.0 % 07/11/2024 8:15 PM CDT [facility] MCV 88.0 81.4 - 99.0 fL 07/11/2024 8:15 PM CDT [facility] MCH 29.4 26.7 - 33.1 pg 07/11/2024 8:15 PM CDT [facility] MCHC 33.4 31.6 - 35.5 g/dL 07/11/2024 8:15 PM CDT [facility] RDW 12.2 11.3 - 14.6 % 07/11/2024 8:15 PM CDT [facility] PLT 265 130 - 375 10*9/L 07/11/2024 8:15 PM CDT [facility] Blood BLOOD SPECIMEN / Unknown Venipuncture / Unknown 07/11/2024 3:49 PM CDT 07/11/2024 3:49 PM CDT Chaya Grove PA-C EC HEMATOLOGY ORDERABLES Final Result [facility] [address] * BASIC METABOLIC PANEL (07/11/2024 3:49 PM CDT) Sodium 139 134 - 143 mEq/L 07/11/2024 8:23 PM CDT [facility] Potassium 4.1 3.4 - 5.1 mEq/L 07/11/2024 8:23 PM CDT [facility] Chloride 104 99 - 110 mEq/L 07/11/2024 8:23 PM CDT [facility] Carbon Dioxide 26 19 - 29 mEq/L 07/11/2024 8:23 PM CDT [facility] Anion Gap 9.0 3.0 - 15.0 mEq/L 07/11/2024 8:23 PM CDT [facility] Blood Urea Nitrogen 12 5 - 24 mg/dL 07/11/2024 8:23 PM CDT [facility] Creatinine 0.94 0.40 - 1.00 mg/dL 07/11/2024 8:23 PM CDT [facility] Glomerular Filtration Rate 90 >60 mL/min/1. 73 m*2 07/11/2024 8:23 PM CDT [facility] Comment:Risk of cardiovascul ar disease increases when GFR is abnormal; persistently reduced GFR values are a specific indication of CKD. This calculation uses CKD- EPI 2020 equation without adjustment for race; it has not been validated in women. Calcium 9.9 8.4 - 10.5 mg/dL 07/11/2024 8:23 PM CDT [facility] Glucose 84 70 - 99 mg/dL 07/11/2024 8:23 PM CDT [facility] Blood BLOOD SPECIMEN / Unknown Venipuncture / Unknown 07/11/2024 3:49 PM CDT 07/11/2024 3:49 PM CDT Narrative [facility] - 07/11/2024 8:23 PM CDT Current ADA criteria for Glucose: Normal: 70-99 mg/dL Impaired Fasting Glucose: 100-125 mg/dL Diabetes Mellitus: at or above 126 mg/dL The diagnosis of diabetes must be confirmed on a subsequent day by measuring Fasting Plasma Glucose, 2-hr PG or random plasma glucose (if symptoms are present). us Chaya Grove PA-C EC CHEMISTRY ORDERABLES F inal Result [facility] [address] [place] [address] * EKG AMBULATORY (07/11/2024 2:38 PM CDT) Ventricular Rate 76 BPM MUSE Atrial Rate 76 BPM MUSE P-R Interval 146 ms MUSE QRS Duration 86 ms MUSE QT 384 ms MUSE QTc 432 ms MUSE P Waterman 75 degrees MUSE R Waterman 71 degrees MUSE T Waterman 44 degrees MUSE 07/11/2024 2:38 PM CDT Narrative MUSE - 07/11/2024 4:23 PM CDT Confirming Doc Balbina De [place] Reyna Normal sinus rhythm Possible Left atrial enlargement Borderline ECG When compared with ECG of 13-Sep-2022 10:18, No significant change was found Procedure Note de [place] Reyna, Balbina, MD - 07/11/2024 [address] Doc Balbina Sanchez Normal sinus rhythm Possible Left atrial enlargement Borderline ECG When compared with ECG of 13-Sep-2022 10:18, No significant change was found us Chaya Grove PA-C EC NON-INVASIVE CARDIOLOG Y Final Result MUSE documented in this encounter Visit Diagnoses Diagnosis Major depressive disorder with single episode, in full remission (HCC)- Primary Medication management Encounter for other specified aftercare MALVIN (generalized anxiety disorder) Generalized anxiety disorder Acute medial meniscus tear of right knee, initial encounter Acne vulgaris Other acne Lightheaded Dizziness and giddiness Palpitations Lightheaded Dizziness and giddiness Palpitations documented in this encounter Discontinued Medications Medication Sig Discontinue Reason Start Date End Da te ondansetron (Zofran) 4 MG tablet Take 1 Tablet by mouth every eight hours as needed for Nausea. Patient quit taking 06/22/2024 07/11/2024 buPROPion XL (Wellbutrin XL) 300 MG 24 hour extended release tablet Take 1 Tablet by mouth every morning. Need appointment for refills Reorder 01/13/2024 07/11/2024 escitalopram (Lexapro) 20 MG tablet Take 1 Tablet by mouth one time a day. Need appointment for refills Reorder 01/13/2024 07/11/2024 documented as of this encounter Care Teams Fire Truck Driver Relationship Specialty Start Date End Date Chaya Grove PA-C [address] [place] [phone] PCP - General Family Medicine 09/13/22 Sangeeta Steve MD [address] [place] [address] [phone] PCP - PC Team Family Medicine 06/07/23 documented as of this encounter
--- OUTSIDE RECORDS SUMMARY | 2024-10-17 09:55 | XMS_ITS | Encounter Summary ---
Author Organization [facility] Address [address] [address] Phone Care Team Providers Care Autocad Name Role Phone Chaya Grove PA-C Primary Care Provider [phone] Sangeeta Steve MD Unavailable [phone] Encounter Details Date Type Department Care Team (Latest Contact Info) Description 07/11/2024 Travel Social History Tobacco Use Types Packs/Day Years Used Date Smoking Tobacco: Never Smokeless Tobacco: Never Alcohol Use Standard Drinks/Week Comments Not Currently 0 (1 standard drink = 0.6 oz pur e alcohol) [facility] Utilities Answer Date Recorded In the past 12 months has [employer], gas, oil, or water [employer] threatened to shut off services in your [...] any time in the past 12 m [facility], were you homeless or living in a chcf (including now)? No 07/11/2024 EH IP Custom [...] AM CDT Legal Sex Female 11:38 PM YARDING ENGINEER Gender Identity Female 08/02/2018 5:51 AM [...] st Contact Info) Description 11/09/2024 11:00 AM YARDING ENGINEER Appointment [facility] SURGICAL [address] [place] [address] James Tadeo MD [address] [place] [phone] 12/17/2024 8:10 AM YARDING ENGINEER Appointment [facility] [address] [place] [address] Chaya Grove PA-C [address] [place] [address] documented as of this encounter Visit Diagnoses Not on filedocumented in this encounter Care Teams Autocad Relationship Specialty Start Date End Date Chaya Grove PA-C [address] [place] [address] PCP - General Family Medicine 09/13/22 Sangeeta Steve MD [address] [place] [address] PCP - PC Team Family Medicine 06/07/23 documented as of this encounter
== END 2024-10-17 09:48 | disposition home or self-care (01) ==
PROVIDERS: Visit Provider Otolaryngology
DX: R74.8 Abnormal levels of other serum enzymes (principal)
CPT/HCPCS: 84450; 84460

== ENCOUNTER 2024-11-02 09:42 | Day surgery (SDC) | payer OTHER, SELFPAY ==
[2024-11-02] VITALS (29 sets, daily range): BP systolic 89–136; BP diastolic 49–107; PULSE 64–97; RESP 13–18; TEMP 36.2–37.1; O2SAT 94–100; BMI 26.1
[2024-11-02] MEDS: 0.9 % SODIUM CHLORIDE 500 ML 500 ML 100 ML IV (10:00)
[2024-11-02 10:22] LABS: Ur HCG Qualitative* Negative (Negative)
[2024-11-02] MEDS: SODIUM CHLORIDE 0.9 % (FLUSH) 10 ML SYRINGE IVF (10:29)
--- NOTE | 2024-11-02 12:40 | W.ANESCHARGE ---
Anesthesia Charges Start Date/Time Anesthesia Start Date: 11/02/24 Anesthesia Start Time: 12:04 Stop Date/Time Anesthesia Stop Date: 11/02/24 Anesthesia Stop Time: 12:39
[2024-11-02] MEDS: HYDROmorphone 0.5 mg/0.5 ml inj IVP (12:42)
--- NOTE | 2024-11-02 13:00 | W.PM.ENTPROC ---
Procedure Note Date of procedure: 11/02/24 Procedure: Preoperative diagnosis chronic tonsillitis, tonsillar hypertrophy, upper airway obstruction, nasal obstruction Postoperative diagnosis same Procedure adenotonsillectomy Under general endotracheal anesthesia the patient was prepped and draped in usual fashion. The McIvor mouth gag was inserted the tongue retracted forward. No submucous cleft was noted on inspection or palpation. The right and left tonsils were removed with a combination of needlepoint cautery, bipolar cautery and suction cautery. Meticulous hemostasis was achieved. The patient was extubated in the operating room taken recovery in satisfactory condition. Blood loss was less than 10 mL. Surgeon: Jeff Arreola MD
[2024-11-02] MEDS: LACTATED RINGERS 1000 ML 1,000 ML 35 ML IV (13:03)
--- NOTE | 2024-11-02 13:05 | W.ANESCHARGE ---
Anesthesia Charges Start Date/Time Anesthesia Start Date: 11/02/24 Anesthesia Start Time: 12:04 Stop Date/Time Anesthesia Stop Date: 11/02/24 Anesthesia Stop Time: 12:39
[2024-11-02] MEDS: OXYCODONE 1 MG/ML ORAL SOLN 5 MG PO (14:55)
[2024-11-02] MEDS: IBUPROFEN 100 MG/5 ML SUSP 200 MG PO (14:55)
--- NOTE | 2024-11-02 15:00 | SUR.PHASEI ---
1303 500cc lr hung
--- NOTE | 2024-11-02 15:00 | SUR.PHASEI ---
patient vital signs stable throughout pacu phase 1. Patient in a lot of pain, crying, moaning, patient received precedex and dilaudid per auto parts delivery driver at recommendation of auto parts delivery driver. Post medication administration patient was sedated with stable vital signs but developed what appeared to be bodily contractions of torso and legs every few seconds to every minute approximately which started at 1311. Patient not responsive but Pupils maintained PERRLA. Responsive to pain with finger/pen pressure and jaw lift but not to sternal rub. CRNAs and MDA consulted. MDA gave verbal order to administer narcan. Narcan 0.04mg given per auto parts delivery driver SM at 1347 and 1353. 1354 patient responsiveness develops, eye flutter and head movement resumes. Patient able to answer questions. Ice pack applied to neck and IV tylenol started per auto parts delivery driver 1gm at 1407, infused at 1417. Patient stable and able to transfer to phase 2. Report given to KAILEY Multani.
== END 2024-11-02 16:04 | disposition home or self-care (01) ==
PROVIDERS: Anesthesiology; Visit Provider Otolaryngology
PROC: (CPT 42826; principal; 2024-11-02 11:45)
DX: J35.01 Chronic tonsillitis (principal); J34.89 Other specified disorders of nose and nasal sinuses
CPT/HCPCS: 42826; 00170; 81025; 88304; A9270; J0330; J1100; J1171; J2310; J2405; J2704; J3010; J7030; J7120

== ENCOUNTER 2024-12-20 18:26 | Outpatient (CLI) | payer OTHER, SELFPAY | END 2024-12-20 18:27 | disposition home or self-care (01) | LOC: NFLDREF 12-26 01:16 | PROVIDERS: Visit Provider Physician Assistant | DX: N39.0 Urinary tract infection, site not specified (principal) | CPT/HCPCS: 87086 ==

== ENCOUNTER 2025-01-24 13:11 | Outpatient (CLI) | payer OTHER, SELFPAY | END 2025-01-24 13:12 | disposition home or self-care (01) | LOC: NFLDUCREF 13:11 | PROVIDERS: Visit Provider Physician Assistant | DX: J02.9 Acute pharyngitis, unspecified (principal) | CPT/HCPCS: 87070 ==

== ENCOUNTER 2025-01-30 10:23 | Outpatient (CLI) | payer OTHER, SELFPAY ==
[2025-01-30 15:00] LABS: Chlamydia DNA Amplified* NOT DETECTED (No Detected); GC DNA Amplified* NOT DETECTED (No Detected)
== END 2025-01-30 10:24 | disposition home or self-care (01) ==
LOC: NFLDUCREF 10:24
PROVIDERS: Visit Provider Nurse Practitioner
DX: J02.9 Acute pharyngitis, unspecified (principal)
CPT/HCPCS: 87491; 87591

== ENCOUNTER 2025-03-24 13:58 | Emergency (ER) | payer OTHER, SELFPAY ==
--- OUTSIDE RECORDS SUMMARY | 2025-03-24 14:02 | XMS_ITS | Clinical Summary ---
Author Organization [facility] Address [address] [place] [id number] Care Team Providers Care Information Systems Specialist Name Role Phone Alma Farmer Kimberly Primary Care Provider Allergies No known active allergies Medications buPROPion 150 mg Extended-Release tablet Take 1 Tablet by mouth once daily in the morning. 09/17/2024 Active escitalopram oxalate 20 mg tablet Take 20 mg by mouth once daily in the morning. 02/17/2025 Active Active Problems Problem Noted Date Diagnosed Date S/P medial meniscus repair of right knee 025 Right knee pain 06/21/2024 MALVIN (generalized anxiety disorder) 12/31/2019 Current moderate episode of major depressive disorder without prior episode 12/31/2019 Myopia, bilateral 04/07/2017 Resolved Problems Problem Noted Date Diagnosed Date Resolved Date Anesthesia complication requ iring reversal agent administration 12/17/2024 03/14/2025 Suicidal ideation 08/13/2024 03/14/2025 Personal history of nonsuicidal self-harm 08/13/2024 03/14/2025 Acute medial meniscus tear of right knee 06/21/2024 03/14/2025 Encounters Date Type Department Care Team Description 03/14/2025 1:50 PM CDT Office Visit [facility] [address] [place] [address] Christoph Mtz MD Preoperative Exam (04/04/Compartment surgery bilateral /[facility] /Dr. 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 Ancillary Procedure [facility] [address] [facility] [address] [place], [place] [id number] 01/18/2025 Travel from Last 3 Months Immunizations Immunization Administration Dates Next Due DTaP 09/23/2008,12/24/2005 [id number] (Pediarix) 03/29/2005,01/27/2005,0 2004 HIB PRP-OMP (PedvaxHIB) 09/16/2005,01/27/2005, HPV 9 (Gardasil 9) 09/24/2016,09/15/2015 Hepatitis A (Peds) 04/06/2023,04/26/2019 INFLUENZA, IIV3 PF (AGE >= 6 MO) 024,09/21/2007,09/14/2006,10/19,09/16/2005 Inactivated Polio Vaccine 09/21/2010 Influenza A (H1N1), Inactivated 11/10/2009,09/22 Influenza, IIV4 08/17/2023,,10/16/2021,08/29,09/04/2019,08/22/2018,09/16/2017 Influenza, IIV4 (=>6mos) MDV 08/25/2016 Influenza,LAIV3 Live Intrana lino (Flumist) 08/22/2015,08/23/2014,09/01/2012,09/02,09/21/2010,09/16/2009,09/23/2008 Influenza,LAIV4 Live Intrana lino (Flumist) 08/31/2013 MENINGOCOCCAL VACCINE 2 VIAL [id number] (MENVEO) 10/23/2020 MMR 09/16/2009,09/16/2005 Meningococcal B 09/14/2022,12/18/2021 Meningococcal Vaccine (Menactra) 09/15/2015 Pneumococcal conj 7-Valent (Prevnar 7) 1 2004,03/29/2005,01/27/2005,11/25 Tdap 09/15/2015 Typhoid (injectable) 04/06/2023 Varicella Vaccine 09/16/2009,12/24/2005 Family History Relation Name Status Comments Father Alive Mother Alive Social History Tobacco Use Types Packs/Day Years Used Date Smoking Tobacco: Never Smokeless Tobacco: Never Alcohol Use Standard Drinks/Week Comments Yes 0 (1 standard drink = 0.6 oz pur e alcohol) Occasional Social Connections Answer Date Recorded Do you often feel lonely or isolated from those around you? 0 03/12/2025 Financial Resource Strain Answer Date R ecorded Difficulty of Paying Living Expenses 3 03/12/2025 Difficulty of Paying Living Expenses Not on file 03/12/2025 Food Insecurity Answer Date Recorded Do you worry your food will run out before you are able to buy more? 1 03/12/2025 Transportation Needs Answer Date Record ed Does lack of transportation keep you from medica l appointments? 1 03/12/2025 Does lack of transportation keep you from work, meetings or getting things that you need? 1 03/12/2025 Housing Stability Answer Date Recorded What is your housing situation today? 1 03/12/2025 Utilities Answer Date Recorded Do you have trouble paying f or utilities (for example, heat, electricity, water, phone)? 1 03/12/2025 Comments No Sex and Gender Information Value Date Recorded Sex Assigned at Not on file Legal Sex Female 3:48 PM SENIOR ELECTRONICS DESIGN ENGINEER Gender Identity Not on file Sexual Orientation Not on file Obstetrics History Last Filed Vital Signs Vital Sign Reading Time Taken Comments Blood Pressure 113/69 03/14/2025 1:56 PM CDT Pulse 89 03/14/2025 1:56 PM CDT Temperature 37.1 C (98.7 F) 09/02/2017 9:20 PM CDT Respiratory Rate 16 09/02/2017 9:20 PM CDT Oxygen Saturation 98% 03/14/2025 1:56 PM CDT Inhaled Oxygen Concentration - - Weight 76.7 kg (169 lb 3.2 oz) 03/14/2025 1:56 P M CDT Height 166.4 cm (5' 5.51) 03/14/2025 1:56 PM CD T Body Mass Index 27.72 03/14/2025 1:56 PM CDT Plan of Treatment Health Maintenance Due Date Last Done Comments Well Child Check for age 3-20 08/13/2007 Depression screening for age 12+ 2016 HIV for age 15-65 2019 Chlamydia for age 16-24 2020 Hepatitis C screening for age 18-79 2022 Tetanus booster 09/15/2025 09/15/2015 BMI (ht and wt on same day) for age 18+ 03/14/2026 03/14/2025 Pneumococcal series for age 6-49 Aged Out 09/16/2005, 03/29/2005, 01/27/2005, Additional history exists No longer eligible based on patient's age to complete this topic Tdap Completed 09/15/2015 HPV series for age 9-26 Completed 09/24/2016, 09/15 Meningococcal series for age 11-21 Completed 10/23/2020, 09/15/2015 COVID-19 vaccine series Completed 08/16/20 24, 08/17/2023, 09/14/2022, Additional history exists Influenza Vaccine Completed 08/16/2024, , 09/14/2022, Additional history exists Procedures Procedure Name Priority Date/Time Associated Diagnosis Comments MR TIBIA FIBULA RIGHT WO Routine 01/18/2025 6:02 PM SENIOR ELECTRONICS DESIGN ENGINEER Pain in right barrera from Last 3 Months Results * MR TIBIA FIBULA RIGHT WO (01/18/2025 6:02 PM SENIOR ELECTRONICS DESIGN ENGINEER) Anatomical Region Laterality Modality LEG R Magnetic Resonan ce 01/21/2025 12:4 8 PM CDT Impressions 01/21/2025 12:48 PM CDT 1. Mild stress reaction in the right tibial diaphysis with intramedullary edema and periosteal edema. 2. Mild stress reaction in the left tibial diaphysis with periosteal edema. 3. No intramuscular edema. Dictated by Lavelle Gay MD @ 01/21/2025 12:48:26 PM (Electronically Signed) Narrative 01/21/2025 12:48 PM CDT For Patients: As a result of the Cures Act, medical imaging exams and procedure reports are released immediately into your electronic medical record. You may view this report before your referring provider. If you have questions, please contact your health care provider. EXAM: MRI OF THE RIGHT TIBIA AND FIBULA, WITHOUT CONTRAST CLINICAL INDICATION: Right tibial pain worse with activity. COMPARISON PLAIN FILMS: None. COMPARISON CROSS-SECTIONAL IMAGING STUDIES: None. TECHNICAL: Axial, sagittal and coronal T1 and STIR images. FINDINGS: OSSEOUS STRUCTURES AND SOFT TISSUES: Small area of mild intramedullary edema in the right mid tibial diaphysis without fatty marrow replacement. Mild periosteal edema along the anteromedial aspect of the mid to distal tibial diaphyseal region. No cortical thickening, increased cortical signal or linear intramedullary abnormality. Findings consistent with stress reaction (Fredericson grade 2). Mild periosteal edema in the left anteromedial mid to distal tibial diaphyseal region consistent with stress reaction (Fredericson grade 1). No osseous lesion. No subcutaneous fluid collection or hematoma MYOTENDINOUS STRUCTURES: No muscle atrophy or edema. Myotendinous junctions are maintained. No tendon tear, tendinopathy or tenosynovitis. NEUROVASCULAR STRUCTURES: No abnormality of visualized neurovascular structures. Procedure Note Lavelle Gay MD - 01/21/2025 For Patients: As a result of the Cures Act, medical imagingexams and procedure reports are released immediately into your electronicmedical record. You may view this report before your referring provider.If you have questions, please contact your health care provider. EXAM: MRI OF THE RIGHT TIBIA AND FIBULA, WITHOUT CONTRAST CLINICAL INDICATION: Right tibial pain worse with activity. COMPARISON PLAIN FILMS: None. COMPARISON CROSS-SECTIONAL IMAGING STUDIES: None. TECHNICAL: Axial, sagittal and coronal T1 and STIR images. FINDINGS: OSSEOUS STRUCTURES AND SOFT TISSUES: Small area of mild intramedullary edema in the right mid tibial diaphysiswithout fatty marrow replacement. Mild periosteal edema along theanteromedial aspect of the mid to distal tibial diaphyseal region. Nocortical thickening, increased cortical signal or linear intramedullaryabnormality. Findings consistent with stress reaction (Fredericson grade2). Mild periosteal edema in the left anteromedial mid to distal tibialdiaphyseal region consistent with stress reaction (Fredericson grade 1). No osseous lesion. No subcutaneous fluid collection or hematoma MYOTENDINOUS STRUCTURES: No muscle atrophy or edema. Myotendinous junctions are maintained. Notendon tear, tendinopathy or tenosynovitis. NEUROVASCULAR STRUCTURES: No abnormality of visualized neurovascular structures. IMPRESSION: 1. Mild stress reaction in the right tibial diaphysis with intramedullaryedema and periosteal edema. 2. Mild stress reaction in the left tibial diaphysis with periostealedema. 3. No intramuscular edema. Dictated by Lavelle Gay MD @ 01/21/2025 12:48:26 PM (Electronically Signed) Eliseo Mendoza MD MR Final Res ult from Last 3 Months Insurance MEDICA CHOICE [address] [id number] [place] [address] [id number] Care Teams Information Systems Specialist Relationship Specialty Start Date End Date Alma Farmer [address] [place], [place] [id number] PCP - General Family Practice 09/02/17
--- OUTSIDE RECORDS SUMMARY | 2025-03-24 14:02 | XMS_ITS | Encounter Summary ---
Author Organization [facility] Address [address] [address] Phone Care Team Providers Care Certified Addiction Counselor Name Role Phone Alma Farmer DO Primary Care Provider [phone] Chaya GroveC Primary Care Provider [phone] Sangeeta Steve MD Unavailable [phone] Vanna Bull MD Unavailable [phone] Reason for Visit * Reason Onset Date Comments Refill Request 04/14/2020 Encounter Details Date Type Department Care Team (Late st Contact Info) Description 04/14/2020 MyH Refill [facility] [address] [place] [address] Nisha Arrieta MD, FACOG [address] [place] [address] Social History Tobacco Use Types [...] AM CDT 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 Gender Identity Female 08/02/2018 5:51 AM CDT [...] documented in this encounter Plan of Treatment Not on file documented as of this encounter Visit Diagnoses Not on filedocumented in this encounter Additional Health Concerns Infection Onset Date Last Indicated Resolved Time R/O COVID-19 06/26/2020 06/26/2020 06/28/2020 6:50 AM CDT R/O COVID-19 08/12/2022 08/12/2022 08/12/2022 6:11 PM CDT documented as of this encounter Care Teams Certified Addiction Counselor Relationship Specialty Start Date End Date Alma Farmer DO [address] [place] [id number] PCP - General Pediatrics 08/31/13 09/12/22 Chaya Grove PA-C [address] [place] [id number] PCP - General Family Medicine 09/13/22 Sangeeta Steve MD [address] [place] [address] PCP - PC Team Family Medicine 06/07/23 Vanna Bull MD [address] [place] [phone] Cardiology Physician Cardiology 08/20/24 documented as of this encounter
--- OUTSIDE RECORDS SUMMARY | 2025-03-24 14:02 | XMS_ITS | Clinical Summary ---
Author Organization [facility] Address [address] [address] Phone Care Team Providers Care Fleet Manager/Dispatch Name Role Phone Chaya Grove PA-C Primary Care Provider [phone] Sangeeta Steve MD Unavailable [phone] Vanna Bull MD Unavailable [phone] Allergies Active Allergy Reactions Criticality Noted Date [...] Tablet 06/22/2024 4:05 PM CDT 4 Active fluticasone (Flovent HFA) [...] full face every morning. 60 mL 6 11/12/2024 12:55 PM THERMOFORMING OPERATOR 4 Active buPROPion XL (Wellbutrin XL) 150 MG 24 hour extended release tablet Take 1 Tablet by mouth every morning. Do not crush. 90 Tablet 3 03/18/2025 2:48 PM CDT 4 Active tretinoin (Retin-A) 0.05 % cream Apply thin layer to full face every night or every other night if not tolerated. Apply moisturizer after. 45 g 6 03/18/2025 2:48 PM CDT 4 Active escitalopram (Lexapro) 20 MG tabletIndicatio ns:Major depressive disorder with single episode, in full remission (HCC),MALVIN (generalized anxiety disorder) Take 1 Tablet by mouth one time a day. 90 Tablet 3 02/19/2025 12:25 PM CDT 5 Active Hospital, Clinic, or Other Facility Administered Medication Ordered Dose Route Frequency Start Date End Date Status levonorgestrel (KYLEENA) 19.5 MG intra uterine device 1 Intra Uterine DeviceIndications:Encou nter for IUD insertion 1 Intra Uterine Device IU CONTINUOUS 10/13/2020 Active Active Problems Problem Noted Date Diagnosed Date Anesthesia complication requ iring reversal agent administration 12/17/2024 S/P medial meniscus repair of right knee 025 Suicidal ideation 08/13/2024 Personal history of nonsuicidal [...] not specified 09/23/2008 10/22/2011 Overview (03/03/2012): [facility] IMO Update 08/24 Asthma 07/01/2006 09/17/2008 Overview (08/16/2016): IMO Update 2015 Acute suppurative otitis med ia without spontaneous rupture of eardrum 10/27/2005 1 Overview (03/03/2012): IMO Update 08/24 Wheezing 09/24/2005 09/17/2008 Encounters Date Type Department Care Team Description 02/17/2025 Refill [facility] [address] [place] [id number] Chaya Grove PA-C Refill Request (escitalopram ) 02/11/2025 3:15 PM CDT Office Visit [facility] [address] [place] [address] James Tadeo MD S/P medial meniscus repair of right knee (Primary Dx) 02/11/2025 Travel from Last 3 Months Immunizations Name Administration [...] Pfizer Dos e 2 (Purple- 12+ Yrs) Imm Clinic 03/07/2021 DTaP <7 years 09/23/2008,12/24/2005 [id number] (Pediarix) 03/29/2005,01/27/2005,0 2004 Hepatitis A, Ped/Adolescent 2 [...] nerve exploration; Surgeon: Mumtaz Tristan DO; Location: [facility] Medical devices from this surgery are in the Medical Devices section. HARDWARE REMOVAL 08/02/2018 Elbow/Left Procedure: left elbow hardware removal; Surgeon: Mumtaz Tristan DO; Location: [facility] KNEE ARTHROSCOPY 06/22/2024 Knee/Right Procedure: ARTHROSCOPY KNEE WITH MEDIAL MENISCUS REPAIR, WITH MARROW VENTING, RIGHT; Surgeon: James Tadeo MD; Location: [facility] OR Medical devices from this surgery are in the Medical Devices section. Medical History Medical History Date Comments Unspecified otitis media 08/12/2005 and February 16, recurrent acute. Wheezing 09/24/200509/21: none in s everal years Urinary tract infection, sit e not specified 09/2008 [facility] this past year Chest wall asymmetry [...] drink = 0.6 oz pur e alcohol) [facility] Utilities Answer Date Recorded In the past 12 months has [employer], gas, oil, or water [employer] threatened to shut off services in your home? No 12/17/2024 AUDIT-C Answer Date Recorded Q1: How often [...] PHQ-2 Answer Date Recorded PHQ-2 Total 3 12/17/2024 Hunger Vital Sign Answer Date Recorded Within the past 12 months, y ou worried that your food would run out before you got the money to buy more. Never true 12/17/19 25 Within the past 12 months, t he food you bought just didn't last and you didn't have money to get more. Never true 12/17/2024 PRAPARE - Transportation Answer Date Re corded In the past 12 months, has l ack of transportation kept you from medical appointments or from getting medications? No 01/2025 In the past 12 months, has l ack of transportation kept you from meetings, work, or from getting things needed for daily living? No 12/17/2024 Housing Stability Vital Sign Answer Theron e Recorded In the last 12 months, was t here a time when you were not able to pay the mortgage or rent on time? No 12/17/2024 In the past 12 months, how m any times have you moved where you were living? 1 12/17/2024 At any time in the past 12 m [facility], were you homeless or living in a group home (including now)? 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 Gender Identity Female 08/02/2018 5:51 AM [...] Comments Blood Pressure 124/80 10/10/2024 2:58 PM THERMOFORMING OPERATOR Pulse 76 10/10/2024 2:58 PM THERMOFORMING OPERATOR Temperature 36.8 C (98.3 F) 10/10/2024 2:58 PM THERMOFORMING OPERATOR Respiratory Rate 16 10/02/2024 2:06 PM THERMOFORMING OPERATOR Oxygen Saturation 99% 10/10/2024 2:58 PM THERMOFORMING OPERATOR Inhaled Oxygen Concentration - - Weight 71.2 kg (156 lb 15.5 oz) 10/10/2024 2:58 PM THERMOFORMING OPERATOR Height 165.1 cm (5' 5) 10/10/2024 2:58 PM THERMOFORMING OPERATOR Body Mass Index 26.12 10/10/2024 2:58 PM THERMOFORMING OPERATOR Plan of Treatment Health Maintenance Due Date Last Done Comments ADULT COMPLETE PHYSICAL AGE 19-21 YRS 2023 09/13/2022 Chlamydia Screening 07/04/2024 07/04/2023, 10/16/2021, 10/13/2020 TETANUS (Standing Order) 09/15/2025 015, 09/23/2008, 12/24/2005, Additional history exists Hepatitis B Vaccine (Standing Order) Completed 03/29/2005, 01/27/2005, 2004 Pneumococcal/PCV20 Vaccine: Pediatrics (2-5 yrs) and At-Risk Patients (6-49 yrs) (Standing Order) Aged Out 09/16/2005, 03/29/2005, 01/27/2005, Additional history exists No longer eligible based on patient's age to complete this topic PERTUSSIS (Standing Order) Completed 09/15, 09/23/2008, 12/24/2005, Additional history exists HPV Vaccine (Standing Order) Completed 09/24/2016, 09/15/2015 Meningococcal B Vaccine (Standing Order) Completed 09/14/2022, 12/18/2021 Medical Devices Implanted Type Area Telecommunications Manager Device Identifier Shelf Expiration Date Model / Serial / Lot Screw Synt Arpit S-Tap Strdrv T8 2.7 X 34mm [id number] - [id number] Implanted:Qty: 1 on 03/15/2018 by Mumtaz Tristan DO at [facility] Left: Elbow SYNTHES [id number] / NO / [id number] Wire K-Wire Synt 1.25mm W/ Trocar Point 150mm 292.12 - [id number] Implanted:Qty: 2 on 03/15/2018 by Mumtaz Tristan DO at [facility] Left: Elbow SYNTHES 292.12 / NO / [id number] [place] Suture Fiberstitch 1.5 2.0 Curved Poly Fiberwire Ar-4580 - [id number] Implanted:Qty: 1 on 06/22/2024 by James Tadeo MD at [facility] Right: Knee ARTHREX 10/13/2028 AR-4580 / NA / [id number] Procedures Procedure Name Priority Date/Time Associated Diagnosis Comments CHLAMYDIA TRACHOMATIS/NEISSERI A GONORRHOEAE MOLECULAR DETECTION Routine 07/04/2023 11:29 AM CDT Encounter for screening examination for sexually transmitted disease from Last 3 Months or Most Recently Relevant to Health Maintenance Results * CHLAMYDIA TRACHOMATIS/NEISSERIA GONORRHOEAE MOLECULAR DETECTION (07/04/2023 11:29 AM CDT) Chlamydia trachomatis Not Detected Not Detected 07/04/2023 4:00 PM CDT [facility] Neisseria gonorrhoeae Not Detected Not Detected 07/04/2023 4:00 PM CDT [facility] Urine VOIDED URINE SPECIMEN / Unknown Non-blood collection / Unknown 07/04/2023 11:29 AM CDT 07/04/2023 11:29 AM CDT Narrative [facility] - 07/04/2023 4:00 PM CDT Test detects target RNA/DNA by real-time polymerase chain reaction (PCR) on the [employer] GeneXpert Dx System. Chaya Grove PA-C EC MICROBIOLOGY - GENERAL ORDERABLES Final Result [facility] [address] [place], [place] [id number], [facility] from Last 3 Months or Most Recently Relevant to Health Maintenance Insurance [employer] [address] [place] [address] [employer] [facility] [address] [place] [address] PHARMACY ACCT Advance Directives For more information, please contact: [phone] * Full Code (Latest Code Status on [...] 11:49 AM 03/15/2005 11:49 AM Care Teams Fleet Manager/Dispatch Relationship Specialty Start Date End Date Chaya Grove PA-C [address] [place] [address] PCP - General Family Medicine 09/13/22 Sangeeta Steve MD [address] [place] [address] PCP - PC Team Family Medicine 06/07/23 Vanna Bull MD [address] [place] [phone] Cardiology Physician Cardiology 08/20/24
--- OUTSIDE RECORDS SUMMARY | 2025-03-24 14:02 | XMS_ITS | Encounter Summary ---
Author Organization [facility] Address [address] [address] Phone Care Team Providers Care Modeling Analyst Name Role Phone Chaya Grove PA-C Primary Care Provider [phone] Sangeeta Steve MD Unavailable [phone] Vanna Bull MD Unavailable [phone] Reason for Visit * Reason Comments Refill Request escitalopram Encounter Details Date Type Department Care Team (Late st Contact Info) Description 02/17/2025 Refill [facility] [address] [place] [address] Chaya Grove PA-C [address] [place] [address] Refill Request (escitalopram ) Social History Tobacco Use Types Packs/Day Years Used Date Smoking Tobacco: Never Smokeless Tobacco: Never Alcohol Use Standard Drinks/Week Comments Not Currently 0 (1 standard drink = 0.6 oz pur e alcohol) [facility] Utilities Answer Date Recorded In the [...] any time in the past 12 m [facility], were you homeless or living in a care home (including now)? 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 90 Tablet 3 02/19/2025 12:25 PM CDT 02/17/2025 documented in this encounter Miscellaneous Notes * Telephone Encounter - aKy Lopez RN - 02/17/2025 9:48 PM CDT This refill request is OK to authorize per the [facility] Medication Refill Standing Orders. * Telephone Encounter - Kay Lopez RN - 02/17/2025 9:41 PM CDT Last dispensed: 11/12/2024 Requested Prescriptions Pending Prescriptions Disp Refills escitalopram (LEXAPRO) 20 MG tablet 90 Tablet 1 Sig: Take 1 Tablet by mouth one time a day. Depression- Adult Passed - 02/17/2025 9:41 PM Passed - Qualifying visit within 1 year Qualifying visit date: : 12/17/2024 Recent Visits Date Type Provider Dept 12/17/24 Telehealth Chaya Grove PA-C [facility] 10/10/24 Office Visit Chaya Grove PA-C [facility] 10/02/24 Office Visit Chaya Grove PA-C [facility] 09/12/24 Telehealth Chaya Grove PA-C [facility] 08/13/24 Telehealth Chaya Grove PA-C [facility] 07/11/24 Office Visit Chaya Grove PA-C [facility] Showing recent visits within past 365 days [...] full remission (HCC) MALVIN (generalized anxiety disorder) Generalized anxiety disorder documented in this encounter Discontinued Medications Medication Sig Discontinue Reason Start Date End Da te escitalopram (Lexapro) 20 MG tabletIndications:Major depressive disorder with single episode, in full remission (HCC),MALVIN (generalized anxiety disorder) Take 1 Tablet by mouth one time a day. Reorder 07/11/2024 02/17/2025 documented as of this encounter Care Teams Modeling Analyst Relationship Specialty Start Date End Date Chaya Grove PA-C [address] [place] [address] PCP - General Family Medicine 09/13/22 Sangeeta Steve MD [address] [place] [address] [phone] PCP - PC Team Family Medicine 06/07/23 Vanna Bull MD [address] [place] [address] [phone] Cardiology Physician Cardiology 08/20/24 documented as of this encounter
--- OUTSIDE RECORDS SUMMARY | 2025-03-24 14:02 | XMS_ITS | Encounter Summary ---
Author Organization [facility] Address [address] [address] Phone Care Team Providers Care College Or University Business Manager Name Role Phone Chaya Grove PA-C Primary Care Provider [phone] Sangeeta Steve MD Unavailable [phone] Vanna Bull MD Unavailable [phone] Reason for Visit * Reason Comments Follow Up Follow up right knee meniscus repair 06/22/24 Encounter Details Date Type Department Care Team (Late st Contact Info) Description 02/11/2025 3:15 PM CDT Office Visit [facility] [address] [place] [address] James Tadeo MD [address] [place] [address] S/P medial meniscus repair of right knee (Primary Dx) Social History Tobacco Use Types Packs/Day Years Used Date Smoking Tobacco: Never Smokeless Tobacco: Never Tobacco Cessation:Counseling Given: Not Answered Alcohol Use Standard Drinks/Week Comments Not Currently 0 (1 standard drink = 0.6 oz pur e alcohol) [facility] Utilities Answer Date Recorded In the past 12 months has [employer], gas, oil, or water company threatened [...] any time in the past [facility], were you homeless or living in a half-way (including now)? 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 Is home for spring break currently, going to [place] later this week [facility]. Objective: General: No acute distress, alert and oriented, answers questions appropriately Respiratory: Nonlabored breathing on room air, equal chest rise bilaterally Right lower extremity: No pain over the medial joint line, compartments are soft and compressible today in clinic. Assessment/plan: Patient is a 19 year old female who presents status post the above procedure. Full release to activity in regards to her knee. Discussed with her I'd be happy to give her a referral to a surgeon at [facility] after the work up has been completed. She'll reach out if she wishes for this info otherwise follow up PRN. James Tadeo MD Orthopaedic Surgery - Sports Medicine [facility] I have spent a total of 15 minutes in this encounter today including pre-visit chart review, image examination, lab interpretation, and finalizing documentation in the EMR. More than 50% of this timewas spent on counseling and coordination of care, face to face examination, history taking, formulation of a treatment plan, counseling, ordering ancillary tests, therapies, and consults as well as answering their questions. documented in this encounter Plan of Treatment Not on file documented as of this encounter Visit Diagnoses Diagnosis S/P medial meniscus repair of right knee- Primary documented in this encounter Care Teams College Or University Business Manager Relationship Specialty Start Date End Date Chaya Grove PA-C [address] [place] [phone] PCP - General Family Medicine 09/13/22 Sangeeta Steve MD [address] [place] [address] [id number] PCP - PC Team Family Medicine 06/07/23 Vanna Bull MD [address] [place] [address] [phone] Cardiology Physician Cardiology 08/20/24 documented as of this encounter
--- OUTSIDE RECORDS SUMMARY | 2025-03-24 14:02 | XMS_ITS | Encounter Summary ---
Author Organization [facility] Address [address] [address] Phone Care Team Providers Care Die Trouble Shooter Name Role Phone Alma Farmer DO Primary Care Provider [phone] Chaya Grove PA-C Primary Care Provider [phone] Sangeeta Steve MD Unavailable [phone] Vanna Bull MD Unavailable [phone] Reason for Visit * Reason Onset Date Comments Refill Request 10/19/2021 Encounter Details Date Type Department Care Team (Late st Contact Info) Description 10/19/2021 MyH Refill [facility] [address] [place] [address] Alma Farmer DO [address] [place] [address] Social History Tobacco Use Types [...] AM CDT Legal Sex Female 11:38 PM KITCHEN HAND Gender Identity Female 08/02/2018 5:51 AM CDT Sexual Orientation Straight 07/13/2024 10 :55 AM CDT COVID-19 Exposure Response Date Recorded In the last month, have you been in contact with someone who was confirmed or suspected to have Coronavirus / COVID-19? No / Unsure 10/16/2021 12:33 PM KITCHEN HAND documented as of this encounter Functional Status * Patient's Vision Adequate to Safely Complete Daily Activities Answer Date of Assessment Author Yes 02/26/2020 1:39 AM CDT Hermelinda Richards RN * Patient's Memory Adequate to Safely Complete Daily Activities Answer Date of Assessment Author Yes 02/26/2020 1:39 AM MESSIT Hermelinda Richards, RN documented as of this encounter Mental Status * Patient's Judgment Adequate to Safely Complete Daily Activities Answer Entry Date Author Yes 02/26/2020 1:39 AM Hermelinda Sharma, RN documented in this encounter Plan of Treatment Not on file documented as of this encounter Visit Diagnoses Not on filedocumented in this encounter Additional Health Concerns Infection Onset Date Last Indicated Resolved Time R/O COVID-19 08/12/2022 08/12/2022 08/12/2022 6:11 PM CDT documented as of this encounter Care Teams Die Trouble Shooter Relationship Specialty Start Date End Date Alma Farmer DO [address] [place], [place] [id number] PCP - General Pediatrics 08/31/13 09/12/22 Chaya Grove, PA-C [address] [place] [address] [phone] PCP - General Family Medicine 09/13/22 Sangeeta Steve MD [address] [place] [address] [phone] PCP - PC Team Family Medicine 06/07/23 Vanna Bull MD [address] [place] [address] [phone] Cardiology Physician Cardiology 08/20/24 documented as of this encounter
--- OUTSIDE RECORDS SUMMARY | 2025-03-24 14:02 | XMS_ITS | Clinical Summary ---
Author Organization [facility] Address [address] [place] [address] Care Team Providers Care Scrap Crusher Name Role Phone Unavailable Primary Care Provider Unavailabl e Source Comments You are receiving this document as you are listed as the primary care provider,follow-up provider, or the patient has been referred to you for consultation.This is in compliance with the Medicare and[facility] Cent[facility]aid EHR Incentive Program,which states Providers who transition their patient to another setting of careor provider of care or refers their patient to another provider of care shouldprovide summary care record for each transition of care or referral. [facility] Allergies No known active allergies Medications buPROPion (WELLBUTRIN XL) 300 MG 24 hour release tablet 10/04/2021 Acti ve olopatadine (PATANOL) 0.1 % eye drop solution Inject 1 Drop into the eye two times a day. 10/19/2021 Active Active Problems Problem Noted Date Diagnosed Date Current moderate episode of major depressive disorder without prior episode 12/31/2019 MALVIN (generalized anxiety disorder) 12/31/2019 Parent/child conflict 12/31/2019 Dysmenorrhea in adolescent 12/24/2019 Irregular periods 12/24/2019 Myopia, bilateral 04/07/2017 Chest wall asymmetry 09/23/2008 Family History Medical History Relation Name Comments Anxiety Mother Bicuspid aortic stenosis Mother Anxiety Maternal Grandmother Depression Maternal Grandmother Anxiety Paternal Grandfather Relation Name Status Comments Mother Maternal Grandmother Paternal Grandfather Social History Tobacco Use Types Packs/Day Years Used Date Smoking Tobacco: Never Assessed Comments Unknown Sex and Gender Information Value Date Recorded Sex Assigned at Not on file Legal Sex Female 5:28 PM DOCUMENT ADVISOR Gender Identity Not on file Sexual Orientation Not on file Last Filed Vital Signs Vital Sign Reading Time Taken Comments Blood Pressure 138/88 10/22/2021 5:16 PM DOCUMENT ADVISOR Pulse 88 10/22/2021 5:16 PM DOCUMENT ADVISOR Temperature - - Respiratory Rate - - Oxygen Saturation - - Inhaled Oxygen Concentration - - Weight 55.3 kg (122 lb) 10/22/2021 5:16 PM DOCUMENT ADVISOR Height 163.8 cm (5' 4.5) 10/22/2021 5:16 PM DOCUMENT ADVISOR Body Mass Index 20.62 10/22/2021 5:16 PM DOCUMENT ADVISOR Plan of Treatment Health Maintenance Due Date Last Done Comments Chlamydia 2004 Hep C Screening (Preventive Services) 2004 MenB Immunization Discussion 2004 HepA Vaccine (2 of 2 - 2-dose series) 10/26/2019 04/26/2019 HIV Screening (Preventive Services) 2020 Adult Preventive Visit 2022 HepB Vaccine (1) 2023 COVID-19 Vaccine (3 - season) 2024 03/07/2021, 02/14/2021 Influenza Vaccine (Season Ended) 2025 10/16/2021, 08/29/2020, 09/04/2019, Additional history exists DTaP/Tdap/Td Vaccine (7 - Tdap) 09/15/2025 09/15/2015, 09/23/2008, 12/24/2005, Additional history exists Zoster/Shingles Vaccine (1 of 2) 2054 Hib Vaccine Completed 09/16/2005, 01/12, 2004 Pneumococcal Vaccine Aged Out 09/16/2005, 03/29/2005, 01/27/2005, Additional history exists No longer eligible based on patient's age to complete this topic IPV (Polio) Vaccine Completed 09/21/2010, 03/29/2005, 01/27/2005, Additional history exists HPV Vaccine Completed 09/24/2016, 09/15/2015 MCV4 Vaccine Completed 10/23/2020, 09/15/2015 Insurance [employer] SELF INSURED
--- OUTSIDE RECORDS SUMMARY | 2025-03-24 14:02 | XMS_ITS | Encounter Summary ---
Author Organization [facility] Address [address] [address] Phone Care Team Providers Care Dental Front Office Assistant Name Role Phone Chaya Grove PA-C Primary Care Provider [phone] Sangeeta Steve MD Unavailable [phone] Vanna Bull MD Unavailable [phone] Encounter Details Date Type Department Care Team (Latest Contact Info) Description 02/11/2025 Travel Social History Tobacco Use Types Packs/Day Years Used Date Smoking Tobacco: Never Smokeless Tobacco: Never Alcohol Use Standard Drinks/Week Comments Not Currently 0 (1 standard drink = 0.6 oz pur e alcohol) [facility] Utilities Answer Date Recorded In the past 12 months has [employer], oil, or water [employer] threatened to shut off services in your [...] living in a fpc (including now)? 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
[2025-03-24 14:38] VITALS: BP 132/84; PULSE 79; RESP 16; TEMP 37.2; O2SAT 97; BMI 27.5
--- NOTE | 2025-03-24 15:43 | ED_ITS ---
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 Patient states she was going up steps at school and simply slipped hitting her right knee against the step causing a laceration. Unfortunately she also hit her elbow on the step and now her shoulder hurts. She has been able to move her shoulder but certain positions increase her discomfort. She did not hit her head or hurt her neck. She denies any prodromal symptoms to the fall. She has not taken ibuprofen or Tylenol for pain. Sandra notes that she has an upcoming surgery on both legs secondary to compartment syndrome. That is in 2 weeks. Related Data Home Medications ?Medication ?Instructions ?Recorded ?Confirmed escitalopram oxalate 20 mg tablet 20 mg PO DAILY 10/25/23 03/24/25 bupropion HCl 150 mg 24 hr tablet, 150 mg PO DAILY 09/06/24 03/24/25 extended release clindamycin phosphate 1 % lotion 1 applic topical DAILY 09/06/24 03/24/25 fluticasone propionate 110 1 puff inhalation .PRN 09/06/24 03/24/25 mcg/actuation HFA aerosol inhaler levalbuterol tartrate 45 1 inh inhalation .PRN 09/06/24 03/24/25 mcg/actuation aerosol inhaler tretinoin 0.025 % topical cream 1 applic topical HS 09/06/24 03/24/25 Allergies Allergy/AdvReac Type Severity Reaction Status Date / Time No Known Drug Allergies Allergy Verified 03/24/25 14:45 Review of Systems Status of ROS: Reports: 6 or more systems reviewed and unremarkable except as noted in History and below [facility] Medical History Mononucleosis ?B27.90 - Infectious mononucleosis, unspecified without complication (ICD-10) Social History What is your current living situation?: I presently have a place to live Problems where you live: no known problems Problems where you live details: n/a In the past 12 months, utilities in danger of being shut off: no In past 12 months, lack of transportation kept you from medical appts, meetings, work, or getting things needed for daily living: no In the past 12 mos, have been you worried that your food would run out before you had money to buy more?: never true In the past 12 mos, the food you bought just didn't last and you didn't have money to buy more?: never true Smoking Status: Never smoker Do you use any of these nicotine containing products: None Second hand tobacco smoke exposure: No How often do you have a drink containing alcohol: 2-4 times a month How often do you have six or more drinks on one occasion: Never AUDIT-C Alcohol total score: 2 Non-prescribed substance use: denies use Caffeine: No How often does anyone, including family, friends and others, physically hurt you : never How often does anyone, including family, friends and others, insult or talk down to you: never How often does anyone, including family, friends and others, threaten you with harm: never How often does anyone, including family, friends and others, scream or curse at you: never Are you using contraception or practicing any form of control: No service: No Exam Narrative: Exam Narrative: The patient is alert and oriented very pleasant well-spoken [employer] student. Eyes are clear. Head appears to be atraumatic. No respiratory distress. Examination of the shoulder shows patient to have active range of motion but with some discomfort with external rotation. No obvious sulcus sign deformities are noted. On her right elbow she has area of ecchymosis with superficial abrasion. Olecranon is palpated without pain no underlying bony pain. Range of motion is full. On her right knee she has a 1 point 4 cm laceration compromising epidermis and dermis. Subcutaneous tissue appears to be intact but is visualized. No foreign bodies are noted. Able to move her lower extremities without difficulty. Const: Vital Signs, click to edit/add: Vital Signs - 24 hr 03/24/25 14:38 03/24/25 17:17 Temperature 98.9 F Pulse Rate [Pulse Oximeter] 79 73 Respiratory Rate 16 16 Blood Pressure [formerly [facility]] 132/84 111/74 Pulse Oximetry 97 98 Oxygen Delivery Me thod Room Air Room Air Documenting provider has reviewed patient's vital signs: yes Course Course ED Course: Procedure: Let was applied to the right knee while patient received x-rays for her right shoulder given the complaints of pain. Let was applied for 30 minutes. Let removed and wound was irrigated. Visualize bleeding no foreign bodies. 4-0 [address] was used to place 2 mattress sutures with good wound closure. Patient tolerated procedure without difficulty. Underlying ecchymosis now noted around the area of the laceration. Vital Signs Vital signs: Initial Vital Signs Temperature 98.9 F 03/24/25 14:38 Temperature Source Temporal Artery Scan 03/24/25 14:38 Pulse Rate 79 03/24/25 14:38 Respiratory Rate 16 03/24/25 14:38 Blood Pressure 132/84 03/24/25 14:38 Blood Pressure Mean 100 03/24/25 14:38 Blood Pressure Position Sitting 03/24/25 14:38 Pulse Oximetry 97 03/24/25 14:38 Oxygen Delivery Method Room Air 03/24/25 14:38 Vital Signs Temperature 98.9 F 03/24/25 14:38 Pulse Rate 79 03/24/25 14:38 Respiratory Rate 16 03/24/25 14:38 Blood Pressure 132/84 03/24/25 14:38 Pulse Oximetry 97 03/24/25 14:38 Oxygen Delivery Method Room Air 03/24/25 14:38 Temperature 98.9 F 03/24/25 14:38 Pulse Rate 73 03/24/25 17:17 Respiratory Rate 16 03/24/25 17:17 Blood Pressure 111/74 03/24/25 17:17 Pulse Oximetry 98 03/24/25 17:17 Oxygen Delivery Method Room Air 03/24/25 17:17 Medications Administered Medications: Discontinued Medications Generic Name Dose Route Start Last Admin Trade Name Freq PRN Reason Stop Dose Admin Lidocaine/Epinephrine/Tetracaine 3 ml 03/24/25 15:46 03/24/25 16:07 Lidocaine/Epinep/Tetracaine 3 Ml Gel..Ml. TOPICAL 03/24/25 15:47 3 ml ONCE ONE Administration MDM - Extremity Injury (Lower) MDM Narrative Medical decision making narrative: 1. Right shoulder injury -likely impacted when the right elbow hit against the step. Recommend ibuprofen or Tylenol as needed for pain. For ongoing discomfort will need to follow-up with primary MD or clinic for PT and or MRI. 2. Right knee laceration-suture removal in 10 days time. given the patient's upcoming surgery will give antibiotic prophylaxis Keflex 500 mg p.o. b.i.d. x5 days. Seek medical attention for worsening symptoms and as needed. 3. Disposition -home at this time with friends. Return as needed for worsening symptoms. Medical Records Attestation: I reviewed the patient's medical records. Imaging Data Right shoulder x-ray: Attestation: I have reviewed the pertinent imaging results. My impression: I do not note any acute fractures Radiologist's impression: Fall. Painful range of motion. TECHNIQUE: Three views right shoulder. IMPRESSION: Anatomic glenohumeral alignment. No fracture. Maintained acromiohumeral distance. Normal AC joint. No degenerative or inflammatory change in the glenohumeral joint. Discharge Plan Discharge Clinical Impression: Knee laceration, Elbow injury, Injury of shoulder, right Patient Disposition: Home, Self-Care Condition: Improved Additional Instructions: For the knee: Removal in 10 days time. Monitor for infection. Seek medical attention for increasing redness purulent drainage fever and as needed. Keflex 500 mg twice a day for 5 days for wound prophylaxis given you have a pending surgery. For the elbow-bacitracin or Vaseline as needed. For the shoulder-no evidence of fracture. Ice, ibuprofen or Tylenol as needed. Return as needed. Prescriptions: No Action escitalopram oxalate 20 mg tablet 20 mg PO DAILY clindamycin phosphate 1 % lotion 1 applic topical DAILY bupropion HCl 150 mg tablet extended release 24 hr 150 mg PO DAILY fluticasone propionate 110 mcg/actuation HFA aerosol inhaler 1 puff inhalation .PRN Rx Instructions: FOR EXERCISE INDUCED ASTHMA levalbuterol tartrate 45 mcg/actuation HFA aerosol inhaler 1 inh inhalation .PRN Rx Instructions: FOR EXERCISE INDUCED ASTHMA tretinoin 0.025 % cream 1 applic topical HS Follow Up/Referrals: Provider,Not a Local [Primary Care Provider] - Stand Alone Forms: [employer] Info Instructions
--- NOTE | 2025-03-24 15:46 | CRLHL7_ITS ---
For Patients: As a result of the Century Cures Act, medical imaging exams and procedure reports are released immediately into your electronic medical record. You may view this report before your referring provider. If you have questions, please contact your health care provider. INDICATION: Fall. Painful range of motion. TECHNIQUE: Three views right shoulder. IMPRESSION: Anatomic glenohumeral alignment. No fracture. Maintained acromiohumeral distance. Normal AC joint. No degenerative or inflammatory change in the glenohumeral joint. Dictated by Lavelle Hanks MD @ 03/24/2025 5:06:13 PM (Electronically Signed)
[2025-03-24] MEDS: LIDOCAINE/EPINEP/TETRACAINE 3 ML GEL..ML. TOPICAL (16:07)
--- OUTSIDE RECORDS SUMMARY | 2025-03-24 16:18 | XMS_ITS | Encounter Summary ---
Author Organization [facility] Address [address] [address] Phone Care Team Providers Care Campground Hand Name Role Phone Alma Farmer DO Primary Care Provider [phone] Chaya GroveC Primary Care Provider [phone] Sangeeta Steve MD Unavailable [phone] Vanna Bull MD Unavailable [phone] Reason for Visit * Reason Onset Date Comments Refill Request 04/14/2020 Encounter Details Date Type Department Care Team (Late st Contact Info) Description 04/14/[address] [facility] BOOMSWING OPERATOR [address] [place] [address] Nisha Arrieta MD, FACOG [address] [place] [address] Social History Tobacco Use Types [...] AM CDT Legal Sex Female 11:38 PM HAND TIRE TRIMMER Gender Identity Female 08/02/2018 5:51 AM CDT [...] documented as of this encounter Care Teams Campground Hand Relationship Specialty Start Date End Date Alma Farmer DO [address] [place] [address] [phone] PCP - General Pediatrics 08/31/13 09/12/22 Chaya Grove PA-C [address] [place] [address] [phone] PCP - General Family Medicine 09/13/22 Sangeeta Steve MD [address] [place] [phone] PCP - PC Team Family Medicine 06/07/23 Vanna Bull MD [address] [place] [address] [phone] Cardiology Physician Cardiology 08/20/24 documented as of this encounter
--- OUTSIDE RECORDS SUMMARY | 2025-03-24 16:18 | XMS_ITS | Clinical Summary ---
Author Organization [facility] Address [address] [place] [address] Care Team Providers Care Pearl Digger Name Role Phone Alma Farmer Kimberly Primary Care Provider [phone] Allergies No known active allergies Medications buPROPion [...] Description 03/14/2025 1:50 PM CDT Office Visit [facility] [address] [facility] [place] [address] Christoph Mtz MD Preoperative Exam (04/04/Compartment surgery bilateral /[facility]- [facility] /Dr. 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 [place] [address] [place], [place] [phone] 01/18/2025 Travel from Last 3 Months Immunizations Immunization Administration Dates Next Due DTaP 09/23/2008,12/24/2005 [id number] (Pediarix) 03/29/2005,01/27/2005,0 2004 HIB PRP-OMP (PedvaxHIB) 09/16/2005,01/27/2005, [...] on file Legal Sex Female 3:48 PM SCHOOL BUS DRIVER Gender Identity Not on file Sexual Orientation [...] FIBULA RIGHT WO Routine 01/18/2025 6:02 PM SCHOOL BUS DRIVER Pain in right barrera from Last 3 Months Results * MR TIBIA FIBULA RIGHT WO (01/18/2025 6:02 PM SCHOOL BUS DRIVER) Anatomical Region Laterality Modality LEG R Magnetic [...] Insurance MEDICA CHOICE [address] [address] [address] [id number] Care Teams Pearl Digger Relationship Specialty Start Date End Date Alma Farmer [address] [place], [place] [address] PCP - General Family Practice 09/02/17
--- OUTSIDE RECORDS SUMMARY | 2025-03-24 16:18 | XMS_ITS | Encounter Summary ---
Author Organization [facility] Address [address] [address] Phone Care Team Providers Care Gas Scrubber Operator Name Role Phone Alma Farmer DO Primary Care Provider [phone] Chaya Grove PA-C Primary Care Provider [phone] Sangeeta Steve MD Unavailable [phone] Vanna Bull MD Unavailable [phone] Reason for Visit * Reason Onset Date Comments Refill Request 10/19/2021 Encounter Details Date Type Department Care Team (Late st Contact Info) Description 10/19/2021 MyH Refill [facility] [address] [place] [address] Alma Farmer DO [address] [place] [address] Social History Tobacco Use Types [...] CDT Legal 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 No / Unsure 10/16/2021 12:33 PM SENIOR HARDWARE ENGINEER documented as of this encounter Functional Status [...] documented as of this encounter Care Teams Gas Scrubber Operator Relationship Specialty Start Date End Date Alma Farmer DO [address] [place], [place] [address] PCP - General Pediatrics 08/31/13 09/12/22 Chaya Grove, PA-C [address] [place] [address] [phone] PCP - General Family Medicine 09/13/22 Sangeeta Steve MD [address] [place] [address] [phone] PCP - PC Team Family Medicine 06/07/23 Vanna Bull MD [address] [place] [address] [phone] Cardiology Physician Cardiology 08/20/24 documented as of this encounter
--- OUTSIDE RECORDS SUMMARY | 2025-03-24 16:18 | XMS_ITS | Encounter Summary ---
Author Organization [facility] Address [address] [address] Phone Care Team Providers Care Pmo Consultant Name Role Phone Chaya Grove PA-C Primary Care Provider [phone] Sangeeta Steve MD Unavailable [phone] Vanna Bull MD Unavailable [phone] Encounter Details Date Type Department Care Team (Latest Contact Info) Description 02/11/2025 Travel Social History Tobacco Use Types Packs/Day Years Used Date Smoking Tobacco: Never Smokeless Tobacco: Never Alcohol Use Standard Drinks/Week Comments Not Currently 0 (1 standard drink = 0.6 oz pur e alcohol) [facility] Utilities Answer Date Recorded In the past 12 months has [place], [employer], oil, or water [employer] threatened to shut off services in your [...] time in the past 12 m [facility], were you homeless or living in a fdc (including now)? No 12/17/2024 EH IP Custom [...] AM CDT Legal Sex Female 11:38 PM SERVICES COORDINATOR Gender Identity Female 08/02/2018 5:51 AM CDT [...] on filedocumented in this encounter Care Teams Pmo Consultant Relationship Specialty Start Date End Date Chaya Grove, PA-C [address] [place] [address] [phone] PCP - General Family Medicine 09/13/22 Sangeeta Steve MD [address] [place] [address] [phone] PCP - PC Team Family Medicine 06/07/23 Vanna Bull MD [address] [place] [address] [phone] Cardiology Physician Cardiology 08/20/24 documented as of this encounter
--- OUTSIDE RECORDS SUMMARY | 2025-03-24 16:18 | XMS_ITS | Encounter Summary ---
Author Organization [facility] Address [address] [address] Phone Care Team Providers Care Pipefitter Helper Name Role Phone Chaya Grove PA-C Primary Care Provider [phone] Sangeeta Steve MD Unavailable [phone] Vanna Bull MD Unavailable [phone] Reason for Visit * Reason Comments Follow Up Follow up right knee meniscus repair 06/22/24 Encounter Details Date Type Department Care Team (Late st Contact Info) Description 02/11/2025 3:15 PM CDT Office Visit [facility] [address] [place] [address] James Tadeo MD [address] [place] [address] S/P medial meniscus repair of right knee (Primary Dx) Social History Tobacco Use Types Packs/Day Years Used Date Smoking Tobacco: Never Smokeless Tobacco: Never Tobacco Cessation:Counseling Given: Not Answered Alcohol Use Standard Drinks/Week Comments Not Currently 0 (1 standard drink = 0.6 oz pur e alcohol) [facility] Utilities Answer Date Recorded In the past 12 months has [employer], gas, oil, or water company threatened [...] any time in the past 12 m [facility], were you homeless or living in a residential (including now)? 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 Is home for spring break currently, going [facility] [place] [facility] Objective: General: No acute distress, alert [...] her a referral to a surgeon at [facility] after the work up has been completed. She'll reach out if she wishes for this info otherwise follow up PRN. James Tadeo MD Orthopaedic Surgery - Sports Medicine [facility] I have spent a total of 15 [...] Primary documented in this encounter Care Teams Pipefitter Helper Relationship Specialty Start Date End Date Chaya Grove PA-C [address] [place] [address] [phone] PCP - General Family Medicine 09/13/22 Sangeeta Steve MD [address] [place] [address] [id number] PCP - PC Team Family Medicine 06/07/23 Vanna Bull MD [address] [place] [address] [phone] Cardiology Physician Cardiology 08/20/24 documented as of this encounter
--- OUTSIDE RECORDS SUMMARY | 2025-03-24 16:18 | XMS_ITS | Encounter Summary ---
Author Organization [facility] Address [address] [address] Phone Care Team Providers Care Club Attendant Name Role Phone Chaya Grove PA-C Primary Care Provider [phone] Sangeeta Steve MD Unavailable [phone] Vanna Bull MD Unavailable [phone] Reason for Visit * Reason Comments Refill Request escitalopram Encounter Details Date Type Department Care Team (Late st Contact Info) Description 02/17/2025 Refill [facility] FAMILY MEDICINE [address] [place] [address] Chaya Grove PA-C [address] [place] [address] Refill Request (escitalopram ) Social History Tobacco Use Types Packs/Day Years Used Date Smoking Tobacco: Never Smokeless Tobacco: Never Alcohol Use Standard Drinks/Week Comments Not Currently 0 (1 standard drink = 0.6 oz pur e alcohol) [facility] Utilities Answer Date Recorded In the past [...] any time in the past 12 m [facility], were you homeless or living [...] CDT 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 * [...] Provider Dept 12/17/24 Telehealth Chaya Grove PA-C [facility] Medicine 10/10/24 Office Visit Chaya Grove PA-C [facility] 10/02/24 Office Visit Chaya Grove PA-C [facility] 09/12/24 Telehealth Chaya Grove PA-C [facility] 08/13/24 Telehealth Chaya Grove PA-C [facility] 07/11/24 Office Visit Chaya Grove PA-C [facility] Showing recent visits within past [...] documented as of this encounter Care Teams Club Attendant Relationship Specialty Start Date End Date Chaya Grove PA-C [address] [place] [phone] PCP - General Family Medicine 09/13/22 Sangeeta Steve MD [address] [place] [address] [phone] PCP - PC Team Family Medicine 06/07/23 Vanna Bull MD [address] [place] [address] [phone] Cardiology Physician Cardiology 08/20/24 documented as of this encounter
--- OUTSIDE RECORDS SUMMARY | 2025-03-24 16:18 | XMS_ITS | Clinical Summary ---
Author Organization [facility] Address [address] [place] [address] Care Team Providers Care Software Program Manager Name Role Phone Unavailable Primary Care Provider Unavailabl e Source Comments You are receiving this document as you are listed as the primary care provider,follow-up provider, or the patient has been referred to you for consultation.This is in compliance with the Medicare andMemorial Health Systemcaid EHR Incentive Program,which states Providers who transition their patient to another setting of careor provider of care or refers their patient to another provider of care shouldprovide summary care record for each transition of care or referral. 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 Gender Identity Not on file Sexual Orientation Not on file Last Filed Vital Signs Vital Sign Reading Time Taken Comments Blood Pressure 138/88 10/22/2021 5:16 PM PROFESSOR OF POLITICAL SCIENCE Pulse 88 10/22/2021 5:16 PM PROFESSOR OF POLITICAL SCIENCE Temperature - - Respiratory Rate - - Oxygen Saturation - - Inhaled Oxygen Concentration - - Weight 55.3 kg (122 lb) 10/22/2021 5:16 PM PROFESSOR OF POLITICAL SCIENCE Height 163.8 cm (5' 4.5) 10/22/2021 5:16 PM PROFESSOR OF POLITICAL SCIENCE Body Mass Index 20.62 10/22/2021 5:16 PM PROFESSOR OF POLITICAL SCIENCE Plan of Treatment Health Maintenance Due Date [...]
--- OUTSIDE RECORDS SUMMARY | 2025-03-24 16:18 | XMS_ITS | Clinical Summary ---
Author Organization [facility] Address [address] [address] Phone Care Team Providers Care Liner Machine Operator Helper Name Role Phone Chaya Grove PA-C Primary Care Provider [phone] Sangeeta Steve MD Unavailable [phone] Vanna Bull MD Unavailable [phone] Allergies Active Allergy Reactions Criticality Noted Date [...] morning. 60 mL 6 11/12/2024 12:55 PM SPEECH LANGUAGE PATHOLOGIST TRAVEL 4 Active buPROPion XL (Wellbutrin XL) 150 [...] th single episode, in full remission 12/31/2019 MLAVIN (generalized anxiety disorder) 12/31/2019 Parent-child relational problem [...] Type Department Care Team Description 02/17/2025 Refill FAMILY MEDICINE [address] [place] [id number] Chaya Grove PA-C Refill Request (escitalopram ) 02/11/2025 3:15 PM CDT Office Visit [facility] [address] [place] [address] James Tadeo MD S/P medial meniscus repair [...] Imm Clinic 03/07/2021 DTaP <7 years 09/23/2008,12/24/2005 [id number] (Pediarix) 03/29/2005,01/27/2005,0 2004 Hepatitis A, Ped/Adolescent 2 [...] nerve exploration; Surgeon: Mumtaz Tristan DO; Location: [facility] MAIN ORS Medical devices from this surgery are in the Medical Devices section. HARDWARE REMOVAL 08/02/2018 Elbow/Left Procedure: left elbow hardware removal; Surgeon: Mumtaz Tristan DO; Location: [facility] MA[facility] ORS KNEE ARTHROSCOPY 06/22/2024 Knee/Right Procedure: ARTHROSCOPY KNEE WITH MEDIAL MENISCUS REPAIR, WITH MARROW VENTING, RIGHT; Surgeon: James Tadeo MD; Location: [facility] Medical devices from this surgery [...] = 0.6 oz pur e alcohol) [facility] Utilities Answer Date Recorded In the past 12 months has [employer], gas, oil, or water [employer] threatened to shut off services in your [...] any time in the past 12 m [facility], were you homeless or living in a intermediate (including now)? No 12/17/2024 EH IP Custom [...] AM CDT Legal Sex Female 11:38 PM SPEECH LANGUAGE PATHOLOGIST TRAVEL Gender Identity Female 08/02/2018 5:51 AM CDT [...] Comments Blood Pressure 124/80 10/10/2024 2:58 PM SPEECH LANGUAGE PATHOLOGIST TRAVEL Pulse 76 10/10/2024 2:58 PM SPEECH LANGUAGE PATHOLOGIST TRAVEL Temperature 36.8 C (98.3 F) 10/10/2024 2:58 PM SPEECH LANGUAGE PATHOLOGIST TRAVEL Respiratory Rate 16 10/02/2024 2:06 PM SPEECH LANGUAGE PATHOLOGIST TRAVEL Oxygen Saturation 99% 10/10/2024 2:58 PM SPEECH LANGUAGE PATHOLOGIST TRAVEL Inhaled Oxygen Concentration - - Weight 71.2 kg (156 lb 15.5 oz) 10/10/2024 2:58 PM SPEECH LANGUAGE PATHOLOGIST TRAVEL Height 165.1 cm (5' 5) 10/10/2024 2:58 PM SPEECH LANGUAGE PATHOLOGIST TRAVEL Body Mass Index 26.12 10/10/2024 2:58 PM SPEECH LANGUAGE PATHOLOGIST TRAVEL Plan of Treatment Health Maintenance Due Date [...] 09/14/2022, 12/18/2021 Medical Devices Implanted Type Area Cmm Technician Device Identifier Shelf Expiration Date Model / Serial / Lot Screw Synt Arpit S-Tap Strdrv T8 2.7 X 34mm 202.894 - [id number] Implanted:Qty: 1 on 03/15/2018 by Mumtaz Tristan DO at [facility] Left: Elbow SYNTHES 202.894 / NO / [id number] Wire K-Wire Synt 1.25mm W/ [place] 150mm 292.12 - [id number] Implanted:Qty: 2 on 03/15/2018 by Mumtaz Tristan DO at [facility] Left: Elbow SYNTHES 292.12 / NO / [id number] [place] Suture Fiberstitch 1.5 2.0 Curved Poly Fiberwire Ar-4580 - [id number] Implanted:Qty: 1 on 06/22/2024 by James Tadeo MD at [facility] Right: Knee ARTHREX 10/13/2028 [id number] / [...] Detected Not Detected 07/04/2023 4:00 PM CDT [facility] Neisseria gonorrhoeae Not Detected Not Detected 07/04/2023 4:00 PM CDT [facility] Urine VOIDED URINE SPECIMEN / Unknown Non-blood collection / Unknown 07/04/2023 11:29 AM CDT 07/04/2023 11:29 AM CDT Narrative [facility] - 07/04/2023 4:00 PM CDT Test detects target RNA/DNA by real-time polymerase chain reaction (PCR) on the [employer] GeneXpert Dx System. Chaya Grove PA-C EC MICROBIOLOGY - GENERAL ORDERABLES Final Result [facility] [address] [place], [place] [phone], [facility] from Last 3 Months or Most Recently Relevant to Health Maintenance Insurance MED[place] CHOICE [address] [place] [address] [employer] [facility] [address] [place] [address] PHARMACY ACCT Advance Directives For more information, please contact: [phone] * Full Code (Latest Code Status on [...] 11:49 AM 03/15/2005 11:49 AM Care Teams Liner Machine Operator Helper Relationship Specialty Start Date End Date Chaya Grove PA-C [address] [place] [phone] PCP - General Family Medicine 09/13/22 Sangeeta Steve MD [address] [place] [phone] PCP - PC Team Family Medicine 06/07/23 Vanna Bull MD [address] [place] [address] [phone] Cardiology Physician Cardiology 08/20/24
[2025-03-24 17:17] VITALS: BP 111/74; PULSE 73; RESP 16; O2SAT 98
== END 2025-03-24 17:20 | disposition home or self-care (01) ==
PROVIDERS: Emergency Provider Family Medicine
DX: S81.011A Laceration without foreign body, right knee, initial encounter (principal); M25.511 Pain in right shoulder; W10.9XXA Fall (on) (from) unspecified stairs and steps, initial encounter
CPT/HCPCS: 12002; 73030; 99283; 99284

== ENCOUNTER 2025-09-11 17:28 | Emergency (ER) | payer OTHER, SELFPAY ==
--- OUTSIDE RECORDS SUMMARY | 2025-09-04 14:10 | XMS_ITS | Encounter Summary ---
Author Organization [facility] Address [address] [address] Phone Care Team Providers Care Puff Iron Operator Name Role Phone Vanna Bull MD Unavailable [phone] Diane Willams APRN, CNP Primary Care Provider Reason for Referral * (Routine) - New Request Specialty Diagnoses / Procedures Referred By Cosme ortiz Referred To Contact Diagnoses Overweight with body mass index (BMI) of 28 to 28.9 in adult Diane Willams APRN, CNP [address] [facility] [facility] [place] [address] Phone: tel: fax: Referral ID Status Reason Start Date Expiration Date V isits Requested Visits Authorized [id number] New Request 09/04/2025 02/26/2027 1 1 Question Answer What type of Dietary care are you looking for? Weight Management [16] What type of Weight Management care are you looking for? Weight Loss Nutritional Counseling [4] Comments Additional Referral Information: has history of binging/restricting in past. Reason for Visit * Reason Comments Establish Care Referral For telephone answering service operator BMI Encounter Details Date Type Department Care Team ([facility] Contact Info) Description 09/04/2025 2:10 PM CDT Telehealth [facility] [address] [place] [address] Diane Willams, NAGI, UPPER LEATHER CUTTER [address] [place] [address] Fatigue, unspecified type (Primary Dx); Overweight with body mass index (BMI) of 28 to 28.9 in adult Social History Tobacco Use Types Packs/Day Years Used Date Smoking Tobacco: Never Smokeless Tobacco: Never Alcohol Use Standard Drinks/Week Comments Not Currently 0 (1 standard drink = 0.6 oz pur e alcohol) [facility] Utilities Answer Date Recorded In the past 12 months has [employer], gas, oil, or water [employer] threatened to shut off services in your home? No 04/16/2025 Social Connection and Isolation Panel Answer Date Recorded In a typical week, how many times do you talk on the phone with family, friends, or neighbors? Once a week 06/07/2025 How often do you get togethe r with friends or relatives? Once a week 06/07/2025 How often do you attend [facility] ch or congregation services? Never 06/07/2025 Do you belong to any clubs o r organizations such as baptism groups, unions, fraternal or athletic groups, or school groups? Yes 06/07/2025 How often do you attend meet ings of the clubs or organizations you belong to? More than 4 times per year 06/07/2025 Are you , , di vorced, , never , or living with a partner? Never 06/07/2025 AUDIT-C Answer Date Recorded Q1: How often do you have a drink containing alc ohol? Monthly or less 06/07/2025 Q2: How many drinks containi ng alcohol do you have on a typical day when you are drinking? 3 or 4 06/07/2025 Q3: How often do you have si x or more drinks on one occasion? Less than monthly 06/07/2025 Overall Financial Resource Strain (CARDIA) Answe r Date Recorded How hard is it for you to pa y for the very basics like food, housing, medical care, and heating? Not hard at all 12/27/2022 PHQ-2 Answer Date Recorded PHQ-2 Total 4 09/03/2025 [facility] - Occupational Stress Questionnaire Answer Date Recorded Do you feel stress - tense, restless, nervous, or anxious, or unable to sleep at night because your mind is troubled all the time - these days? Rather much 06/07/2025 Exercise Vital Sign Answer Date Recorde d On average, how many days pe r week do you engage in moderate to strenuous exercise (like a brisk walk)? 5 days 06/07/2025 On average, how many minutes do you engage in exercise at this level? 60 min 06/07/2025 PRAPARE - Transportation Answer Date Re corded In the past 12 months, has l ack of transportation kept you from medical appointments or from getting medications? No 01/2025 In the past 12 months, has l ack of transportation kept you from meetings, work, or from getting things needed for daily living? No 04/16/2025 Housing Stability Vital Sign Answer Theron e Recorded In the last 12 months, was t here a time when you were not able to pay the mortgage or rent on time? No 04/16/2025 Number of Times Moved in the Last Year Not on fi le 04/16/2025 At any time in the past 12 m [facility], were you homeless or living in a residential (including now)? No 04/16/2025 Hunger Vital Sign Answer Date Recorded Within the past 12 months, y ou worried that your food would run out before you got the money to buy more. Never true 09/03/20 Within the past 12 months, t he food you bought just didn't last and you didn't have money to get more. Never true 09/03/2025 PRAPARE - Transportation Answer Date Re corded In the past 12 months, has l ack of transportation kept you from medical appointments or from getting medications? No 08/15 In the past 12 months, has l ack of transportation kept you from meetings, work, or from getting things needed for daily living? No 09/03/2025 Housing Stability Vital Sign Answer Theron e Recorded In the last 12 months, was t here a time when you were not able to pay the mortgage or rent on time? No 09/03/2025 In the past 12 months, how m any times have you moved where you were living? 0 09/03/2025 At any time in the past 12 m [facility], were you homeless or living in a residential (including now)? No 09/03/2025 [facility] Utilities Answer Date Recorded In the past 12 months has th [employer] electric, gas, oil, or water company threatened to shut off services in your home? No 09/03/2025 [facility] [employer] Utilities Answer Date Ravinder [...] AM CDT Legal Sex Female 11:38 PM CHIEF EXECUTIVE OR MANAGING DIRECTOR Gender Identity Female 08/02/2018 5:51 AM CDT [...] 1:39 AM CDT Hermelinda Richards, KAILEY documented in this encounter Progress Notes * Diane Willams, SUPERVISOR BRAIDING, UPPER LEATHER CUTTER - 09/04/2025 2:10 PM CDT HISTORY OF PRESENT ILLNESS: Sandra Valentin is a(n) 19 year old who presents today with chief complaint of establishing care and also wondering about getting a referral to a dietitian. 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 She notes that she does take Lamictal for this. She reports that despite this, she has had some difficulty with trying to workout and unfortunately has gained roughly 40 pounds in the past year. She notes that this is significantly impacting her mental health and while she is working with her mental health additionally, she is wondering about seeing a dietitian to do this in a healthy manner. She reports that she previously has had issues with restricting food intake and binging at times and wantsto make sure that with her weight loss, she is doing this in an appropriate fashion. She notes thatcatherine also has had continued fatigue from her mono over a year ago. She reports that in talking with her mom, they are concerned about her possibly having metabolism issues due to this viral illness, as well as her having some underlying issues with metabolizing medications slowly. She reports that she now is at school at [employer], and in the past 2 months has gained 10 pounds. Past Medical History[1] Patient Active Problem List Diagnosis Chest wall asymmetry Myopia, bilateral Irregular periods Dysmenorrhea in adolescent Major depressive disorder with single episode, in full remission (HCC) MALVIN (generalized anxiety disorder) Parent-child relational problem Right knee pain, unspecified chronicity Acute medial meniscus tear of right knee, initial encounter Suicidal ideation Personal history of nonsuicidal self-harm S/P medial meniscus repair of right knee Anesthesia complication requiring reversal agent administration Active Medications[2] Allergies Allergen Reactions Cats Hives, Pruritis and [...] on file Social History Narrative Lives in [facility]. Mom is Flor and dad is Dwight. Dad is a uniform patrol police officer. Mom is a child psychologist in behavioral health at [employer] Will graduate highschool in 2022 Social Drivers of Health Financial Resource Strain: Low Risk (04/25/2025) Received from [employer] Financial Resource Strain Within the past 12 months, have you or your family members you live with been unable to get utilities (heat, electricity) when it was really needed?: No Food Insecurity: No Food Insecurity (09/03/2025) Hunger Vital Sign Worried About Running Out of Food in the Last Year: Never true Ran Out of Food in the Last Year: Never true Transportation Needs: No Transportation Needs (09/03/2025) PRAPARE - Transportation Lack of Transportation (Medical): No Lack of Transportation (Non-Medical): No Physical Activity: Sufficiently Active (06/07/2025) Exercise Vital Sign Days of Exercise per Week: 5 days Minutes of Exercise per Session: 60 min Stress: Stress Concern Present (06/07/2025) [employer] [facility] [employer] - Occupational Stress Questionnaire Feeling of Stress : Rather much Social Connections: Socially Isolated (06/07/2025) Social Connection and Isolation Panel Frequency of Communication with Friends and Family: Once a week Frequency of Social Gatherings with Friends and Family: Once a week Attends Taoism Services: Never Active Member of Clubs or Organizations: Yes Attends Club or Organization Meetings: More than 4 times per year Marital Status: Never Intimate Partner Violence: Low Risk (04/24/2025) Received from [employer] Interpersonal Safety Do you feel physically and emotionally safe where you currently live?: Yes Within the past 12 months, have you been hit, slapped, kicked or otherwise physically hurt by someone?: No Within the past 12 months, have you been humiliated or emotionally abused in other ways by your partner or ex-partner?: No Housing Stability: Low Risk (09/03/2025) Housing Stability Vital Sign Unable to Pay for Housing in the Last Year: No Number of Times Moved in the Last Year: 0 Homeless in the Last Year: No REVIEW OF SYSTEMS: All other systems reviewed and found to be negative PHYSICAL EXAM: There were no vitals filed for this visit. GENERAL APPEARANCE: Alert and oriented, no acute distress A/P: 1. Fatigue, unspecified type (Primary) Labs ordered to evaluate this fatigue further. We did discuss natural course of viral illness such as mono, however, noting that this has been over a year since she was originally diagnosed, I have concerns about something else at play. She is interested in getting these labs done at [place], and then we will be in touch with results and best next steps per - CORTISOL; Future - THYROID STIMULATING HORMONE; Future - THYROPEROXIDASE AUTOANTIBODIES; Future 2. Overweight with body mass index (BMI) of 28 to 28.9 in adult Referral placed to dietitian - APPT WITH DIETITIAN The patient requested or was interviewed to determine and confirm that telemedicine was an appropriate and effective means for delivering the service. The mode of transmission for the telemedicine service: interactive videoconference. The time the service began: 1415 The time the service ended: 142 The location of the Patient: Home The location of the Clinician: Clinic [1] Past Medical History: Diagnosis Date Anxiety Asthma [...] year Wheezing 09/24/200509/21: none in several years [2] No outpatient medications have been marked as taking for the 09/04/25 encounter (Telehealth) with Diane Willams APRN, CNP. Current Facility-Administered Medications for the 09/04/25 encounter (Telehealth) with Diane Willams APRN, CNP Medication levonorgestrel (Kyleena) 19.5 MG IUD 1 Intra Uterine Device documented in this encounter Miscellaneous Notes * Clinical Note - Vianey Garcia CMA - 09/04/2025 2:10 PM CDT This chart was prepped for visit by Vianey Garcia CMA on 09/03/2025. documented in this encounter Plan of Treatment Upcoming Encounters Date Type Department Care Team (Late st Contact Info) Description 09/17/2025 8:30 AM CHIEF EXECUTIVE OR MANAGING DIRECTOR Appointment [facility] NUTRITION SERVICES [address] [place], [place] [id number] Selena Dela Cruz, RD,LD [address] [place] [phone] 11/04/2025 8:15 AM CHIEF EXECUTIVE OR MANAGING DIRECTOR Appointment [facility] NEUROLOGY [address] [place], [place] [address] Isaiah Patel MD [address] [place], [place] [phone] Scheduled Orders Name Type Priority Associated Diagnoses Orde r Schedule CORTISOL Lab Routine Fatigue, unspecified type Expected: 09/04/2025 (Approximate), Expires: 11/04/2025 THYROID STIMULATING HORMONE Lab Routine Fatigue, unspecified type Expected: 09/04/2025 (Approximate), Expires: 11/04/2025 THYROPEROXIDASE AUTOANTIBODIES Lab Routine Fatigue, unspecified type Expected: 09/04/2025 (Approximate), Expires: 11/04/2025 Scheduled Referrals Name Type Priority Associated Diagnoses Orde r Schedule APPT WITH DIETITIAN REFERRAL Routine Overweight with body mass index (BMI) of 28 to 28.9 in adult Ordered: 09/04/2025 documented as of this encounter Visit Diagnoses Diagnosis Fatigue, unspecified type- Primary Overweight with body mass index (BMI) of 28 to 28.9 in adult documented in this encounter Care Teams Puff Iron Operator Relationship Specialty Start Date End Date Diane Willams, SUPERVISOR BRAIDING, UPPER LEATHER CUTTER [facility] [place] [address] PCP - General Family Medicine 09/04/25 Vanna Bull MD [address] [place] [address] Cardiology Physician Cardiology 08/20/24 documented as of this encounter
[2025-09-11 17:31] VITALS: BP 122/83; PULSE 81; RESP 16; TEMP 36.6; O2SAT 98; BMI 28.5
--- NOTE | 2025-09-11 17:39 | ED.GENADULT ---
HPI - General Adult General Chief complaint: Back Injury/Pain Stated complaint: Shoulder and Rib injury from sports Time Seen by Provider: 09/11/25 17:38 History of Present Illness HPI narrative: Pt was struck from behind, presumably unintentionally , with a discus thrown by another athlete . The discus struck her in left mid-back. Pt has pain now in shoulder and ribs. Rates pain currently /10. 19-year-old woman presenting to emergency department with concern of back pain in the left periscapular area following being struck by a discus at relatively short range. Pain is in the midback ribs and scapula. Hurts to move, raise her arm on the left in particular. Deep breaths are also painful exacerbating this mid back discomfort. Related Data Home Medications ?Medication ?Instructions ?Recorded ?Confirmed escitalopram oxalate 20 mg tablet 20 mg PO DAILY 10/25/23 03/24/25 bupropion HCl 150 mg 24 hr tablet, 150 mg PO DAILY 09/06/24 03/24/25 extended release clindamycin phosphate 1 % lotion 1 applic topical DAILY 09/06/24 03/24/25 fluticasone propionate 110 1 puff inhalation .PRN 09/06/24 03/24/25 mcg/actuation HFA aerosol inhaler levalbuterol tartrate 45 1 inh inhalation .PRN 09/06/24 03/24/25 mcg/actuation aerosol inhaler tretinoin 0.025 % topical cream 1 applic topical HS 09/06/24 03/24/25 Allergies Allergy/AdvReac Type Severity Reaction Status Date / Time cat dander Allergy Unknown Verified 09/11/25 17:34 Review of Systems Status of ROS: Reports: 6 or more systems reviewed and unremarkable except as noted in History and below [facility] Medical History Mononucleosis ?B27.90 - Infectious mononucleosis, unspecified without complication (ICD-10) Social History What is your current living situation?: I presently have a place to live Problems where you live: no known problems Problems where you live details: n/a In the past 12 months, utilities in danger of being shut off: no In past 12 months, lack of transportation kept you from medical appts, meetings, work, or getting things needed for daily living: no In the past 12 mos, have been you worried that your food would run out before you had money to buy more?: never true In the past 12 mos, the food you bought just didn't last and you didn't have money to buy more?: never true Smoking Status: Never smoker Do you use any of these nicotine containing products: None Second hand tobacco smoke exposure: No How often do you have a drink containing alcohol: 2-4 times a month How often do you have six or more drinks on one occasion: Never AUDIT-C Alcohol total score: 2 Non-prescribed substance use: denies use Caffeine: No How often does anyone, including family, friends and others, physically hurt you: never How often does anyone, including family, friends and others, insult or talk down to you: never How often does anyone, including family, friends and others, threaten you with harm: never How often does anyone, including family, friends and others, scream or curse at you: never Are you using contraception or practicing any form of control: No service: No Exam Narrative: Exam Narrative: Looks uncomfortable. Appears upset. Admits does not really want to be here. Encouraged by coaches to come. Favoring the left arm a little bit. Neck is supple. No midline back tenderness. No outward evidence trauma he erythema or bruising. Lungs appear clear. She is limited in her effort at inspiration presumably due to pain. She has pain to palpation in the mid left back inferior to the scapular tip as well as onto the scapular tip. All this sensitive to light touch. She is positive to pain in her ribs with opposing compression testing. Trachea is midline. No supraclavicular crepitus. Maximal tenderness actually is associated with some swelling in an area below the left scapula. Const: Vital Signs, click to edit/add: Vital Signs - 24 hr 09/11/25 17:31 Temperature 97.9 F Pulse Rate [Pulse Oximeter] 81 Respiratory Rate 16 Blood Pressure [Ri ght Upper Arm] 122/83 Pulse Oximetry 98 Oxygen Delivery Me thod Room Air Documenting provider has reviewed patient's vital signs: yes Course Vital Signs Vital signs: Initial Vital Signs Temperature 97.9 F 09/11/25 17:31 Temperature Source Temporal Artery Scan 09/11/25 17:31 Pulse Rate 81 09/11/25 17:31 Respiratory Rate 16 09/11/25 17:31 Blood Pressure 122/83 09/11/25 17:31 Blood Pressure Mean 96 09/11/25 17:31 Blood Pressure Position Sitting 09/11/25 17:31 Pulse Oximetry 98 09/11/25 17:31 Oxygen Delivery Method Room Air 09/11/25 17:31 Vital Signs Temperature 97.9 F 09/11/25 17:31 Pulse Rate 81 09/11/25 17:31 Respiratory Rate 16 09/11/25 17:31 Blood Pressure 122/83 09/11/25 17:31 Pulse Oximetry 98 09/11/25 17:31 Oxygen Delivery Method Room Air 09/11/25 17:31 Temperature 97.9 F 09/11/25 17:31 Pulse Rate 81 09/11/25 17:31 Respiratory Rate 16 09/11/25 17:31 Blood Pressure 122/83 09/11/25 17:31 Pulse Oximetry 98 09/11/25 17:31 Oxygen Delivery Method Room Air 09/11/25 17:31 Medications Administered Medications: Discontinued Medications Generic Name Dose Route Start Last Admin Trade Name Freq PRN Reason Stop Dose Admin Lidocaine 1 patch 09/11/25 18:59 09/11/25 19:08 Lidocaine 5% Patch TRANSDERMA 09/11/25 19:00 1 patch ONCE ONE Administration Protocol Medical Decision Making MDM Narrative Medical decision making narrative: I think most likely there is bruising here. I do not see evidence of pneumothorax. With this oppositional compression testing certainly might be unmasking a nondisplaced fracture however. Discussed options for imaging. As an athlete would like some definitive answer. Will start off with x-rays and then pending that might do point of care ultrasound or CT imaging. She does not feel she needs anything for pain. Three-view rib and AP chest reviewed by me -- I cannot appreciate any acute bony abnormality. Radiology over-read as below Indication: DISCUS TO INFRASCAPULAR LEFT RIBS AND SCAPULA, PAIN Technique: Frontal view of the chest and frontal and oblique views of the left ribs Comparison: Chest radiograph on August 01, 2024 Findings/Impression: No acute, displaced fracture or malalignment. The bones are unremarkable. The cardiomediastinal silhouette and pulmonary vasculature are unremarkable. There is no focal airspace consolidation, pleural effusion, or pneumothorax. Dictated by Isaiah Kelsey MD @ 09/11/2025 6:13:50 PM Together we did use point of care ultrasound to scan the left scapula and surrounding ribs. I cannot appreciate a clear step-off to suggest fracture. Periosteal contusions could be just as painful. Did request trial of lidocaine patch to be placed. Was notably upset about a number of challenges, setbacks lately. Did spend some time talking with her nurse about that. See patient discharge plan for further discussion I would ice the sore areas 2 - 3 times daily over the next few days. As I said, anticipate feeling a little bit better every couple of days. If in a week, 10 days you are simply not improved, would follow up for re-evaluation. Be seen sooner for uncontrolled pain, increasing shortness of breath. Can take up to 800 mg of ibuprofen or up to 1000 mg of acetaminophen per dose. Alternative the ibuprofen might be up to 500 mg of naproxen twice daily. If this lidocaine patch is helpful, you can purchase more [id number]-[id number]. Might also try diclofenac gel which is also available [id number]. Medical Records Medical records reviewed: Yes I reviewed the patient's medical records Discharge Plan Discharge Clinical Impression: Contusion of rib, Contusion of left scapular region Patient Disposition: Home, Self-Care Condition: Stable Additional Instructions: I would ice the sore areas 2 - 3 times daily over the next few days. As I said, anticipate feeling a little bit better every couple of days. If in a week, 10 days you are simply not improved, would follow up for re-evaluation. Be seen sooner for uncontrolled pain, increasing shortness of breath. Can take up to 800 mg of ibuprofen or up to 1000 mg of acetaminophen per dose. Alternative the ibuprofen might be up to 500 mg of naproxen twice daily. If this lidocaine patch is helpful, you can purchase more hold-uhl-fhoacax. Might also try diclofenac gel which is also available [id number]. Prescriptions: No Action escitalopram oxalate 20 mg tablet 20 mg PO DAILY clindamycin phosphate 1 % lotion 1 applic topical DAILY bupropion HCl 150 mg tablet extended release 24 hr 150 mg PO DAILY fluticasone propionate 110 mcg/actuation HFA aerosol inhaler 1 puff inhalation .PRN Rx Instructions: FOR EXERCISE INDUCED ASTHMA levalbuterol tartrate 45 mcg/actuation HFA aerosol inhaler 1 inh inhalation .PRN Rx Instructions: FOR EXERCISE INDUCED ASTHMA tretinoin 0.025 % cream 1 applic topical HS Follow Up/Referrals: Provider,Not a Local [Primary Care Provider, Family Practice] Stand Alone Forms: [facility] Info Instructions
--- NOTE | 2025-09-11 17:48 | CRLHL7_ITS ---
For Patients: As a result of the Cures Act, medical imaging exams and procedure reports are released immediately into your electronic medical record. You may view this report before your referring provider. If you have questions, please contact your health care provider. Indication: DISCUS TO INFRASCAPULAR LEFT RIBS AND SCAPULA, PAIN Technique: Frontal view of the chest and frontal and oblique views of the left ribs Comparison: Chest radiograph on August 01, 2024 Findings/Impression: No acute, displaced fracture or malalignment. The bones are unremarkable. The cardiomediastinal silhouette and pulmonary vasculature are unremarkable. There is no focal airspace consolidation, pleural effusion, or pneumothorax. Dictated by Isaiah Kelsey MD @ 09/11/2025 6:13:50 PM (Electronically Signed)
--- OUTSIDE RECORDS SUMMARY | 2025-09-11 17:53 | XMS_ITS | Encounter Summary ---
Author Organization [facility] Address [address] [address] Phone Care Team Providers Care Hvac R Instructor Name Role Phone Chaya Grove PA-C Primary Care Provider [phone] Sangeeta Steve MD Unavailable [phone] Vanna Bull MD Unavailable [phone] Encounter Details Date Type Department Care Team (Late st Contact Info) Description 06/10/2025 Results Follow-Up [facility] [address] [place] [address] Chaya Grove PA-C [address] [place] [id number] [facility] Social History Tobacco Use Types Packs/Day Years Used Date Smoking Tobacco: Never Smokeless Tobacco: Never Alcohol Use Standard Drinks/Week Comments Not Currently 0 (1 standard drink = 0.6 oz pur e alcohol) [facility] Utilities Answer Date Recorded In the [...] week 06/07/2025 How often do you attend chur ch or restorationist services? Never 06/07/2025 Do you belong to any clubs o r organizations such as zoroastrian groups, unions, fraternal or athletic groups, or [...] 12/27/2022 PHQ-2 Answer Date Recorded PHQ-2 Total 5 08/01/2025 [facility]ational Stress Questionnaire Answer Date Recorded [...] exercise at this level? 60 min 06/07/2025 Hunger Vital Sign Answer Date Recorded Within the past 12 months, y ou worried that your food would run out before you got the money to buy more. Never true 04/16/20 25 Within the past 12 months, t he food you bought just didn't last and you didn't have money to get more. Never true 04/16/2025 PRAPARE - Transportation Answer Date Re corded [...] time in the [facility], were you homeless or living in a fci (including now)? No 04/16/2025 EH IP Custom Utilities Answer Date Ravinder [...] AM CDT Legal Sex Female 11:38 PM AREA SALES MANAGER Gender Identity Female 08/02/2018 5:51 AM [...] Hermelinda Richards, KAILEY documented in this encounter Miscellaneous Notes * Result Encounter Note - Chaya Grove PA-C - 06/10/2025 11:22 AM CDT Gene Flores, The TB screening was negative/normal. Kind regardsChaya PA-C documented in this encounter Plan of Treatment Upcoming Encounters Date Type Department Care Team (Late st Contact Info) Description 09/17/2025 8:30 AM AREA SALES MANAGER Appointment [facility] [address] [place] [address] [phone] Selena Dela Cruz, RD,LD [address] [place] [address] [phone] 11/04/2025 8:15 AM AREA SALES MANAGER Appointment [facility] [address] [place] [address] [phone] Isaiah Patel MD [facility] [place], [place] [id number] documented as of this encounter Visit Diagnoses Not on filedocumented in this encounter Care Teams Hvac R Instructor Relationship Specialty Start Date End Date Chaya Grove PA-C [address] [place] [address] [id number] PCP - General Family Medicine 09/13/22 09/03/25 Sangeeta Steve MD [address] [place] [address] [id number] PCP - PC Team Family Medicine 06/07/23 09/03/25 Vanna Bull MD [address] [place] [address] [phone] Cardiology Physician Cardiology 08/20/24 documented as of this encounter
--- OUTSIDE RECORDS SUMMARY | 2025-09-11 17:53 | XMS_ITS | Clinical Summary ---
Author Organization [facility] [employer] [facility] Address [address] [address] Phone Care Team Providers Care Preparation Center Coordinator Name Role Phone Vanna Bull MD Unavailable [phone] Diane Willams APRN, ROOFING PLANT SUPERVISOR Primary Care Provider Allergies Active Allergy Reactions Criticality Noted Date [...] 5 08/28/2024 9:50 AM CDT 4 Active tretinoin (Retin-A) 0.05 % cream Apply thin layer to full face every night or every other night if not tolerated. Apply moisturizer after. 45 g 6 07/23/2025 1:03 PM CDT 4 Active escitalopram (Lexapro) 20 MG tabletIndicatio ns:Major depressive disorder with single episode, in full remission (HCC),MALVIN (generalized anxiety disorder) Take 1 Tablet by mouth one time a day. 90 Tablet 3 08/21/2025 2:59 PM CDT 5 Active spironolactone (Aldactone) 50 MG tablet Take 2 Tablets by mouth one time a day. 180 Tablet 4 08/11/2025 2:33 PM CDT 5 Active clindamycin (Cleocin-T) 1 % lotion Apply thin layer to full face every morning. 60 mL 6 05/16/2025 4:43 PM CDT 5 Active tazarotene (Tazorac) 0.1 % cream Apply to full face nightly at bedtime. 30 g 6 08/21/2025 2:59 PM CDT 5 Active buPROPion (Wellbutrin) 75 MG tablet Take 1 Tablet by mouth one time a day. 30 Tablet 11 08/21/2025 2:59 PM CDT 5 Active lamoTRIgine (LaMICtal) 100 MG tablet Take 0.5 Tablets by mouth one time a day for 14 days, THEN 1 Tablet one time a day for 60 days. 90 Tablet 1 08/07/2025 11:58 AM CDT 5 10/20/20 25 Active Hospital, Clinic, or Other Facility Administered Medication Ordered Dose Route Frequency Start Date End Date Status levonorgestrel (Kyleena) 19.5 MG IUD 1 Intra Uterine DeviceIndications:E ncounter for IUD removal and reinsertion 1 Intra Uterine Device IU CONTINUOUS 06/26/2025 Active levonorgestrel (KYLEENA) 19.5 MG intra uterine device 1 Intra Uterine DeviceIndications:E ncounter for IUD insertion 1 Intra Uterine Device IU CONTINUOUS 10/13/2020 09/04/2025 Discontinued Active Problems Problem Noted Date Diagnosed Date [...] site not specified 09/23/2008 10/22/2011 Overview (03/03/2012): [facility] IMO Update 08/24 Asthma 07/01/2006 09/17/2008 Overview (08/16/2016): IMO Update 2015 Acute suppurative otitis med ia without spontaneous rupture of eardrum 10/27/2005 1 Overview (03/03/2012): IMO Update 08/24 Wheezing 09/24/2005 09/17/2008 Encounters * This document contains information received from the source organization and may not represent a complete record from that organization. Date Type Department Care Team Description 09/11/2025 Travel 09/10/2025 Travel 09/04/2025 2:10 PM CDT Telehealth [facility] [place], [place] [phone] Diane Willams, CORE DRILL OPERATOR HELPER, ROOFING PLANT SUPERVISOR Fatigue, unspecified type (Primary Dx); Overweight with body mass index (BMI) of 28 to 28.9 in adult 09/03/2025 Travel 07/31/[address] [facility] NURSE CARE LINE [address] [place] [address] Selena Conway RN Suicidal Ideation 07/31/2025 Travel 06/27/2025 Results Follow-Up [facility] [address] [place] [address] [phone] Vanna Bull MD TILT TABLE 06/26/2025 4:47 PM CDT - 06/26/2025 7:34 PM CDT Emergency [facility] EM[facility]PART[facility] [address] [place] [address] [phone] Pratik Ritchie MD Convulsions, unspecified convulsion type (HCC) (Primary Dx) Discharge Disposition: Home and/or Self Care 06/26/2025 2:30 PM CDT - 06/26/2025 4:46 PM CDT Hospital Encounter [facility] NON INVASIVE CARDIOLOGY [address] [place] [address] [phone] Vanna Bull MD Lightheaded; Syncope and collapse; Palpitations Discharge Disposition: Discharged 06/26/2025 1:00 PM CDT Office Visit [facility] [address] [place] [address] [phone] Nisha Arrieta MD, FACOG Encounter for IUD removal and reinsertion (Primary Dx); Encounter for assessment of STD exposure 06/26/2025 Travel 06/26/2025 Telephone [facility] NON INVASIVE CARDIOLOGY [address] [place] [phone] Maria Luz De Jesus 06/24/2025 9:30 AM CDT ALLIED HEALTH/NURSE VISIT [facility] [address] [place] [address] [phone] Imm/Inj (Tdap/) 06/24/2025 Orders Only [facility] [address] [place] [address] [phone] Clarissa Banks APRN, ROOFING PLANT SUPERVISOR Vaccine counseling (Primary Dx) 06/21/2025 Refill [facility] [address] [place] [address] [phone] Sangeeta Steve MD Refill Request (Wellbutrin ) 06/21/2025 Travel 06/19/2025 Travel from Last 3 Months Immunizations Immunization Administration Dates Next Due COVID-19 MRNA Vaccine (Moder na) 12+ Yrs Seasonal 08/16/2024 COVID-19 MRNA Vaccine (Pfize r ERYN-SUCR) Guerrier 12+ Yrs Seasonal 08/17/2023 COVID-19 Vaccine: Pfizer Biv alent (TRI-SUCR Guerrier) 12+ Yrs (Imm Clinic) 09/14/2022 COVID-19 Vaccine: Pfizer Gonsales ster (Purple- 12+ Yrs) Imm Clinic 11/05/2021 COVID-19 Vaccine: Pfizer Dos e 1 (Purple- 12+ Yrs) Imm Clinic 02/14/2021 COVID-19 Vaccine: Pfizer Dos e 2 (Purple- 12+ Yrs) Imm Clinic 03/07/2021 DTaP <7 years 09/23/2008,12/24/2005 [id number]-FBC (Pediarix) 03/29/2005,01/27/2005,0 2004 Hepatitis A, Ped/Adolescent 2 dose 04/06/2023, Hib PRP OMP (PedvaxHib) 09/16/2005,01/27/2005, Human Papilloma Virus 9 09/24/2016,09/15/2015 IPV 09/21/2010 Influenza A H1n1 09/22/2009 Influenza Fluzone (6 months - 64 years) Quad NPF Vial (Flu Clinic) 08/25/2016 Influenza H1N1 Unspecified 11/10/2009,09/22/2009 Influenza Live Intranasal (2-49 years) 1 ,08/23/2014,08/31/2013,09/01,09/02/2011 Influenza Live Intranasal Qu ad (Flumist) 09/21/2010,09/16/2009,09/23/2008 Influenza Quad Preservative Free 08/17/2023,12/0 01/2021,09/16/2017 Influenza Trivalent Preservative Free ,09/21/2007,09/14/2006,10/19,09/16/2005 Influenza Unspecified Formulation 07/16/2025 Influenza Vaccine (6 months - 64 Years) Quad PF Syringe (Flu Clinic) 09/14/2022,08/29/2020,09/04/2019,08/22 MMR 09/16/2009,09/16/2005 Meningococcal B Vaccine, Rec ombinant Omv, Adjuvanted 09/14/2022,12/18/2021 Meningococcal MCV4 (Menveo) 2 Vials 10/23/2020 Pneumococcal Conjugate, (Prevnar)7-valent 09/16/2005,03/29/2005,01/27/2005,11/25 Tdap (7 years and older) 06/24/2025,09/15/2015 Typhoid VICPS 04/06/2023 Varicella (Varivax) 09/16/2009,12/24/2005 meningococcal MCV4P (Menactra) 09/15/2015 Surgical History Surgery Date Site/Laterality Comments CREATE EARDRUM OPENING,GEN ANESTH 08/23/2005 INCISION EARDRUM,ASPIR 08/12/2005 Bilateral with ventialtion tube placement. ELBOW FRACTURE SURGERY 03/15/2018 Elbow/Left Procedure: open reduction internal fixation left medial epicondyle with ulnar nerve exploration; Surgeon: Mumtaz Tristan DO; Location: [facility]S Medical devices from this surgery are in the Medical Devices section. HARDWARE REMOVAL 08/02/2018 Elbow/Left Procedure: left elbow hardware removal; Surgeon: Mumtaz Tristan DO; Location: [facility] KNEE ARTHROSCOPY 06/22/2024 Knee/Right Procedure: ARTHROSCOPY KNEE WITH MEDIAL MENISCUS REPAIR, WITH MARROW VENTING, RIGHT; Surgeon: James Tadeo MD; Location: [facility] OR Medical devices from this surgery are in the Medical Devices section. Medical History Medical History Date Comments Unspecified otitis media 08/12/2005 and February 16, recurrent acute. Wheezing 09/24/200509/21: none in s everal years Urinary tract infection, sit e not specified 09/2008 . [facility] this past year Chest wall asymmetry 09/23/2008 [...] drink = 0.6 oz pur e alcohol) [facility] Cegalities Answer Date Recorded In the past 12 [...] often do you attend chur ch or mosque services? Never 06/07/2025 Do you belong to any clubs o r organizations such as roman catholic groups, unions, fraternal or athletic groups, or [...] Answer Date Recorded PHQ-2 Total 4 09/03/2025 [facility] - Occupational Stress Questionnaire Answer Date Recorded [...] any time in the past 12 m [facility], were you homeless or living in a snf (including now)? No 04/16/2025 Hunger Vital Sign Answer Date Recorded Within the past 12 months, y ou worried that your food would run out before you got the money to buy more. Never true 09/03/20 25 Within the past 12 months, t [...] were you homeless or living in a snf (including now)? No 09/03/2025 [facility] Utilities Answer Date Recorded In the past 12 months has [employer] electric, gas, oil, or water company threatened [...] AM CDT Legal Sex Female 11:38 PM BOX CLOSING MACHINE OPERATOR Gender Identity Female 08/02/2018 5:51 AM CDT Sexual Orientation Straight 07/13/2024 10 :55 AM CDT History Length Weight Head Circum Date/Time Gestation Age D/C Weight APGARs Delivery Method Feeding Method 20 (50.8 cm) 6 lb 6 oz (2.892 kg) 12.75 (32.4 cm) 2004 41 wks 6 lb 1min: 9 5mi n: 9 10m in: 9 Breast Fed Labor Duration Days In Hospital Hospital Name Hospital Location Last Filed Vital Signs Vital Sign Reading Time Taken Comments Blood Pressure 106/62 06/26/2025 5:15 PM CDT Pulse 121 06/26/2025 7:15 PM CDT Temperature 37.3 C (99.2 F) 06/26/2025 6:49 PM CDT Respiratory Rate 22 06/26/2025 7:15 PM CDT Oxygen Saturation 94% 06/26/2025 7:15 PM CDT Inhaled Oxygen Concentration - - Weight 77.4 kg (170 lb 10.2 oz) 08/13/2 025 12:52 PM CDT Height 165.1 cm (5' 5) 06/26/2025 12:5 2 PM CDT Body Mass Index 28.4 06/26/2025 12:52 PM CDT Plan of Treatment Upcoming Encounters Date Type Department Care Team (Late st Contact Info) Description 09/17/2025 8:30 AM BOX CLOSING MACHINE OPERATOR Appointment [facility] [address] [place], [place] [address] Selena Dela Cruz RD,LD [address] [place] [phone] 11/04/2025 8:15 AM BOX CLOSING MACHINE OPERATOR Appointment [facility] NEUROLOGY [address] [place], [place] [phone] Isaiah Patel MD [address] [place], [place] [phone] Health Maintenance Due Date Last Done Comments ADULT COMPLETE PHYSICAL AGE 19-21 YRS 06/07/2026 06/07/2025, 09/13/2022 Chlamydia Screening 06/26/2026 06/26/2025, 04/16/2025, 07/04/2023, Additional history exists TETANUS (Standing Order) 06/24/2035 , 09/15/2015, 09/23/2008, Additional history exists Hepatitis B Vaccine (Standing Order) Completed 03/29/2005, 01/27/2005, 2004 Pneumococcal/PCV20 Vaccine: Pediatrics (2-5 yrs) and At-Risk Patients (6-49 yrs) (Standing Order) Aged Out 09/16/2005, 03/29/2005, 01/27/2005, Additional history exists No longer eligible based on patient's age to complete this topic HPV Vaccine (Standing Order) Completed 09/24/2016, 09/15/2015 Meningococcal B Vaccine (Standing Order) Completed 09/14/2022, 12/18/2021 COVID-19 Vaccine Completed 08/16/2024, 02/2023, 09/14/2022, Additional history exists PERTUSSIS (Standing Order) Completed 06/24, 09/15/2015, 09/23/2008, Additional history exists Influenza Vaccine Seasonal (Standing Order) Completed 07/16/2025, 08/16/2024, 08/17/2023, Additional history exists Medical Devices Implanted Type Area Jerker Device Identifier Shelf Expiration Date Model / Serial / Lot Screw Synt Arpit S-Tap Strdrv T8 2.7 X 34mm 202.894 - [id number] Implanted:Qty: 1 on 03/15/2018 by Mumtaz Tristan DO at [facility] Left: Elbow SYNTHES 202.894 / NO / [id number] Wire K-Wire Synt 1.25mm W/ [place] 150mm 292.12 - [id number] Implanted:Qty: 2 on 03/15/2018 by Mumtaz Tristan DO at [facility] Left: Elbow SYNTHES 292.12 / NO / [id number] [place] Suture Fiberstitch 1.5 2.0 Curved Poly Fiberwire Ar-[id number] - [id number] Implanted:Qty: 1 on 06/22/2024 by James Tadeo MD at [facility] Right: Knee ARTHREX 10/13/2028 AR-4580 / NA / [id number] Procedures Procedure Name Priority Date/Time Associated Diagnosis Comments EKG 12-LEAD STAT 06/26/2025 5:33 PM CDT HEMOGRAM STAT 06/26/2025 5:20 PM CDT COMPREHENSIVE METABOLIC PANEL STAT 06/26/2025 5:20 PM CDT HOLD SERUM TUBE STAT 06/26/2025 5:20 PM CDT HOLD NA CITRATE STAT 06/26/2025 5:20 PM CDT HOLD EDTA STAT 06/26/2025 5:20 PM CDT HOLD LI HEPARIN STAT 06/26/2025 5:20 PM CDT TILT TABLE Routine 06/26/2025 5:07 PM CDT Lightheaded Syncope and collapse Palpitations INSERT INTRAUTERINE DEVICE Routine 06/26/2025 1:47 PM CDT Encounter for IUD removal and reinsertion Encounter for assessment of STD exposure REMOVE INTRAUTERINE DEVICE Routine 06/26/2025 1:47 PM CDT Encounter for IUD removal and reinsertion Encounter for assessment of STD exposure CHLAMYDIA TRACHOMATIS/NEISSERIA GONORRHOEAE MOLECULAR DETECTION Routine 06/26/2025 1:46 PM CDT Encounter for IUD removal and reinsertion Encounter for assessment of STD exposure from Last 3 Months Results * EKG 12-LEAD (06/26/2025 5:33 PM CDT) Ventricular Rate 78 BPM MUSE Atrial Rate 78 BPM MUSE P-R Interval 154 ms MUSE QRS Duration 80 ms MUSE QT 370 ms MUSE QTc 421 ms MUSE P [place] 76 degrees MUSE R [place] 73 degrees MUSE T [place] 57 degrees MUSE 06/26/2025 5:33 PM CDT Narrative MUSE - 06/30/2025 10:11 PM CDT Confirming Doc Eva Billingsley Normal sinus rhythm Normal ECG When compared with ECG of 11-Jul-2024 14:38, No significant change was found Procedure Note Eva Billingsley MD - 06/30/2025 Confirming Doc Eva Billingsley Normal sinus rhythm Normal ECG When compared with ECG of 11-Jul-2024 14:38, No significant change was found us Pratik Ritchie MD IP ECG ORDERABLES Final Resu lt MUSE * HOLD LI HEPARIN (06/26/2025 5:20 PM CDT) Blood BLOOD SPECIMEN / Unknown Venipuncture / Unknown 06/26/2025 5:20 PM CDT 06/26/2025 5:26 PM CDT us Pratik Ritchie MD EC CHEMISTRY ORDERABLES Ivory l Result [facility] [address] [place] [id number] * HOLD NA CITRATE (06/26/2025 5:20 PM CDT) Blood BLOOD SPECIMEN / Unknown Venipuncture / Unknown 06/26/2025 5:20 PM CDT 06/26/2025 5:26 PM CDT us Pratik Ritchie MD EC HEMATOLOGY ORDERABLES Fin al Result Performing Organization Address [facility] Co de Phone Number [facility] [address] * HOLD PURPLE TUBE (06/26/2025 5:20 PM CDT) Blood BLOOD SPECIMEN / Unknown Venipuncture / Unknown 06/26/2025 5:20 PM CDT 06/26/2025 5:26 PM CDT us Pratik Ritchie MD EC HEMATOLOGY ORDERABLES Fin al Result Performing Organization Address [facility] Co de Phone Number [facility] [address] * HOLD SERUM TUBE (06/26/2025 5:20 PM CDT) Blood BLOOD SPECIMEN / Unknown Venipuncture / Unknown 06/26/2025 5:20 PM CDT 06/26/2025 5:26 PM CDT us Pratik Ritchie MD EC CHEMISTRY ORDERABLES Ivory l Result Performing Organization Address [facility] Number [facility] [address] * (ABNORMAL) COMPREHENSIVE METABOLIC PANEL (06/26/2025 5:20 PM CDT) [facility] Sodium 138 134 - 143 mEq/L 06/26/2025 5:[address] [facility] Potassium 3.7 3.4 - 5.1 mEq/L 06/26/2025 5:[address] [facility] Chloride 106 99 - 110 mEq/L 06/26/2025 5:[address] [facility] Carbon Dioxide 22 19 - 29 mEq/L 06/26/2025 5:[address] [facility] Anion Gap 10.0 3.0 - 15.0 mEq/L 06/26/2025 5:[address] [facility] Blood Urea Nitrogen 11 5 - 24 mg/dL 06/26/2025 5:[address] [facility] Creatinine 1.11(H) 0.40 - 1.00 mg/dL 06/26/2025 5:[address] [facility] Glomerular Filtration Rate 73 >60 mL/min/1. 73 m*2 06/26/2025 5:54 PM [facility] Comment:Risk of cardiovascul ar disease increases when GFR is abnormal; persistently reduced GFR values are a specific indication of CKD. This calculation uses CKD- EPI 2020 equation without adjustment for race; it has not been validated in women. Calcium 9.5 8.4 - 10.5 mg/dL 06/26/2025 5:[address] [facility] Glucose 103(H) 70 - 99 mg/dL 06/26/2025 5:54 PM [facility] Protein, Total 7.1 6.0 - 8.0 g/dL 06/26/2025 5:54 PM [facility] Albumin 4.2 3.5 - 5.0 g/dL 06/26/2025 5:54 PM [facility] Alkaline Phosphatase 71 40 - 150 IU/L 06/26/2025 5:[address] [facility] Aspartate Aminotransferase 34 11 - 38 IU/L 06/26/2025 5:54 PM [facility] Alanine Aminotransferase 29 6 - 33 IU/L 06/26/2025 5:54 PM [facility] Bilirubin, Total 0.5 0.2 - 1.2 mg/dL 06/26/2025 5:54 PM [facility] Blood BLOOD SPECIMEN / Unknown Venipuncture / Unknown 06/26/2025 5:20 PM CDT 06/26/2025 5:26 PM CDT [facility] CLINICAL LABORAT[facility] - 06/26/2025 5:54 PM CDT Current ADA criteria for Glucose: Normal: 70-99 mg/dL Impaired Fasting Glucose: 100-125 mg/dL Diabetes Mellitus: at or above 126 mg/dL The diagnosis of diabetes must be confirmed on a subsequent day by measuring Fasting Plasma Glucose, 2-hr PG or random plasma glucose (if symptoms are present). us Pratik Ritchie MD EC CHEMISTRY ORDERABLES Ivory l Result Performing Organization Address City/[facility]/ZIP Co de Phone Number [facility] [address] [place] [address] * HEMOGRAM (06/26/2025 5:20 PM CDT) [facility] WBC 7.2 3.2 - 11.0 10*9/L 06/26/2025 5:[address] [facility] RBC 4.57 3.77 - 5.24 10*12/L 06/26/2025 5:[address] [facility] HGB 13.7 11.2 - 15.5 g/dL 06/26/2025 5:[address] [facility] HCT 39.0 34.3 - 46.0 % 06/26/2025 5:[address] [facility] MCV 85.3 81.4 - 99.0 fL 06/26/2025 5:[address] [facility] MCH 30.0 26.7 - 33.1 pg 06/26/2025 5:[address] [facility] MCHC 35.1 31.6 - 35.5 g/dL 06/26/2025 5:[address] [facility] RDW 12.4 11.3 - 14.6 % 06/26/2025 5:[address] [facility] PLT 320 130 - 375 10*9/L 06/26/2025 5:[address] [facility] Blood BLOOD SPECIMEN / Unknown Venipuncture / Unknown 06/26/2025 5:20 PM CDT 06/26/2025 5:26 PM CDT Pratik Ritchie MD EC HEMATOLOGY ORDERABLES Fin al Result Performing Organization Address City/[facility]/ZIP Co de Phone Number [facility] [address] [place] [address] * TILT TABLE (06/26/2025 5:07 PM CDT) 06/26/2025 Narrative Procedure Note Eva Billingsley MD - 06/27/2025 TILT TABLE TESTING REFERRING PHYSICIAN: Vanna Bull MD PROCEDURE PERFORMED: Tilt testing INDICATIONS FOR PROCEDURE: Syncope, Lightheaded, and palpitations. DESCRIPTION OF PROCEDURE: The patient was brought to the non-invasive cardiovascular laboratory inthe fasting state. After discussion of procedure, the patient was laidsupine on the tilt table and the non-invasive blood pressure cuff and ECGmonitoring were established. The patient was observed in the supineposition with a resting heart rate of 79 beats per minute and bloodpressure 119/77 mmHg. Then, the patient was tilted to the head-up position to 70 degrees andobserved for a total of 20 minutes. Heart rate and rhythm were observedcontinuously and blood pressures were measured every minute. After thefirst minute of head-up tilt the heart rate was 113 bpm and blood pressurewas 121/80 mmHg. The patient was stable throughout the 20-minute tilt withsinus rhythm in the 85 to 113 bpm range and systolic blood pressuresranging between 121-142/80-90's mmHg. Heart rate was 113 bpm at the 20thminute with a blood pressure of 136/92 . The patient had dizziness withinthe first minute that resolved 5th minute. Patient felt nausea at the 18thminute. Heart rate at that time was 95 bpm with a blood pressure of126/84 mmHg. Protocol used: POTS/ Vasovagal The patient was then lowered supine for recovery for 5 minutes. Heart ratewas 80 bpm and blood pressure was 132/87 mmHg. Symptoms resolved. Thepatient then left the cardiovascular laboratory in stable condition.After test completion, patient exhibited seizure type activity and rapidresponse was called. Patient heart rate, blood pressure and oxygenationremained stable in normal. Patient intermittently responding toquestioning. Chart reviewed and discussed with patient father who wascalled to bedside. Patient has a recent diagnosis of non-epileptic /psychogenic seizure, and has been evaluated by neurology and pyschiatry. EKG showed normal sinus rhythm. Changes seen with tilt testing: None Complications: none Reasons for stopping: completion of study protocol IMPRESSION: Result Negative criteria for POTS. Negative tilt testing for Postural OrthostaticTachycardia Syndrome reproducing symptoms with significant increase in HR>30 bpm to at least 120 bpm within the first 10 minutes of tilt andminimal decrease in systolic blood pressure.. Negative tilt table test for vasovagal phenomenon or orthostaticintolerance Minimally symptomatic with testing , patient experienced non-epilepticseizure activity and was sent to the ER for recovery. Eva Billingsley MD 06/27/2025 2:40 PM Vanna Bull MD CV CARDIAC SERVICES PROCEDU RES Final Result [facility] * CHLAMYDIA TRACHOMATIS/NEISSERIA GONORRHOEAE MOLECULAR DETECTION (06/26/2025 1:46 PM CDT) Chlamydia trachomatis Not Detected Not Detected 06/26/2025 7:[address] [facility] Neisseria gonorrhoeae Not Detected Not Detected 06/26/2025 7:[address] [facility] Swab VAGINAL CERVIX / Unknown Non-blood collection / Unknown 06/26/2025 1:46 PM CDT 06/26/2025 1:[address] [facility] - 06/26/2025 7:29 PM CDT Test detects target RNA/DNA by real-time polymerase chain reaction (PCR) on the [employer] GeneXpert Dx System. Nisha Arrieta MD, FACOG EC MICROBIOLOGY - GE NERAL ORDERABLES Final Result Performing Organization Address [facility]/ZIP Co de Phone Number [facility] [address] [place] [address], [facility] from Last 3 Months Insurance [employer] CHO[employer] [address] [place] [id number] [employer] [address] [place] [address] [facility] ([place]) [address] [place] [address] Advance Directives For more information, please contact: [phone] * Full Code (Latest Code Status on [...] 11:49 AM 03/15/2005 11:49 AM Care Teams Preparation Center Coordinator Relationship Specialty Start Date End Date Diane Willams, CORE DRILL OPERATOR HELPER, ROOFING PLANT SUPERVISOR [address] [place] [address] [place] [phone] PCP - General Family Medicine 09/04/25 Vanna Bull MD [address] [place] [address] [phone] Cardiology Physician Cardiology 08/20/24
--- OUTSIDE RECORDS SUMMARY | 2025-09-11 17:53 | XMS_ITS | Clinical Summary ---
Author Organization [facility] Address [address] [place] [address] Care Team Providers Care Sap Grc Security Name Role Phone Unavailable Primary Care Provider Unavailabl e Source Comments Patient records contain information from all sites at [facility]. For routine questions regarding patient records, call [phone] during business hours, M-F 8:00 AM - 5:00 PM Central Time. Record requests for emergency care only can be directed to [phone] at any time.[facility] Allergies No known active allergies Medications * This document contains information received from the source organization and may not represent a complete record from that organization. amoxicillin (AMOXIL) 250 mg/5 mL suspension 10 ml twice daily for 10 days 200 mL 10/06/2018 Active Active Problems No known active problems Encounters * This document contains information received from the source organization and may not represent a complete record from that organization. Date Type Department Care Team Description 06/17/2025 Clinical Communication [facility] [place], [place] [address] [place] [phone] Shahida Reynolds, R.N. Follow-up from Last 3 Months Family History Medical History Relation Name Comments defects Father Dwight Cherry defects Sister Palma Cherry Relation Name Status Comments Father Dwight Cherry Alive Mother Art Cherry Alive Sister Palma Cherry Alive Social History Tobacco Use Types Packs/Day Years Used Date Smoking Tobacco: Never Smokeless Tobacco: Never Alcohol Use Standard Drinks/Week Comments Not Currently 0 (1 standard drink = 0.6 oz pur e alcohol) socially at college Hunger Vital Sign Answer Date Recorded Within the past 12 months, y ou worried that your food would run out before you got the money to buy more. Never true 06/05/20 25 Within the past 12 months, t he food you bought just didn't last and you didn't have money to get more. Never true 06/05/2025 PRAPARE - Transportation Answer Date Re corded In the past 12 months, has l ack of transportation kept you from medical appointments or from getting medications? No 05/15 In the past 12 months, has l ack of transportation kept you from meetings, work, or from getting things needed for daily living? No 06/05/2025 [facility] Utilities Answer Date Recorded In the past 12 months has [employer] electric, gas, oil, or water company threatened to shut off services in your home? No 06/05/2025 Housing Stability Answer Date Recorded What is your living situation today? I have a [facility] place to live 06/05/2025 Comments Unknown Sex and Gender Information Value Date Recorded Sex Assigned at Female 06/05/2025 10:18 AM CDT Legal Sex Female 9:31 AM PSYCHOLOGIST Gender Identity Female 06/05/2025 10:18 AM CDT Sexual Orientation Straight 06/05/2025 10 :18 AM CDT Last Filed Vital Signs Vital Sign Reading Time Taken Comments Blood Pressure 104/76 10/06/2018 8:18 AM PSYCHOLOGIST Pulse 110 10/06/2018 8:18 AM PSYCHOLOGIST Temperature 36.8 C (98.2 F) 10/06/2018 8:18 AM PSYCHOLOGIST Respiratory Rate 16 10/06/2018 8:18 AM PSYCHOLOGIST Oxygen Saturation 99% 10/06/2018 8:18 AM PSYCHOLOGIST Inhaled Oxygen Concentration - - Weight 52.1 kg (114 lb 13.8 oz) 10/06/2018 8:18 AM PSYCHOLOGIST Height - - Body Mass Index - - Plan of Treatment Health Maintenance Due Date Last Done Comments Chlamydia and Gonorrhea Screening 2004 HIV Screening 2004 Hearing Screening during Well Child Visit 2004 Hepatitis C Screening 2004 TB Screening during Well Child Visit 2004 1 week Well Child Check-Up 2004 1 month Well Child Check-Up 2004 2 month Well Child Check-Up 2004 4 month Well Child Check-Up 2004 9 month Well Child Check-Up 05/13/2005 15 month Well Child Check-Up 11/12/2005 18 month Well Child Check-Up 02/10/2006 2 year Well Child Check-Up 08/13/2006 30 month Well Child Check-Up 02/10/2007 3 year Well Child Check-Up 08/13/2007 Well Child Check-Up Completed in Past Year 08/13/2007 5 year Well Child Check-Up 08/13/2009 6 year Well Child Check-Up 08/13/2010 7 year Well Child Check-Up 08/13/2011 8 year Well Child Check-Up 08/13/2012 10 year Well Child Check-Up 08/13/2014 12 year Well Child Check-Up 08/13/2016 13 year Well Child Check-Up 08/13/2017 14 year Well Child Check-Up 08/13/2018 Vision Screening during Well Child Visit 2018 15 year Well Child Check-Up 08/13/2019 17 year Well Child Check-Up 08/13/2021 18 year Well Child Check-Up 08/13/2022 19 year Well Child Check-Up 08/13/2023 20 year Well Child Check-Up 08/13/2024 Depression Screening (Annual PHQ-2) 11/14/2024 COVID-19 Vaccine (2024- season) 2025 08/16/2024, 08/17/2023, 09/14/2022, Additional history exists Influenza Vaccine (#1) 2025 , 08/17/2023, 09/14/2022, Additional history exists 21 year Well Child Check-Up 08/13/2025 Well Child Check-Up (WCC) 08/13/2025 DTaP,Tdap,and Td Vaccines (8 - Td or Tdap) 06/24/2035 06/24/2025, 09/15/2015, 09/23/2008, Additional history exists Hepatitis B Vaccines Completed 03/29/2005, 01/27/2005, 2004 Pneumococcal vaccine (0-49 years) Aged Out 09/16/2005, 03/29/2005, 01/27/2005, Additional history exists No longer eligible based on patient's age to complete this topic IPV Vaccines Completed 09/21/2010, 03/14, 01/27/2005, Additional history exists HPV Vaccines Completed 09/24/2016, 09/15/2015 Meningococcal Vaccine Completed 10/23/2020, 015 Anemia/Iron Deficiency Screening During Well Child Visit (if High Risk Menstruating Female) Completed 06/26/2025, 04/16/2025, 10/02/2024, Additional history exists Insurance MEDICA
--- OUTSIDE RECORDS SUMMARY | 2025-09-11 17:53 | XMS_ITS | Encounter Summary ---
Author Organization [facility] Address [address] [address] Phone Care Team Providers Care Math Tutor Name Role Phone Chaya Grove PA-C Primary Care Provider [phone] Sangeeta Steve MD Unavailable [phone] Vanna Bull MD Unavailable [phone] Encounter Details Date Type Department Care Team (Late st Contact Info) Description 06/26/2025 Telephone [facility] NON INVASIVE CARDIOLOGY [address] [place] [phone] Maria Luz De Jesus Social History Tobacco Use Types Packs/Day Years Used Date Smoking Tobacco: Never Smokeless Tobacco: Never Alcohol Use Standard Drinks/Week Comments Not Currently 0 (1 standard drink = 0.6 oz pur e alcohol) [facility] Utilities Answer Date Recorded In the past 12 months has [employer] electric, gas, oil, or water company threatened [...] week 06/07/2025 How often do you attend [facility] or anabaptist services? Never 06/07/2025 Do you belong to any clubs o r organizations such as nondenominational groups, unions, fraternal or athletic groups, or [...] PHQ-2 Answer Date Recorded PHQ-2 Total 3 06/07/2025 [facility] of Occupat ional Health - Occupational Stress Questionnaire Answer [...] in a snf (including now)? No 04/16/2025 EH IP Custom [...] AM CDT Legal Sex Female 11:38 PM FOAM CHARGER Gender Identity Female 08/02/2018 5:51 AM CDT [...] st Contact Info) Description 09/17/2025 8:30 AM FOAM CHARGER Appointment [facility] [address] [place] [address] Selena Dela Cruz, RD,LD [address] [place] [phone] 11/04/2025 8:15 AM FOAM CHARGER Appointment [facility] [address] [place], [place] [phone] Isaiah Patel MD [address] [place], [place] [phone] documented as of this encounter Visit Diagnoses Not on filedocumented in this encounter Care Teams Math Tutor Relationship Specialty Start Date End Date Chaya Grove PA-C [address] [place] [address] [id number] PCP - General Family Medicine 09/13/22 09/03/25 Sangeeta Steve MD [address] [place] [address] [id number] PCP - PC Team Family Medicine 06/07/23 09/03/25 Vanna Bull MD [address] [place] [address] [phone] Cardiology Physician Cardiology 08/20/24 documented as of this encounter
--- OUTSIDE RECORDS SUMMARY | 2025-09-11 17:53 | XMS_ITS | Encounter Summary ---
Author Organization [facility] Address [address] [address] Phone Care Team Providers Care Audio/Video Engineer Name Role Phone Vanna Bull MD Unavailable [phone] Diane Willams APRN, ANIMAL RIDES MANAGER Primary Care Provider Encounter Details Date Type Department Care Team (Latest Contact Info) Description 09/11/2025 Travel Social History Tobacco Use Types Packs/Day Years Used Date Smoking Tobacco: Never Smokeless Tobacco: Never Alcohol Use Standard Drinks/Week Comments Not Currently 0 (1 standard drink = 0.6 oz pur e alcohol) [facility] Utilities Answer Date Recorded In the past 12 months has [employer], gas, oil, or water company threatened to [...] often do you attend chur ch or scientology services? Never 06/07/2025 Do you belong to [...] Answer Date Recorded PHQ-2 Total 4 09/03/2025 [facility] of Occupat ional Health - Occupational Stress [...] any time in the past 12 m [facility], were you homeless or living in a longterm (including now)? No 04/16/2025 Hunger Vital Sign [...] living in a longterm (including now)? No 09/03/2025 [facility] Utilities Answer Date Recorded In [...] AM CDT Legal Sex Female 11:38 PM ACTIONSCRIPT DEVELOPER Gender Identity Female 08/02/2018 5:51 AM CDT [...] st Contact Info) Description 09/17/2025 8:30 AM ACTIONSCRIPT DEVELOPER Appointment [facility] [address] [place] [address],LD [address] [place] [address] [phone] 11/04/2025 8:15 AM ACTIONSCRIPT DEVELOPER Appointment [facility] NEUR[facility] [address] [place] [address] [phone] Isaiah Patel MD [facility] [place] [address] documented as of this encounter Visit Diagnoses Not on filedocumented in this encounter Care Teams Audio/Video Engineer Relationship Specialty Start Date End Date Diane Willams APRN, LISSY [facility] [place] [phone] PCP - General Family Medicine 09/04/25 Vanna Bull MD [address] [place] [address] [phone] Cardiology Physician Cardiology 08/20/24 documented as of this encounter
--- OUTSIDE RECORDS SUMMARY | 2025-09-11 17:53 | XMS_ITS | Patient Health Record ---
Author Organization [facility] Address [address] [facility] [address] [place], [place] [id number] Care Team Providers Care Telecom Sales Consultant Name Role Phone Marleny CARBAJAL, Alma Primary Care Provider Julio César CARBAJAL, Milena Salcido [phone] Reason For Referral No Information Plan Of Treatment No Information
--- OUTSIDE RECORDS SUMMARY | 2025-09-11 17:54 | XMS_ITS | Encounter Summary ---
Author Organization [facility] Address [address] [address] Phone Care Team Providers Care Tool Crib Clerk Name Role Phone Alma Farmer DO Primary Care Provider [phone] Chaya GroveC Primary Care Provider [phone] Sangeeta Steve MD Unavailable [phone] Vanna Bull MD Unavailable [phone] Diane Willams APRN, SENIOR CLINICAL DATA MANAGER Primary Care Provider Reason for Visit * Reason Onset Date Comments Refill Request 10/19/2021 Encounter Details Date Type Department Care Team (Late st Contact Info) Description 10/19/2021 MyH Refill [facility] [address] [place] [address] Alma Farmer DO [address] [place] [address] Social History Tobacco Use Types [...] CDT Legal Sex Female 11:38 PM TELEPHONE COLLECTOR Gender Identity Female 08/02/2018 5:51 AM CDT Sexual Orientation Straight 07/13/2024 10 :55 AM CDT COVID-19 Exposure Response Date Recorded In the last month, have you been in contact with someone who was confirmed or suspected to have Coronavirus / COVID-19? No / Unsure 10/16/2021 12:33 PM TELEPHONE COLLECTOR documented as of this encounter Functional Status [...] Date Author Yes 02/26/2020 1:39 AM MESSIT Turnquist , Hermelinda K, RN documented in this encounter Plan of Treatment Upcoming Encounters Date Type Department Care Team (Late st Contact Info) Description 09/17/2025 8:30 AM TELEPHONE COLLECTOR Appointment [facility] NUTRITION SERVICES [address] [place], [place] [phone] Selena Dela Cruz, RD,LD [address] [place] [address] [phone] 11/04/2025 8:15 AM TELEPHONE COLLECTOR Appointment [facility] NEUROLOG[facility] [address] [place] [address] [phone] Isaiah Patel MD [facility]2 [place], [place] [phone] documented as of this encounter Visit Diagnoses Not on filedocumented in this encounter Additional Health Concerns Infection Onset Date Last Indicated Resolved Time R/O COVID-19 08/12/2022 08/12/2022 08/12/2022 6:11 PM CDT documented as of this encounter Care Teams Tool Crib Clerk Relationship Specialty Start Date End Date Alma Farmer DO [address] [place] [address] [phone] PCP - General Pediatrics 08/31/13 09/12/22 Chaya Grove PAJosephC [address] [place] [address] [phone] PCP - General Family Medicine 09/13/22 09/03/25 Sangeeta Steve MD [address] [place] [address] [phone] PCP - PC Team Family Medicine 06/07/23 09/03/25 Diane Willams APRN, SENIOR CLINICAL DATA MANAGER [facility]5 [place] [phone] PCP - General Family Medicine 09/04/25 Vanna Bull MD [address] [place] [phone] Cardiology Physician Cardiology 08/20/24 documented as of this encounter
--- OUTSIDE RECORDS SUMMARY | 2025-09-11 17:54 | XMS_ITS | Clinical Summary ---
Author Organization [facility] Address [address] [place] [address] Care Team Providers Care Temporary Administrative Assistant Name Role Phone Unavailable Primary Care Provider Unavailabl e Source Comments You are receiving this document as you are listed as the primary care provider,follow-up provider, or the patient has been referred to you for consultation.This is in compliance with the Medicare and[place]healthcaid EHR Incentive Program,which states Providers who transition their patient to another setting of careor provider of care or refers their patient to another provider of care shouldprovide summary care record for each transition of care or referral. [employer] Allergies No known active allergies Medications buPROPion [...] on file Legal Sex Female 5:28 PM HOSPITAL EDUCATOR Gender Identity Not on file Sexual Orientation Not on file Last Filed Vital Signs Vital Sign Reading Time Taken Comments Blood Pressure 138/88 10/22/2021 5:16 PM HOSPITAL EDUCATOR Pulse 88 10/22/2021 5:16 PM HOSPITAL EDUCATOR Temperature - - Respiratory Rate - - Oxygen Saturation - - Inhaled Oxygen Concentration - - Weight 55.3 kg (122 lb) 10/22/2021 5:16 PM HOSPITAL EDUCATOR Height 163.8 cm (5' 4.5) 10/22/2021 5:16 PM HOSPITAL EDUCATOR Body Mass Index 20.62 10/22/2021 5:16 PM HOSPITAL EDUCATOR Plan of Treatment Health Maintenance Due Date Last Done Comments Chlamydia 2004 Hep C Screening (Preventive Services) 2004 MenB Immunization Discussion 2004 HepA Vaccine (2 of 2 - 2-dose series) 10/26/2019 04/26/2019 HIV Screening (Preventive Services) 2020 Adult Preventive Visit 2022 HepB Vaccine (1) 2023 COVID-19 Vaccine (3 - season) 2025 03/07/2021, 02/14/2021 Influenza Vaccine (#1) 2025 , 08/29/2020, 09/04/2019, Additional history exists DTaP/Tdap/Td Vaccine [...]
--- OUTSIDE RECORDS SUMMARY | 2025-09-11 17:54 | XMS_ITS | Encounter Summary ---
Author Organization [facility] Address [address] [address] Phone Care Team Providers Care Supervisor Abattoir Name Role Phone Chaya Grove PA-C Primary Care Provider [phone] Sangeeta Steve MD Unavailable [phone] Vanna Bull MD Unavailable [phone] Reason for Visit * Reason Onset Date Comments Suicidal Ideation 07/31/2025 Encounter Details Date Type Department Care Team (Late st Contact Info) Description 07/31/2025 Nurse Triage [facility] - NURSE CARE LINE [address] [place] [address] Selena Conway, RN Suicidal Ideation Social History Tobacco Use Types Packs/Day Years Used Date Smoking Tobacco: Never Smokeless Tobacco: Never Alcohol Use Standard Drinks/Week Comments Not Currently 0 (1 standard drink = 0.6 oz pur e alcohol) [facility] Utilities Answer Date Recorded In the past 12 months has [employer] electric, gas, oil, or water company threatened [...] often do you attend chur ch or yarsani services? Never 06/07/2025 Do you belong to any clubs o r organizations such as pentecostalism groups, unions, fraternal or athletic groups, or [...] Answer Date Recorded PHQ-2 Total 5 08/01/2025 [facility] - Occupational Stress Questionnaire Answer Date [...] time in the past 12 m [facility], were you homeless or living in a group home (including now)? No 04/16/2025 EH IP Custom [...] AM CDT Legal Sex Female 11:38 PM SUBSTITUTE NURSE Gender Identity Female 08/02/2018 5:51 AM CDT [...] encounter Miscellaneous Notes * Telephone Encounter - Selena Conway RN - 07/31/2025 7:52 PM CDT Chaya Grove PA-C, James Lord MD, Sandra completed the PHQ-9 questionnaire with a positive response to the Suicidal Ideation question and also a level of 4 or 5 (High) on the C-SSRS. Patient was triaged by an RN and the disposition was see in 2-3 days. Sandra has her telehealth appointment with scheduled for 2 days from now, 08/02/25. I encourage her to keep that appointment. She notes that to support her self, she works out, listens to music. Please see Clinical Interventions and Documentation for full assessment. 07/31/2025 7:50 PM C-SSRS (Burnett Suicide Severity Rating Scale) 1. Wish to be Yes 2. Suicidal Thoughts Yes 3. Suicidal Thoughts with Method Without Specific Plan or Intent to Act Yes 4. Suicidal Intent Without Specific Plan Yes 5. Suicide Intent with Specific Plan No 6. Suicide Behavior Question Yes How long ago did you do any of these? Over a year ago 1. Wish to be (MyC) Yes 2. Suicidal Thoughts (MyC) Yes 3. Suicidal Thoughts with Method Without Specific Plan or Intent to Act (MyC) Yes 4. Suicidal Intent Without Specific Plan (MyC) Yes (OPA) 5. Suicide Intent with Specific Plan (MyC) No (OPA) 6. Suicide Behavior Question (MyC) Yes How long ago did you do any of these? (MyC) Over a year ago General Assessment (questions to ask the caller) Presenting Problem - please put in patient's own words: Cold call to patient as a result of level 4/5 BPA alert. I'm okay right now. She is at [facility]. Has telehealth appointment with 08/02/25. Is this a medical emergency?: Yes Can the caller access 911?: Yes Location/Description of Symptoms - Describe symptoms in detail: see PHQ-9 CSSRS Precipitating Factors - Events leading up to the chief complaint: she has had thoughts like this for many years, not attempted since 14. Intake and Output Assessment No data filed Instructed patient/caregiver to call back if symptoms worsen or if new symptoms develop. Was the patient offered a Video Visit on Demand? No. Already scheduled for 08/02/25 Reason for Conversation Suicidal Ideation Protocols Used [id number] Suicide [id number] Reason for Disposition Depression is main symptom and is not threatening suicide Requesting to talk with a counselor (mental health worker, psychiatrist, etc.) Negative: Questions or concerns about alcohol use, unhealthy alcohol use, binge drinking, intoxication, or withdrawal Socially drinking with friends, goes out every other weekend. Negative: Questions or concerns about substance use (drug use), unhealthy drug use, intoxication, or withdrawal Occassional THC. Last use was 2 weeks ago. Negative: Questions or concerns about bipolar disorder (manic depression) Not diagnosed with bipolar. Negative: [1] Depression AND [2] getting worse (e.g., sleeping poorly, less able to do activities of daily living) Notes remains high-functioning. This isn't the worst, but not great right now. Disposition See HCP within 3 days, See more appropriate guideline documented in this encounter Plan of Treatment Upcoming Encounters Date Type Department Care Team (Late st Contact Info) Description 09/17/2025 8:30 AM SUBSTITUTE NURSE Appointment [facility] NUTRITION [facility] [address] [place] [address] Selena Dela Cruz, RD,LD [address] [place] [phone] 11/04/2025 8:15 AM SUBSTITUTE NURSE Appointment [facility] NEUROLOG[facility] [address] [place] [address] [phone] Isaiah Patel MD [facility] [place], [place] [phone] documented as of this encounter Visit Diagnoses Not on filedocumented in this encounter Care Teams Supervisor Abattoir Relationship Specialty Start Date End Date Chaya Grove PA-C [address] [place] [address] [phone] PCP - General Family Medicine 09/13/22 09/03/25 Sangeeta Steve MD [address] [place] [address] [phone] PCP - PC Team Family Medicine 06/07/23 09/03/25 Vanna Bull MD [address] [place] [phone] Cardiology Physician Cardiology 08/20/24 documented as of this encounter
--- OUTSIDE RECORDS SUMMARY | 2025-09-11 17:54 | XMS_ITS | Encounter Summary ---
Author Organization [place] Address [address] [place] [address]. [place] [address] Care Team Providers Care Diagnostic Technologist Name Role Phone No Ref-Primary, Physician Primary Care Provider Olinda Guadalupe PA-C Unavailable [phone] Lillian Buck MD Unavailable [phone] Encounter Details Date Type Department Care Team (Late st Contact Info) Description 07/22/2025 MyC Medical Advice [facility] [place] [address] [place] [phone] Lillian Buck MD [address] [place] [id number] Social History Tobacco Use Types Packs/Day Years Used Date Smoking Tobacco: Never Smokeless Tobacco: Never Alcohol Use Standard Drinks/Week Comments Yes 0 (1 standard drink = 0.6 oz pur e alcohol) social PHQ-2 Answer Date Recorded PHQ-2 Score 5 05/06/2025 Food Insecurity Answer Date Recorded Within the past 12 months, d id you worry that your food would run out before you got money to buy more? No 04/25/2025 Within the past 12 months, d id the food you bought just not last and you didn t have money to get more? No 04/25/2025 Housing Stability Answer Date Recorded Do you have housing? (Housin g is defined as stable permanent housing and does not include staying outside in a car, in a tent, in an abandoned building, in an overnight group home, or couch-surfing.) Yes 04/25/2025 Are you worried about losing your housing? No 04/25/2025 Financial Resource Strain Answer Date R ecorded Within the past 12 months, h ave you or your family members you live with been unable to get utilities (heat, electricity) when it was really needed? No 04/25/2025 Transportation Needs Answer Date Record ed Within the past 12 months, h as lack of transportation kept you from medical appointments, getting your medicines, non-medical meetings or appointments, work, or from getting things that you need? No 04/25/2025 Interpersonal Safety Answer Date Record ed Do you feel physically and e motionally safe where you currently live? Yes 04/24/2025 Within the past 12 months, h ave you been hit, slapped, kicked or otherwise physically hurt by someone? No 04/24/2025 Within the past 12 months, h ave you been humiliated or emotionally abused in other ways by your partner or ex-partner? No 04/24/2025 Comments No Sex and Gender Information Value Date Recorded Sex Assigned at Not on file Legal Sex Female 2:06 PM IT HELP DESK ASSOCIATE Gender Identity Not on file Sexual Orientation Not on file documented as of this encounter Plan of Treatment Not on file documented as of this encounter Goals Goal Patient Goal Type Associated Problems Recent Progress Patient-Stated? Author MYC ECC SURG ENROLL Care Plan MyC ECC SURG ENROLL No Eva Sanders Care pathway for general surgery Care Plan Care pathway for general surgery No Karis Cooper MYC ECC SURG DAY 10 MED Care Plan Care pathway for general surgery No Karis Cooper MYC ECC SURG DAY 4 PREVENT BLOOD CLOT - GOAL Care Plan Care pathway for general surgery No Karis Cooper documented as of this encounter Visit Diagnoses Not on filedocumented in this encounter Additional Health Concerns Active Problems Noted Date Diagnosed Date MyC ECC SURG ENROLL 04/02/2025 Care pathway for general surgery 04/02/2025 Assessment Noted Time PHQ-9 Depression Total Score: 12 025 1:09 AM CDT documented as of this encounter Care Teams Diagnostic Technologist Relationship Specialty Start Date End Date No Ref-Primary, Physician PCP - General 03/05/25 Olinda Guadalupe, MELODY [address] [place] [address] Assigned Heart and Vascular Surgical Provider 06/05/25 08/05/25 Lillian Buck MD [address] [address] Assigned Heart and Vascular Surgical Provider 08/06/25 documented as of this encounter
--- OUTSIDE RECORDS SUMMARY | 2025-09-11 17:54 | XMS_ITS | Encounter Summary ---
Author Organization [facility] Address [address] [address] Phone Care Team Providers Care Blankbook Stitching Machine Operator Name Role Phone Chaya Grove PA-C Primary Care Provider [phone] Sangeeta Steve MD Unavailable [phone] Vanna Bull MD Unavailable [phone] Encounter Details Date Type Department Care Team (Latest Contact Info) Description 07/31/2025 Travel Social History Tobacco Use Types Packs/Day Years Used Date Smoking Tobacco: Never Smokeless Tobacco: Never Alcohol Use Standard Drinks/Week Comments Not Currently 0 (1 standard drink = 0.6 oz pur e alcohol) [facility] Utilities Answer Date Recorded In the past 12 months has [employer], gas, oil, or water [employer] threatened to shut off services in your home? No 04/16/2025 Social Connection and Isolation Panel Answer Date Recorded In a typical week, how many times do you talk on the phone with family, friends, or neighbors? Once a week 06/07/2025 How often do you get togethe r with friends or relatives? Once a week 06/07/2025 How often do you attend chur ch or confucianism services? Never 06/07/2025 Do you belong to any clubs o r organizations such as advent groups, unions, fraternal or athletic groups, or [...] Date Recorded PHQ-2 Total 5 08/01/2025 [facility] - Occupational Stress Questionnaire Answer Date [...] any time in the past 12 m [facility], were you homeless or living in a assisted (including now)? No 04/16/2025 EH IP Custom [...] AM CDT Legal Sex Female 11:38 PM BONE WORKER Gender Identity Female 08/02/2018 5:51 AM CDT [...] st Contact Info) Description 09/17/2025 8:30 AM BONE WORKER Appointment [facility] [address] [place] [address] Selena Dela Cruz, RD,LD [address] [place] [id number] 11/04/2025 8:15 AM BONE WORKER Appointment [facility] [address] [place] [address] Isaiah Patel MD [address] [place], [place] [id number] documented as of this encounter Visit Diagnoses Not on filedocumented in this encounter Care Teams Blankbook Stitching Machine Operator Relationship Specialty Start Date End Date Chaya Grove PA-C [address] [place] [address] PCP - General Family Medicine 09/13/22 09/03/25 Sangeeta Steve MD [address] [place] [address] PCP - PC Team Family Medicine 06/07/23 09/03/25 Vanna Bull MD [address] [place] [address] [phone] Cardiology Physician Cardiology 08/20/24 documented as of this encounter
--- OUTSIDE RECORDS SUMMARY | 2025-09-11 17:54 | XMS_ITS | Encounter Summary ---
Author Organization [facility] Address [address] [address] Phone Care Team Providers Care Pbx Operator Name Role Phone Chaya Grove PA-C Primary Care Provider [phone] Sangeeta Steve MD Unavailable [phone] Vanna Bull MD Unavailable [phone] Encounter Details Date Type Department Care Team (Latest Contact Info) Description 09/03/2025 Travel Social History Tobacco Use Types Packs/Day Years Used Date Smoking Tobacco: Never Smokeless Tobacco: Never Alcohol Use Standard Drinks/Week Comments Not Currently 0 (1 standard drink = 0.6 oz pur e alcohol) [facility] Utilities Answer Date Recorded In the past 12 months has [employer], gas, oil, or water [employer] threatened to shut off services in your home? No 04/16/2025 Social Connection and Isolation Panel Answer Date Recorded In a typical week, how many times do you talk on the phone with family, friends, or neighbors? Once a week 06/07/2025 How often do you get togethe r with friends or relatives? Once a week 06/07/2025 How often do you attend chur ch or scientologist services? Never 06/07/2025 Do you belong to any clubs o r organizations such as worship groups, unions, fraternal or athletic groups, or [...] Answer Date Recorded PHQ-2 Total 4 09/03/2025 [facility] Occupat ional [facility] - Occupational Stress Questionnaire Answer Date [...] in a long term (including now)? No 04/16/2025 Hunger Vital Sign [...] in a long term (including now)? No 09/03/2025 [facility] Utilities Answer Date Recorded In the past [...] AM CDT Legal Sex Female 11:38 PM SUMO WRESTLER Gender Identity Female 08/02/2018 5:51 AM CDT Sexual Orientation Straight 07/13/2024 10 :55 AM CDT documented as of this encounter Functional Status * Patient's Vision Adequate to Safely Complete Daily Activities Answer Date of Assessment Author Yes 02/26/2020 1:39 AM Hermelinda Sharma RN * Patient's Memory Adequate to Safely [...] st Contact Info) Description 09/17/2025 8:30 AM SUMO WRESTLER Appointment [facility] [address] [place], [place] [phone] Selena Dela Cruz RD,LD [address] [place] [address] [phone] 11/04/2025 8:15 AM SUMO WRESTLER Appointment [facility] NEUR[facility] [address] [place] [phone] Isaiah Patel MD [facility] [place], [place] [address] documented as of this encounter Visit Diagnoses Not on filedocumented in this encounter Care Teams Pbx Operator Relationship Specialty Start Date End Date Chaya Grove PA-C [address] [place] [address] [phone] PCP - General Family Medicine 09/13/22 09/03/25 Sangeeta Steve MD [address] [place] [address] [phone] PCP - PC Team Family Medicine 06/07/23 09/03/25 Vanna Bull MD [address] [place] [address] [phone] Cardiology Physician Cardiology 08/20/24 documented as of this encounter
--- OUTSIDE RECORDS SUMMARY | 2025-09-11 17:54 | XMS_ITS | Encounter Summary ---
Author Organization [facility] Address [address] [address] Phone Care Team Providers Care Staff Mechanical Engineer Name Role Phone Vanna Bull MD Unavailable [phone] Diane Willams APRN, PARIMUTUEL TICKET CASHIER Primary Care Provider Encounter Details Date Type Department Care Team (Latest Contact Info) Description 09/10/2025 Travel Social History Tobacco Use Types Packs/Day Years Used Date Smoking Tobacco: Never Smokeless Tobacco: Never Alcohol Use Standard Drinks/Week Comments Not Currently 0 (1 standard drink = 0.6 oz pur e alcohol) [facility] Utilities Answer Date Recorded In the past 12 months has [employer], gas, oil, or water company threatened to [...] often do you attend chur ch or spiritism services? Never 06/07/2025 Do you belong to any clubs o r organizations such as yazidi groups, unions, fraternal or athletic groups, or [...] Answer Date Recorded PHQ-2 Total 4 09/03/2025 [facility] of Occupat ional Health - Occupational Stress [...] any time in the past 12 m [facility], were you homeless or living in a senior living (including now)? No 04/16/2025 Hunger Vital Sign [...] in a senior living (including now)? No 09/03/2025 [facility] Utilities Answer Date Recorded In the past [...] AM CDT Legal Sex Female 11:38 PM SEPARATING MACHINE OPERATOR Gender Identity Female 08/02/2018 5:51 [...] st Contact Info) Description 09/17/2025 8:30 AM SEPARATING MACHINE OPERATOR Appointment [facility] [address] [place] [address],LD [address] [place] [phone] 11/04/2025 8:15 AM SEPARATING MACHINE OPERATOR Appointment [facility] NEUR[facility] [address] [place] [phone] Isaiah Patel MD [facility] [place] [address] documented as of this encounter Visit Diagnoses Not on filedocumented in this encounter Care Teams Staff Mechanical Engineer Relationship Specialty Start Date End Date Diane Willams APRN, LISSY [facility] [place] [address] PCP - General Family Medicine 09/04/25 Vanna Bull MD [address] [place] [phone] Cardiology Physician Cardiology 08/20/24 documented as of this encounter
--- OUTSIDE RECORDS SUMMARY | 2025-09-11 17:54 | XMS_ITS | Encounter Summary ---
Author Organization [place] Address [facility] [place] [address] Care Team Providers Care Nailhead Operator Name Role Phone No Ref-Primary, Physician Primary Care Provider Noé Raphael MD Unavailable [phone] Olinda Guadalupe PA-C Unavailable [phone] Lillian Buck MD Unavailable [phone] Encounter Details Date Type Department Care Team (Late st Contact Info) Description 04/03/2025 [facility] Medical Advice [facility] [place] [id number] [facility] [address] [phone] Karis Cooper Social History Tobacco Use Types Packs/Day Years Used Date Smoking Tobacco: Never Smokeless Tobacco: Never Alcohol Use Standard Drinks/Week Comments Yes 0 (1 standard drink = 0.6 oz pur e alcohol) social PHQ-2 Answer Date Recorded PHQ-2 Score 2 04/02/2025 Comments Unknown Sex and Gender Information Value Date Recorded Sex Assigned at Not on file Legal Sex Female 2:06 PM AQUATIC BIOLOGIST Gender Identity Not on file Sexual Orientation [...] 04/02/2025 Care pathway for general surgery 04/02/2025 documented as of this encounter Care Teams Nailhead Operator Relationship Specialty Start Date End Date No Ref-Primary, Physician PCP - General 03/05/25 Noé Raphael MD [address] [place] [address] Assigned Heart and Vascular Surgical Provider 05/06/25 06/04/25 Olinda Guadalupe PA-C [address] [place] [address] Assigned Heart and Vascular Surgical Provider 06/05/25 08/05/25 Lillian Buck MD [address] [address] Assigned Heart and Vascular Surgical Provider 08/06/25 documented as of this encounter
--- OUTSIDE RECORDS SUMMARY | 2025-09-11 17:54 | XMS_ITS | Encounter Summary ---
Author Organization [facility] Address [address] [address] Phone Care Team Providers Care Food And Beverage Attendant Name Role Phone Alma Farmer DO Primary Care Provider [phone] Chaya GroveC Primary Care Provider [phone] Sangeeta Steve MD Unavailable [phone] Vanna Bull MD Unavailable [phone] Diane Willams APRN, CRULLER MAKER MACHINE Primary Care Provider Reason for Visit * Reason Onset Date Comments Refill Request 04/14/2020 Encounter Details Date Type Department Care Team (Late st Contact Info) Description 04/14/2020 MyH Refill [facility] [address] [place] [address] Nisha Arrieta MD, FACOG [address] [place] [address] Social History Tobacco Use Types [...] AM CDT Legal Sex Female 11:38 PM CLINICAL APPLICATION MANAGER Gender Identity Female 08/02/2018 5:51 AM [...] st Contact Info) Description 09/17/2025 8:30 AM CLINICAL APPLICATION MANAGER Appointment [facility] N[facility] [address] [place], [place] [address] Selena Dela Cruz RD,LD [address] [place] [phone] 11/04/2025 8:15 AM CLINICAL APPLICATION MANAGER Appointment [facility] [address] [place], [place] [phone] Isaiah Patel MD [address] [place], [place] [address] documented as of this encounter Visit Diagnoses Not on filedocumented in this encounter Additional Health Concerns Infection Onset Date Last Indicated Resolved Time R/O COVID-19 06/26/2020 06/26/2020 06/28/2020 6:50 AM CDT R/O COVID-19 08/12/2022 08/12/2022 08/12/2022 6:11 PM CDT documented as of this encounter Care Teams Food And Beverage Attendant Relationship Specialty Start Date End Date Alma Farmer DO [address] [place], [place] [address] PCP - General Pediatrics 08/31/13 09/12/22 Chaya Grove PA-C [address] [place] [address] [phone] PCP - General Family Medicine 09/13/22 09/03/25 Sangeeta Steve MD [address] [place] [address] [phone] PCP - PC Team Family Medicine 06/07/23 09/03/25 Diane Willams, ADVERTISING COPYWRITER, CRULLER MAKER MACHINE [address] [place] [phone] PCP - General Family Medicine 09/04/25 Vanna Bull MD [address] [place] [address] [phone] Cardiology Physician Cardiology 08/20/24 documented as of this encounter
--- OUTSIDE RECORDS SUMMARY | 2025-09-11 17:54 | XMS_ITS | Clinical Summary ---
Author Organization [facility] Address [address] [place] [id number] Care Team Providers Care Buttoner Name Role Phone No Ref-Primary, Physician Primary Care Provider Lillian Buck MD Unavailable [phone] Allergies Active Allergy Reactions Criticality Noted Date Comments Cats Shortness Of Breath,Dermatitis,Hives, Itching,Swelling,Rash High 06/12/2020 Red, watery, swelling, itchy eyes. Itchy throat and nose. Medications * This document contains information received from the source organization and may not represent a complete record from that organization. escitalopram (LEXAPRO) 20 MG tablet Take 20 mg by mouth daily. 5 Active clindamycin (CLEOCIN T) 1 % external lotion Apply topically 2 times daily. 4 Active tretinoin (RETIN-A) 0.05 % external cream Apply topically at bedtime. 4 Active levalbuterol (XOPENEX HFA) 45 MCG/ACT inhaler Inhale 1-2 puffs into the lungs every 4 hours as needed for wheezing. 4 Active fluticasone (FLOVENT HFA) 110 MCG/ACT inhaler Inhale 2 puffs into the lungs 2 times daily. 4 Active hydrOXYzine HCl (ATARAX) 10 MG tablet Take 10 mg by mouth 3 times daily as needed for itching. Active ondansetron (ZOFRAN ODT) 4 MG ODT tabIndications: Popliteal artery entrapment syndrome,Post-o p pain Take 1 tablet (4 mg) by mouth every 8 hours as needed for nausea. 4 tablet 5 Active ibuprofen (ADVIL/MOTRIN) 200 MG tabletIndicatio ns:Popliteal artery entrapment syndrome,Post-o p pain Take 3 tablets (600 mg) by mouth 4 times daily. 5 Active lamoTRIgine (LAMICTAL) 25 MG tabletIndicatio ns:Major depressive disorder with single episode, in full remission Take 1 tablet (25 mg) by mouth daily. 90 tablet 5 Active buPROPion (WELLBUTRIN) 75 MG tabletIndicatio ns:Major depressive disorder with single episode, in full remission Take 1 tablet (75 mg) by mouth daily. 90 tablet 5 Active levonorgestrel (KYLEENA) 19.5 MG IUD 1 Intra Uterine Device by Intrauterine route. 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 Post-op pain 04/24/2025 Psychogenic nonepileptic seizure 04/24/2025 Anesthesia complication requ iring reversal agent administration 12/17/2024 Personal history of nonsuicidal self-harm 2023 Suicidal ideation 08/13/2024 Acute medial meniscus tear of right knee, initia l encounter 06/21/2024 Right knee pain 06/21/2024 Major depressive disorder wi th single episode, in full remission 12/31/2019 MALVIN (generalized anxiety disorder) 12/31/2019 Parent/child conflict 12/31/2019 Dysmenorrhea in adolescent 12/24/2019 Irregular periods 12/24/2019 Myopia, bilateral 04/07/2017 Chest wall asymmetry 09/23/2008 Encounters Date Type Department Care Team Description 07/22/2025 10:20 AM CDT Virtual Visit [facility] [address] [place] [phone] Lillian Buck MD Popliteal artery entrapment syndrome 07/22/2025 MyC Medical Advice [facility] [address] [place] [phone] Lillian Buck MD from Last 3 Months Immunizations Immunization Administration Dates Next Due DTAP (<7y) 09/23/2008,12/24/2005 DTaP/HepB/IPV 03/29/2005,01/27/2005,2004 HIB(PRP-OMP)(PedvaxHIB) 09/16/2005,01/27/2005, HPV9 (Gardasil) 09/24/2016,09/15/2015 Hepatitis A (Vaqta/Havrix)(P eds 12m-18y) 04/06/2023,04/26/2019 Influenza (H1N1) 11/10/2009,09/22/2009, 9 Influenza Intranasal Vaccine 08/22/2015, 08/23/2014,09/01/2012,09/02,09/21/2010,09/16/2009,09/23/2008 Influenza Vaccine >6 months,quad, PF 02/2023,09/14/2022,10/16/2021,08/29,09/04/2019,08/22/2018,09/16/2017 Influenza Vaccine, 6+MO IM (QUADRIVALENT W/PRESERVATIVES) 08/25/2016 Influenza, Split Virus, Triv alent, Pf (Fluzone\Fluarix) 07/16/2025,08/16/2024,09/21/2007,09/14,10/19/2005,09/16/2005 MMR (MMRII) 09/16/2009,09/16/2005 Meningococcal ACWY (Menactra ) 09/15/2015 Meningococcal ACWY (Menveo ) 10/23/2020 Meningococcal B (Bexsero ) 09/14/2022,12/18/2021 Nasal Influenza Vaccine 2-49 (FluMist) 3 Pneumococcal (PCV 7) 09/16/2005,03/29/20,01/27/2005,11/25 Poliovirus, inactivated (IPV) 09/21/2010 TDAP (Adacel,Boostrix) 06/24/2025,09/15/2015 Typhoid IM 04/06/2023 Varicella (Varivax) 09/16/2009,12/24/2005 Social History Tobacco Use Types Packs/Day Years Used Date Smoking Tobacco: Never Smokeless Tobacco: Never Tobacco Cessation:Counseling Given: Not Answered Alcohol Use Standard Drinks/Week Comments Yes 0 [...] in an abandoned building, in an overnight long-term, or couch-surfing.) Yes 04/25/2025 Are you worried [...] on file Legal Sex Female 2:06 PM TRAINING AND DEVELOPMENT SPECIALIST Gender Identity Not on file Sexual Orientation Not on file Last Filed Vital Signs Vital Sign Reading Time Taken Comments Blood Pressure 138/97 05/06/2025 1:58 PM CDT Pulse 125 05/06/2025 1:58 PM CDT Temperature 36.5 C (97.7 F) 04/27/2025 7:36 AM CDT Respiratory Rate 18 04/27/2025 7:36 AM CDT Oxygen Saturation 99% 04/27/2025 7:36 AM CDT Inhaled Oxygen Concentration - - Weight 78.8 kg (173 lb 12.8 oz) 04/24/2025 6:09 AM CDT Height 165.1 cm (5' 5) 04/24/2025 6:09 AM CDT Body Mass Index 28.92 04/24/2025 6:09 AM CDT Plan of Treatment Health Maintenance Due Date Last Done Comments ADVANCE CARE PLANNING 2004 ANNUAL REVIEW OF HM ORDERS 2004 DEPRESSION ACTION PLAN 2004 HIV SCREENING 2019 HEPATITIS C SCREENING 2022 COVID-19 VACCINE ( season) 2025 08/16/2024, 08/17/2023, 09/14/2022, Additional history exists PHQ-9 11/05/2025 05/06/2025 YEARLY PREVENTIVE VISIT 06/07/2026 06/07/20 25, 09/13/2022, 10/16/2021, Additional history exists CHLAMYDIA SCREENING 06/26/2026 06/26/2025, 04/16/2025, 04/16/2025, Additional history exists DTAP/TDAP/TD VACCINE (8 - Td or Tdap) 06/24/2035 06/24/2025, 09/15/2015, 09/23/2008, Additional history exists ZOSTER VACCINE (1 of 2) 2054 HEPATITIS B VACCINE Completed 03/29/2005, 01/27/2005, 2004 PNEUMOCOCCAL VACCINE: PEDIATRICS (0 to 5 YEARS) AND AT-RISK PATIENTS (6 to 49 YEARS) Aged Out 09/16/2005, 03/29/2005, 01/27/2005, Additional history exists No longer eligible based on patient's age to complete this topic HPV VACCINE Completed 09/24/2016, 09/15/2015 MENINGITIS VACCINE Completed 10/23/2020, 09/15/2015 MENINGITIS B VACCINE Completed 09/14/2022, 12/18/19 22 INFLUENZA VACCINE Completed 07/16/2025, , 08/17/2023, Additional history exists Goals Goal Patient Goal Type Associated Problems Recent Progress Patient-Stated? Author MYC ECC SURG ENROLL Care Plan MyC ECC SURG ENROLL No Eva Sanders Care pathway for general surgery Care Plan Care pathway for general surgery No SidfidelinaKaris MYC ECC SURG DAY 10 MED Care Plan Care pathway for general surgery No SidazucenaKaris ortiz MYC ECC SURG DAY 4 PREVENT BLOOD CLOT - GOAL Care Plan Care pathway for general surgery No SidfidelinaKaris Procedures Procedure Name Priority Date/Time Associated Diagnosis Comments CHLAMYDIA TRACHOMATIS PCR (EXTERNAL RESULT) Routine 04/16/2025 10:50 AM CDT from Last 3 Months or Most Recently Relevant to Health Maintenance Results * Chlamydia Trachomatis PCR (External Result) (04/16/2025 10:50 AM CDT) Specimen Description Urine [facility] Chlamydia Trachomatis PCR Not Detected Negative [facility] 04/16/2025 10:5 0 AM CDT Narrative [facility] - 04/16/2025 10:50 AM CDT [facility]- External Lab Results us Provider Outside LAB - HIM EXTERNAL RESULT Edite d Result - Final [facility] [address] [place] [address], [facility] [phone] from Last 3 Months or Most Recently Relevant to Health Maintenance Additional Health Concerns Active Problems Noted Date Diagnosed Date MyC ECC SURG ENROLL 04/02/2025 Care pathway for general surgery 04/02/2025 Insurance MEDICA CHOICE MEDICA CHOICE [address] [place] [id number] [facility] Advance Directives For more information, please contact: [phone] * Full Code (Latest Code Status on File) Date Activated Date Inactivated Comments 04/24/2025 12:04 PM 04/27/2025 1:17 PM All basic a nd advanced life-sustaining interventions are performed as appropriate Question Answer Comments Code status determined by: Discussion with patie nt/ legal decision maker Care Teams Buttoner Relationship Specialty Start Date End Date No Ref-Primary, Physician PCP - General 03/05/25 Lillian Buck MD [id number] [id number] Assigned Heart and Vascular Surgical Provider 08/06/25
--- OUTSIDE RECORDS SUMMARY | 2025-09-11 17:54 | XMS_ITS | Clinical Summary ---
Author Organization [facility] Address [address] [place] [id number] Care Team Providers Care Ship'S Engineer Name Role Phone Evancheikh Alma Kimberly Primary Care Provider Allergies No known [...] meniscus tear of right knee 06/21/2024 03/14/2025 Immunizations Immunization Administration Dates Next Due DTaP 09/23/2008,12/24/2005 [id number] (Pediarix) 03/29/2005,01/27/2005,0 2004 HIB PRP-OMP (PedvaxHIB) 09/16/2005,01/27/2005, [...] on file Legal Sex Female 3:48 PM TRAY SETTER Gender Identity Not on file Sexual Orientation [...] Hepatitis C screening for age 18-79 2022 Influenza Vaccine (#1) 2025 4, 08/17/2023, 09/14/2022, Additional history exists Tetanus booster 09/15/2025 09/15/2015 BMI (ht and wt on same day) for age 18+ 03/14/2026 03/14/2025 RSV vaccine for adults or (1 - 1-dose 75+ series) 2079 Hepatitis B series for 19+ Completed 03/29, 01/27/2005, 2004 Pneumococcal series for age 6-49 Aged Out 09/16/2005, 03/29/2005, 01/27/2005, Additional history exists No longer eligible based on patient's age to complete this topic HPV series for age 9-45 Completed 09/24/2016, 09/15 Meningococcal series for age 11-21 Completed 10/23/2020, 09/15/2015 Insurance MEDICA CHOICE [place] [id number] [place] [id number] Care Teams Ship'S Engineer Relationship Specialty Start Date End Date Alma Farmer [address] [place] [id number] PCP - General Family Practice 09/02/17
[2025-09-11] MEDS: LIDOCAINE 5% PATCH 1 PATCH TRANSDERMA (19:08)
== END 2025-09-11 19:22 | disposition home or self-care (01) ==
PROVIDERS: Emergency Provider Family Medicine
DX: S40.012A Contusion of left shoulder, initial encounter (principal); S20.214A Contusion of middle front wall of thorax, initial encounter; W21.89XA Striking against or struck by other sports equipment, initial encounter; Y93.57 Activity, non-running track and field events
CPT/HCPCS: 71101; 99283; 99284; A9270